=== PATIENT | female | born 1940 | race Caucasian/White ===

== ENCOUNTER 2020-04-03 19:21 | Observation (INO) | payer MEDICARE, SELFPAY ==
--- NOTE | ~2020-04-03 | XR_ITS ---
EXAMINATION: XR chest 2V EXAM DATE: 04/03/2020 20:26 INDICATION: Left-sided chest pain, rib pain. TECHNIQUE: Frontal and lateral projections of the chest obtained and reviewed. Comparison is made to prior examination from 02/07/2011. FINDINGS: The lungs are clear. There are no pleural effusions. The cardiomediastinal silhouette is within normal limits. There is no pneumothorax suspected. The bones and soft tissues are unremarkab le. Mild chronic hyperinflation. Lumbar fusion hardware. IMPRESSION: No acute cardiopulmonary findings. Reviewed, dictated and finalized at location A.
--- NOTE | ~2020-04-03 | CT_ITS ---
EXAMINATION: CTA chest PE protocol DATE: 04/04/2020 00:29 INDICATION: Left chest pain. TECHNIQUE: Computed tomography angiography (CTA) of the chest was performed with 100 mL Omnipaque-350 intravenous contrast timed to evaluate the pulmonary arteries. Coronal maximum intensity projection 3D-reconstructions were created by the technologist. Automated exposure control and iterative reconst ruction technique were employed. The dose-length product was 222.85 mGy-cm. COMPARISON: Chest 2 views 04/03/2020 FINDINGS: The lungs demonstrate mild atelectasis. There is a 4 mm nodule in left lower lobe, likely b enign. There is a 4 mm nodule in right middle lobe, likely benign. No pleural effusion. The heart siz e is normal. No pericardial effusion. There are coronary artery calcifications. There are pulmonary e mboli in laterobasal and posterobasal segments of right lower lobe. Filling defects in right upper lo be pulmonary arteries may be artifact. Calcified right hilar and subcarinal lymph nodes are consisten t with old granulomatous disease. There are gallstones in the gallbladder. There is a small sliding h iatal hernia. There is moderate thoracic spondylosis. IMPRESSION: 1. Pulmonary emboli in right lower lobe. Reviewed, dictated and finalized at location A.
--- NOTE | ~2020-04-03 | US_ITS ---
EXAMINATION: US venous doppler [facility] DATE: 04/04/2020 11:38 INDICATION: Left chest pain, pulmonary embolism TECHNIQUE: Biswas scale images without and with compression and Doppler images of the bilateral lower e xtremity veins were obtained. COMPARISON: None FINDINGS: The right common femoral vein, profunda femoral vein, femoral vein, popliteal vein, peroneal trunk, a nd posterior tibial veins are patent. The left common femoral vein, profunda femoral vein, femoral vein, popliteal vein, peroneal trunk, an d posterior tibial veins are patent. IMPRESSION: 1. Patent bilateral lower extremity veins. No evidence of deep venous thrombosis. Reviewed, dictated and finalized at location A. IMPRESSION: 1. Patent bilateral lower extremity veins. No evidence of deep venous thrombosi s.
--- NOTE | 2020-04-03 19:30 | ECG_ITS ---
Measurements Intervals [place] Rate: 93 P: 10 PA: 128 QRS: -34 QRSD: 85 T: 42 QT: 331 QTc: 414 Interpretive Statements SINUS RHYTHM LEFT AXIS DEVIATION INCOMPLETE RIGHT BUNDLE BRANCH BLOCK DELAYED PRECORDIAL R/S TRANSITION LOW QRS VOLTAGE IN PRECORDIAL LEADS BORDERLINE ECG Electronically Signed On 04-04-2020 7:09:06 CDT by Daniel Davidson D.O.
[2020-04-03 19:31] VITALS: BP 155/77; PULSE 96; RESP 16; TEMP 37.1; O2SAT 99
[2020-04-03 19:49] LABS: Basophils Percent Auto 0.3 % (0.2-1.2); Eosinophils Percent Auto 0.3 % (0-4.4); Hematocrit 43.6 % (37.0-47.0); Hemoglobin 14.2 g/dL (12.0-15.0); Immature Granulocyte Absolute 0.02 K/mm3 (0.00-0.031); Immature Granulocyte Percent A 0.3 % (0-0.5); Lymphocytes Absolute Auto 2.75 K/mm3 (0.9-3.2); Lymphocytes Percent Auto 39.8 % (18.3-44.2); Mean Corpuscular HGB Conc 32.6 g/dl (32-36); Mean Corpuscular Hemoglobin 33.3 pg (26-34); Mean Corpuscular Volume 102.3 fl (80-100); Mean Platelet Volume 9.4 fl (7.4-10.4); Monocytes Absolute Auto 0.6 K/mm3 (0.1-0.6); Monocytes Percent Auto 8.7 % (2.6-8.5); Neutrophils Absolute Auto 3.5 K/mm3 (1.3-6.7); Neutrophils Percent Auto 50.6 % (45.5-73.1); Platelet Count Result 279 k/mm3 (150-375); Red Blood Count 4.26 M/mm3 (4.2-5.4); Red Cell Distribution Width 13.6 % (11.5-14.5); White Blood Count 6.9 K/mm3 (4.5-10.0)
[2020-04-03 20:01] LABS: Blood Urea Nitrogen 11 mg/dL (7-17); Calcium 9.6 mg/dL (8.4-10.2); Carbon Dioxide 27 mmol/L (22-30); Chloride 104 mmol/L (98-107); Estimated Glomerular Filt Rate > 60; Glucose 99 mg/dL (65-105); Potassium 4.2 mmol/L (3.4-5.0); Sodium 138 mmol/L (137-145)
[2020-04-03 20:03] LABS: Prothrombin Time 12.4 Seconds (11.1-14.7)
[2020-04-03 20:04] LABS: Partial Thromboplastin Time 25.6 SECONDS (22.3-36.8)
[2020-04-03 20:13] LABS: Troponin I < 0.012 ng/mL (0.000-0.034)
[2020-04-03 21:38] VITALS: BP 165/82; PULSE 77; RESP 20; O2SAT 99
[2020-04-03] MEDS: ASPIRIN 81 MG CHEWABLE TABLET 324 MG PO (22:27)
[2020-04-03 23:04] LABS: Troponin I < 0.012 ng/mL (0.000-0.034)
[2020-04-03 23:09] VITALS: BP 158/75; PULSE 89; RESP 16; O2SAT 97
--- NOTE | 2020-04-03 23:10 | PC.NURSE ---
assumed care of patient
--- NOTE | 2020-04-03 23:41 | ED.CHESTPAIN ---
HPI - Chest Pain General Chief Complaint: Chest Pain Stated Complaint: rib pain Time Seen by Provider: 04/03/20 22:55 Source: patient Mode of arrival: ambulatory Limitations: no limitations History of Present Illness HPI narrative: THis patient is a 79 yo female who presents with c/o left anterior chest pain. Patient states she has been doing alot of lifting today. She states for 2 hours she was carrying a large amount of cabbage. Once she got home, she developed left anterior chest pressure. She reports her pain waxes and wanes. She is unable to state if pain with worsen with exertion or movement. She denies associated nausea, vomiting, dizziness or shortness of breath. She denies cardiac history, and she had negative stress test years ago. She states she had a doppler of her left leg that showed blood clot last week. She was told to just apply warm compress and she states it has resolved. MD complaint: chest pain Onset (ago): hour(s) Related Data Home Medications Medication Instructions Recorded Confirmed B6 200 mg-levomefolate 8 mg-B12 4 1 tablet PO DAILY 01/25/20 04/04/20 mg-ALA 600 mg-intrinsic fact tablet cranberry dywi-P-ahndqprb coag 450 1 tablet PO DAILY 01/25/20 04/04/20 mg-30 mg-50 million cell tablet cyanocobalamin (B12)-cobamamide 1 bjorn SUBLINGUAL DAILY 01/25/20 04/04/20 5,000 mcg-100 mcg sublingual lozenge estradiol 1 gm VAGINAL 2XW PRN 01/25/20 04/04/20 omega 1-ngw-nvv-fish oil 100 1 cap PO 3XW 01/25/20 04/04/20 mg-160 mg-1,000 mg capsule aspirin [Adult Low Dose Aspirin] 81 mg PO DAILY 04/04/20 04/04/20 vit C-vit P-ocbdmf-tpnv-lutein 1 cap PO DAILY 04/04/20 04/04/20 [PreserVision Lutein] Allergies Allergy/AdvReac Type Severity Reaction Status Date / Time simvastatin Allergy Unknown Muscle pain Verified 01/25/20 09:43 morphine AdvReac Unknown HEADACHE Verified 01/25/20 09:43 Review of Systems Review of Systems: All systems reviewed & are unremarkable except as noted in HPI and below Constitutional: Constitutional: Denies chills, Denies fever(s) and Denies weakness ENT: Denies epistaxis and Denies sore throat Cardiovascular: Cardiovascular: Reports chest pain and Denies radiating jaw, neck or arm pain Respiratory: Respiratory: Denies cough and Denies dyspnea Gastrointestinal: Gastrointestinal: Denies abdominal pain and Denies nausea Genitourinary: Genitourinary: Denies hematuria PMFSH Past Medical History Medical History Chronic low back pain with sciatica Dyslipidemia Environmental allergies Frequent UTI GERD without esophagitis Menopausal vaginal dryness Osteopenia Screening for breast cancer Unspecified osteoarthritis, unspecified site Vitamin B12 deficiency Vitamin D deficiency Surgical History Surgical History History of appendectomy History of hemorrhoidectomy 2011 History of lumbar fusion 2007 History of total abdominal hysterectomy and bilateral salpingo-oophorectomy 1988 Family History Family History Father Cerebrovascular accident Grandparent Carcinoma of colon Social History Social History Smoking status: Never smoker Second hand tobacco smoke exposure: No Alcohol intake: current Drinks per week: 5 Substance use: never Substance use type: does not use Gender identity (if verbalized by the patient): Female Spiritual care concerns: No Exam Narrative: Exam Narrative: GENERAL: Well-appearing, well-nourished, and in no acute distress. HEAD: Normocephalic, atraumatic EYES: PERRLA and EOMI, conjunctiva clear without discharge THROAT:Mucous membranes moist, Oropharynx normal without erythema, exudate, peritonsillar swelling or fluctuance NECK: Supple, without lymphadenopathy or mass RESPIRATORY: No respirat
[2020-04-04] VITALS (11 sets, daily range): BP systolic 118–151; BP diastolic 68–82; PULSE 78–98; RESP 12–20; TEMP 36.4–36.6; O2SAT 95–98; BMI 25.7
--- NOTE | 2020-04-04 | ECHO_ITS ---
Patient Info Name: Berenice Pratt Age: 79 years : 1940 Gender: Female Ht: 67 in Wt: 164 lbs BSA: 1.89 m2 HR: 78 bpm BP: 118 / 70 mmHg Technical Quality: Fair Exam Date: 04/04/2020 2:14 PM Exam Location: [facility] Patient Status: Outpatient Admit Date: 04/04/2020 Staff Ordering Physician: Anitha Montgomery PA-C Windows Technical Specialist: Bette Nicolas RDCS Attending Provider: Anitha Montgomery PA-C Referring Physician: Ulises JACOBSON; Exam Type: CA echo doppler color flow Study Info Indications - PE R07.89 - Other chest pain Complete two-dimensional, color flow and Doppler transthoracic echocardiogram is performed. Summary 1. Left ventricular chamber dimension is normal. 2. Left ventricular systolic function is normal, estimated at 60-65%. 3. The left ventricular diastolic function is grade I diastolic dysfunction. 4. E/e' 9 is minimally elevated. 5. No pulmonary hypertension, estimated pulmonary arterial systolic pressure is 29 mmHg. 6. There is trace pulmonic regurgitation. Left Ventricle E/e' 9 is minimally elevated. Left ventricular chamber dimension is normal. Left ventricular systolic function is normal, estimated at 60-65%. The left ventricular diastolic function is grade I diastolic dysfunction. Right Ventricle Right ventricular chamber dimension is normal. Right ventricular systolic function is normal. Left Atria Left atrial chamber dimension is normal. Right Atria Right atrial chamber dimension is normal. Aortic Valve The aortic valve is trileaflet. There is no aortic valve stenosis. There is no aortic valve regurgitation. Pulmonic Valve There is trace pulmonic regurgitation. Mitral Valve There is no mitral valve stenosis. There is no mitral valve regurgitation. Tricuspid Valve There is no tricuspid valve regurgitation. No pulmonary hypertension, estimated pulmonary arterial systolic pressure is 29 mmHg. Pericardium/Pleural There is no pericardial effusion. Inferior Vena Cava Normal inferior vena cava with >50% collapse upon inspiration consistent with normal right atrial pressure, 5 mmHg. Aorta The aortic root size at the sinus of Valsalva is normal. Left Ventricular Outflow Tract Name Value Normal LVOT 2D LVOT Diameter 2.0 cm LVOT Doppler LVOT Peak Gradient 4 mmHg LVOT Mean Gradient 2 mmHg LVOT VTI 21 cm LVOT VTI/AV VTI Ratio 0.9 LVOT Stroke Volume 66 ml LVOT CO 5.2 l/min LVOT CI 2.8 l/min/m2 Pulmonic Valve Name Value Normal RVOT Doppler RVOT Peak Gradient 1 mmHg PV Doppler
[2020-04-04] MEDS: ENOXAPARIN 80 MG/0.8 ML SYRINGE 70 MG SUB-Q (02:10)
[2020-04-04 02:19] LABS: Troponin I < 0.012 ng/mL (0.000-0.034)
--- NOTE | 2020-04-04 02:53 | ADMGEN ---
This patient, Berenice Pratt, was admitted to 2 Medical Room 257-01. Patient/family oriented to hospital policies and general routines including ID bracelet, bed and alarms, visiting hours, pain management, procedures, bathroom and other care routines, personal items, smoking policy, room service/diet, and visiting hours. Valuables list has been completed. Information on how to activate the Rapid Response Team has been discussed. Patient/Family are encouraged to report perceived risks to care and to ask questions if they do not understand what they are told or what they should do.
--- NOTE | 2020-04-04 04:08 | PM.IMHP ---
H&P: HPI History of Present Illness Chief complaint: left sided chest pain+ Narrative: This is a 79 year old female with known hyperlipidemia who presented to the hospital with a complaint of intermittent left sided chest pain tonight while lifting a large mount of cabbage for two hours. Her chest pain was worse with movement and she denied any associated shortness of breath, nausea, vomiting, diaphoresis or palpitations. The patient reports that last week she had a doppler U/S of her left leg which showed that she had a blood clot . She was told to just apply warm compress and she states it has resolved. The patient was evaluated in the ER tonight and found to have a probable small subsegmental PE in the posterior basal right lower lobe as well as a couple of additional very small filling defects in the left lateral basal right lower lob with additional defects seen in apical and posterior segment. The patient was anticoagulated in the ER with lovenox and we have been asked to admit the patient to the hospital for further care. Review of Systems Review of Systems: All systems reviewed & are unremarkable except as noted in HPI and below PMFSH Past Medical History Medical History Chronic low back pain with sciatica Dyslipidemia Environmental allergies Frequent UTI GERD without esophagitis Menopausal vaginal dryness Osteopenia Screening for breast cancer Unspecified osteoarthritis, unspecified site Vitamin B12 deficiency Vitamin D deficiency Surgical History Surgical History History of appendectomy History of hemorrhoidectomy 2011 History of lumbar fusion 2007 History of total abdominal hysterectomy and bilateral salpingo-oophorectomy 1988 Family History Family History Father Cerebrovascular accident Grandparent Carcinoma of colon Social History Social History Smoking status: Never smoker Second hand tobacco smoke exposure: No Alcohol intake: current Drinks per week: 5 Substance use: never Substance use type: does not use Gender identity (if verbalized by the patient): Female Spiritual care concerns: No Meds Home Medications and Allergies Home Medications Medication Instructions Recorded Confirmed Type evolocumab 140 mg/mL subcutaneous 140 mg SUB-Q .every 2 weeks #6 ml 12/06/19 04/04/20 Rx pen injector B6 200 mg-levomefolate 8 mg-B12 4 1 tablet PO DAILY 01/25/20 04/04/20 History mg-ALA 600 mg-intrinsic fact tablet cranberry mqqt-U-aufigble coag 450 1 tablet PO DAILY 01/25/20 04/04/20 History mg-30 mg-50 million cell tablet cyanocobalamin (B12)-cobamamide 1 bjorn SUBLINGUAL DAILY 01/25/20 04/04/20 History 5,000 mcg-100 mcg sublingual lozenge estradiol 1 gm VAGINAL 2XW PRN 01/25/20 04/04/20 History fluticasone propionate 50 1 spray NASAL DAILY PRN #18.2 ml 01/25/20 04/04/20 Rx mcg/actuation nasal spray,suspension omega 5-kun-ykb-fish oil 100 1 cap PO 3XW 01/25/20 04/04/20 History mg-160 mg-1,000 mg capsule omeprazole 20 mg capsule,delayed 20 mg PO DAILY #90 cap 01/25/20 04/04/20 Rx release aspirin [Adult Low Dose Aspirin] 81 mg PO DAILY 04/04/20 04/04/20 History vit C-vit D-pfpoxr-vobi-lutein 1 cap PO DAILY 04/04/20 04/04/20 History [PreserVision Lutein] Allergies Allergy/AdvReac Type Severity Reaction Status Date / Time caffeine Allergy Unknown Unknown Verified 01/25/20 09:43 simvastatin Allergy Unknown Muscle pain Verified 01/25/20 09:43 morphine AdvReac Unknown HEADACHE Verified 01/25/20 09:43 Vital Signs Vital Signs - 24 hr 04/03/20 19:31 04/03/20 21:38 04/03/20 23:09 Temperature 37.1 C Pulse Rate 96 77 89 Respiratory Rate 16 20 16 Blood Pressure 155/77 H 165/82 H 158/75 H Pulse Oximetry 99 99 97 04/04/20 01:30 0
[2020-04-04 05:05] LABS: Basophils Percent Auto 0.2 % (0.2-1.2); Eosinophils Percent Auto 0.2 % (0-4.4); Hematocrit 36.7 % (37.0-47.0); Hemoglobin 12.1 g/dL (12.0-15.0); Immature Granulocyte Absolute 0.02 K/mm3 (0.00-0.031); Immature Granulocyte Percent A 0.3 % (0-0.5); Lymphocytes Absolute Auto 2.31 K/mm3 (0.9-3.2); Lymphocytes Percent Auto 40.2 % (18.3-44.2); Mean Corpuscular Hemoglobin 32.8 pg (26-34); Mean Corpuscular Volume 99.5 fl (80-100); Mean Platelet Volume 9.1 fl (7.4-10.4); Monocytes Absolute Auto 0.6 K/mm3 (0.1-0.6); Monocytes Percent Auto 10.6 % (2.6-8.5); Neutrophils Absolute Auto 2.8 K/mm3 (1.3-6.7); Neutrophils Percent Auto 48.5 % (45.5-73.1); Platelet Count Result 242 k/mm3 (150-375); Red Blood Count 3.69 M/mm3 (4.2-5.4); Red Cell Distribution Width 13.5 % (11.5-14.5); White Blood Count 5.7 K/mm3 (4.5-10.0)
[2020-04-04 05:22] LABS: Blood Urea Nitrogen 9 mg/dL (7-17); Calcium 8.8 mg/dL (8.4-10.2); Carbon Dioxide 28 mmol/L (22-30); Chloride 106 mmol/L (98-107); Estimated CRCL calculation 56 ml/min; Estimated Glomerular Filt Rate > 60; Glucose 91 mg/dL (65-105); Potassium 3.8 mmol/L (3.4-5.0); Sodium 138 mmol/L (137-145)
[2020-04-04 05:28] LABS: Troponin I < 0.012 ng/mL (0.000-0.034)
[2020-04-04] MEDS: CYANOCOBALAMIN 1,000 MCG TABLET 5000 MCG PO (08:15)
[2020-04-04] MEDS: ASPIRIN 81 MG ENTERIC TABLET PO (08:15)
[2020-04-04] MEDS: PANTOPRAZOLE SOD SESQUIHYDRATE 20 MG TAB PO (08:15)
[2020-04-04] MEDS: OPTI-GEN TAB 1 TABLET PO (08:15)
--- NOTE | 2020-04-04 11:00 | PHAR ---
Home medication seen in pharmacy and returned to nurse at window for 2medical unit. Repatha Sureclick 140mg/ml injection
[2020-04-04] MEDS: PHARMACIST COMMUNICATION ORDER 1 EACH XX (11:21)
[2020-04-04] MEDS: ACETAMINOPHEN 325 MG TABLET 650 MG PO (13:50)
--- NOTE | 2020-04-04 16:38 | PM.IMPN ---
Progress Note: A&P Assessment and Plan (1) Pulmonary emboli: Qualifiers: Acute cor pulmonale presence: without acute cor pulmonale Chronicity: unspecified Pulmonary embolism type: unspecified Qualified Code(s): I26.99 - Other pulmonary embolism without acute cor pulmonale Code(s): I26.99 - Other pulmonary embolism without acute cor pulmonale Status: Acute Assessment and Plan: ------new PE. Patient was given Lovenox this morning and is going to be transition to Eliquis tonight. She is having a new frontal headache but has no neurological deficits and is likely due to lack of sleep. I will put in neuro checks and I have talked to the nurse and want them to call us stat if anything changes. Observe overnight, discharge in the morning. She will be going home on Eliquis. Echo looks okay. (2) Chest pain: Qualifiers: Chest pain type: unspecified Qualified Code(s): R07.9 - Chest pain, unspecified Code(s): R07.9 - Chest pain, unspecified Status: Acute Assessment and Plan: -----resolved, likely due to PE. Echo shows no evidence of right heart strain. Troponins negative x4 (3) Dyslipidemia: Code(s): E78.5 - Hyperlipidemia, unspecified Status: Chronic Assessment and Plan: ------Continue omega 3 fish oil and Repatha (4) GERD without esophagitis: Code(s): K21.9 - Gastro-esophageal reflux disease without esophagitis Status: Chronic Assessment and Plan: ----Continue PPI therapy. Time Spent With Patient Time with patient: 25 - 35 minutes Subjective Date/time seen: 04/04/20 16:38 Interval history: Pt is a 79-year-old female here for PE. Patient seen today and denies chest pain, shortness of breath, fevers, chills, dyspnea on exertion, nausea, vomiting, diarrhea or constipation. We had a long talk about treatment plan. She said she can afford the $25 co-pay for Eliquis. She did not get any sleep overnight and has a headache Review of Systems Review of Systems: All systems reviewed & are unremarkable except as noted in HPI and below Exam Narrative: Exam Narrative: General: Well developed well nourished patient resting in bed in NAD HEENT: normocephalic Neck: supple Neuro: Alert and oriented x4. Cranial nerves 2-12 intact. Equal strength the upper lower extremity 5/5. Able to do alternating movements and [id number]. CV:RRR, no abnormal telemetry reviews Resp:CTA Abd: Soft, non distended. No pain to palpation. Positive bowel sounds Extremities: No swelling, erythema, or pain to palpation. Objective Data Vital Signs Vital Signs: Vital Signs - 24 hr 04/03/20 19:31 04/03/20 21:38 04/03/20 23:09 Temperature 98.7 F Pulse Rate 96 77 89 Respiratory Rate 16 20 16 Blood Pressure 155/77 H 165/82 H 158/75 H Pulse Oximetry 99 99 97 04/04/20 01:30 04/04/20 02:15 04/04/20 02:30 Temperature 97.6 F Pulse Rate 81 87 81 Respiratory Rate 16 12 16 Blood Pressure 151/78 H 144/74 H 150/82 H Pulse Oximetry 98 98 98 04/04/20 04:00 04/04/20 06:00 04/04/20 08:00 Temperature 97.8 F Pulse Rate 83 84 98 Respiratory Rate 12 Blood Pressure 118/70 Pulse Oximetry 98 04/04/20 12:00 04/04/20 14:00 Temperature 97.9 F Pulse Rate 84 88 Respiratory Rate 18 Blood Pressure 132/72 Pulse Oximetry 95 Intake/Output Intake/Output: Intake & Output 04/01/20 04/02/20 04/03/20 04/04/20 23:59 23:59 23:59 23:59 Intake Total 840 Output Total 0 Balance 840 Meds/Results Medications: Active Medications Generic Name Dose Route Start Last Admin Trade Name Freq PRN Reason Stop Dose Admin Acetaminophen 650 mg 04/04/20 04:03 04/04/20 13:50 Tylenol Tablet PO 650 mg Q4H PRN Administration Mild Pain (1-3) or Fever Apixaban 10 mg 04/04/20 21:00 Eliquis PO Q12HR [facility] Aspirin 81 mg 04/04/20 09:00 04/04/20 08:15 Aspirin Ec PO 81 mg DAILY [facility]
[2020-04-04] MEDS: APIXABAN 5 MG TABLET 10 MG PO (20:03)
[2020-04-05] VITALS: PULSE 75
[2020-04-05 04:00] VITALS: PULSE 71
[2020-04-05 05:23] LABS: Hematocrit 36.2 % (37.0-47.0); Hemoglobin 11.9 g/dL (12.0-15.0)
[2020-04-05 06:00] VITALS: BP 116/67; PULSE 92; RESP 20; TEMP 36.1; O2SAT 95
[2020-04-05 08:00] VITALS: PULSE 92
[2020-04-05] MEDS: ASPIRIN 81 MG ENTERIC TABLET PO (09:19)
[2020-04-05] MEDS: APIXABAN 5 MG TABLET 10 MG PO (09:19)
[2020-04-05] MEDS: CYANOCOBALAMIN 1,000 MCG TABLET 5000 MCG PO (09:20)
[2020-04-05] MEDS: OPTI-GEN TAB 1 TABLET PO (09:20)
[2020-04-05] MEDS: OMEGA 3 POLYUNSAT FATTY ACIDS 1 GM CAP PO (09:20)
[2020-04-05] MEDS: PANTOPRAZOLE SOD SESQUIHYDRATE 20 MG TAB PO (09:20)
--- NOTE | 2020-04-05 15:44 | PM.DS ---
DS: Diagnosis Admitting Diagnosis Admitting Diagnosis: Other pulmonary embolism without acute cor pulmonale Discharge Diagnosis (1) Pulmonary emboli: Qualifiers: Acute cor pulmonale presence: without acute cor pulmonale Chronicity: unspecified Pulmonary embolism type: unspecified Qualified Code(s): I26.99 - Other pulmonary embolism without acute cor pulmonale Code(s): I26.99 - Other pulmonary embolism without acute cor pulmonale Status: Acute (2) Chest pain: Qualifiers: Chest pain type: unspecified Qualified Code(s): R07.9 - Chest pain, unspecified Code(s): R07.9 - Chest pain, unspecified Status: Acute (3) Dyslipidemia: Code(s): E78.5 - Hyperlipidemia, unspecified Status: Chronic (4) GERD without esophagitis: Code(s): K21.9 - Gastro-esophageal reflux disease without esophagitis Status: Chronic DS: Summary Hospital Course Reason for hospitalization: Chest pain Hospital Course: Patient is a 79-year-old female who presented emergency room chest pain worse with exertion with some shortness of breath. Vitals in the ER were stable. Sodium 5.7, hemoglobin 12.1, hematocrit 36.7, platelets 242. BMP within normal limits. Chest x-ray was normal. CT showed segmental PE in the posterior basal right lower lobe as well as additional very small defects in the lateral right lower lobe. Patient was admitted to the hospitalist service and started on anticoagulation. She was transition to [facility] during her hospital stay. Echo was performed and did not show Any right-sided heart strain. The patient had no pain the day of discharge and felt back to her base line. She was educated about her new anticoagulation medications and the typical side effects of these medications and what to come back to emergency room for. She was discharged in stable condition. Status at Discharge Functional status at discharge: independent ambulation Overall status at discharge: patient is back to baseline Time Spent with Patient Time attestation: Total time spent providing and/or coordinating discharge services:34 min Time spent: Greater than 30 minutes Exam Narrative: Exam Narrative: General: Well developed well nourished patient resting in bed in NAD HEENT: normocephalic Neck: supple Neuro: Alert and oriented x4. Cranial nerves 2-12 intact. Equal strength the upper lower extremity 5/5. Able to do alternating movements and [id number]. CV:RRR, no abnormal telemetry reviews Resp:CTA Abd: Soft, non distended. No pain to palpation. Positive bowel sounds Extremities: No swelling, erythema, or pain to palpation. DS: Data Data Completed and Pending Labs on day of discharge: Labs from last 24 hours 04/05/20 04:40 Hgb 11.9 L Hct 36.2 L Discharge Plan Discharge Attending physician on discharge: Tim Bautista Discharging Clinician: Anitha Montgomery Patient Disposition: Home, Self-Care Activity: unlimited and as tolerated Diet: regular Discharge Instructions: -please note your medications have changed -You are now on a blood thinner . This will make you bleed easier. If you have a wound or scrape yourself, you will need to hold pressure for a longer period of time. If you fall or hit your head, you will need to seek medical attention right away. Call your doctor if you start having black stool -follow-up with primary care physician in 1-2 weeks about this stay -your 1st qu prescription has been sent to the pharmacy in [facility]. The dosing is different for the 1st 6 days. Take 10 mg twice a day for the 1st 6 days. Thereafter, you will take 5 mg twice a day. Make sure you use the 'free ' card we gave you for this and give it to the pharmacist. Once your first script is done, you can take the paper script to the pharmacy and that should be around $25. -worrisome signs and symptoms to come back to the emergency room for:
--- NOTE | 2020-04-11 18:45 | PC.NURSE ---
Patient called with concerns about increasing shortness of breath. Patient was directed to come back to the ER or call her primary physician, patient then decided to call her physician in the AM. Patient was then instructed to rest for the night and if symptoms continue to worsen or new symptoms appear to call an ambulance and come back to the ER.
== END 2020-04-05 11:39 | disposition home or self-care (01) ==
LOC: ANHED 04-04 02:02 → ANH2MED 04-04 02:24
PROVIDERS: Emergency Medicine; Admitting Provider Family Medicine; Emergency Provider General Practice; PCP Family Medicine; Visit Provider Physician Assistant
DX: I26.99 Other pulmonary embolism without acute cor pulmonale (principal); E78.5 Hyperlipidemia, unspecified; K21.9 Gastro-esophageal reflux disease without esophagitis; Z79.82 Long term (current) use of aspirin; Z79.899 Other long term (current) drug therapy
CPT/HCPCS: 36415; 71046; 71275; 80048; 84484; 85014; 85018; 85025; 85610; 85730; 93005; 93306; 93970; 96372; 99291; A9270; G0378; J1650; Q9967

== ENCOUNTER 2020-04-28 17:25 | Observation (INO) | payer MEDICARE, SELFPAY ==
[2020-04-28] VITALS (9 sets, daily range): BP systolic 113–150; BP diastolic 65–90; PULSE 74–102; RESP 16–23; TEMP 36–36.9; O2SAT 97–100; BMI 20.9
--- NOTE | ~2020-04-28 | XR_ITS ---
UGI-AIR CONTRAST/SMALL BOWEL INDICATION: Epigastric pain and bloating TECHNIQUE: Serial images of the upper GI tract structures and small bowel are performed following ora l administration of barium using double contrast technique. 1.2 minutes of fluoroscopy. 57 fluoroscop ic images. COMPARISON: None FINDINGS: Barium flowed readily through the esophagus. There is a small sliding hiatal hernia with ga stroesophageal reflux. There is a small Zenker's diverticulum. Gastric contour, mucosa and motility a re normal. The duodenal bulb fills and empties regularly and has a normal mucosal pattern. The duod enal sweep is in normal position. The mucosal pattern of the small bowel is unremarkable with normal transit time to the colon. There are surgical changes of the lumbar spine. IMPRESSION: 1: Small sliding hiatal hernia with gastroesophageal reflux. 2: Small Zenker's diverticulum.. Reviewed, dictated and finalized at location A.
--- NOTE | ~2020-04-28 | US_ITS ---
US right upper quadrant DATE: 04/29/2020 08:13 INDICATION: Midsternal, epigastric pain TECHNIQUE: Real-time imaging of liver, pancreas, gallbladder areas COMPARISON: None FINDINGS: No hepatic or pancreatic space-occupying mass lesion is evident. Normal hepatopedal portal venous flow direction. The common bile duct measures 4.1 mm diameter, within normal range. There are one or more filling defects consistent with gallstone(s) at the neck of the gallbladder. No gallbladder wall thickening or pericholecystic fluid collection is detected. IMPRESSION: Cholelithiasis Reviewed, dictated and finalized at Location A. Reviewed, dictated and finalized at location A. IMPRESSION: Cholelithiasis
--- NOTE | ~2020-04-28 | CT_ITS ---
EXAMINATION: CT abdomen pelvis wo con DATE: 04/29/2020 12:30 INDICATION: Left upper quadrant abdominal pain and persistent abdominal bloating TECHNIQUE: Computed tomography (CT) of the abdomen and pelvis was performed without intravenous contr ast. Automated exposure control and iterative reconstruction technique were employed. Exam dose: 472 .89 mGy-cm total exam DLP. COMPARISON: 04/29/2020 right upper quadrant abdominal ultrasound examination FINDINGS: There is mild right greater than left discoid atelectasis or scarring in the lower lobes. N o pulmonary infiltrate or consolidation is evident. Normal heart size. No pericardial or pleural effusion. Small hiatal hernia. There are multiple stones in the dependent aspect of the gallbladder. No gallbladder distention or ab normal pericholecystic fluid or stranding is evident. No bile duct or pancreatic duct dilatation. No hepatic, splenic, pancreatic, and adrenal or renal space-occupying mass lesion is evident. No urin jose d tract calculus or hydroureteronephrosis. There is atherosclerotic calcification of the abdominal aorta and branches. No abdominal aortic aneur ysm. No intraperitoneal or retroperitoneal or pelvic mass lesion or adenopathy or ascites. The urinary bladder is unremarkable. Status post hysterectomy. Minimal diverticulosis of the hepatic flexure. No CT evidence of diverticulitis. No bowel obstruction , bowel wall thickening, pneumatosis or intraperitoneal free air. Small fat-containing umbilical hernia. Status post posterior spinal fusion at L3-S1 by means of pedicle screws and rods. Degenerative changes of the lower thoracic and lumbar spine. Osteopenia. No suspicious osteolytic or osteoblastic lesions are noted. IMPRESSION: Small hiatal hernia Cholelithiasis Minimal diverticulosis of the colon Reviewed, dictated and finalized at Location A. Reviewed, dictated and finalized at location A.
--- NOTE | ~2020-04-28 | XR_ITS ---
EXAMINATION: XR chest 2V DATE: 04/28/2020 18:39 INDICATION: Left-sided chest pain and shortness of breath. TECHNIQUE: frontal and lateral views of the chest were obtained. COMPARISON: Chest radiograph dated 04/03/[address] dated 04/04/2020. FINDINGS: The lungs remain clear with no focal airspace opacities, pulmonary edema, pleural effusion or pneumot horax. The cardiomediastinal silhouette is normal. Partially visualized vertical vega and pedicle scre w fixation for lumbar spinal fusion. IMPRESSION: 1. No acute cardiopulmonary disease. Reviewed, dictated and finalized at location A.
--- NOTE | 2020-04-28 17:36 | ECG_ITS ---
Measurements Intervals [place] Rate: 86 P: 22 TX: 120 QRS: -30 QRSD: 89 T: 45 QT: 350 QTc: 420 Interpretive Statements SINUS RHYTHM NORMAL ECG Electronically Signed On 04-29-2020 7:06:27 CDT by Daniel Davidson D.O.
[2020-04-28 18:02] LABS: Basophils Percent Auto 0.1 % (0.2-1.2); Eosinophils Percent Auto 0.4 % (0-4.4); Hematocrit 38.9 % (37.0-47.0); Hemoglobin 12.9 g/dL (12.0-15.0); Immature Granulocyte Absolute 0.02 K/mm3 (0.00-0.031); Immature Granulocyte Percent A 0.3 % (0-0.5); Lymphocytes Absolute Auto 2.67 K/mm3 (0.9-3.2); Lymphocytes Percent Auto 37.7 % (18.3-44.2); Mean Corpuscular HGB Conc 33.2 g/dl (32-36); Mean Corpuscular Hemoglobin 33.8 pg (26-34); Mean Corpuscular Volume 101.8 fl (80-100); Mean Platelet Volume 10.1 fl (7.4-10.4); Monocytes Absolute Auto 0.7 K/mm3 (0.1-0.6); Monocytes Percent Auto 9.7 % (2.6-8.5); Neutrophils Absolute Auto 3.7 K/mm3 (1.3-6.7); Neutrophils Percent Auto 51.8 % (45.5-73.1); Platelet Count Result 291 k/mm3 (150-375); Red Blood Count 3.82 M/mm3 (4.2-5.4); Red Cell Distribution Width 13.5 % (11.5-14.5); White Blood Count 7.1 K/mm3 (4.5-10.0)
[2020-04-28 18:10] LABS: Prothrombin Time 13.2 Seconds (11.1-14.7)
[2020-04-28 18:11] LABS: Partial Thromboplastin Time 30.3 SECONDS (22.3-36.8)
[2020-04-28 18:56] LABS: Blood Urea Nitrogen 5 mg/dL (7-17); Calcium 9.2 mg/dL (8.4-10.2); Carbon Dioxide 28 mmol/L (22-30); Chloride 105 mmol/L (98-107); Estimated CRCL calculation 50 ml/min; Estimated Glomerular Filt Rate > 60; Glucose 96 mg/dL (65-105); Potassium 4.3 mmol/L (3.4-5.0); Sodium 138 mmol/L (137-145)
[2020-04-28 19:08] LABS: Troponin I < 0.012 ng/mL (0.000-0.034)
--- NOTE | 2020-04-28 19:11 | ED.CHESTPAIN ---
HPI - Chest Pain General Chief Complaint: Chest Pain Stated Complaint: CP Time Seen by Provider: 04/28/20 17:58 Source: patient Mode of arrival: ambulatory Limitations: no limitations History of Present Illness HPI narrative: 79-year-old with a history of PE on Eliquis here with complaints of left-sided chest pain started this afternoon. Patient states that she was pulling weeds this morning. Patient states that every time she take Eliquis she gets headache. Pain is more like pressure on the left side nonradiating. Denies any shortness of breath. No history of nausea vomiting. Patient states that she had a stress test several years ago which was normal. MD complaint: chest pain Onset (ago): hour(s) (4) Timing of current episode: constant Onset: during exertion Pain location: left chest Pain radiation: none Severity: moderate Quality: tightness and aching Relieving factors: rest Exacerbating factors: exertion Treatment prior to arrival: other (Tylenol) Risk Factors Coronary artery disease risk factors: hypertension Thoracic aortic dissection risk factors: none Related Data Home Medications Medication Instructions Recorded Confirmed B6 200 mg-levomefolate 8 mg-B12 4 1 tablet PO DAILY 01/25/20 04/04/20 mg-ALA 600 mg-intrinsic fact tablet cranberry kkfn-Y-sgbfdsun coag 450 1 tablet PO DAILY 01/25/20 04/04/20 mg-30 mg-50 million cell tablet cyanocobalamin (B12)-cobamamide 1 bjorn SUBLINGUAL DAILY 01/25/20 04/04/20 5,000 mcg-100 mcg sublingual lozenge estradiol 1 gm VAGINAL 2XW PRN 01/25/20 04/04/20 omega 2-ztm-fya-fish oil 100 1 cap PO 3XW 01/25/20 04/04/20 mg-160 mg-1,000 mg capsule PreserVision Lutein 1 cap PO DAILY 04/04/20 04/04/20 aspirin [Adult Low Dose Aspirin] 81 mg PO DAILY 04/04/20 04/04/20 Allergies Allergy/AdvReac Type Severity Reaction Status Date / Time simvastatin Allergy Unknown Muscle pain Verified 01/25/20 09:43 morphine AdvReac Unknown HEADACHE Verified 01/25/20 09:43 Review of Systems Review of Systems: All systems reviewed & are unremarkable except as noted in HPI and below Constitutional: Constitutional: Reports no additional constitutional complaints Eyes: Eyes: Reports no additional eye complaints ENT: Reports system reviewed and no additional complaints, except as documented Cardiovascular: Cardiovascular: Reports as per HPI and Reports no additional cardiovascular complaints Respiratory: Respiratory: Reports no additional respiratory complaints Gastrointestinal: Gastrointestinal: Reports no additional gastrointestinal complaints Musculoskeletal: Musculoskeletal: Reports no additional musculoskeletal complaints Neurologic: Reports system reviewed and no additional complaints, except as documented PMFSH Past Medical History Medical History Chronic low back pain with sciatica Dyslipidemia Environmental allergies Frequent UTI GERD without esophagitis Menopausal vaginal dryness Osteopenia Screening for breast cancer Unspecified osteoarthritis, unspecified site Vitamin B12 deficiency Vitamin D deficiency Surgical History Surgical History History of appendectomy History of hemorrhoidectomy 2011 History of lumbar fusion 2008 History of total abdominal hysterectomy and bilateral salpingo-oophorectomy 1988 Family History Family History Father Cerebrovascular accident Grandparent Carcinoma of colon Social History Social History Smoking status: Never smoker Second hand tobacco smoke exposure: No Alcohol intake: current Drinks per week: 5 Substance use: never Substance use type: does not use Gender identity (if verbalized by the patient): Female Spiritual care concerns: No Exam Narrative: Exam Narrative: GENERAL: Well-appearing,
[2020-04-28] MEDS: ASPIRIN 81 MG CHEWABLE TABLET 324 MG PO (19:52)
--- NOTE | 2020-04-28 22:08 | PC.NURSE ---
This patient, Berenice Pratt, was admitted to IMU Room 203-01. Patient/family oriented to hospital policies and general routines including ID bracelet, bed and alarms, visiting hours, pain management, procedures, bathroom and other care routines, personal items, smoking policy, room service/diet, and visiting hours. Valuables list has been completed. Information on how to activate the Rapid Response Team has been discussed. Patient/Family are encouraged to report perceived risks to care and to ask questions if they do not understand what they are told or what they should do.
--- NOTE | 2020-04-28 22:13 | ECG_ITS ---
Measurements Intervals [place] Rate: 72 P: 21 NE: 139 QRS: -29 QRSD: 90 T: 44 QT: 371 QTc: 406 Interpretive Statements SINUS RHYTHM BASELINE ARTIFACT- I, II, III, AVR, AVL, AVF NORMAL ECG Electronically Signed On 04-29-2020 7:10:31 CDT by Daniel Davidson D.O.
[2020-04-28 22:16] LABS: Troponin I < 0.012 ng/mL (0.000-0.034)
--- NOTE | 2020-04-28 22:27 | PM.IMHP ---
H&P: HPI History of Present Illness Chief complaint: chest pain Narrative: Berenice Pratt is a 79 year old female the patient had been admitted here on 04/04/2020 was chest pain. The patient was found have a PE and started on Eliquis. She probable small subsegmental PE in the posterior basal right lower lobe. She was noted to have gallstones in the gallbladder at that time. Also small hiatal hernia. The patient has a history of having GERD but no previous heart history. She does not have high blood pressure. Was negative. Chest x-ray was negative.Is read as sinus rhythm. While I was talking to her she complained of severe chest pain and I received another EKG and it was the same. Patient stated that earlier today she had pain up the left side of her neck and down her arm. The patient stated that she was pulling weeds earlier today. She has no fever no chills no cough. Her pain is reproducible above the left breast. She has pain with palpation. No nausea no vomiting no diarrhea. No diaphoresis. Patient was given aspirin in the emergency room. Review of Systems Review of Systems: All systems reviewed & are unremarkable except as noted in HPI and below Constitutional: Constitutional: Reports as per HPI and Reports no additional constitutional complaints Eyes: Eyes: Reports as per HPI and Reports no additional eye complaints ENT: Reports system reviewed and no additional complaints, except as documented and Reports Normal hearing present Cardiovascular: Cardiovascular: Reports no additional cardiovascular complaints Respiratory: Respiratory: Reports no additional respiratory complaints and Reports no additional respiratory complaints Gastrointestinal: Gastrointestinal: Reports as per HPI and Reports no additional gastrointestinal complaints Musculoskeletal: Musculoskeletal: Reports no additional musculoskeletal complaints Integumentary/Breasts: Skin/Breast: Reports system reviewed and no additional complaints, except as docu and Reports as per HPI Neurologic: Reports system reviewed and no additional complaints, except as documented, Reports as per HPI and Reports Normal hearing present Psychiatric: Psychiatric: Reports no additional psychiatric complaints and Reports as per HPI Endocrine: Endocrine: Reports no additional endocrine complaints Hematologic/Lymphatic: Hematologic/Lymphatic: Reports no additional hematologic/lymphatic complaints Allergic/Immunologic: Allergic/Immunologic: Reports no additional allergic/immunologic complaints [facility] Past Medical History Medical History Chronic low back pain with sciatica Dyslipidemia Environmental allergies Frequent UTI GERD without esophagitis Menopausal vaginal dryness Osteopenia Screening for breast cancer Unspecified osteoarthritis, unspecified site Vitamin B12 deficiency Vitamin D deficiency Surgical History Surgical History History of appendectomy History of hemorrhoidectomy 2011 History of lumbar fusion 2007 History of total abdominal hysterectomy and bilateral salpingo-oophorectomy 1988 Family History Family History Father Cerebrovascular accident Grandparent Carcinoma of colon Social History Social History (Updated 04/28/20 @ 22:35 by Sheila Gan NP) Social History: The patient lives with her who is a durable power mergers and acquisitions attorney for healthcare. She desires to be a full code. She has 2 children. 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 She occasionally drinks alcohol. Never smoked and does not use illicit drugs. Smoking status: Never smoker Second hand tobacco smoke exposure: No Alcohol intake: current Drinks per week: 4 Substance use: never Substance use type: does not use Gender identity (if verbalized by the patient): Female Spiritual care con
[2020-04-28] MEDS: PANTOPRAZOLE SODIUM IV 40 MG VIAL IV PUSH (22:50)
[2020-04-28] MEDS: APIXABAN 5 MG TABLET PO (23:04)
[2020-04-28] MEDS: BELLADONNA ALK/PHENOB ELIX 10 ML, MAG HYDROX/ALUMINUM HYD/SIMETH 30 ML, LIDOCAINE HCL 2... PO (23:05)
[2020-04-29] VITALS (12 sets, daily range): BP systolic 105–130; BP diastolic 48–74; PULSE 71–91; RESP 16–20; TEMP 36.1–36.7; O2SAT 96–99
[2020-04-29] MEDS: ACETAMINOPHEN 325 MG TABLET 650 MG PO ×3 (00:08→20:58)
[2020-04-29 01:27] LABS: Troponin I < 0.012 ng/mL (0.000-0.034)
[2020-04-29 04:50] LABS: Basophils Percent Auto 0.2 % (0.2-1.2); Eosinophils Absolute Auto 0.1 K/mm3 (0-0.3); Eosinophils Percent Auto 0.9 % (0-4.4); Hematocrit 35.7 % (37.0-47.0); Hemoglobin 11.7 g/dL (12.0-15.0); Immature Granulocyte Absolute 0.02 K/mm3 (0.00-0.031); Immature Granulocyte Percent A 0.3 % (0-0.5); Lymphocytes Absolute Auto 2.31 K/mm3 (0.9-3.2); Lymphocytes Percent Auto 39.8 % (18.3-44.2); Mean Corpuscular HGB Conc 32.8 g/dl (32-36); Mean Corpuscular Hemoglobin 33.5 pg (26-34); Mean Corpuscular Volume 102.3 fl (80-100); Mean Platelet Volume 10.1 fl (7.4-10.4); Monocytes Absolute Auto 0.6 K/mm3 (0.1-0.6); Monocytes Percent Auto 10.9 % (2.6-8.5); Neutrophils Absolute Auto 2.8 K/mm3 (1.3-6.7); Neutrophils Percent Auto 47.9 % (45.5-73.1); Platelet Count Result 257 k/mm3 (150-375); Red Blood Count 3.49 M/mm3 (4.2-5.4); Red Cell Distribution Width 13.5 % (11.5-14.5); White Blood Count 5.8 K/mm3 (4.5-10.0)
[2020-04-29 04:51] LABS: Alanine Aminotransferase 13 U/L (4-35); Albumin Level 3.4 g/dL (3.5-5.1); Alkaline Phosphatase 60 U/L (38-126); Aspartate Amino Transferase 25 U/L (14-36); Bilirubin,Total 0.3 mg/dL (0.2-1.3); Blood Urea Nitrogen 7 mg/dL (7-17); CRP < 0.5 mg/dL (<1.0); Calcium 8.6 mg/dL (8.4-10.2); Carbon Dioxide 28 mmol/L (22-30); Chloride 107 mmol/L (98-107); Estimated CRCL calculation 49 ml/min; Estimated Glomerular Filt Rate > 60; Glucose 88 mg/dL (65-105); Lipase 68 U/L (23-300); Sodium 138 mmol/L (137-145)
[2020-04-29 07:30] LABS: Free T4 Free Thyroxine Reflex 1.08 ng/dL (0.78-2.19)
[2020-04-29 08:33] LABS: Total Triiodothyronine (T3) 1.14 NG/ML (0.97-1.69)
[2020-04-29] MEDS: LIDOCAINE 5% PATCH 1 PATCH TRANSDERM (08:59)
[2020-04-29] MEDS: CYANOCOBALAMIN 1,000 MCG TABLET 1000 MCG PO (09:02)
[2020-04-29] MEDS: FLUTICASONE PROPIONATE 0.05% NA SPR 16 GM BTL (*BKC) 1 SPRAY NASAL (09:03)
[2020-04-29] MEDS: APIXABAN 5 MG TABLET PO ×2 (09:03→18:48)
[2020-04-29] MEDS: PANTOPRAZOLE 40 MG TABLET PO ×3 (09:03→20:58)
[2020-04-29] MEDS: OPTI-GEN TAB 1 TABLET PO (09:03)
--- NOTE | 2020-04-29 14:30 | PM.IMPN ---
Progress Note: A&P Assessment and Plan (1) Chest pain: Qualifiers: Chest pain type: unspecified Qualified Code(s): R07.9 - Chest pain, unspecified Code(s): R07.9 - Chest pain, unspecified Status: Acute Assessment and Plan: The patient was complaining of having left chest pain. Troponins are negative x2. EKG was within normal limits. The pain is reproducible over the left breast. Lidoderm patch and Tylenol have been ordered as well as a GI cocktail. She relates a lot of gas and bloating and did get some relief with a GI cocktail. Patient's last CT scan did show gallstones and ultrasound does revealed gallstones without any gallbladder wall thickening are Cholecystic fluid. The patient denies any fever chills or cough. Could possibly just be a muscle strain. CT of the abdomen revealed hiatal hernia otherwise unremarkable Truly believe her pain is GI related possible hiatal hernia or reflux or peptic disease. Explained that we may never be able to totally elucidate problem and since she is anticoagulated GI may not want to proceed with endoscopy. We will treat her empirically with proton pump inhibitor. I truly believe her original pain and the pain she is experiencing now all had nothing to correlate with the findings on CTA of PE.. (2) Pulmonary emboli: Qualifiers: Acute cor pulmonale presence: without acute cor pulmonale Chronicity: unspecified Pulmonary embolism type: unspecified Qualified Code(s): I26.99 - Other pulmonary embolism without acute cor pulmonale Code(s): I26.99 - Other pulmonary embolism without acute cor pulmonale Status: Acute Assessment and Plan: Continue with patient's Eliquis.. (3) Dyslipidemia: Code(s): E78.5 - Hyperlipidemia, unspecified Status: Chronic Assessment and Plan: Continue with evolocumab at home. Continue with [place] 3 (4) GERD without esophagitis: Code(s): K21.9 - Gastro-esophageal reflux disease without esophagitis Status: Chronic Assessment and Plan: Patient was given a GI cocktail. Continue b.i.d. PPI. Hiatal hernia was seen on CT scan but patient denies any significant reflux symptoms (5) Menopausal vaginal dryness: Code(s): N95.1 - Menopausal and female climacteric states Status: Acute Assessment and Plan: Continue with her estrogen. Subjective Date/time seen: 04/29/20 14:30 Interval history: 79-year-old hypertensive white female admitted with left-sided chest pain. Recently hospitalized approximately 1 month ago for chest pain which was very similar coronary inpatient and found to have a right-sided pulmonary emboli treated and released. She has had the pain intermittently and especially prior to admission the night she had eaten cake that she does not usually eat and walk with the left-sided chest discomfort that was relieved somewhat with belching. She came to the emergency room was subsequently admitted for evaluation. No nausea or diaphoresis. No history of significant reflux or dysphagia and no history of peptic disease. With her CT scan for her PE they did notice a few gallstones incidentally. Exam Narrative: Exam Narrative: Regular sat 97% on room air Pupils equal reactive to light sclera anicteric Lungs clear Neck supple no adenopathy thyromegaly carotid bruits CV regular rate rhythm no murmurs or gallops There is pain on palpation of chest wall the left of midline over the breast at about T3-4 Abdomen is soft nontender no masses Extremities without edema good distal pulses Neuro alert pleasant cooperative no focal deficits Objective Data Vital Signs Vital Signs: Vital Signs - 24 hr 04/28/20 17:36 04/28/20 17:54 04/28/20 17:57 Temperature 36.8 C Pulse Rate 88 77 Respiratory Rate 17 Blood Pressure 131/90 Pulse Oximetry 100 100 04/28/20 19:55 04/28/20 21:00 04/28/20 21:14 Temperature 36.9 C 36.6 C Pulse Rate 81 94 102 H Respirato
[2020-04-29] MEDS: BELLADONNA ALK/PHENOB ELIX 10 ML, MAG HYDROX/ALUMINUM HYD/SIMETH 30 ML, LIDOCAINE HCL 2... PO (15:58)
--- NOTE | 2020-04-29 18:45 | PC.NURSE ---
This patient, Berenice Pratt, was received from [IMU] on 04/29/20 at 1845. Personal belongings list checked and signed. Patient/family oriented to unit policies and routines
--- NOTE | 2020-04-29 18:51 | PC.NURSE ---
This patient, Berenice Pratt, was transferred to [facility] on 04/29/20 [place] [id number]. Personal belongings sent with patient. Report given to Jessica WHITFIELD. Appropriate documentation sent with patient.
[2020-04-30 06:00] VITALS: BP 130/66; PULSE 73; RESP 20; TEMP 36.8; O2SAT 96
[2020-04-30 07:22] LABS: Vitamin B12 > 1000.0 pg/mL (239-931)
[2020-04-30] MEDS: ACETAMINOPHEN 325 MG TABLET 650 MG PO ×2 (09:17→14:22)
[2020-04-30] MEDS: OPTI-GEN TAB 1 TABLET PO (09:18)
[2020-04-30] MEDS: FLUTICASONE PROPIONATE 0.05% NA SPR 16 GM BTL (*BKC) 1 SPRAY NASAL (09:18)
[2020-04-30] MEDS: CYANOCOBALAMIN 1,000 MCG TABLET 1000 MCG PO (09:18)
[2020-04-30] MEDS: APIXABAN 5 MG TABLET PO ×2 (09:18→17:39)
[2020-04-30] MEDS: PANTOPRAZOLE 40 MG TABLET PO ×2 (09:19→21:11)
[2020-04-30] MEDS: LIDOCAINE 5% PATCH 1 PATCH TRANSDERM (09:20)
--- NOTE | 2020-04-30 12:28 | WPDGICN ---
Assessment and Plan Assessment and plan (1) Chest pain: Qualifiers: Chest pain type: unspecified Qualified Code(s): R07.9 - Chest pain, unspecified Code(s): R07.9 - Chest pain, unspecified Status: Acute Assessment and Plan: differential include MSK, also could be from recent PE however she is on anticoagulation, GERD, ulcer, etc. Noted cholelithiasis but atypical pain with normal lft's and do not think related. She will high risk to undergo anesthesia for EGD given recent PE, will order UGI series to assess instead No nausea, weight loss, GIB (2) GERD without esophagitis: Code(s): K21.9 - Gastro-esophageal reflux disease without esophagitis Status: Chronic (3) Pulmonary emboli: Qualifiers: Acute cor pulmonale presence: without acute cor pulmonale Chronicity: unspecified Pulmonary embolism type: unspecified Qualified Code(s): I26.99 - Other pulmonary embolism without acute cor pulmonale Code(s): I26.99 - Other pulmonary embolism without acute cor pulmonale Status: Acute Assessment and Plan: on eliquis GI Consult Note Consult date/time: 04/30/20 12:28 Reason for consult: non-cardiac chest pain, bloating HPI: Berenice Pratt is a 79 year old female with bloating and left sided chest pain started about 4-5 months ago but did not seek medical care because COVID-19, finally she came to the hospital and was admitted on 04/04/2020 and was found have a PE in RLL and started on Eliquis, also cholelithiasis without GB inflammation and small hiatal hernia. She has history of GERD for which she has been using omeprazole as needed for 2 years, never had EGD. Last few weeks with more pain, mostly in left chest and under left breast, can last up to 1-3 hours but not every day. Also bloating, burping sometimes makes pain better. Pain is not related to food ingestion, no nausea or vomiting, no weight loss. Sometimes feeling like pain is taking her breath away. She came to ER, EKG x2 and chest x-ray negative. Also pain with palpation. She had a colonoscopy [address] Ortiz. Blood work normal liver enzymes. Review of Systems Constitutional: Constitutional: Denies headache(s) and Denies weakness Eyes: Eyes: Denies blurry vision ENT: Reports Normal hearing present, Denies headache(s) and Denies neck pain Cardiovascular: Cardiovascular: Reports chest pain and Denies dyspnea Respiratory: Respiratory: Denies dyspnea Gastrointestinal: Gastrointestinal: Reports no additional gastrointestinal complaints Genitourinary: Genitourinary: Denies dysuria Musculoskeletal: Musculoskeletal: Denies neck pain Integumentary/Breasts: Skin/Breast: Denies dry skin Neurologic: Reports Normal hearing present, Denies headache(s) and Denies weakness Psychiatric: Psychiatric: Denies anxiety Endocrine: Endocrine: Denies change in body appearance Hematologic/Lymphatic: Hematologic/Lymphatic: Denies easy bleeding Allergic/Immunologic: Allergic/Immunologic: Denies urticaria PMFSH Past Medical History Medical History Chronic low back pain with sciatica Dyslipidemia Environmental allergies Frequent UTI GERD without esophagitis Menopausal vaginal dryness Osteopenia Screening for breast cancer Unspecified osteoarthritis, unspecified site Vitamin B12 deficiency Vitamin D deficiency Surgical History Surgical History History of appendectomy History of hemorrhoidectomy 2012 History of lumbar fusion 2007 History of total abdominal hysterectomy and bilateral salpingo-oophorectomy 1988 Family History Family History Father Cerebrovascular accident Grandparent Carcinoma of colon Social History Social History (Updated 04/28/20 @ 22:35 by Sheila Gan NP) Social History: The patient lives with her who is a d
[2020-04-30 14:00] VITALS: BP 116/64; PULSE 77; RESP 18; TEMP 37.6; O2SAT 98
--- NOTE | 2020-04-30 15:48 | PM.IMPN ---
Progress Note: A&P Assessment and Plan (1) Chest pain: Qualifiers: Chest pain type: unspecified Qualified Code(s): R07.9 - Chest pain, unspecified Code(s): R07.9 - Chest pain, unspecified Status: Acute Assessment and Plan: The patient was complaining of having left chest pain. Troponins were negative x2. EKG was within normal limits. The pain is reproducible over the left breast. Lidoderm patch and Tylenol have been ordered as well as a GI cocktail. She relates a lot of gas and bloating and did get some relief with a GI cocktail. Patient's last CT scan did show gallstones and ultrasound does revealed gallstones without any gallbladder wall thickening or esther Cholecystic fluid. The patient denies any fever chills or cough. Could possibly just be a muscle strain. CT of the abdomen revealed hiatal hernia otherwise unremarkable Truly believe her pain is GI related possible hiatal hernia or reflux or peptic disease. Explained that we may never be able to totally elucidate problem and since she is anticoagulated GI may not want to proceed with endoscopy. We will treat her empirically with proton pump inhibitor. I truly believe her original pain and the pain she is experiencing now had nothing to correlate with the findings on CTA of PE.. (2) Pulmonary emboli: Qualifiers: Acute cor pulmonale presence: without acute cor pulmonale Chronicity: unspecified Pulmonary embolism type: unspecified Qualified Code(s): I26.99 - Other pulmonary embolism without acute cor pulmonale Code(s): I26.99 - Other pulmonary embolism without acute cor pulmonale Status: Acute Assessment and Plan: Continue with patient's Eliquis.. (3) Dyslipidemia: Code(s): E78.5 - Hyperlipidemia, unspecified Status: Chronic Assessment and Plan: Continue with evolocumab at home. Continue with [place] 3 (4) GERD without esophagitis: Code(s): K21.9 - Gastro-esophageal reflux disease without esophagitis Status: Chronic Assessment and Plan: Patient was given a GI cocktail. Continue b.i.d. PPI. Hiatal hernia was seen on CT scan but patient denies any significant reflux symptoms (5) Menopausal vaginal dryness: Code(s): N95.1 - Menopausal and female climacteric states Status: Acute Assessment and Plan: Continue with her estrogen. Subjective Date/time seen: 04/30/20 15:48 Interval history: Date of visit 04/30. 79-year-old hypertensive white female admitted with left-sided chest pain. Recently hospitalized approximately 1 month ago for chest pain which was very similar and found to have a right-sided pulmonary emboli treated and released. She has had the pain intermittently and especially prior to admission the night she had eaten cake that she does not usually eat and awoke with the left-sided chest discomfort that was relieved somewhat with belching. She came to the emergency room was subsequently admitted for evaluation. No nausea or diaphoresis. No history of significant reflux or dysphagia and no history of peptic disease. With her CT scan for her PE they did notice a few gallstones incidentally. Exam Narrative: Exam Narrative: Blood pressure 116/64 pulse 76 temp 37.4? Regular sat 97% on room air Pupils equal reactive to light sclera anicteric Lungs clear Neck supple CV regular rate rhythm no murmurs or gallops There is pain on palpation of chest wall the left of midline over the breast at about T3-4 Abdomen is soft nontender no masses Extremities without edema good distal pulses Neuro alert pleasant cooperative no focal deficits Objective Data Vital Signs Vital Signs: Vital Signs - 24 hr 04/29/20 16:00 04/29/20 22:00 04/30/20 06:00 Temperature 36.2 C L 36.7 C 36.8 C Pulse Rate 79 73 73 Respiratory Rate 20 20 20 Blood Pressure 129/58 L 119/61 130/66 Pulse Oximetry 97 96 96 04/30/20 14:00 Temperature 37.6 C H Pulse Rate 77 Respiratory
[2020-04-30 22:00] VITALS: BP 128/68; PULSE 76; RESP 18; TEMP 36.8; O2SAT 96
[2020-05-01 06:00] VITALS: BP 130/73; PULSE 75; RESP 18; TEMP 36.4; O2SAT 97
[2020-05-01] MEDS: ACETAMINOPHEN 325 MG TABLET 650 MG PO ×2 (09:08→13:39)
[2020-05-01] MEDS: LIDOCAINE 5% PATCH 1 PATCH TRANSDERM (09:10)
[2020-05-01] MEDS: OPTI-GEN TAB 1 TABLET PO (11:49)
[2020-05-01] MEDS: CYANOCOBALAMIN 1,000 MCG TABLET 1000 MCG PO (11:49)
[2020-05-01] MEDS: APIXABAN 5 MG TABLET PO (11:49)
[2020-05-01] MEDS: PANTOPRAZOLE 40 MG TABLET PO (11:50)
[2020-05-01] MEDS: OMEGA 3 POLYUNSAT FATTY ACIDS 1 GM CAP PO (11:50)
--- NOTE | 2020-05-01 13:16 | WPDGIPROGNO ---
Progress Note: A&P Assessment and Plan (1) Non-cardiac chest pain: Code(s): R07.89 - Other chest pain Status: Acute Assessment and Plan: ugi series reviewed, no major findings to explain discomfort (Small sliding hiatal hernia with gastroesophageal reflux, small Zenker's diverticulum). probably msk, recent PE, etc empirically on ppi no objections to discharge home by GI standpoint, I can see her as outpatient and we can always do EGD once she can be off anticoagulant (2) GERD without esophagitis: Code(s): K21.9 - Gastro-esophageal reflux disease without esophagitis Status: Chronic (3) Pulmonary emboli: Qualifiers: Acute cor pulmonale presence: without acute cor pulmonale Chronicity: unspecified Pulmonary embolism type: unspecified Qualified Code(s): I26.99 - Other pulmonary embolism without acute cor pulmonale Code(s): I26.99 - Other pulmonary embolism without acute cor pulmonale Status: Acute Assessment and Plan: on eliquis (4) Hiatal hernia: Code(s): K44.9 - Diaphragmatic hernia without obstruction or gangrene Status: Acute Assessment and Plan: small size Subjective Date/time seen: 05/01/20 13:16 Interval history: today complaining of headache, no much of chest pain. She completed UGI series Review of Systems Review of Systems: All systems reviewed & are unremarkable except as noted in HPI and below Exam Const: General: comfortable and no acute distress HENMT: General nose exam: Normal nares present Eyes: General: appearance normal, both eyes and all related structures Neck: Neck: no JVD Resp: Auscultation: clear to auscultation bilaterally Cardio: Rate: regular rate Rhythm: regular rhythm GI: Inspection: non-distended GI Palp: Yes Soft to palpation Skin: General skin exam: normal color Neuro: General: gait normal Speech: normal speech Extrem: General: normal to inspection Psych: Mental Status: mental status grossly normal Objective Data Vital Signs Vital Signs: Vital Signs - 24 hr 04/30/20 14:00 04/30/20 22:00 05/01/20 06:00 Temperature 99.7 F H 98.3 F 97.6 F Pulse Rate 77 76 75 Respiratory Rate 18 18 18 Blood Pressure 116/64 128/68 130/73 Pulse Oximetry 98 96 97 Intake/Output Intake/Output: Intake & Output 04/28/20 04/29/20 04/30/20 05/01/20 23:59 23:59 23:59 23:59 Intake Total 1888 1770 100 Output Total 1999 Balance -112 1770 100 Meds/Results Medications: Active Medications Generic Name Dose Route Start Last Admin Trade Name Freq PRN Reason Stop Dose Admin Acetaminophen 650 mg 04/28/20 22:23 05/01/20 09:08 Tylenol Tablet PO 650 mg Q4H PRN Administration Headache Acetaminophen 650 mg 04/29/20 15:13 Tylenol Tablet PO Q6H PRN Mild Pain (1-3) or Fever Apixaban 5 mg 04/28/20 22:25 05/01/20 11:49 Eliquis PO 5 mg BID MALORIE Administration Cyanocobalamin 1,000 mcg 04/29/20 09:00 05/01/20 11:49 Vitamin B-12 Tab PO 1,000 mcg DAILY MALORIE Administration Estradiol applic 04/28/20 22:19 Estrace Vaginal Cream VAGINAL 2XW PRN Vaginal Dryness Fish Oil 1 gm 05/01/20 09:00 05/01/20 11:50 Lovaza PO 1 gm MoWeFr MALORIE Administration Fluticasone Propionate 1 spray 04/28/20 22:19 04/30/20 09:18 Flonase 0.05% Nasal [place] NASAL 1 spray DAILY PRN Administration nasal congestion Lidocaine 1 patch 04/29/20 09:00 05/01/20 09:10 Lidoderm TRANSDERM 1 patch DAILY MALORIE Administration Multivitamins/Minerals 1 tablet 04/29/20 09:00 05/01/20 11:49 Ocuvite PO 1 tablet DAILY MALORIE Administration Nitroglycerin 0.4 mg 04/28/20 19:20 Nitrostat Subl 0.4 Mg (1/150) SUBLINGUAL Q5MIN PRN Chest Pain Non-Formulary Medication 140 mg 04/28/20 22:30 Evolocumab [Repatha Sullyick] SUB-Q 05/28/20 22:31 .every 2 weeks [facility] Ondansetron HCl 4 mg 04/28/20 19:20 Zofran In
--- NOTE | 2020-05-01 18:28 | PM.DS ---
DS: Admitting Diagnosis Admitting Diagnosis Admitting Diagnosis: Chest pain, unspecified DS: Discharge Diagnosis Discharge Diagnosis (1) Chest pain: Qualifiers: Chest pain type: unspecified Qualified Code(s): R07.9 - Chest pain, unspecified Code(s): R07.9 - Chest pain, unspecified Status: Acute Assessment and Plan: The patient was complaining of having left chest pain. Troponins were negative x2. EKG was within normal limits. The pain is reproducible over the left breast. . She relates a lot of gas and bloating and did get some relief with a GI cocktail. Patient's last CT scan did show gallstones and ultrasound does revealed gallstones without any gallbladder wall thickening or esther Cholecystic fluid. The patient denies any fever chills or cough. Could possibly just be a muscle strain. CT of the abdomen revealed hiatal hernia otherwise unremarkable Truly believe her pain is GI related possible hiatal hernia or reflux or peptic disease. Explained that we may never be able to totally elucidate problem and since she is anticoagulated GI did not want to proceed with endoscopy. Upper GI with small-bowel follow-through revealed the hiatal hernia. She will continue on Protonix b.i.d. and probable EGD after finishing her Eliquis if symptoms persist. I truly believe her original pain and the pain she is experiencing now had nothing to correlate with the findings on CTA of PE.. (2) Pulmonary emboli: Qualifiers: Acute cor pulmonale presence: without acute cor pulmonale Chronicity: unspecified Pulmonary embolism type: unspecified Qualified Code(s): I26.99 - Other pulmonary embolism without acute cor pulmonale Code(s): I26.99 - Other pulmonary embolism without acute cor pulmonale Status: Acute Assessment and Plan: Continue with patient's Eliquis.. Pain does not correlate with her recent CT a study (3) Dyslipidemia: Code(s): E78.5 - Hyperlipidemia, unspecified Status: Chronic Assessment and Plan: Continue with evolocumab at home. Continue with [place] 3 (4) GERD without esophagitis: Code(s): K21.9 - Gastro-esophageal reflux disease without esophagitis Status: Chronic Assessment and Plan: Patient was given a GI cocktail. Continue b.i.d. PPI. Hiatal hernia was seen on CT scan but patient denies any significant reflux symptoms. Upper GI with small-bowel follow-through revealed hiatal hernia with small amount reflux (5) Menopausal vaginal dryness: Code(s): N95.1 - Menopausal and female climacteric states Status: Acute Assessment and Plan: Continue with her estrogen. DS: Summary Hospital Course Hospital Course: 79-year-old white female admitted with left-sided chest pain relieved with GI cocktail as well as pain on palpation left chest wall.. Recent CTA revealed right lower lobe emboli and has been faithfully taking her Eliquis. Gallstones were seen on CT but no evidence of acute cholecystitis. And pain was left-sided. Hiatal hernia seen on CT and upper GI revealed hiatal hernia with some reflux. GI deferred endoscopy since she is still on your anticoagulation. Empiric Protonix b.i.d. and if symptoms versus may need EGD in the future more even repeating CTA of the chest She will follow-up with her primary within the next 2 weeks Time Spent with Patient Time attestation: Total time spent providing and/or coordinating discharge services: 35 minutes Exam Narrative: Exam Narrative: Condition on discharge Blood pressure 130/72 pulse is 72 Lungs clear CV regular rate rhythm no murmurs gallops Still pain on palpation chest wall the left Abdomen is soft nontender Extremities without edema good distal pulses Neuro alert pleasant cooperative no focal deficits Discharge Plan Discharge Attending physician on discharge: Allen Allen Consulting providers: Kvng Patel Discharging Clinician: Matt Allen
== END 2020-05-01 15:06 | disposition home or self-care (01) ==
LOC: ANHED 19:26 → ANHIMU 19:43 → ANH3MEDSUR 04-29 18:45
PROVIDERS: Nurse Practitioner; Admitting Provider Internal Medicine; Emergency Provider Family Medicine; PCP Family Medicine; Visit Provider Internal Medicine
DX: R07.89 Other chest pain (principal); I26.99 Other pulmonary embolism without acute cor pulmonale; E78.5 Hyperlipidemia, unspecified; K21.9 Gastro-esophageal reflux disease without esophagitis; K22.5 Diverticulum of esophagus, acquired; K44.9 Diaphragmatic hernia without obstruction or gangrene; K80.80 Other cholelithiasis without obstruction; N95.1 Menopausal and female climacteric states; E53.8 Deficiency of other specified B group vitamins; E55.9 Vitamin D deficiency, unspecified; M54.40 Lumbago with sciatica, unspecified side; M19.90 Unspecified osteoarthritis, unspecified site; M85.80 Other specified disorders of bone density and structure, unspecified site; Z98.1 Arthrodesis status; Z79.01 Long term (current) use of anticoagulants; Z79.82 Long term (current) use of aspirin; Z79.890 Hormone replacement therapy; Z79.899 Other long term (current) drug therapy
CPT/HCPCS: 36415; 71046; 74176; 74240; 74248; 76705; 80048; 80053; 82607; 83690; 84439; 84443; 84480; 84484; 85025; 85610; 85730; 86140; 93005; 96374; 99285; A9270; C9113; G0378

== ENCOUNTER 2020-06-06 17:08 | Observation (INO) | payer MEDICARE, SELFPAY ==
--- NOTE | ~2020-06-06 | XR_ITS ---
EXAMINATION: XR chest 1V portable DATE: 06/06/2020 17:49 INDICATION: Left arm weakness. TECHNIQUE: A single frontal view of the chest was obtained. COMPARISON: Chest 2 views 04/28/2020 FINDINGS: The chest demonstrates clear lungs without pneumonia, pleural effusion, or pneumothorax. Th e heart size is normal. There are changes of posterior fusion procedure in lumbar spine. IMPRESSION: 1. No acute cardiopulmonary disease. Reviewed, dictated and finalized at location A.
--- NOTE | ~2020-06-06 | MR_ITS ---
EXAMINATION: MR brain/brain stem wo/w con DATE: 06/07/2020 13:04 INDICATION: Left arm weakness and paresthesia TECHNIQUE: Magnetic resonance imaging (MRI) of the brain and brainstem was performed without and with 15 mL Multihance intravenous contrast. Sequences included sagittal and axial T1-weighted SE, axial d iffusion-weighted FS SE, axial T2*-weighted GRE, axial T2-weighted FLAIR, and axial T2-weighted FSE. Postcontrast axial and coronal T1-weighted SE was obtained. Apparent diffusion coefficient (ADC) maps were created. COMPARISON: Head CT dated 06/06/2020 FINDINGS: There are no areas of restricted diffusion to suggest acute infarction. No intracranial hemorrhage or abnormal intracranial mass lesion. There are scattered areas of nonspecific increased T2-weighted si gnal intensity in the cerebral white matter, predominantly involving the deep and periventricular whi te matter which is within normal limits for age. There are no intraparenchymal signal abnormalities s een on the other pulse sequences. The ventricles are symmetric and normal in size. There are no abnor mal extra-axial fluid collections. Flow voids are seen in the cerebral arteries on the T2-weighted se quences consistent with their expected patency. Tiny right mastoid effusion. Visualized orbits and so ft tissues are unremarkable. There are no areas of abnormal enhancement on the post contrast images. IMPRESSION: 1. No acute intracranial process. 2. Mild scattered nonspecific white matter T2 hyperintensity with periventricular predominance which is within normal limits for age and likely sequela of chronic small vessel ischemic disease. Reviewed, dictated and finalized at location A. IMPRESSION: 1. No acute intracranial process. 2. Mild scattered nonspecific white matter T2 hyperintensity with periventricul ar predominance which is within normal limits for age and likely sequela of chr onic small vessel ischemic disease.
--- NOTE | ~2020-06-06 | US_ITS ---
EXAMINATION: US carotid duplex BI DATE: 06/07/2020 13:22 INDICATION: Left arm weakness TECHNIQUE: Grayscale, color Doppler, and pulsed Doppler images of the cervical carotid arteries were obtained. The degree of vessel stenosis is placed in one of the following categories: normal, <50%, 5 0-69%, >=70% but less than near-occlusion, near-occlusion, or total occlusion. Note that percent sten osis relative to normal distal artery lumen diameter is indirectly measured from velocity measurement s as described by Chriss, et al. Radiology 2003; 229:340-346. Notes: Normal: Peak systolic velocity <125 centimeters/sec and no plaque <50%. Peak systolic velocity <125 ( EDV <40; ICA/CCA PSV ratio <2.0; used these factors only a tandem lesions or low cardiac output or co ntralateral disease) 50-69 %: PSV 125-230 (EDV 40-100; ratio 2-4) >= 70% but less than near occlusion: PSV greater than 230 (EDV > 100; ratio> 4.0) Near Occlusion: PSV that is variable; markedly narrowed lumen Occlusion: Absent flow on color/spectral Doppler and no lumen on shoemaker scale. COMPARISON: None. FINDINGS: RIGHT: The right common carotid artery (CCA) peak systolic velocity (PSV) is 82 cm/s. The right internal car otid artery (ICA) PSV is 95 cm/s. The right ICA end-diastolic velocity (EDV) is 14 cm/s. The right IC A/CCA PSV ratio is 1.2. The external carotid artery (ECA) PSV is 66 cm/s. There is antegrade flow in the right vertebral artery. LEFT: The left CCA PSV is 81 cm/s. The left ICA PSV is 89 cm/s. The left ICA EDV is 33 cm/s. The left ICA/C CA PSV ratio is 1.1. The ECA PSV is 89 cm/s. There is antegrade flow in the left vertebral artery. IMPRESSION: 1. Less than 50% stenosis in the right internal carotid artery by sonographic criteria. 2. Less than 50% stenosis in the left internal carotid artery by sonographic criteria. Reviewed, dictated and finalized at location B. IMPRESSION: 1. Less than 50% stenosis in the right internal carotid artery by sonographic sly bassett. 2. Less than 50% stenosis in the left internal carotid artery by sonographic cali luis.
--- NOTE | ~2020-06-06 | CT_ITS ---
EXAMINATION: CT brain wo con DATE: 06/06/2020 17:45 INDICATION: Left arm weakness and tingling. TECHNIQUE: Computed tomography (CT) of the head was performed without intravenous contrast. The mA wa s adjusted according to patient size. Iterative reconstruction technique was employed. The dose-lengt h product was 605.33 mGy-cm. COMPARISON: None FINDINGS: There are scattered areas of low attenuation in the cerebral white matter. There is no intr acranial hemorrhage, acute infarction, or abnormal intracranial mass lesion. The ventricles are luis l in size. The orbits are normal. The paranasal sinuses are clear. The mastoid air cells are normal. IMPRESSION: 1. Mild nonspecific cerebral white matter disease, which likely represents chronic small vessel ische [place]ina disease. Reviewed, dictated and finalized at location A. IMPRESSION: 1. Mild nonspecific cerebral white matter disease, which likely represents onsite health coach sushant small vessel ischemic disease.
--- NOTE | ~2020-06-06 | MR_ITS ---
EXAMINATION: MR cervical spine wo con DATE: 06/07/2020 18:03 INDICATION: Weakness, numbness, and tingling in the left hand. TECHNIQUE: Magnetic resonance imaging (MRI) of the cervical spine was performed without intravenous c ontrast. Sequences included sagittal T2-weighted FSE, sagittal STIR FSE, sagittal T1-weighted FSE, ax ial MERGE, and axial T2-weighted FSE. COMPARISON: Cervical spine MRI 02/07/2011 FINDINGS: There is dextrocurvature of thoracic spine. Vertebral body heights are normal. There is sev erely decreased disc height at C4-C5, C5-C6, and C6-C7. The spinal cord signal intensity is normal. T he following disc levels are specifically discussed: C2-C3: The disc does not extend beyond the endplate margin. There is no uncovertebral joint osteoarth ritis. There is mild bilateral facet joint osteoarthritis. There is no neural foraminal stenosis. The re is no central canal stenosis. C3-C4: There is a left central extrusion. There is mild left uncovertebral joint osteoarthritis. Ther e is severe right and mild left facet joint osteoarthritis. There is mild right neural foraminal sten osis. There is mild central canal stenosis with ventral indentation of the spinal cord. C4-C5: The disc is bulging. There is severe bilateral uncovertebral joint osteoarthritis. There is mo derate right and mild left facet joint osteoarthritis. There is moderate bilateral neural foraminal s tenosis. There is mild central canal stenosis with ventral indentation of the spinal cord. C5-C6: The disc is bulging. There is severe right and moderate left uncovertebral joint osteoarthriti s. There is mild bilateral facet joint osteoarthritis. There is moderate right and mild left neural f oraminal stenosis. There is mild central canal stenosis. C6-C7: The disc is bulging. There is severe right and moderate left uncovertebral joint osteoarthriti s. There is moderate right and mild left facet joint osteoarthritis. There is moderate right and mild left neural foraminal stenosis. There is mild central canal stenosis. C7-T1: The disc does not extend beyond the endplate margin. There is no uncovertebral joint osteoarth ritis. There is moderate right and mild left facet joint osteoarthritis. There is mild right neural f oraminal stenosis. There is no central canal stenosis. IMPRESSION: 1. Severe cervical spondylosis. Reviewed, dictated and finalized at location A.
[2020-06-06 17:16] VITALS: BP 139/78; PULSE 92; RESP 16; TEMP 37.6; O2SAT 100
--- NOTE | 2020-06-06 17:17 | ECG_ITS ---
Measurements Intervals [place] Rate: 83 P: 59 AK: 151 QRS: -32 QRSD: 82 T: 59 QT: 348 QTc: 409 Interpretive Statements SINUS RHYTHM LEFT AXIS DEVIATION INCOMPLETE RIGHT BUNDLE BRANCH BLOCK LOW QRS VOLTAGE IN PRECORDIAL LEADS BORDERLINE ECG Electronically Signed On 06-06-2020 20:53:10 CDT by Daniel Davidson D.O.
[2020-06-06 17:34] LABS: Glucose Point of Care 96 (65-105)
[2020-06-06 17:34] LABS: Basophils Percent Auto 0.4 % (0.2-1.2); Eosinophils Percent Auto 0.4 % (0-4.4); Hematocrit 39.3 % (37.0-47.0); Immature Granulocyte Absolute 0.01 K/mm3 (0.00-0.031); Immature Granulocyte Percent A 0.2 % (0-0.5); Lymphocytes Absolute Auto 1.71 K/mm3 (0.9-3.2); Lymphocytes Percent Auto 35.4 % (18.3-44.2); Mean Corpuscular HGB Conc 33.1 g/dl (32-36); Mean Corpuscular Hemoglobin 33.7 pg (26-34); Mean Corpuscular Volume 101.8 fl (80-100); Mean Platelet Volume 9.6 fl (7.4-10.4); Monocytes Absolute Auto 0.5 K/mm3 (0.1-0.6); Monocytes Percent Auto 9.3 % (2.6-8.5); Neutrophils Absolute Auto 2.6 K/mm3 (1.3-6.7); Neutrophils Percent Auto 54.3 % (45.5-73.1); Platelet Count Result 296 k/mm3 (150-375); Red Blood Count 3.86 M/mm3 (4.2-5.4); Red Cell Distribution Width 12.3 % (11.5-14.5); White Blood Count 4.8 K/mm3 (4.5-10.0)
[2020-06-06 17:43] LABS: INR 1.2; Prothrombin Time 15.3 Seconds (11.1-14.7)
[2020-06-06 17:44] LABS: Blood Urea Nitrogen 7 mg/dL (7-17); Calcium 9.3 mg/dL (8.4-10.2); Carbon Dioxide 27 mmol/L (22-30); Chloride 103 mmol/L (98-107); Estimated CRCL calculation 54 ml/min; Estimated Glomerular Filt Rate > 60; Glucose 105 mg/dL (65-105); Partial Thromboplastin Time 33.7 SECONDS (22.3-36.8); Sodium 137 mmol/L (137-145)
[2020-06-06 17:56] LABS: Troponin I < 0.012 ng/mL (0.000-0.034)
[2020-06-06 18:06] VITALS: BP 151/77; PULSE 74; RESP 18; O2SAT 100
--- NOTE | 2020-06-06 19:28 | ED.NEUROSD ---
HPI - Neuro Symptoms/Deficit General Chief Complaint: Suspected CVA Stated Complaint: neuro Time Seen by Provider: 06/06/20 18:59 Source: patient Mode of arrival: ambulatory Limitations: no limitations History of Present Illness HPI Narrative: This patient is a 79 year old female on Eliquis for PE and multiple other medical problems who presents for evaluation of left arm weakness and tingling. She states this morning around 930 am she developed nausea and lightheadedness. She felt like she was going to pass out so her helped her sit down. She also reports her left arm started feeling funny . She states it was weak and numbness. She states those symptoms lasted for 1 hour. She states her last 2 fingers on left hand still feel funny . 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 She denies leg weakness, speech issuess or visual changes. She thinks Onset (ago): hour(s) (10) Related Data Home Medications Medication Instructions Recorded Confirmed B6 200 mg-levomefolate 8 mg-B12 4 1 tablet PO DAILY 01/25/20 06/06/20 mg-ALA 600 mg-intrinsic fact tablet cranberry kjsq-S-ayhsyxkc coag 450 1 tablet PO DAILY 01/25/20 06/06/20 mg-30 mg-50 million cell tablet estradiol 1 gm VAGINAL 2XW PRN 01/25/20 06/06/20 omega 0-pdt-yeo-fish oil 100 1 cap PO 3XW 01/25/20 06/06/20 mg-160 mg-1,000 mg capsule PreserVision Lutein 1 cap PO DAILY 04/04/20 06/06/20 cyanocobalamin (vitamin B-12) 1,000 mcg PO DAILY 04/28/20 06/06/20 Allergies Allergy/AdvReac Type Severity Reaction Status Date / Time simvastatin Allergy Unknown Muscle pain Verified 06/06/20 18:04 morphine AdvReac Unknown HEADACHE Verified 06/06/20 18:04 Review of Systems Review of Systems: All systems reviewed & are unremarkable except as noted in HPI and below Constitutional: Constitutional: Denies chills and Denies fever(s) Eyes: Eyes: Reports no additional eye complaints ENT: Reports dizziness Cardiovascular: Cardiovascular: Denies chest pain and Denies radiating jaw, neck or arm pain Respiratory: Respiratory: Denies cough and Denies dyspnea Gastrointestinal: Gastrointestinal: Denies abdominal pain, Reports nausea and Denies vomiting Neurologic: Reports dizziness, Denies headache(s), Reports focal weakness and Reports numbness PMFSH Past Medical History Medical History (Updated 06/07/20 @ 06:31 by Swapna Irby MD) Chronic low back pain with sciatica Dyslipidemia Environmental allergies Frequent UTI GERD without esophagitis Hiatal hernia Menopausal vaginal dryness Non-cardiac chest pain Osteopenia Screening for breast cancer Unspecified osteoarthritis, unspecified site Vitamin B12 deficiency Vitamin D deficiency Surgical History Surgical History History of appendectomy History of hemorrhoidectomy 2011 History of lumbar fusion 2007 History of total abdominal hysterectomy and bilateral salpingo-oophorectomy 1987 Social History Social History (Updated 04/28/20 @ 22:35 by Shelia Gan NP) Social History: The patient lives with her who is a durable power conservation or heritage architect for healthcare. She desires to be a full code. She has 2 children. 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 She occasionally drinks alcohol. Never smoked and does not use illicit drugs. Smoking status: Never smoker Second hand tobacco smoke exposure: No Alcohol intake: never Drinks per week: 4 Substance use: never Substance use type: does not use Gender identity (if verbalized by the patient): Female Spiritual care concerns: No Exam Narrative: Exam Narrative: GENERAL: Well-appearing, well-nourished, and in no acute distress. HEAD: Normocephalic, atraumatic EYES: PERRLA and EOMI, conjunctiva clear without discharge EARS: TM's clear bilaterally without erythema or dullness NOSE: Nares clear, no rhinorrhea or epistaxis THROAT:Mucous membranes moist, [place]
[2020-06-06 20:27] VITALS: BP 138/65; PULSE 72
[2020-06-06 20:28] VITALS: BP 153/85; PULSE 78
[2020-06-06 20:29] VITALS: BP 144/77; PULSE 92
[2020-06-06 21:27] VITALS: BP 151/84; PULSE 70; RESP 16; TEMP 36.7; O2SAT 100
[2020-06-06 21:41] VITALS: BMI 25.7
[2020-06-07] VITALS (10 sets, daily range): BP systolic 118–133; BP diastolic 60–71; PULSE 70–82; RESP 14–20; TEMP 36.4–36.9; O2SAT 96–100
--- NOTE | 2020-06-07 00:20 | ADMGEN ---
This patient, Berenice Pratt, was admitted to 3 Medical Room 340-01. Patient/family oriented to hospital policies and general routines including ID bracelet, bed and alarms, visiting hours, pain management, procedures, bathroom and other care routines, personal items, smoking policy, room service/diet, and visiting hours. Valuables list has been completed. Information on how to activate the Rapid Response Team has been discussed. Patient/Family are encouraged to report perceived risks to care and to ask questions if they do not understand what they are told or what they should do.
[2020-06-07] MEDS: APIXABAN 5 MG TABLET PO ×2 (08:36→16:43)
[2020-06-07] MEDS: PANTOPRAZOLE 40 MG TABLET PO ×2 (08:36→20:08)
[2020-06-07] MEDS: OPTI-GEN TAB 1 TABLET PO (08:36)
[2020-06-07] MEDS: CYANOCOBALAMIN 1,000 MCG TABLET 1000 MCG PO (08:36)
[2020-06-07 09:32] LABS: Cholesterol 183 mg/dL (0-200); HDL Direct 75 mg/dL; Triglycerides 75 mg/dL (<150)
[2020-06-07 09:44] LABS: LDL Cholesterol Direct 78 mg/dL
[2020-06-07 12:10] LABS: Free T4 Free Thyroxine Reflex 1.27 ng/dL (0.78-2.19)
[2020-06-07 14:40] LABS: Total Triiodothyronine (T3) 1.28 NG/ML (0.97-1.69)
--- NOTE | 2020-06-07 14:44 | CONS_ITS ---
DATE OF CONSULTATION: 06/06/2020 HISTORY OF PRESENT ILLNESS: A 79-year-old right-handed female has been admitted to [facility] through the emergency room, where she came in the ambulatory condition, but with the complaint of left upper extremity weakness along with tingling sensation in her left 5th and the 4th finger. Reportedly, she woke up around 09:30 a.m., developed nausea, lightheadedness and thought that she was going to pass out, but her helped her sit down. Her left arm felt funny, weak and became numb. Whole episode lasted for 1 hour. Reportedly, last 2 fingers of the left hand were funny by the time she came to the emergency room also and she was dropping the things out of her hand. MEDICATIONS: She has ongoing history of takin. Vitamin B6. 2. Cranberry. 3. Estradiol. 4. [place]-3. 5. Lutein. 6. Cyanocobalamin. ALLERGIES: SHE IS ALLERGIC TO SIMVASTATIN AND MORPHINE. PAST MEDICAL HISTORY: In the past, she has ongoing history of chronic low back pain with sciatica, dyslipidemia, frequent UTI, GERD without esophagitis, hiatal hernia, noncardiac chest pain, osteopenia, osteoarthritis, B12 deficiency and vitamin D deficiency. PAST SURGICAL HISTORY: She has undergone appendectomy, hemorrhoidectomy, lumbar fusion, and total abdominal hysterectomy with bilateral salpingo-oophorectomy. SOCIAL HISTORY: She lives with her , who has a durable [id number]. She does not smoke, does not drink and drinks about 4 drinks per week casually. PHYSICAL EXAMINATION: GENERAL: Revealed her to be awake, alert, cooperative, in no obvious acute distress. HEENT: Head was normocephalic with no cranial bruit. Ear, nose, and throat examination normal. NECK: Supple with no cervical bruit. No thyromegaly. No lymphadenopathy. HEART: Regular with no murmur. LUNGS: Clear to auscultation. ABDOMEN: Soft with no organomegaly. NEUROLOGICAL: Revealed her to have normal strength and tone in upper and lower extremities. LABORATORY DATA: Evaluation up until now documented CBC with WBC 4.8, hemoglobin 13.0, platelet count 296. INR 1.2 with PT of 15.3, APTT 33.7. CT of the head was with chronic small-vessel ischemic disease. Chest x-ray was negative. EKG was normal, except the right bundle-branch block and left axis. Evaluation up until now included the CT scan as mentioned above. She has had no other studies in the past here. We will obtain the Doppler study of the carotid and also the MRI of the cervical spine. If she has no evidence of cervical radiculopathy and TIA, then she will require the EMG and nerve conduction study. KATE FLORES M.D. HOURLY ASSOCIATE HOURLY ASSOCIATE Taras I MT: Liana
--- NOTE | 2020-06-07 15:39 | PM.IMHP ---
H&P: HPI History of Present Illness Chief complaint: left arm paresthesia Narrative: Berenice Pratt is a 79 year old female with PMH significant for a recently diagnosed pulmonary embolism 03/2020 on eliquis, dyslipidemia on evolocumab due to statin intolerance, and GERD who presented to the emergency department 06/06/20 for the evaluation of left arm weakness and numbness/tingling. She reports that her symptoms developed at approximately 9:00 AM yesterday morning. The weakness resolved after 30 minutes. She reports that the 2nd and 3rd digits felt funny until approximately 11:00 PM last night. She reports a hx of similar episodes since she started taking eliquis and protonix in the past two months and is unsure if those medications are causing her symptoms. She notes that typically, her 4th and 5th digits feel funny during these episodes. Initial workup in the ED included CT which revealed mild nonspecific cerebral white matter disease which likely represents chronic small vessel ischemic disease and without acute hemorrhage or infarction. CXR revealed no acute abnormality. CBC revealed elevated MCV of 101.8 and low RBC of 3.86. CMP was unremarkable. Troponin was <0.012. EKG revealed sinus rhythm with RBBB and left axis deviation. She was admitted to the hospitalist service and neurology was consulted. She has a hx of LUE carpal tunnel s/p carpal tunnel release many years ago. She denies associated vision change including amaurosis fugax, speech change, and lower extremity weakness and paresthesias. She denies headaches and back pain. She denies chest pain and shortness of breath. She denies palpitations. She has no other concerns at this time. Review of Systems Review of Systems: Narrative: Constitutional: Denies fever, chills, and appetite change. Reports mild fatigue since she is not getting out to exercise as often with the viral pandemic. Denies weight change. Eyes: Denies vision change including no amaurosis fugax. No additional eye complaints. ENT: Denies change in hearing, dysphagia, odynophagia, and sore throat. Reports post-nasal drip due to allergies. Cardiovascular: Denies palpitations and chest pain. Denies PND and orthopnea. Denies dyspnea on exertion. Respiratory: Denies cough and shortness of breath. Gastrointestinal: Reports occasional heartburn, improved with protonix. Denies abdominal pain, nausea, and vomiting. Genitourinary: Denies dysuria, frequency, urgency, and hesitancy. Musculoskeletal: Denies joint pain and swelling. Denies muscle cramps. Skin: Reports a bite on her left knee. Neurologic: As above. Psychiatric: Denies mood change. Denies anxiety and depression. Hematologic: Denies easy bruising and bleeding. All systems reviewed & are unremarkable except as noted in HPI and below PMFSH Past Medical History Medical History (Updated 06/07/20 @ 17:58 by Ashley Cisse PA-C) Chronic low back pain with sciatica Dyslipidemia Environmental allergies Frequent UTI GERD without esophagitis Hiatal hernia Menopausal vaginal dryness Non-cardiac chest pain Osteopenia Pulmonary emboli Screening for breast cancer Unspecified osteoarthritis, unspecified site Vitamin B12 deficiency Vitamin D deficiency Surgical History Surgical History (Updated 06/07/20 @ 16:42 by Ashley Cisse PA-C) History of appendectomy History of carpal tunnel release History of hemorrhoidectomy 2011 History of lumbar fusion 2007 History of total abdominal hysterectomy and bilateral salpingo-oophorectomy 1988 Family History Family History (Updated 06/07/20 @ 16:43 by Ashley Cisse PA-C) Father Cerebrovascular accident Grandparent Carcinoma of colon Other Carcinoma of colon Social History Social History Social History: The patient lives with her who is a durable power associate attorney for healthcare. She desires to be a full code. She has 2 children. She is
[2020-06-07] MEDS: ASPIRIN 81 MG ENTERIC TABLET PO (16:43)
[2020-06-08] VITALS (7 sets, daily range): BP systolic 117–120; BP diastolic 59–66; PULSE 58–79; RESP 14–16; TEMP 36.3–36.6; O2SAT 97–98
[2020-06-08] MEDS: ACETAMINOPHEN 325 MG TABLET 650 MG PO (00:42)
[2020-06-08 07:22] LABS: Folic Acid 15.3 ng/mL (2.76->20)
[2020-06-08] MEDS: CYANOCOBALAMIN 1,000 MCG TABLET 1000 MCG PO (08:55)
[2020-06-08] MEDS: APIXABAN 5 MG TABLET PO ×2 (08:55→16:27)
[2020-06-08] MEDS: OPTI-GEN TAB 1 TABLET PO (08:55)
[2020-06-08] MEDS: ASPIRIN 81 MG ENTERIC TABLET PO (08:55)
--- NOTE | 2020-06-08 12:16 | WPDNEUROPN ---
Progress Note: A&P Assessment and Plan (1) Pulmonary emboli: Qualifiers: Acute cor pulmonale presence: without acute cor pulmonale Chronicity: unspecified Pulmonary embolism type: unspecified Qualified Code(s): I26.99 - Other pulmonary embolism without acute cor pulmonale Code(s): I26.99 - Other pulmonary embolism without acute cor pulmonale Status: Chronic (2) DVT prophylaxis: Code(s): Z29.9 - Encounter for prophylactic measures, unspecified Status: Acute (3) Arm paresthesia, left: Code(s): R20.2 - Paresthesia of skin Status: Acute (4) Hiatal hernia: Code(s): K44.9 - Diaphragmatic hernia without obstruction or gangrene Status: Acute (5) Non-cardiac chest pain: Code(s): R07.89 - Other chest pain Status: Acute (6) Chest pain: Qualifiers: Chest pain type: unspecified Qualified Code(s): R07.9 - Chest pain, unspecified Code(s): R07.9 - Chest pain, unspecified Status: Acute (7) Headache: Qualifiers: Headache type: tension-type Headache chronicity pattern: episodic headache Intractability: intractable Qualified Code(s): G44.211 - Episodic tension-type headache, intractable Code(s): R51 - Headache Status: Acute (8) Chronic pain of left ankle: Code(s): M25.572 - Pain in left ankle and joints of left foot; G89.29 - Other chronic pain Status: Acute (9) Menopausal vaginal dryness: Code(s): N95.1 - Menopausal and female climacteric states Status: Acute (10) Frequent UTI: Code(s): N39.0 - Urinary tract infection, site not specified Status: Acute (11) Vitamin B12 deficiency: Code(s): E53.8 - Deficiency of other specified B group vitamins Status: Chronic (12) Vitamin D deficiency: Code(s): E55.9 - Vitamin D deficiency, unspecified Status: Chronic (13) GERD without esophagitis: Code(s): K21.9 - Gastro-esophageal reflux disease without esophagitis Status: Chronic (14) Osteopenia: Qualifiers: Osteopenia location: unspecified Qualified Code(s): M85.80 - Other specified disorders of bone density and structure, unspecified site Code(s): M85.80 - Other specified disorders of bone density and structure, unspecified site Status: Chronic (15) Chronic low back pain with sciatica: Qualifiers: Back pain laterality: unspecified Sciatica laterality: bilateral sciatica Qualified Code(s): M54.41 - Lumbago with sciatica, right side; M54.42 - Lumbago with sciatica, left side; G89.29 - Other chronic pain Code(s): M54.40 - Lumbago with sciatica, unspecified side; G89.29 - Other chronic pain Status: Chronic (16) Unspecified osteoarthritis, unspecified site: Code(s): M19.90 - Unspecified osteoarthritis, unspecified site Status: Chronic (17) Dyslipidemia: Code(s): E78.5 - Hyperlipidemia, unspecified Status: Chronic (18) Environmental allergies: Code(s): Z91.09 - Other allergy status, other than to drugs and biological substances Status: Chronic (19) Cervical spondylitis with radiculitis: Code(s): M46.92 - Unspecified inflammatory spondylopathy, cervical region; M54.12 - Radiculopathy, cervical region Status: Acute Additional Plan stable /home with emg and ncs as outpatient Exam Const: General: cooperative, healthy appearing, comfortable, no acute distress and well developed Nutritional Appearance: average body habitus Orientation/consciousness: patient oriented x3 Limitations: no limitations HENMT: Ears: hearing grossly normal bilaterally General nose exam: Normal external nose present and No nasal discharge present Eyes: General: appearance normal, both eyes and all related structures Visual Frankel: normal visual frankel by confrontation Alignment and Position: alignment normal Eyelids: eyelids normal Conjunctivae: conjunctivae normal
--- NOTE | 2020-06-08 16:35 | PM.DS ---
DS: Admitting Diagnosis Admitting Diagnosis Admitting Diagnosis: Paresthesia of skin DS: Discharge Diagnosis Discharge Diagnosis (1) Arm paresthesia, left: Code(s): R20.2 - Paresthesia of skin Status: Acute (2) GERD without esophagitis: Code(s): K21.9 - Gastro-esophageal reflux disease without esophagitis Status: Chronic Assessment and Plan: Pantoprazole was changed to omeprazole as she reported nausea and lightheadedness with pantoprazole which resolved when she discontinued the medication. (3) Dyslipidemia: Code(s): E78.5 - Hyperlipidemia, unspecified Status: Chronic Assessment and Plan: Chronic. She reports significant intolerance to statin therapy and she is on evolocumab. Statin therapy was recommended but unfortunately she is intolerant. (4) Pulmonary emboli: Qualifiers: Acute cor pulmonale presence: without acute cor pulmonale Chronicity: unspecified Pulmonary embolism type: unspecified Qualified Code(s): I26.99 - Other pulmonary embolism without acute cor pulmonale Code(s): I26.99 - Other pulmonary embolism without acute cor pulmonale Status: Chronic Assessment and Plan: Eliquis was continued. DS: Summary Hospital Course Reason for hospitalization: Left arm paresthesias Hospital Course: Berenice Pratt is a 79 year old female with PMH significant for a recently diagnosed pulmonary embolism 03/2020 on eliquis, dyslipidemia on evolocumab due to statin intolerance, and GERD who presented to the emergency department 06/06/20 for the evaluation of left arm weakness and numbness/tingling. Sx onset was 9:00 AM 06/05/20. The weakness resolved after 30 minutes. She reports that the 2nd and 3rd digits felt funny until approximately 11:00 PM 06/06/20. She reported intermittent occurence for the past several months. Initial workup in the ED included CT which revealed mild nonspecific cerebral white matter disease which likely represents chronic small vessel ischemic disease and without acute hemorrhage or infarction. CXR revealed no acute abnormality. CBC revealed elevated MCV of 101.8 and low RBC of 3.86. CMP was unremarkable. Troponin was <0.012. EKG revealed sinus rhythm with RBBB and left axis deviation. She was admitted to the hospitalist service and neurology was consulted. MRI was performed and demonstrated no evidence of acute intracranial process. The radiology interpretationw as read as mild scattered nonspecific white matter T2 hyperintensity with periventricular predominance which is within normal limits for age and likely sequela of chronic small vessel ischemic disease. Carotid doppler US was performed and revealed <50% stenosis bilaterally. Neurology recommended MRI cervical spine which was performed and revealed severe cervical spondylosis. ASA 81mg was added due to findings of chronic small vessel disease on imaging for risk reduction. LDL was 78 and HDL was 75. She is intolerant to statins. Differential for her LUE paresthesia includes TIA, cervical radiculopathy, and peripheral compressive neuropathy. She was cleared for discharge by neurology who recommended that she have an EMG and nerve conduction. She reported ADRs to pantoprazole so that was held with resolution of her symptoms. She was prescribed omeprazole and advised to follow-up with GI. Bleeding risks were discussed and she was advised to monitor closely for signs of bleeding. She was discharged in stable condition on the afternoon of 06/08/20. Status at Discharge Functional status at discharge: independent ambulation Overall status at discharge: patient is back to baseline Time Spent with Patient Time attestation: Total time spent providing and/or coordinating discharge services: 35 minutes Exam Narrative: Exam Narrative: Vitals at presentation: Temp Pulse Resp BP Pulse Ox 99.6 F 92
== END 2020-06-08 17:40 | disposition home or self-care (01) ==
LOC: ANHED 20:25 → ANH3MED 20:33
PROVIDERS: Emergency Medicine; Physician Assistant; Admitting Provider Internal Medicine; Emergency Provider General Practice; PCP Family Medicine; Visit Provider Internal Medicine
DX: R20.2 Paresthesia of skin (principal); R53.1 Weakness; E78.5 Hyperlipidemia, unspecified; K21.9 Gastro-esophageal reflux disease without esophagitis; I26.99 Other pulmonary embolism without acute cor pulmonale; R07.89 Other chest pain; K44.9 Diaphragmatic hernia without obstruction or gangrene; M46.92 Unspecified inflammatory spondylopathy, cervical region; M85.80 Other specified disorders of bone density and structure, unspecified site; E55.9 Vitamin D deficiency, unspecified; E53.8 Deficiency of other specified B group vitamins; I65.23 Occlusion and stenosis of bilateral carotid arteries; M54.40 Lumbago with sciatica, unspecified side; R51 Headache; N95.1 Menopausal and female climacteric states; N39.0 Urinary tract infection, site not specified; M19.90 Unspecified osteoarthritis, unspecified site; Z98.1 Arthrodesis status; Z79.01 Long term (current) use of anticoagulants
CPT/HCPCS: 36415; 70450; 70553; 71045; 72141; 80048; 80061; 82607; 82746; 82948; 84439; 84443; 84480; 84484; 85025; 85610; 85730; 93005; 93880; 99285; A9270; A9577; G0378

== ENCOUNTER 2020-06-28 10:00 | Outpatient (CLI) | payer MEDICARE, SELFPAY ==
--- NOTE | 2020-06-28 11:30 | NEURO_ITS ---
Patient Number: [id number] Impression: # Complains of numbness of hands and feet. # Neuropathy of mild degree distally and involving upper extremities more than lower extremities. # Normal needle/EMG exam. # Clinical correlation recommended. Nerve Conduction Studies Anti Sensory Summary Table Stim Site NR Peak (ms) P-T Amp (?V) Site1 Site2 Delta-P (ms) Dist (cm) Odilon (m/s) Left Median Anti Sensory (2-3nd Digit) Wrist 3.8 46.5 Wrist 2-3nd Digit 3.8 14.0 37 Wrist 3.7 49.2 Wrist 2-3nd Digit 3.8 14.0 37 Right Median Anti Sensory (2-3nd Digit) Wrist 3.7 30.7 Wrist 2-3nd Digit 3.7 14.0 38 Wrist 3.8 37.5 Wrist 2-3nd Digit 3.7 14.0 38 Left Radial Anti Sensory (Base 1st Digit) Wrist 2.6 39.0 Wrist Base 1st Digit 2.6 0.0 Right Radial Anti Sensory (Base 1st Digit) Wrist 2.8 24.5 Wrist Base 1st Digit 2.8 0.0 Left Sup Fibular Anti Sensory (Ant Lat Mall) 14 cm 3.4 5.3 14 cm Ant Lat Mall 3.4 16.0 47 Right Sup Fibular Anti Sensory (Ant Lat Mall) 14 cm 3.6 1.3 14 cm Ant Lat Mall 3.6 16.0 44 Left Sural Anti Sensory (Lat Mall) Calf 3.8 8.8 Calf Lat Mall 3.8 16.0 42 Right Sural Anti Sensory (Lat Mall) Calf 3.5 5.8 Calf Lat Mall 3.5 16.0 46 Left Ulnar Anti Sensory (5th Digit) Wrist 3.4 51.3 Wrist 5th Digit 3.4 14.0 41 Right Ulnar Anti Sensory (5th Digit) Wrist 3.0 40.2 Wrist 5th Digit 3.0 14.0 47 Motor Summary Table Stim Site NR Onset (ms) O-P Amp (mV) Site1 Site2 Delta-0 (ms) Dist (cm) Odilon (m/s) Left Median Motor (Abd Poll Brev) Wrist 3.4 5.0 Elbow Wrist 5.4 30.0 56 Elbow 8.8 2.8 Right Median Motor (Abd Poll Brev) Wrist 3.9 1.7 Elbow Wrist 4.7 27.0 57 Elbow 8.6 2.7 Left Peroneal Motor (Vastus Med) Ankle 4.8 2.3 Popit Ankle 8.2 39.0 48 Popit 13.0 1.8 Right Peroneal Motor (Vastus Med) Ankle 4.9 0.6 Popit Ankle 8.1 39.0 48 Popit 13.0 0.4 Left Tibial Motor (Abd Renteria Brev) Ankle 5.5 2.4 Knee Ankle 9.6 40.0 42 Knee 15.1 1.1 Right Tibial Motor (Abd Renteria Brev) Ankle 5.7 5.0 Knee Ankle 9.4 41.0 44 Knee 15.1 4.1 Left Ulnar Motor (Abd Dig Minimi) Wrist 2.7 6.5 A Elbow Wrist 5.2 29.0 56 A Elbow 7.9 4.6 Right Ulnar Motor (Abd Dig Minimi) Wrist 2.8 5.5 A Elbow Wrist 4.6 27.0 59 A Elbow 7.4 5.6 F Wave Studies NR F-Lat (ms) L-R F-Lat (ms) Left Median (Mrkrs) (Abd Poll Brev) 26.36 0.21 Right Median (Mrkrs) (Abd Poll Brev) 26.15 0.21 Left Peroneal (Mrkrs) (EDB) 51.69 0.48 Right Peroneal (Mrkrs) (EDB) 52.16 0.48 Left Tibial (Mrkrs) (Abd Hallucis) 52.27 0.00 Right Tibial (Mrkrs) (Abd Hallucis) 52.27 0.00 Left Ulnar (Mrkrs) (Abd Dig Min) 27.25 0.48 Right Ulnar (Mrkrs) (Abd Dig Min) 26.77 0.48 EMG Side Muscle Nerve Root Ins Act Fibs Amp Dur Recrt Comment Right 1stDorInt Ulnar C8-T1 Nml Nml Nml Nml Nml Right Ext Indicis Radial (Post Int) C7-8 Nml Nml Nml Nml Nml Right Ext Digitorum Radial (Post Int) C7-8 Nml Nml Nml Nml Nml Right BrachioRad Radial C5-6 Nml Nml Nml Nml Nml Right PronatorTeres Median C6-7 Nml Nml Nml Nml Nml Right Abd Poll Brev Median C8-T1 Nml Nml Nml Nml Nml Right AntTibialis Dp Br Fibular L4-5 Nml Nml Nml Nm
== END 2020-06-28 10:01 | disposition home or self-care (01) ==
PROVIDERS: PCP Family Medicine; Visit Provider Psychiatry & Neurology Neurology
DX: R20.2 Paresthesia of skin (principal)
CPT/HCPCS: 95886; 95913

== ENCOUNTER 2020-08-02 13:33 | Outpatient (CLI) | payer MEDICARE, SELFPAY ==
--- NOTE | ~2020-08-02 | CT_ITS ---
EXAMINATION: CTA chest PE protocol DATE: 08/02/2020 14:24 INDICATION: Chest pain, discomfort TECHNIQUE: Computed tomography angiography (CTA) of the chest was performed with 100 mL Omnipaque-350 intravenous contrast timed to evaluate the pulmonary arteries. Coronal maximum intensity projection 3D-reconstructions were created by the technologist. Automated exposure control and iterative reconst ruction technique were employed. Exam dose: 196.21 mGy-cm total exam DLP. COMPARISON: 04/04/2020 CT pulmonary scan 06/06/2020 portable PA chest FINDINGS: There is diagnostic contrast enhancement of the pulmonary arteries and no evidence of pulmo nary embolism. No thoracic aortic aneurysm or dissection. No hilar or mediastinal mass lesion or lymphadenopathy. Normal heart size. No pericardial or pleural effusion. Normal adrenal glands. There is mild discoid atelectasis or scarring in the lower lobes. No pulmonary infiltrate or consolid ation or pulmonary mass lesion. IMPRESSION: No evidence of pulmonary embolism in the lower chest and Reviewed, dictated and finalized at [facility]. Reviewed, dictated and finalized at [facility].
[2020-08-02 14:18] LABS: Estimated Glomerular Filt Rate > 60
== END 2020-08-02 13:34 | disposition home or self-care (01) ==
PROVIDERS: PCP Family Medicine; Visit Provider Internal Medicine Hematology & Oncology
DX: R07.9 Chest pain, unspecified (principal)
CPT/HCPCS: 71275; Q9967

== ENCOUNTER 2020-08-14 09:19 | Outpatient (CLI) | payer MEDICARE, SELFPAY ==
[2020-08-16 20:39] LABS: Lupus dRVVT 1:1 Mix Interpreta Not Indicated; Lupus dRVVT Screen 35 sec (<=45); PTT-LA Screen 33 sec (<=40)
[2020-08-17 02:30] LABS: Homocysteine 9.2 umol/L (<10.4)
[2020-08-17 06:00] LABS: Anti Cardio Antibody IgM <12 MPL (<=12); Anti Cardiolipin Antibody IgA <11 APL (<=11); Anti Cardiolipin Antibody IgG <14 GPL (<=14)
[2020-08-18 23:05] LABS: Beta-2-Microglobulin 2.47 mg/L (<=2.51)
== END 2020-08-14 09:20 | disposition home or self-care (01) ==
PROVIDERS: PCP Family Medicine; Visit Provider Internal Medicine Hematology & Oncology
DX: I26.99 Other pulmonary embolism without acute cor pulmonale (principal)
CPT/HCPCS: 36415; 81240; 82232; 83090; 85300; 85613; 85730; 86147

== ENCOUNTER 2020-09-02 02:11 | Outpatient (CLI) | payer MEDICARE, SELFPAY ==
[2020-09-02 18:59] LABS: SARS-CoV-2 RNA PCR Negative
== END 2020-09-02 02:12 | disposition home or self-care (01) ==
LOC: ANHCOVIDDT 02:12
PROVIDERS: PCP Family Medicine; Visit Provider Internal Medicine Gastroenterology
DX: Z01.812 Encounter for preprocedural laboratory examination (principal); Z20.828 Contact with and (suspected) exposure to other viral communicable diseases
CPT/HCPCS: 87635; C9803; U0003

== ENCOUNTER 2020-09-05 01:25 | Day surgery (SDC) | payer MEDICARE, SELFPAY ==
[2020-08-29 13:30] VITALS: BMI 20.7
[2020-09-05 09:03] VITALS: BP 151/69; PULSE 68; RESP 18; TEMP 36.3; O2SAT 99; BMI 24.2
[2020-09-05] MEDS: LACTATED RINGERS 1,000 ML 150 ML IV CONT (09:13)
--- NOTE | 2020-09-05 09:19 | WPDANESEPPF ---
Anes - Initial Pre Proc Eval Procedure: Operation Date: 09/05/20 10:00 Proposed Procedures p Esophagogastroduodenoscopy - Kvng Patel MD Date/Time: 09/05/20 09:19 Surgeon: Kvng Patel MD Pre Op Diagnosis: Gerd/ Chest Pain Patient Data Age: 80 Gender: F Height: 5 ft 7 in Weight: 70.2 kg Last Vital Signs Temp 97.3 F L 09/05/20 09:03 Pulse 68 09/05/20 09:03 Resp 18 09/05/20 09:03 BP 151/69 H 09/05/20 09:03 Pulse Ox 99 09/05/20 09:03 Allergies Allergy/AdvReac Type Severity Reaction Status Date / Time caffeine Allergy Mild Shakiness Verified 09/05/20 08:50 simvastatin Allergy Unknown Muscle pain Verified 09/05/20 08:50 morphine AdvReac Unknown HEADACHE Verified 09/05/20 08:50 Home Medications Medication Instructions Recorded Confirmed Type evolocumab 140 mg/mL subcutaneous 140 mg SUB-Q .every 2 weeks #6 ml 12/06/19 09/05/20 Rx pen injector B6 200 mg-levomefolate 8 mg-B12 4 1 tablet PO DAILY 01/25/20 09/05/20 History mg-ALA 600 mg-intrinsic fact tablet cranberry rmfi-J-sihmhupf coag 450 1 tablet PO DAILY 01/25/20 09/05/20 History mg-30 mg-50 million cell tablet fluticasone propionate 50 1 spray NASAL DAILY PRN #18.2 ml 01/25/20 09/05/20 Rx mcg/actuation nasal spray,suspension omega 5-byv-kou-fish oil 100 1 cap PO 3XW 01/25/20 09/05/20 History mg-160 mg-1,000 mg capsule PreserVision Lutein 1 cap PO DAILY 04/04/20 09/05/20 History cyanocobalamin (vitamin B-12) 1,000 mcg PO DAILY 04/28/20 09/05/20 History aspirin 81 mg PO QAM 30 Days #30 tablet 06/08/20 09/05/20 Rx coenzyme Q10 10 mg capsule 10 mg PO ONCE 08/15/20 09/05/20 History melatonin 5 mg capsule 5 mg PO ONCE cap 08/15/20 09/05/20 History omeprazole 20 mg capsule,delayed 20 mg PO BID #180 cap 08/21/20 09/05/20 Rx release nystatin-triamcinolone 100,000 1 applic TOPICAL BID #30 gm 08/28/20 09/05/20 Rx unit/g-0.1 % topical cream fluconazole 100 mg tablet 100 mg PO DAILY #7 tablet 08/30/20 Rx Patient hx anesthesia problems: none Family hx anesthesia problems: none PMFSH Past Medical History Medical History (Updated 08/28/20 @ 13:07 by Lynda Baker NP) Abnormal TSH (~2018) Chronic low back pain with bilateral sciatica Chronic low back pain with sciatica Dyslipidemia (~2018) Environmental allergies Frequent UTI GERD without esophagitis (~2018) Hiatal hernia (~2018) Increased urinary frequency Menopausal vaginal dryness Non-cardiac chest pain Osteopenia Pulmonary emboli Screening for breast cancer TMJ tenderness Unspecified osteoarthritis, unspecified site Vitamin B12 deficiency (~2018) Vitamin D deficiency (~2018) Surgical History Surgical History (Updated 08/15/20 @ 11:38 by Criselda Lopez) History of appendectomy 4th grade History of carpal tunnel release History of exploratory laparotomy (~1999) History of hemorrhoidectomy (~2011) 2011 History of lumbar fusion (~08/2008) 2007 History of total abdominal hysterectomy and bilateral salpingo-oophorectomy (~1987) 1987 Family History Family History Father Cerebrovascular accident Grandparent Carcinoma of colon Other Carcinoma of colon Social History Social History Social History: The patient lives with her who is a durable power casting tester for healthcare. She desires to be a full code. She has 2 children. 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 She occasionally drinks alcohol. Never smoked and does not use illicit drugs. Smoking status: Never smoker Second hand tobacco smoke exposure: No Alcohol intake: never Drinks per week: 4 Substance use: never Substance use type: does not use Living arrangements: with family Gender identity (if verbalized by the patient): Female Sexual Orientation (if Verbalized by the Patient): Straight or Heterosexual Sp
--- NOTE | 2020-09-05 09:47 | WPDHPUPDATE1 ---
History and Physical Update Update Date/Time: 09/05/20 09:47 History and Physical has been reviewed, including an updated exam of the patient. There are NO changes in the patient's condition. Risks, benefits, and alternatives have been discussed and questions answered. Patient agrees to proceed with procedure.
[2020-09-05 10:08] VITALS: BP 112/67; PULSE 64; RESP 16; O2SAT 98
[2020-09-05 10:18] VITALS: BP 130/73; PULSE 61; RESP 16; O2SAT 100
[2020-09-05 10:28] VITALS: BP 139/75; PULSE 64; RESP 14; O2SAT 100
== END 2020-09-05 10:40 | disposition home or self-care (01) ==
PROVIDERS: PCP Family Medicine; Visit Provider Internal Medicine Gastroenterology
PROC: 0DJ08ZZ Inspection of Upper Intestinal Tract, Via Natural or Artificial Opening Endoscopic (ICD-10-PCS; CPT 43235; principal; 2020-09-05 10:00)
DX: R07.89 Other chest pain (principal); K21.9 Gastro-esophageal reflux disease without esophagitis; K44.9 Diaphragmatic hernia without obstruction or gangrene; K29.50 Unspecified chronic gastritis without bleeding; E78.5 Hyperlipidemia, unspecified; E55.9 Vitamin D deficiency, unspecified; E53.8 Deficiency of other specified B group vitamins; Z79.82 Long term (current) use of aspirin; Z98.1 Arthrodesis status
CPT/HCPCS: 43239; 88305; 88342; J2704; J7120

== ENCOUNTER 2020-10-07 07:33 | Emergency (ER) | payer MEDICARE, SELFPAY ==
--- NOTE | ~2020-10-07 | CT_ITS ---
EXAMINATION: CTA chest PE protocol DATE: 10/07/2020 11:41 INDICATION: Shortness of breath, chest pain,: Positive TECHNIQUE: Computed tomography angiography (CTA) of the chest was performed with 100 mL Omnipaque-350 intravenous contrast timed to evaluate the pulmonary arteries. Coronal maximum intensity projection 3D-reconstructions were created by the technologist. The dose-length product (DLP) was 185.70 mGy-cm. Automated exposure control and iterative reconstruction technique were employed. COMPARISON: 08/02/2020 FINDINGS: The pulmonary arteries are well-opacified. No pulmonary embolism is identified. There are p atchy opacities in the lungs with a mid and lower lung zone predominance. There is no pleural effusio n or pneumothorax. The heart size is normal. There is mild bilateral hilar lymphadenopathy. A [address] eural-based nodule of the right lower lobe on image 75 demonstrates slight increase in size. Stones a re present in the nondistended gallbladder. There is moderate thoracic spondylosis. IMPRESSION: 1. Patchy opacities with a mid and lower lung zone predominance, consistent with pneumonia and/or ate lectasis. 2. Mild bilateral hilar lymphadenopathy, likely reactive. 3. 6 mm nodule of the right lower lobe. Follow-up CT in 6-12 months is recommended. 4. No pulmonary embolism identified. Reviewed, dictated and finalized at location A. F SECURITY OFFICER IMPRESSION: 1. Patchy opacities with a mid and lower lung zone predominance, consistent wit h pneumonia and/or atelectasis. 2. Mild bilateral hilar lymphadenopathy, likely reactive. 3. 6 mm nodule of the right lower lobe. Follow-up CT in 6-12 months is recommen ded. 4. No pulmonary embolism identified.
--- NOTE | ~2020-10-07 | XR_ITS ---
EXAMINATION: XR shoulder LT min 2V INDICATION: Left shoulder pain TECHNIQUE: Four views of the left shoulder are submitted. COMPARISON: 10/04/2011 FINDINGS: Normal alignment. No fracture. There is mild osteoarthritis of the acromioclavicular and gl enohumeral joints. Soft tissues are unremarkable. IMPRESSION: 1. No acute osseous abnormality. Reviewed, dictated and finalized at location A. CARE CONSULTANT
--- NOTE | 2020-10-07 07:50 | ECG_ITS ---
Measurements Intervals [place] Rate: 103 P: 35 TN: 136 QRS: -32 QRSD: 86 T: 57 QT: 309 QTc: 405 Interpretive Statements SINUS TACHYCARDIA LEFT AXIS DEVIATION INCOMPLETE RIGHT BUNDLE BRANCH BLOCK BORDERLINE R WAVE PROGRESSION, ANTERIOR LEADS BASELINE WANDER- V4 BORDERLINE ECG Electronically Signed On 10-07-2020 8:35:16 GIN OPERATOR by Daniel Dvaidson D.O.
[2020-10-07 07:51] VITALS: BP 137/80; PULSE 102; RESP 18; TEMP 36.8; O2SAT 97
--- NOTE | 2020-10-07 09:30 | ED.GENADULT ---
HPI - General Adult General Chief complaint: Extremity Injury, Upper Stated complaint: COVID +, left arm pain Time Seen by Provider: 10/07/20 09:30 Source: patient Mode of arrival: ambulatory Limitations: no limitations History of Present Illness HPI narrative: Patient is a 80-year-old female with a history of PE, not currently on anticoagulation, dyslipidemia, acid reflux who recently was diagnosed with Covid and presents for evaluation of upper back pain and left shoulder pain over the past two days. She states mostly the pain is in her left shoulder right now. Patient reports pain radiates into her left arm. She reports pain is severe. The pain is not necessarily worse with movement, but sometimes is worse with movement. No recent heavy lifting or trauma. No bruising or rash. No central chest pain. No shortness of breath, nausea or vomiting. No jaw pain or ripping/tearing sensation to the flanks. Patient with intermittent fevers and myalgias over the past 5 days. Patient denies diarrhea. Related Data Home Medications Medication Instructions Recorded Confirmed B6 200 mg-levomefolate 8 mg-B12 4 1 tablet PO DAILY 01/25/20 09/05/20 mg-ALA 600 mg-intrinsic fact tablet cranberry jaft-H-fbfufiow coag 450 1 tablet PO DAILY 01/25/20 09/05/20 mg-30 mg-50 million cell tablet omega 6-rvl-fhm-fish oil 100 1 cap PO 3XW 01/25/20 09/05/20 mg-160 mg-1,000 mg capsule PreserVision Lutein 1 cap PO DAILY 04/04/20 09/05/20 cyanocobalamin (vitamin B-12) 1,000 mcg PO DAILY 04/28/20 09/05/20 coenzyme Q10 10 mg capsule 10 mg PO ONCE 08/15/20 09/05/20 melatonin 5 mg capsule 5 mg PO ONCE cap 08/15/20 09/05/20 Allergies Allergy/AdvReac Type Severity Reaction Status Date / Time caffeine Allergy Mild Shakiness Verified 10/07/20 11:31 simvastatin Allergy Unknown Muscle pain Verified 10/07/20 11:31 morphine AdvReac Unknown HEADACHE Verified 10/07/20 11:31 Review of Systems Review of Systems: Narrative: CONSTITUTIONAL: Reporting intermittent fever and chills EYES: Denies visual changes, redness, or discharge. ENT: Reporting mild rhinorrhea and congestion CARDIOVASCULAR: Denies chest pain, palpitations, or edema. RESPIRATORY: Reports dry cough without shortness of breath GASTROINTESTINAL: Denies abdominal pain, nausea, vomiting, or diarrhea. GENITOURINARY: Denies dysuria or hematuria. SKIN: Denies rash or itching. MUSCULOSKELETAL: Reports left-sided back pain, left shoulder pain NEUROLOGIC: Denies headache, numbness, or weakness. [facility] Past Medical History Medical History (Updated 10/07/20 @ 12:12 by Georgina Moralez MD) Abnormal TSH (~2019) Chronic low back pain with bilateral sciatica Chronic low back pain with sciatica Dyslipidemia (~2019) Environmental allergies Frequent UTI GERD without esophagitis (~2019) Hiatal hernia (~2019) Increased urinary frequency Menopausal vaginal dryness Non-cardiac chest pain Osteopenia Pulmonary emboli Screening for breast cancer TMJ tenderness Unspecified osteoarthritis, unspecified site Vitamin B12 deficiency (~2019) Vitamin D deficiency (~2019) Surgical History Surgical History History of appendectomy 4th grade History of carpal tunnel release History of exploratory laparotomy (~1999) History of hemorrhoidectomy (~2011) 2011 History of lumbar fusion (~08/2008) 2007 History of total abdominal hysterectomy and bilateral salpingo-oophorectomy (~1987) 1987 Family History Family History Father Cerebrovascular accident Grandparent Carcinoma of colon Other Carcinoma of colon Social History Social History Social History: The patient lives with her who is a durable power commonwealth attorney for healthcare. She desires to be a full code. She has 2 children. 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 She occasional
--- NOTE | 2020-10-07 09:33 | PC.NURSE ---
came infor concerns of left arm and shoulder pain. Covid positive. No SOB. 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 Cough- dry.
[2020-10-07 09:36] VITALS: BP 127/77; PULSE 84; RESP 19; O2SAT 95
[2020-10-07] MEDS: oxyCODONE/ACETAMINOPHEN (*CRX) 5-325 MG TABLET 1 TABLET PO (10:15)
[2020-10-07 10:17] VITALS: BP 117/70; PULSE 96; RESP 17; O2SAT 96
[2020-10-07 10:38] LABS: INR 0.9
[2020-10-07 10:40] LABS: Anion Gap 10 mmol/L (8-16); Blood Urea Nitrogen 9 mg/dL (7-17); Carbon Dioxide 26 mmol/L (22-30); Chloride 101 mmol/L (98-107); Estimated CRCL calculation 54 ml/min; Estimated Glomerular Filt Rate > 60; Glucose 88 mg/dL (65-105); Sodium 137 mmol/L (137-145)
[2020-10-07 10:43] LABS: Basophils Percent Auto 0.3 % (0.2-1.2); Hemoglobin 14.1 g/dL (12.0-15.0); Immature Granulocyte Absolute 0.01 K/mm3 (0.00-0.031); Immature Granulocyte Percent A 0.3 % (0-0.5); Lymphocytes Absolute Auto 1.18 K/mm3 (0.9-3.2); Lymphocytes Percent Auto 31.3 % (18.3-44.2); Mean Corpuscular HGB Conc 33.6 g/dl (32-36); Mean Corpuscular Hemoglobin 32.8 pg (26-34); Mean Corpuscular Volume 97.7 fl (80-100); Monocytes Absolute Auto 0.2 K/mm3 (0.1-0.6); Monocytes Percent Auto 5.3 % (2.6-8.5); Neutrophils Absolute Auto 2.4 K/mm3 (1.3-6.7); Neutrophils Percent Auto 62.8 % (45.5-73.1); Platelet Count Result 180 k/mm3 (150-375); Red Cell Distribution Width 12.6 % (11.5-14.5); White Blood Count 3.8 K/mm3 (4.5-10.0)
[2020-10-07 10:52] LABS: Troponin I < 0.012 ng/mL (0.000-0.034)
[2020-10-07 11:21] VITALS: PULSE 76; RESP 15; O2SAT 96
--- NOTE | 2020-10-07 11:30 | PC.NURSE ---
Pt to CT
[2020-10-07 12:23] VITALS: PULSE 75; O2SAT 100
[2020-10-07 12:42] VITALS: BP 132/86; PULSE 78; RESP 24; O2SAT 98
== END 2020-10-07 12:47 | disposition home or self-care (01) ==
PROVIDERS: Emergency Provider Emergency Medicine; PCP Family Medicine
DX: M25.512 Pain in left shoulder (principal); U07.1 COVID-19; J12.89 Other viral pneumonia; E78.5 Hyperlipidemia, unspecified; K21.9 Gastro-esophageal reflux disease without esophagitis; Z87.440 Personal history of urinary (tract) infections; M85.80 Other specified disorders of bone density and structure, unspecified site; R91.1 Solitary pulmonary nodule; Z86.711 Personal history of pulmonary embolism; M19.90 Unspecified osteoarthritis, unspecified site; E53.8 Deficiency of other specified B group vitamins; E55.9 Vitamin D deficiency, unspecified; Z98.1 Arthrodesis status; R00.0 Tachycardia, unspecified; I45.10 Unspecified right bundle-branch block; M79.602 Pain in left arm
CPT/HCPCS: 36415; 71275; 73030; 80048; 84484; 85025; 85610; 85730; 93005; 99284; A9270; Q9967

== ENCOUNTER 2020-11-26 10:38 | Emergency (ER) | payer MEDICARE, SELFPAY ==
--- NOTE | ~2020-11-26 | US_ITS ---
EXAMINATION: US venous doppler [facility] DATE: 11/26/2020 11:52 INDICATION: Lower limb pain and swelling TECHNIQUE: Grayscale ultrasound images without and with compression and Doppler ultrasound images of the bilateral lower extremity veins were obtained. COMPARISON: None. FINDINGS: The visualized portions of right common femoral vein, profunda (deep) femoral vein, femoral vein, pop liteal vein, posterior tibial veins, peroneal veins and gastrocnemius vein are patent. The right luz elena rocnemius vein is not visualized but reportedly has been ablated. The visualized portions of left common femoral vein, profunda femoral vein, femoral vein, popliteal v ein, posterior tibial veins, peroneal veins and gastrocnemius vein are patent. The left gastrocnemius vein is not visualized but reportedly has been ablated. IMPRESSION: 1. No deep venous thrombosis in either lower limb. Reviewed, dictated and finalized at location A. ERY FACTORY WORKER
[2020-11-26 10:46] VITALS: BP 142/69; PULSE 83; RESP 18; TEMP 36.4; O2SAT 100
--- NOTE | 2020-11-26 10:46 | ED.EXTPRO ---
HPI - Extremity Problem General Chief complaint: Extremity Problem,Nontraumatic Stated complaint: concern for blood clots in legs Time Seen by Provider: 11/26/20 10:46 History of Present Illness HPI Narrative: 80 yo female w/ h/o DVT, PE presents to the ED for possible DVT. She reports painful bumps in the bilateral lower legs since last night. The pain was severe last night, Now only mild, but she reports that the bumps are still there and tender. She was previously on anticoagulation, but is not anymore. No CP, SOB. Related Data Home Medications Medication Instructions Recorded Confirmed B6 200 mg-levomefolate 8 mg-B12 4 1 tablet PO DAILY 01/25/20 09/05/20 mg-ALA 600 mg-intrinsic fact tablet cranberry vvts-A-ekyfdaiz coag 450 1 tablet PO DAILY 01/25/20 09/05/20 mg-30 mg-50 million cell tablet omega 9-fex-bfe-fish oil 100 1 cap PO 3XW 01/25/20 09/05/20 mg-160 mg-1,000 mg capsule PreserVision Lutein 1 cap PO DAILY 04/04/20 09/05/20 cyanocobalamin (vitamin B-12) 1,000 mcg PO DAILY 04/28/20 09/05/20 coenzyme Q10 10 mg capsule 10 mg PO ONCE 08/15/20 09/05/20 melatonin 5 mg capsule 5 mg PO ONCE cap 08/15/20 09/05/20 Allergies Allergy/AdvReac Type Severity Reaction Status Date / Time caffeine Allergy Mild Shakiness Verified 11/26/20 10:48 simvastatin Allergy Unknown Muscle pain Verified 11/26/20 10:48 morphine AdvReac Unknown HEADACHE Verified 11/26/20 10:48 Review of Systems Review of Systems: All systems reviewed & are unremarkable except as noted in HPI and below Constitutional: Constitutional: Denies fever(s) and Denies weakness ENT: Denies dizziness Cardiovascular: Cardiovascular: Denies chest pain Gastrointestinal: Gastrointestinal: Denies nausea Musculoskeletal: Musculoskeletal: Denies back pain Integumentary/Breasts: Skin/Breast: Denies skin ulcer Neurologic: Denies dizziness, Denies numbness and Denies weakness PMFSH Past Medical History Medical History Abnormal TSH (~2019) Chronic low back pain with bilateral sciatica Chronic low back pain with sciatica Dyslipidemia (~2019) Environmental allergies Frequent UTI GERD without esophagitis (~2019) Hiatal hernia (~2019) Increased urinary frequency Menopausal vaginal dryness Non-cardiac chest pain Osteopenia Pulmonary emboli Screening for breast cancer TMJ tenderness Unspecified osteoarthritis, unspecified site Vitamin B12 deficiency (~2019) Vitamin D deficiency (~2019) Surgical History Surgical History History of appendectomy 4th grade History of carpal tunnel release History of exploratory laparotomy (~1999) History of hemorrhoidectomy (~2011) 2011 History of lumbar fusion (~08/2008) 2007 History of total abdominal hysterectomy and bilateral salpingo-oophorectomy (~1987) 1987 Family History Family History Father Cerebrovascular accident Grandparent Carcinoma of colon Other Carcinoma of colon Social History Social History Social History: The patient lives with her who is a durable power pack master for healthcare. She desires to be a full code. She has 2 children. 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 She occasionally drinks alcohol. Never smoked and does not use illicit drugs. Smoking status: Never smoker Second hand tobacco smoke exposure: No Alcohol intake: never Drinks per week: 4 Substance use: never Substance use type: does not use Gender identity (if verbalized by the patient): Female Spiritual care concerns: No Exam Const: General: healthy appearing, no acute distress and alert Orientation/consciousness: patient oriented x3 HENMT: Head: normal to inspection Neck: Neck: normal visual inspection Resp: Effort & Inspection: normal respiratory
[2020-11-26 12:39] VITALS: BP 136/88; PULSE 84; RESP 16; O2SAT 97
== END 2020-11-26 12:41 | disposition home or self-care (01) ==
PROVIDERS: Emergency Provider Emergency Medicine; PCP Family Medicine
DX: M79.662 Pain in left lower leg (principal); M79.661 Pain in right lower leg; E78.5 Hyperlipidemia, unspecified; Z87.440 Personal history of urinary (tract) infections; K21.9 Gastro-esophageal reflux disease without esophagitis; M85.80 Other specified disorders of bone density and structure, unspecified site; E53.8 Deficiency of other specified B group vitamins; E55.9 Vitamin D deficiency, unspecified; Z98.1 Arthrodesis status; M54.42 Lumbago with sciatica, left side; M54.41 Lumbago with sciatica, right side; Z86.711 Personal history of pulmonary embolism; Z86.718 Personal history of other venous thrombosis and embolism
CPT/HCPCS: 93970; 99284

== ENCOUNTER 2020-11-30 09:52 | Outpatient (CLI) | payer MEDICARE, SELFPAY ==
--- NOTE | ~2020-11-30 | MM_ITS ---
EXAMINATION: MM screening [facility] [place] HISTORY: Screening mammogram TECHNIQUE: Craniocaudal and mediolateral oblique 3-D tomosynthesis images were obtained and synthetic 2-D images were generated. CAD analysis was submitted and interpreted. COMPARISON: 10/05/2019, 09/30/2018, 03/03/2018, 09/29/2017, 09/24/2017 BREAST PARENCHYMAL COMPOSITION: There are scattered areas of fibroglandular density. FINDINGS: There is no evidence of suspicious mass, calcification, or architectural distortion to sugg est malignancy in either breast. There has been no suspicious interval change. IMPRESSION: 1. No mammographic evidence of malignancy. 2. Recommend routine screening mammography in one year. BI-RADS Category 1: Negative Reviewed, dictated and finalized at location A. T PANEL ASSEMBLER
--- NOTE | ~2020-11-30 | DEXA_ITS ---
Bone Density Report Name: Berenice Pratt Age: 80 Sex: Female Ethnicity: White Date of : 1940 Indication: osteopenia; parental hip fracture; height loss; prior fracture; hysterectomy; Referring Provider: Marcella Muñiz Study: Bone densitometry was performed. Exam Date: November 30, 2020 Accession number: [id number] Bone Density: Region BMD T-score Z-score Classification Femoral Neck (Left) 0.666 -1.7 0.6 Osteopenia Total Hip (Left) 0.786 -1.3 0.7 Osteopenia Total Hip Bilateral Avg 0.787 -1.3 0.7 Osteopenia Femoral Neck (Right) 0.674 -1.6 0.6 Osteopenia Total Hip (Right) 0.786 -1.3 0.7 Osteopenia World Health Organization criteria for BMD impression classify patients as: Normal (T-score at or above -1.0), Osteopenia (T-score between -1.0 and -2.5), or Osteoporosis (T-score at or below -2.5). 10-year Fracture Risk: FRAX not reported because: Prior hip or vertebral fracture Previous Exams: Region Exam Age BMD T-score BMD Change BMD Change Date g/cm2 vs Baseline vs Previous Total Hip(Left) 11/30/2020 80 0.786 -1.3 -0.054(-6.4%)# -0.033(-4.0%)* 09/24/2017 77 0.818 -1.0 -0.021(-2.5%)# -0.005(-0.6%) 09/19/2015 75 0.824 -1.0 -0.016(-1.9%)# -0.002(-0.2%)# 08/27/2013 73 0.825 -1.0 -0.014(-1.7%)# 0.014(1.7%)# 08/15/2011 70 0.811 -1.1 -0.028(-3.4%)* -0.028(-3.4%)* 10/24/2008 68 0.839 -0.8 Total Hip(Right) 11/30/2020 80 0.786 -1.3 -0.041(-4.9%)# -0.012(-1.5%) 09/24/2017 77 0.798 -1.2 -0.029(-3.5%)# -0.028(-3.4%)* 09/19/2015 75 0.826 -1.0 0.000(0.0%)# -0.046(-5.3%)# 08/27/2013 73 0.872 -0.6 0.046(5.6%)# 0.052(6.3%)# 08/15/2011 70 0.821 -1.0 -0.006(-0.7%) -0.006(-0.7%) 10/24/2008 68 0.826 -0.9 *Denotes significance at 95% confidence level, LSC for Total Hip = 0.027 g/cm2 Clinical Information Provided by Patient: Have had a previous hip or vertebral fracture Has had a low trauma fracture Parent has had a hip fracture Has used the following medications: Vitamin D, Calcium Has the following medical conditions: Hysterectomy Patient maximum height was 67 Menopause Age: 45 No regular weight bearing exercise Onset of menses at age 15 Number of children 2 Impression: The patient has low bone mass, based on the Left Femoral Neck T-score. The patient has risk factors, including: parental hip fracture, previous fracture. The BMD for the Total Hip(Left) decreased, changing by -4.0% since the last DXA exam. Discussion: INCREASED RISK OF
== END 2020-11-30 09:53 | disposition home or self-care (01) ==
LOC: ANHIMG 10:00
PROVIDERS: PCP Family Medicine; Visit Provider Family Medicine
DX: Z12.31 Encounter for screening mammogram for malignant neoplasm of breast (principal); Z78.0 Asymptomatic menopausal state; M85.89 Other specified disorders of bone density and structure, multiple sites
CPT/HCPCS: 77063; 77067; 77080

== ENCOUNTER → 2021-02-26 09:30 | Outpatient (CLI) | payer MEDICARE, SELFPAY ==
--- NOTE | ~2021-02-26 | MR_ITS ---
EXAMINATION: MR lumbar spine wo con DATE: 02/26/2021 10:14 INDICATION: Right-sided lumbago with sciatica. TECHNIQUE: Magnetic resonance imaging (MRI) of the lumbar spine was performed without intravenous con trast. Sequences included sagittal T2-weighted FSE, sagittal T2-weighted FS FSE, sagittal T1-weighted FSE, and axial T2-weighted FSE. COMPARISON: CT dated 04/29/2020 FINDINGS: L3-L5 laminectomies. Instrumented posterior spinal fusion with bilateral vertical vega and pedicle scr ew fixation extending from L3 through S1. 3 mm retrolisthesis L1 on L2 and L2 on L3, 2-3 mm retrolist hesis T12 on L1 and 1 mm anterolisthesis L3 on L4. Vertebral body heights are normal. Normal marrow signal. Severe disc height loss at L5-S1. Moderate disc height loss at L4-L5 and T12-L1. Mild disc he ight loss at T11-T12, L1 and L2, L2-L3 and L3-L4. The conus medullaris terminates at L1-L2. There is normal signal in the caudal spinal cord. Paravertebral soft tissues are unremarkable. The following d isc levels are specifically discussed: T12-L1: Disc is bulging with annular fissure. There is mild bilateral facet joint osteoarthritis. The re is mild bilateral, right greater than left neural foraminal stenosis. There is mild central canal stenosis. L1-L2: Disc is bulging with annular fissure. There is hypertrophy of the ligamentum flavum. There is mild right and moderate left facet joint osteoarthritis. There is moderate right and mild to moderat e left neural foraminal stenosis. There is mild to moderate central canal stenosis. L2-L3: Disc is bulging with annular fissure. There is hypertrophy of the ligamentum flavum. There is moderate right and severe left facet joint osteoarthritis. There is mild right and mild to moderate l eft neural foraminal stenosis. There is moderate to severe central canal stenosis. L3-L4: Disc is minimally bulging. Posterior spinal fusion procedure at the bilateral facet joints. Th ere is mild right neural foraminal stenosis. There is no central canal stenosis with posterior decomp ression. L4-L5: The disc does not extend beyond the endplate margin. Posterior spinal fusion procedure at the bilateral facet joints. There is mild right neural foraminal stenosis. There is no central canal sten osis with posterior decompression. L5-S1: The disc does not extend beyond the endplate margin. Posterior spinal fusion procedure at the bilateral facet joints. There is no neural foraminal stenosis. There is no central canal stenosis wit h posterior decompression. IMPRESSION: 1. L3-L5 laminectomies and L3-S1 posterior spinal fusion with bilateral vertical vega and pedicle scre w fixation. 2. Moderate lumbar and lower thoracic spondylosis. Reviewed, dictated and finalized at location B. IMPRESSION: 1. L3-L5 laminectomies and L3-S1 posterior spinal fusion with bilateral vertica l vega and pedicle screw fixation. 2. Moderate lumbar and lower thoracic spondylosis.
== END ==
PROVIDERS: PCP Family Medicine; Visit Provider Nurse Practitioner
DX: M54.41 Lumbago with sciatica, right side (principal); M47.817 Spondylosis without myelopathy or radiculopathy, lumbosacral region; M48.07 Spinal stenosis, lumbosacral region
CPT/HCPCS: 72148

== ENCOUNTER 2021-03-26 10:38 | Outpatient (CLI) | payer MEDICARE, SELFPAY ==
--- NOTE | ~2021-03-26 | CT_ITS ---
EXAMINATION: CT lumbar spine wo con DATE: 03/26/2021 11:14 INDICATION: Other spondylosis with radiculopathy. TECHNIQUE: Computed tomography (CT) of the lumbar spine was performed without intravenous contrast. A utomated exposure control and iterative reconstruction technique were employed. The dose-length produ ct was 692.98 mGy-cm. COMPARISON: Lumbar spine MRI 02/26/2021 FINDINGS: There is 9 degrees levocurvature of thoracolumbar spine. There is 4 mm retrolisthesis of T1 2 on L1, L1 on L2, and L2 on L3. Vertebral body heights are normal. There is severely decreased disc height at T11-T12 and T12-L1, moderately decreased disc height at L1-L2 and L2-L3, and mildly decreas ed disc height from L3-L4 through L5-S1. There are changes of posterior fusion procedure from L3 to S 1 with pedicle screws. The following disc levels are specifically discussed: L1-L2: The disc is bulging. There is mild bilateral facet joint osteoarthritis. There is moderate kelsy ateral neural foraminal stenosis. There is mild central canal stenosis. L2-L3: The disc is bulging. There is moderate right and severe left facet joint osteoarthritis. There is mild bilateral neural foraminal stenosis. There is mild central canal stenosis. L3-L4: The disc is bulging. There is mild bilateral facet joint hypertrophy. There is mild bilateral neural foraminal stenosis. There is no central canal stenosis. L4-L5: The disc is mildly bulging. There is mild bilateral facet joint hypertrophy. There is mild kelsy ateral neural foraminal stenosis. There is no central canal stenosis. L5-S1: The disc does not extend beyond the endplate margin. There is mild bilateral facet joint hyper trophy. There is no neural foraminal stenosis. There is no central canal stenosis. IMPRESSION: 1. Severe thoracolumbar spondylosis, stable from 02/26/2021. 2. Posterior fusion procedure from L3 to S1. Reviewed, dictated and finalized at location A.
--- NOTE | ~2021-03-26 | XR_ITS ---
EXAMINATION: XR lumbar spine min 4V DATE: 03/26/2021 11:06 INDICATION: Other spondylosis with radiculopathy. Low back pain. TECHNIQUE: 4 views of lumbar spine including flexion and extension views were obtained. COMPARISON: Lumbar spine CT 03/26/2021 FINDINGS: There is 8 degrees levocurvature of thoracolumbar spine. There is 4 mm retrolisthesis of T1 2 on L1, L1 on L2, and L2 on L3. There are changes of posterior fusion procedure from L3 to S1 with p edicle screws. There is severely decreased disc height at T12-L1, moderately decreased disc height at L1-L2 and L2-L3, and mildly decreased disc height from L3-L4 through L5-S1. There is no abnormal mot ion with flexion or extension. There is multilevel facet joint osteoarthritis, severe on the left at L2-L3. IMPRESSION: 1. Severe thoracolumbar spondylosis. 2. Posterior fusion procedure from L3 to S1. Reviewed, dictated and finalized at location A.
== END 2021-03-26 10:39 | disposition home or self-care (01) ==
PROVIDERS: PCP Family Medicine; Visit Provider Neurological Surgery
DX: M47.26 Other spondylosis with radiculopathy, lumbar region (principal); M96.1 Postlaminectomy syndrome, not elsewhere classified; M47.815 Spondylosis without myelopathy or radiculopathy, thoracolumbar region; Z98.1 Arthrodesis status
CPT/HCPCS: 72110; 72131

== ENCOUNTER 2021-06-14 23:21 | Inpatient (IN) | payer MEDICARE, SELFPAY ==
[2021-06-14] VITALS (8 sets, daily range): BP systolic 124–150; BP diastolic 99–103; PULSE 150–158; RESP 14–21; TEMP 36.7; O2SAT 98–100
--- NOTE | ~2021-06-14 | XR_ITS ---
EXAMINATION: XR chest 1V portable EXAM DATE: 06/14/2021 23:49 INDICATION: Palpitations, arrythmia. TECHNIQUE: Portable AP frontal chest x-ray was obtained. Comparison is made to prior examination from 06/06/2020. FINDINGS: No confluent consolidation, pneumothorax or pleural effusion suspected. Cardiomediastinal s ilhouette is normal. There are bony degenerative changes. IMPRESSION: No acute cardiopulmonary findings. Reviewed, dictated and finalized at location A.
--- NOTE | 2021-06-14 23:27 | ECG_ITS ---
Measurements Intervals [place] Rate: 125 P: 257 UT: 130 QRS: -42 QRSD: 139 T: -21 QT: 245 QTc: 353 Interpretive Statements ATRIAL FLUTTER/TACHYCARDIA WITH RAPID VENTRICULAR RESPONSE INCOMPLETE RIGHT BUNDLE BRANCH BLOCK LOW VOLTAGE- PRECORDIAL LEADS BORDERLINE ST-T WAVE ABNORMALITY- ANTEROLAT/HIGH LAT LEADS BASELINE ARTIFACT- I, II, III, AVR, AVL, AVF, V1-V6 ABNORMAL ECG Electronically Signed On 06-15-2021 6:26:01 CDT by Daniel Davidson D.O.
[2021-06-14 23:40] LABS: Basophils Percent Auto 0.3 % (0.2-1.2); Eosinophils Absolute Auto 0.1 K/mm3 (0-0.3); Eosinophils Percent Auto 1.6 % (0-4.4); Hemoglobin 13.3 g/dL (12.0-15.0); Immature Granulocyte Absolute 0.01 K/mm3 (0.00-0.031); Immature Granulocyte Percent A 0.1 % (0-0.5); Lymphocytes Absolute Auto 3.99 K/mm3 (0.9-3.2); Lymphocytes Percent Auto 54.8 % (18.3-44.2); Mean Corpuscular HGB Conc 33.3 g/dl (32-36); Mean Corpuscular Hemoglobin 32.5 pg (26-34); Mean Corpuscular Volume 97.8 fl (80-100); Mean Platelet Volume 9.6 fl (7.4-10.4); Monocytes Absolute Auto 0.8 K/mm3 (0.1-0.6); Monocytes Percent Auto 10.7 % (2.6-8.5); Neutrophils Absolute Auto 2.4 K/mm3 (1.3-6.7); Neutrophils Percent Auto 32.5 % (45.5-73.1); Platelet Count Result 294 k/mm3 (150-375); Red Blood Count 4.09 M/mm3 (4.2-5.4); Red Cell Distribution Width 12.5 % (11.5-14.5); White Blood Count 7.3 K/mm3 (4.5-10.0)
--- NOTE | 2021-06-14 23:41 | ED.ARRPALP ---
HPI - Arrhythmia/Palpitations General Chief Complaint: Arrhythmia/Palpitations Stated Complaint: heart palpitations Time Seen by Provider: 06/14/21 23:34 Source: RN notes reviewed History of Present Illness HPI narrative: Patient presents to emergency department from home for heart racing. Patient states symptoms get approximately 30 minutes ago. States she felt like her heart was racing states she had a similar episode approximately a week ago that resolved on its own. She denies any fevers or chills, chest pain, shortness of breath abdominal pain or any other symptoms. She denies any history of arrhythmias Related Data Home Medications Medication Instructions Recorded Confirmed B6 200 mg-levomefolate 8 mg-B12 4 1 tablet PO DAILY 01/25/20 06/04/21 mg-ALA 600 mg-intrinsic fact tablet cranberry iwyk-V-nlubionf coag 450 1 tablet PO DAILY 01/25/20 06/04/21 mg-30 mg-50 million cell tablet omega 7-txs-ohh-fish oil 100 1 cap PO 3XW 01/25/20 06/04/21 mg-160 mg-1,000 mg capsule PreserVision Lutein 1 cap PO DAILY 04/04/20 06/04/21 cyanocobalamin (vitamin B-12) 1,000 mcg PO DAILY 04/28/20 06/04/21 coenzyme Q10 10 mg capsule 10 mg PO ONCE 08/15/20 06/04/21 aspirin 81 mg tablet,delayed 81 mg PO DAILY tablet 12/25/20 06/04/21 release melatonin 5 mg capsule 5 mg PO QHS cap 06/04/21 06/04/21 Allergies Allergy/AdvReac Type Severity Reaction Status Date / Time caffeine Allergy Mild Shakiness Verified 06/14/21 23:30 simvastatin Allergy Unknown Muscle pain Verified 06/14/21 23:30 morphine AdvReac Unknown HEADACHE Verified 06/14/21 23:30 Review of Systems Review of Systems: Narrative: Gen.: Denies fevers or chills ENT: Denies congestion Respiratory: Denies shortness of breath or cough CV: See HPI GI: Denies abdominal pain nausea, emesis or diarrhea denies burning, urgency, frequency or hematuria Musculoskeletal: Denies back pain or muscle pain Neuro: Denies numbness, tingling, weakness or focal weakness Skin: Denies rash Except as documented, all other systems reviewed and negative PMFSH Past Medical History Medical History Abnormal TSH (~2019) Chronic low back pain with bilateral sciatica Dyslipidemia (~2019) Environmental allergies Frequent UTI GERD without esophagitis (~2019) Hiatal hernia (~2019) Increased urinary frequency Non-cardiac chest pain Olecranon bursitis Osteopenia Pneumonia due to COVID-19 virus Pulmonary emboli TMJ tenderness Unspecified osteoarthritis, unspecified site Vitamin B12 deficiency (~2019) Vitamin D deficiency (~2019) Surgical History Surgical History History of appendectomy 4th grade History of carpal tunnel release History of exploratory laparotomy (~1999) History of hemorrhoidectomy (~2011) 2011 History of lumbar fusion (~08/2008) 2007 History of total abdominal hysterectomy and bilateral salpingo-oophorectomy (~1987) 1987 Family History Family History Father Cerebrovascular accident Grandparent Carcinoma of colon Other Carcinoma of colon Social History Social History Social History: The patient lives with her who is a durable power supervisor microwave for healthcare. She desires to be a full code. She has 2 children. 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 She occasionally drinks alcohol. Never smoked and does not use illicit drugs. Smoking status: Never smoker Second hand tobacco smoke exposure: No Alcohol intake: never Drinks per week: 4 Alcohol use details: consumes 1 beer daily Substance use: never Substance use type: does not use Gender identity (if verbalized by the patient): Female Spiritual care concerns: No Exam Narrative: Exam Narrative: APPEARANCE: No acute distress, nontoxic, resting in bed EYES
[2021-06-14] MEDS: dilTIAZem HCl INJ 25 MG/5 ML VIAL 5 MG IV PUSH (23:45)
[2021-06-14 23:48] LABS: Anion Gap 12 mmol/L (8-16); Blood Urea Nitrogen 15 mg/dL (7-17); Calcium 10.3 mg/dL (8.4-10.2); Carbon Dioxide 27 mmol/L (22-30); Chloride 99 mmol/L (98-107); Estimated CRCL calculation 48 ml/min; Estimated Glomerular Filt Rate > 60; Glucose 101 mg/dL (65-110); Potassium 3.7 mmol/L (3.4-5.0); Sodium 138 mmol/L (137-145)
[2021-06-14 23:52] LABS: Magnesium 1.9 mg/dL (1.6-2.3)
[2021-06-14 23:59] LABS: Troponin I < 0.012 ng/mL (0.000-0.034)
[2021-06-15] VITALS (22 sets, daily range): BP systolic 92–151; BP diastolic 49–94; PULSE 60–157; RESP 13–24; TEMP 36.1–36.8; O2SAT 95–100; BMI 22.8
[2021-06-15 00:02] LABS: INR 0.9; Prothrombin Time 12.3 Seconds (11.1-14.7)
[2021-06-15 00:03] LABS: Partial Thromboplastin Time 27.4 SECONDS (22.3-36.8)
[2021-06-15] MEDS: SODIUM CHLORIDE 0.9% IV 1,000 ML 999 ML IV CONT (00:39)
[2021-06-15] MEDS: dilTIAZem HCl INJ 25 MG/5 ML VIAL 5 MG IV PUSH (00:39)
--- NOTE | 2021-06-15 01:07 | ECG_ITS ---
Measurements Intervals [place] Rate: 94 P: 48 [place]: 131 QRS: -12 QRSD: 90 T: 54 QT: 340 QTc: 427 Interpretive Statements SINUS RHYTHM POSSIBLE LEFT ATRIAL ENLARGEMENT INCOMPLETE RIGHT BUNDLE BRANCH BLOCK LOW QRS VOLTAGE IN PRECORDIAL LEADS BASELINE ARTIFACT- II, III, AVR, AVF, V1, V3-V5 BORDERLINE ECG Electronically Signed On 06-15-2021 6:26:36 CDT by Daniel Davidson D.O.
[2021-06-15] MEDS: ENOXAPARIN 80 MG/0.8 ML SYRINGE 78 MG SUB-Q (01:29)
--- NOTE | 2021-06-15 02:56 | ADMGEN ---
This patient, Berenice Pratt, was admitted to IMU Room 207-01 at 0257. Patient/family oriented to hospital policies and general routines including ID bracelet, bed and alarms, visiting hours, pain management, procedures, bathroom and other care routines, personal items, smoking policy, room service/diet, and visiting hours. Information on how to activate the Rapid Response Team has been discussed. Patient/Family are encouraged to report perceived risks to care and to ask questions if they do not understand what they are told or what they should do.
[2021-06-15 03:05] LABS: Troponin I < 0.012 ng/mL (0.000-0.034)
--- NOTE | 2021-06-15 06:40 | PM.IMHP ---
H&P: HPI History of Present Illness Date/Time: 06/15/21 06:40 Chief Complaint: my heart is beating something fierce Narrative: 80-year-old female with a past medical history of pulmonary embolism 03/2020 and dyslipidemia who presented to the ER due to her heart pounding. She reports that she had been at her daughter's house all day preparing fruits and vegetables for a wedding shower. She went home and was fixing her hair before going to bed when she started feeling heart pounding really hard and fast. She denies having any chest pain, or shortness of breath. She did have a similar episode of this approximately 3 weeks ago which she thought was due to some antibiotics and steroids she was taking for a left elbow bursitis. That episode lasted about 10 or 15 minutes. However today's episode lasted for about 15-20 minutes before they came to the ER. She has about a [address] to our ER and her symptoms persisted for quite some time after arrival to the ER. She received 2 doses of 5 mg of IV Cardizem and her rhythm converted from atrial flutter to normal sinus rhythm. She has not had a recurrence of her symptoms. She denies any orthopnea, paroxysmal nocturnal dyspnea, lower extremity swelling or other symptoms. She reports that when she followed up with her primary care physician regarding her bursitis her EKG at that time demonstrated some irregular heartbeats. She was referred to a technology internship at [place] but she has not yet followed up. She states that she would prefer to follow-up with a technology internship here at our facility. Review of Systems Review of Systems: Narrative: 12 systems were reviewed with pertinent positives and negatives per HPI. Except as documented in the HPI, all other systems were reviewed and are negative. [facility] Past Medical History Medical History (Updated 06/15/21 @ 07:12 by Teena Estevez DO) Abnormal TSH (~2018) Chronic low back pain with bilateral sciatica COVID-19 vaccine series completed Dyslipidemia (~2018) Environmental allergies Frequent UTI GERD without esophagitis (~2018) Hiatal hernia (~2018) Increased urinary frequency Non-cardiac chest pain Negative stress test and normal echocardiogram 03/2020 Olecranon bursitis (04/2021) Osteopenia Pneumonia due to COVID-19 virus Pulmonary emboli (03/2020) TMJ tenderness Unspecified osteoarthritis, unspecified site Vitamin B12 deficiency (~2018) Vitamin D deficiency (~2018) Surgical History Surgical History (Updated 06/15/21 @ 07:13 by Teena Estevez DO) History of appendectomy 4th grade History of carpal tunnel release History of exploratory laparotomy (~1999) History of hemorrhoidectomy (~2011) History of lumbar fusion (~08/2008) History of total abdominal hysterectomy and bilateral salpingo-oophorectomy (~1987) Family History Family History Father Cerebrovascular accident Grandparent Carcinoma of colon Other Carcinoma of colon Social History Social History (Updated 06/15/21 @ 07:15 by Teena Estevez DO) Social History: The patient lives with her of 60, of years, who is a durable power district attorney for healthcare. She desires to be a full code. She has 2 children. 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 she drinks 1 or 2 alcoholic beverages once every week or so. Never smoked and does not use illicit drugs. Primary care physician: Dr. Nasir Muñiz code status: Full code surrogate decision maker: Smoking status: Never smoker Second hand tobacco smoke exposure: No Alcohol intake: current Drinks per week: 4 Alcohol use details: consumes 1 beer daily Substance use: never Substance use type: does not use Gender identity (if verbalized by the patient): Female Spiritual care concerns: No Meds Home Medications and Allergies Home Medications Medication Instructions Recorded
[2021-06-15 07:12] LABS: Troponin I < 0.012 ng/mL (0.000-0.034)
--- NOTE | 2021-06-15 09:00 | ECHO_ITS ---
Patient Info Name: Berenice Pratt Age: 80 years : 1940 Gender: Female Ht: 66 in Wt: 141 lbs BSA: 1.73 m2 HR: 89 bpm BP: 113 / 64 mmHg Heart Rhythm: Sinus Rhythm Exam Date: 06/15/2021 8:24 AM Exam Location: [facility] Patient Status: Inpatient Admit Date: 06/15/2021 Staff Ordering Physician: Teena Estevez DO Director [employer]: Abdoul Gipson RDCS, RT Attending Provider: Teena Estevez DO Referring Physician: Zenaida JUNG; Exam Type: CA echo doppler color flow Study Info Indications I45.89 - Other specified conduction disorders Complete two-dimensional, color flow and Doppler transthoracic echocardiogram is performed. Strain analysis performed. Summary 1. Complete two-dimensional, color flow and Doppler transthoracic echocardiogram is performed. 2. Left ventricular chamber dimension is normal. 3. Left ventricular systolic function is normal, estimated at 55-60%. 4. 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 5. No atrial dilation. Left Ventricle Left ventricular chamber dimension is normal. Left ventricular systolic function is normal, estimated at 55-60%. The left ventricular diastolic function is normal. Right Ventricle Right ventricular chamber dimension is normal. Left Atria Left atrial chamber dimension is normal. Right Atria Right atrial chamber dimension is normal. Aortic Valve The aortic valve is trileaflet. There is mild aortic valve sclerosis. Pulmonic Valve The pulmonic valve is normal. Mitral Valve The mitral valve has normal leaflets. Tricuspid Valve The tricuspid valve leaflets are normal. There is trace tricuspid valve regurgitation. Pericardium/Pleural The pericardium appears normal. Aorta The aortic root size at the sinus of Valsalva is normal. Left Ventricular Outflow Tract Name Value Normal LVOT 2D LVOT Diameter 1.9 cm LVOT Doppler LVOT Peak Gradient 4 mmHg LVOT Mean Gradient 2 mmHg LVOT VTI 22 cm LVOT VTI/AV VTI Ratio 0.8 LVOT Stroke Volume 65 ml LVOT CO 4.7 l/min LVOT CI 2.7 l/min/m2 Mitral Valve Name Value Normal MV Doppler MV Decel Clarion 276 cm/s2 MV PHT 83 ms MV Area (PHT) 2.6 cm2 4.0-5.0 MV Diastolic Function MV E Peak Velocity 79 cm/s MV A Peak Velocity 89 cm/s MV E/A 0.9 MV Decel Time 287 ms MV Annular TDI
[2021-06-15 09:39] LABS: Alanine Aminotransferase 15 U/L (4-35); Alkaline Phosphatase 87 U/L (38-126); Anion Gap 8 mmol/L (8-16); Aspartate Amino Transferase 27 U/L (14-36); Bilirubin,Total 0.4 mg/dL (0.2-1.3); Blood Urea Nitrogen 11 mg/dL (7-17); Calcium 9.2 mg/dL (8.4-10.2); Carbon Dioxide 24 mmol/L (22-30); Chloride 108 mmol/L (98-107); Estimated CRCL calculation 47 ml/min; Estimated Glomerular Filt Rate > 60; Glucose 91 mg/dL (65-110); Phosphorus 4.1 mg/dL (2.5-4.5); Potassium 3.9 mmol/L (3.4-5.0); Sodium 140 mmol/L (137-145)
[2021-06-15 09:45] LABS: Basophils Percent Auto 0.2 % (0.2-1.2); Eosinophils Absolute Auto 0.1 K/mm3 (0-0.3); Eosinophils Percent Auto 1.2 % (0-4.4); Hematocrit 36.6 % (37.0-47.0); Hemoglobin 11.7 g/dL (12.0-15.0); Lymphocytes Absolute Auto 1.89 K/mm3 (0.9-3.2); Lymphocytes Percent Auto 46.1 % (18.3-44.2); Mean Corpuscular Hemoglobin 32.1 pg (26-34); Mean Corpuscular Volume 100.5 fl (80-100); Mean Platelet Volume 9.6 fl (7.4-10.4); Monocytes Absolute Auto 0.5 K/mm3 (0.1-0.6); Neutrophils Absolute Auto 1.7 K/mm3 (1.3-6.7); Neutrophils Percent Auto 41.5 % (45.5-73.1); Platelet Count Result 271 k/mm3 (150-375); Red Blood Count 3.64 M/mm3 (4.2-5.4); Red Cell Distribution Width 12.5 % (11.5-14.5); White Blood Count 4.1 K/mm3 (4.5-10.0)
[2021-06-15] MEDS: PANTOPRAZOLE 40 MG TABLET PO ×2 (09:46→20:40)
[2021-06-15] MEDS: ASPIRIN 81 MG ENTERIC TABLET PO (09:46)
[2021-06-15] MEDS: OPTI-GEN TAB 1 TABLET PO (09:46)
[2021-06-15] MEDS: CYANOCOBALAMIN 1,000 MCG TABLET 1000 MCG PO (09:46)
[2021-06-15] MEDS: OMEGA 3 POLYUNSAT FATTY ACIDS 1 GM CAP PO (09:46)
[2021-06-15] MEDS: FLUTICASONE PROPIONATE 0.05% NA SPR 16 GM BTL (*BKC) 1 SPRAY NASAL (09:47)
[2021-06-15 09:49] LABS: Parathyroid Intact 21.2 pg/mL (7.5-53.5)
[2021-06-15 11:15] LABS: Free T4 Free Thyroxine 1.07 ng/mL (0.78-2.19)
--- NOTE | 2021-06-15 13:45 | PM.CNCAR ---
Assessment and Plan Additional Plan this is a 80-year-old woman with paroxysmal atrial flutter with rapid ventricular response. She by history she has been having a couple of episodes of this before coming to the hospital she was now hospitalized with an episode that was not self-limited. She has currently been treated with diltiazem and is back in sinus rhythm. She did have a recent echocardiogram with no significant structural abnormalities. I am going to recommend stopping the IV diltiazem and starting antiarrhythmic therapy in the form of sotalol 80 mg q.12 hours. I will also recommend systemic anticoagulation with apixaban. She was taking this agent last year when she was found to have a pulmonary embolism and had no hemorrhagic problems or difficulty with anticoagulation at that time. We will follow the patient in the hospital for at least 48 hours with sotalol being initiated to watch her telemetry for proarrhythmia and monitor QT interval. Thank you for consulting me to see this nice lady Mo Cuba MD [facility] History of Present Illness History of Present Illness Consult date/time: 06/15/21 13:45 Reason For Visit: Atrial flutter with RVR Narrative: This is a pleasant 80-year-old lady am seeing at the request of the hospitalist because of atrial flutter with rapid ventricular response. She has no history of any cardiac problems in the past. She states she has been enjoying good health in general for most of her adult life. She states that couple of times recently she has noticed abruptly the onset of tachycardia and palpitations which were generally self-limited 1 episode lasted as long as about 15 minutes before subsiding. Last night the patient was at her home simply cleaning up and getting ready for bed. She was in the bathroom combing her hair and she suddenly noticed the onset of the same symptoms. She was getting ready to go to bed and woke her up to alert him to the symptoms. The observe this for a period time it did not subside and so she came to the emergency room for evaluation. She was found found to be very tachycardic and 0 electrocardiogram showed evidence of atrial flutter with rapid ventricular response. The ECG suggests atypical atrial flutter. She was evaluated in the emergency room she was given a bolus of diltiazem and placed on a drip a short time later her heart rhythm converted back to sinus and she became asymptomatic. When she was tachycardic she was not experiencing any chest pain pressure or heaviness nor any shortness of breath. She does not have any prior history of lung problems or cigarette smoking. She does have a history of a problematic hiatal hernia in the past. She also states that last year she was hospitalized here at [place] with some chest pain and had a pulmonary embolism. At that time she was treated with systemic anticoagulation with apixaban which she states was stopped it about 3 or 4 months when follow-up CT demonstrated resolution of the clot. She is comfortable now offers no complaints and as being seen in room 207. She denies any other symptoms of exertional nature she has no exertional chest pain pressure heaviness she has never had a syncopal episode she is not experiencing orthopnea PND or accumulating edema. Review of Systems Constitutional: Constitutional: Reports no additional constitutional complaints Eyes: Eyes: Reports no additional eye complaints ENT: Reports system reviewed and no additional complaints, except as documented Cardiovascular: Cardiovascular: Reports as per HPI Respiratory: Respiratory: Reports no additional respiratory complaints Gastrointestinal: Gastrointestinal: Reports no additional gastrointestinal complaints Musculoskeletal: Musculoskeletal: Reports no additional musculoskeletal complaints Integumentary/Breasts: Skin/Breast: Reports system reviewed and no additional complaints, except as docu Neurologic: Reports system reviewed a
--- NOTE | 2021-06-15 14:06 | PM.IMPN ---
Progress Note: A&P Assessment and Plan (1) Atrial flutter with rapid ventricular response: Code(s): I48.92 - Unspecified atrial flutter Status: Acute Assessment and Plan: The patient was admitted for AFib with RVR. She was started on an IV Cardizem drip which converted her back into normal sinus rhythm around 1:00 a.m. this morning. She was seen by the service provider Dr. Cuba, who recommends starting the patient on sotalol 80 mg q.12 hours. She will need to be monitored in the hospital for 48 hours with serial EKGs per cardiology. The patient did have a recent infection and on antibiotics with her left olecranon bursitis. At this time it appears like her infection is completely resolved after 2 weeks of Bactrim antibiotics. Chest x-ray shows no acute cardiopulmonary abnormality or signs of an infection. Will obtain a urinalysis with reflux culture to rule out any type of UTI causing symptoms. Her TSH was high at 0.5, with a normal T4. This is less likely the cause of her atrial fibrillation. Cardiology also place the patient on Eliquis 5 mg q.12 hours. Continue monitoring. Appreciate cardiology's input at this time. (2) Olecranon bursitis: Onset Date: 04/2021 Qualifiers: Laterality: left Qualified Code(s): M70.22 - Olecranon bursitis, left elbow Code(s): M70.20 - Olecranon bursitis, unspecified elbow Status: Acute Assessment and Plan: No acute signs of infection at this time. No leukocytosis. Continue monitoring. (3) Abnormal TSH: Onset Date: ~2018 Code(s): R79.89 - Other specified abnormal findings of blood chemistry Status: Acute Assessment and Plan: Her TSH was high at 0.5, with a normal T4. This is less likely the cause of her atrial fibrillation. But she will need to have this rechecked as an outpatient by her primary care provider in 6 weeks. (4) Macrocytic anemia: Code(s): D53.9 - Nutritional anemia, unspecified Status: Acute Assessment and Plan: patient was found to have some microcytic anemia on labs this morning. Will check repeat H&H this afternoon make sure she had her H&H is not dropping significantly with being started on Lovenox on arrival. She is on a PPI q.12 hours will obtain an iron panel, vitamin B12, folic acid levels as well as stool occult blood testing. Continue monitoring. No signs of acute bleeding at this time. Transfuse as needed to keep hemoglobin greater than 7. Time Spent With Patient Time with patient: 25 - 35 minutes Subjective Date/time seen: 06/15/21 14:06 Interval history: Date of service 06/15/2021: patient reports having intermittent palpitation episodes over the years which would last very long. Last night she was doing her hair before bed when her palpitations began. She tried to lay down but palpitations never went away. The patient recently had left elbow bursitis and was prescribed Keflex 500 mg 3 times a day for 10 days And was given a Medrol Dosepak without any improvement. She was started on Bactrim 05/25/2021 and seen PCP who put her on another 7 days of Bactrim until 06/11/21. She is feeling well with her left elbow. Just tender, no significant redness, warmth, swelling or pain now. Review of Systems Review of Systems: All systems reviewed & are unremarkable except as noted in HPI and below Exam Narrative: Exam Narrative: General: 80-year-old woman sitting up in bed trying to call down for dinner. Appears comfortable with neck pillow behind her head. In no acute distress. Skin: No jaundice or cyanosis. Good skin turgor. Neck: Full range of motion. Supple. Respiratory: Lungs are clear to auscultation bilaterally. No bony chest wall tenderness. Cardiovascular: The heart has a regul
--- NOTE | 2021-06-15 16:50 | PC.NURSE ---
Per Maru Garza stop Diltiazem now 16:50 and give first dose of sotolol at 21:00
[2021-06-15 17:46] LABS: Iron 102 ug/dL (37-170)
[2021-06-15 17:55] LABS: Percent Iron Saturation 36 % (20-50)
[2021-06-15 18:52] LABS: Hematocrit 31.7 % (37.0-47.0); Hemoglobin 10.4 g/dL (12.0-15.0)
[2021-06-15 18:59] LABS: Folic Acid > 20.0 ng/mL (2.76->20); Vitamin B12 > 1000.0 pg/mL (239-931)
[2021-06-15 19:07] LABS: Anion Gap 5 mmol/L (8-16); Blood Urea Nitrogen 13 mg/dL (7-17); Calcium 8.5 mg/dL (8.4-10.2); Carbon Dioxide 27 mmol/L (22-30); Chloride 107 mmol/L (98-107); Estimated CRCL calculation 42 ml/min; Estimated Glomerular Filt Rate > 60; Glucose 98 mg/dL (65-110); Magnesium 1.8 mg/dL (1.6-2.3); Potassium 3.9 mmol/L (3.4-5.0); Sodium 139 mmol/L (137-145)
[2021-06-15] MEDS: MELATONIN 5 MG TABLET PO (20:40)
[2021-06-15] MEDS: SOTALOL HCL 80 MG TABLET PO (20:41)
[2021-06-15] MEDS: APIXABAN 5 MG TABLET PO (20:41)
[2021-06-15 21:41] LABS: Add Urine Microscopic? NO; Appearance Urine Clear (Clear); Bilirubin Urine Negative (Negative); Blood Urine Negative (Negative); Color Urine Yellow (Yellow); Glucose Urine UA Negative (Negative); Ketones Urine Negative (Negative); Leukocyte Esterase Ur Negative LEU/UL (Negative); Nitrate Urine Negative (Negative); Protein Urine Negative (Negative); Specific Grav Ur 1.012 (1.001-1.035); Urobilinogen Urine Negative mg/dL (<2.0)
--- NOTE | 2021-06-15 23:00 | ECG_ITS ---
Measurements Intervals [place] Rate: 58 P: 50 [place]: 168 QRS: -5 QRSD: 94 T: 46 QT: 458 QTc: 450 Interpretive Statements SINUS BRADYCARDIA INCOMPLETE RIGHT BUNDLE BRANCH BLOCK BORDERLINE ECG Electronically Signed On 06-16-2021 7:04:46 CDT by Daniel Davidson D.O.
[2021-06-16] VITALS (18 sets, daily range): BP systolic 93–123; BP diastolic 51–65; PULSE 54–82; RESP 15–18; TEMP 36.1–36.6; O2SAT 95–99
[2021-06-16 05:25] LABS: Basophils Percent Auto 0.4 % (0.2-1.2); Eosinophils Absolute Auto 0.1 K/mm3 (0-0.3); Eosinophils Percent Auto 2.2 % (0-4.4); Hematocrit 33.6 % (37.0-47.0); Hemoglobin 10.8 g/dL (12.0-15.0); Immature Granulocyte Absolute 0.01 K/mm3 (0.00-0.031); Immature Granulocyte Percent A 0.2 % (0-0.5); Lymphocytes Absolute Auto 2.55 K/mm3 (0.9-3.2); Lymphocytes Percent Auto 55.6 % (18.3-44.2); Mean Corpuscular HGB Conc 32.1 g/dl (32-36); Mean Corpuscular Hemoglobin 31.9 pg (26-34); Mean Corpuscular Volume 99.1 fl (80-100); Mean Platelet Volume 10.1 fl (7.4-10.4); Monocytes Absolute Auto 0.5 K/mm3 (0.1-0.6); Monocytes Percent Auto 11.1 % (2.6-8.5); Neutrophils Absolute Auto 1.4 K/mm3 (1.3-6.7); Neutrophils Percent Auto 30.5 % (45.5-73.1); Platelet Count Result 260 k/mm3 (150-375); Red Blood Count 3.39 M/mm3 (4.2-5.4); Red Cell Distribution Width 12.5 % (11.5-14.5); White Blood Count 4.6 K/mm3 (4.5-10.0)
[2021-06-16 06:25] LABS: Alanine Aminotransferase 13 U/L (4-35); Albumin Level 3.5 g/dL (3.5-5.1); Alkaline Phosphatase 67 U/L (38-126); Anion Gap 7 mmol/L (8-16); Aspartate Amino Transferase 28 U/L (14-36); Bilirubin,Total 0.3 mg/dL (0.2-1.3); Blood Urea Nitrogen 14 mg/dL (7-17); Carbon Dioxide 26 mmol/L (22-30); Chloride 104 mmol/L (98-107); Estimated CRCL calculation 47 ml/min; Estimated Glomerular Filt Rate > 60; Glucose 89 mg/dL (65-110); Potassium 3.8 mmol/L (3.4-5.0); Sodium 137 mmol/L (137-145)
[2021-06-16] MEDS: OPTI-GEN TAB 1 TABLET PO (08:54)
[2021-06-16] MEDS: APIXABAN 5 MG TABLET PO ×2 (08:54→21:17)
[2021-06-16] MEDS: CYANOCOBALAMIN 1,000 MCG TABLET 1000 MCG PO (08:54)
[2021-06-16] MEDS: SOTALOL HCL 80 MG TABLET PO ×2 (08:55→21:17)
[2021-06-16] MEDS: PANTOPRAZOLE 40 MG TABLET PO ×2 (08:55→21:17)
[2021-06-16] MEDS: FLUTICASONE PROPIONATE 0.05% NA SPR 16 GM BTL (*BKC) 1 SPRAY NASAL (09:01)
--- NOTE | 2021-06-16 09:39 | PM.IMPN ---
Progress Note: A&P Assessment and Plan (1) Atrial flutter with rapid ventricular response: Code(s): I48.92 - Unspecified atrial flutter Status: Acute Assessment and Plan: June 16. Continues in sinus rhythm. Continue to monitor in IMU while initiating sotalol. For at least 48 hours. Initial does June 15 at 9:00 p.m.. (2) Olecranon bursitis: Onset Date: 04/2021 Qualifiers: Laterality: left Qualified Code(s): M70.22 - Olecranon bursitis, left elbow Code(s): M70.20 - Olecranon bursitis, unspecified elbow Status: Acute Assessment and Plan: Resolved (3) Abnormal TSH: Onset Date: ~2018 Code(s): R79.89 - Other specified abnormal findings of blood chemistry Status: Acute Assessment and Plan: Her TSH was high at 5.94, with a normal T4. continue to monitor as outpatient (4) Macrocytic anemia: Code(s): D53.9 - Nutritional anemia, unspecified Status: Acute Assessment and Plan: B12 folic acid and iron studies are normal. This could be due to early marrow dysfunction, however white blood cells and platelets are normal. Continue to monitor as outpatient Subjective Date/time seen: 06/16/21 09:39 Interval history: admitted 06/14 p.m. with palpitations. Atrial flutter with rapid ventricular rate. Converted sinus rhythm with IV diltiazem. Trend is in to oral Eliquis and sotalol 06/15 p.m.. June 16. Tolerating sotalol. No abnormal bleeding or bruising. Up and about independently. No dizziness palpitations shortness of breath chest pain or swelling. Tolerating diet. Review of Systems Review of Systems: All systems reviewed & are unremarkable except as noted in HPI and below Exam Narrative: Exam Narrative: HEENT: PERRL, sclerae nonicteric, pharyngeal mucosa pink and intact NECK: No JVD, adenopathy, or thyromegaly CHEST: Clear to auscultation. Normal effort. HEART: NL S1/S2, regular, no murmur ABDOMEN: BS+, soft, nontender, no mass, no bruits EXTREMITIES: No cyanosis, edema, or clubbing NEUROLOGIC: CN intact and symmetric to inspection. MUSCULOSKELETAL: Tone and strength symmetric. PSYCH: Alert. Oriented to person, place, and time. Objective Data Vital Signs Vital Signs: Vital Signs - 24 hr 06/15/21 10:00 06/15/21 12:00 06/15/21 14:00 Temperature 98.2 F Pulse Rate 83 80 80 Respiratory Rate 14 Blood Pressure 98/56 L Pulse Oximetry 98 06/15/21 16:00 06/15/21 18:00 06/15/21 20:00 Temperature 98 F 96.9 F L Pulse Rate 74 76 80 Respiratory Rate 16 16 Blood Pressure 113/60 118/62 Pulse Oximetry 98 96 06/15/21 20:41 06/15/21 22:00 06/15/21 23:33 Temperature 97.2 F L Pulse Rate 73 61 60 Respiratory Rate 15 Blood Pressure 105/49 L Pulse Oximetry 95 06/16/21 00:00 06/16/21 02:00 06/16/21 04:00 Temperature 97 F L Pulse Rate 58 L 59 L 57 L Respiratory Rate 15 16 Blood Pressure 100/51 L Pulse Oximetry 95 98 06/16/21 06:00 06/16/21 07:27 06/16/21 08:55 Temperature 97.9 F Pulse Rate 56 L 61 70 Respiratory Rate 16 Blood Pressure 123/65 Pulse Oximetry 97 Intake/Output Intake/Output: Intake & Output 06/13/21 06/14/21 06/15/21 06/16/21 23:59 23:59 23:59 23:59 Intake Total 2970 440 Output Total 1800 700 Balance 1170 -260 Meds/Results Medications: Active Medications Generic Name Dose Route Start Last Admin Trade Name Freq PRN Reason Stop Dose Admin Apixaban 5 mg 06/15/21 21:00 06/16/21 08:54 Apixaban 5 Mg Tablet PO 5 mg Q12HR MALORIE Administration Cyanocobalamin 1,000 mcg 06/15/21 09:00 06/16/21 08:54 Cyanocobalamin 1,000 Mcg Tablet PO 1,000 mcg DAILY MALORIE Administration Fish Oil 1 gm 06/15/21 09:00 06/15/21 09:46 [place] 3 Polyunsat Fatty Acids 1 Gm Cap PO
--- NOTE | 2021-06-16 11:02 | ECG_ITS ---
Measurements Intervals [place] Rate: 55 P: 25 [place]: 160 QRS: -16 QRSD: 89 T: 22 QT: 453 QTc: 434 Interpretive Statements SINUS BRADYCARDIA INCOMPLETE RIGHT BUNDLE BRANCH BLOCK LOW QRS VOLTAGE IN PRECORDIAL LEADS BORDERLINE ECG Electronically Signed On 06-16-2021 17:04:57 CDT by Daniel Davidson D.O.
--- NOTE | 2021-06-16 11:36 | PM.PNCARD ---
Progress Note: A&P Assessment and Plan (1) Atrial flutter with rapid ventricular response: Code(s): I48.92 - Unspecified atrial flutter Status: Acute Assessment and Plan: currently in sinus rhythm. Patient has been on sotalol. EKG which I personally evaluated showed sinus rhythm, QTC 454. Continue sotalol. Monitor electrolytes. Supplement magnesium continue anticoagulation with apixaban monitor on telemetry. Check 12 lead EKG tomorrow morning. If patient clinically stable, then may be discharged home tomorrow. Outpatient follow-up. Subjective Date/time seen: 06/16/21 11:36 Date of service: 06/16/2021: Patient reports resolution of palpitations. Denies chest pain. Exam Narrative: Exam Narrative: PHYSICAL EXAMINATION: GENERAL: Alert, oriented, no acute distress MENTAL STATUS: affect appropriate to mood EYES: Extraocular movements intact, no pallor EARS: External ears appear normal, hearing grossly normal NOSE: Normal and patent, no discharge MOUTH: Mucous membranes moist, tongue normal NECK: Supple, no JVD CHEST: Good respiratory effort, clear to auscultation HEART: Normal rate, regular rhythm, normal S1 and S2, no audible murmurs ABDOMEN: Soft, nontender NEUROLOGICAL: Alert, oriented, normal speech, no gross motor deficits MUSCULOSKELETAL: No major deformity, no amputation EXTREMITIES: No pedal edema, no clubbing, no cyanosis SKIN: no rash on the exposed area, no cyanosis PSYCHIATRIC: Normal mood, appropriate affect Objective Data Vital Signs Vital Signs: Vital Signs - 24 hr 06/15/21 12:00 06/15/21 14:00 06/15/21 16:00 Temperature 36.8 C 36.6 C Pulse Rate 80 80 74 Respiratory Rate 14 16 Blood Pressure 98/56 L 113/60 Pulse Oximetry 98 98 06/15/21 18:00 06/15/21 20:00 06/15/21 20:41 Temperature 36.1 C L Pulse Rate 76 80 73 Respiratory Rate 16 Blood Pressure 118/62 Pulse Oximetry 96 06/15/21 22:00 06/15/21 23:33 06/16/21 00:00 Temperature 36.2 C L Pulse Rate 61 60 58 L Respiratory Rate 15 15 Blood Pressure 105/49 L Pulse Oximetry 95 95 06/16/21 02:00 06/16/21 04:00 06/16/21 06:00 Temperature 36.1 C L Pulse Rate 59 L 57 L 56 L Respiratory Rate 16 Blood Pressure 100/51 L Pulse Oximetry 98 06/16/21 07:27 06/16/21 08:00 06/16/21 08:55 Temperature 36.6 C Pulse Rate 61 66 70 Respiratory Rate 16 Blood Pressure 123/65 Pulse Oximetry 97 06/16/21 10:00 Temperature Pulse Rate 63 Respiratory Rate Blood Pressure Pulse Oximetry Intake/Output Intake/Output: Intake & Output 06/13/21 06/14/21 06/15/21 06/16/21 23:59 23:59 23:59 23:59 Intake Total 2970 440 Output Total 1800 700 Balance 1170 -260 Meds/Results Medications: Active Medications Generic Name Dose Route Start Last Admin Trade Name Freq PRN Reason Stop Dose Admin Apixaban 5 mg 06/15/21 21:00 06/16/21 08:54 Apixaban 5 Mg Tablet PO 5 mg Q12HR MALORIE Administration Cyanocobalamin 1,000 mcg 06/15/21 09:00 06/16/21 08:54 Cyanocobalamin 1,000 Mcg Tablet PO 1,000 mcg DAILY MALORIE Administration Fish Oil 1 gm 06/15/21 09:00 06/15/21 09:46 [place] 3 Polyunsat Fatty Acids 1 Gm Cap PO 1 gm [id number] MALORIE Administration Fluticasone Propionate 1 spray 06/15/21 06:54 06/16/21 09:01 Fluticasone Propionate 0.05% Na Spr 16 Gm Btl (*Bkc) NASAL 1 spray DAILY PRN Administration nasal congestion Melatonin 5 mg 06/15/21 21:00 06/15/21 20:40 Melatonin 5 Mg Tablet PO 5 mg HS MALORIE Administration Multivitamins/Minerals 1 tablet 06/15/21 09:00 06/16/21 08:54 Opti-Gen Tab PO 07/15/21 09:01 1 tablet DAILY MALORIE Administration Non-Formulary Medication 10 mg 06/15/21 07:00 Coenzyme Q10 [Co Q-10] PO 07/15/21 07:01 ONCE MALORIE Pantoprazole Sodium 40 mg 06/15/21 09:00 06/16/21 08:55 Pantoprazole 40 Mg Tablet PO 40 mg Q12HR MALORIE Administration Sotalol HCl 80 mg
[2021-06-16] MEDS: MAGNESIUM SULF 2 GM/WATER 50ML 2 GM/50 ML BAG IVPB (13:29)
[2021-06-16] MEDS: MELATONIN 5 MG TABLET PO (21:17)
[2021-06-17] VITALS (8 sets, daily range): BP systolic 109–115; BP diastolic 58–63; PULSE 53–64; RESP 16–18; TEMP 36.2–36.8; O2SAT 95–97
[2021-06-17 04:57] LABS: Hematocrit 33.3 % (37.0-47.0); Immature Reticulocyte Fraction 6.2 % (3.0-15.9); Mean Corpuscular Hemoglobin 32.4 pg (26-34); Mean Corpuscular Volume 98.2 fl (80-100); Mean Platelet Volume 9.9 fl (7.4-10.4); Platelet Count Result 259 k/mm3 (150-375); Red Blood Count 3.39 M/mm3 (4.2-5.4); Red Cell Distribution Width 12.5 % (11.5-14.5); Reticulocyte Hemoglobin Conten 38.2 pg (28.2-35.7); Reticulocyte Percent 1.19 % (0.7-4.3); Reticulocytes Absolute 0.04 B/L (32.2-175.7); White Blood Count 4.6 K/mm3 (4.5-10.0)
[2021-06-17 05:09] LABS: Anion Gap 4 mmol/L (8-16); Blood Urea Nitrogen 13 mg/dL (7-17); Calcium 8.7 mg/dL (8.4-10.2); Carbon Dioxide 27 mmol/L (22-30); Chloride 106 mmol/L (98-107); Estimated CRCL calculation 47 ml/min; Estimated Glomerular Filt Rate > 60; Glucose 83 mg/dL (65-110); Potassium 4.2 mmol/L (3.4-5.0); Sodium 137 mmol/L (137-145)
--- NOTE | 2021-06-17 07:00 | ECG_ITS ---
Measurements Intervals [place] Rate: 57 P: 26 AL: 154 QRS: -6 QRSD: 87 T: 43 QT: 434 QTc: 425 Interpretive Statements SINUS BRADYCARDIA INCOMPLETE RIGHT BUNDLE BRANCH BLOCK LOW QRS VOLTAGE IN PRECORDIAL LEADS BORDERLINE ECG Electronically Signed On 06-17-2021 16:16:35 CDT by Daniel Davidson D.O.
[2021-06-17] MEDS: OPTI-GEN TAB 1 TABLET PO (08:15)
[2021-06-17] MEDS: PANTOPRAZOLE 40 MG TABLET PO (08:15)
[2021-06-17] MEDS: SOTALOL HCL 80 MG TABLET PO (08:16)
[2021-06-17] MEDS: CYANOCOBALAMIN 1,000 MCG TABLET 1000 MCG PO (08:17)
[2021-06-17] MEDS: APIXABAN 5 MG TABLET PO (08:17)
--- NOTE | 2021-06-17 09:41 | PM.PNCARD ---
Progress Note: A&P Assessment and Plan (1) Atrial flutter with rapid ventricular response: Code(s): I48.92 - Unspecified atrial flutter Status: Acute Assessment and Plan: Patient has remained in sinus rhythm. Patient has been on sotalol. EKG performed today which I personally evaluated showed sinus rhythm, QTC 429. patient was supplemented with magnesium. Continue sotalol. continue anticoagulation with apixaban Okay to discharge home from cardiac standpoint. Follow up with Dr. [place]. Patient already has follow-up Contact information. Subjective Date/time seen: 06/17/21 09:41 Date of Service: 06/17/2021 Interval history: Patient is feeling better, no recurrent palpitations, no chest pain or shortness of breath. Exam Narrative: Exam Narrative: PHYSICAL EXAMINATION: GENERAL: Alert, oriented, no acute distress MENTAL STATUS: affect appropriate to mood EYES: Extraocular movements intact, no pallor EARS: External ears appear normal, hearing grossly normal NOSE: Normal and patent, no discharge MOUTH: Mucous membranes moist, tongue normal NECK: Supple, no JVD CHEST: Good respiratory effort, clear to auscultation HEART: Normal rate, regular rhythm, normal S1 and S2, no audible murmurs ABDOMEN: Soft, nontender NEUROLOGICAL: Alert, oriented, normal speech, no gross motor deficits MUSCULOSKELETAL: No major deformity, no amputation EXTREMITIES: No pedal edema, no clubbing, no cyanosis SKIN: no rash on the exposed area, no cyanosis PSYCHIATRIC: Normal mood, appropriate affect Objective Data Vital Signs Vital Signs: Vital Signs - 24 hr 06/16/21 10:00 06/16/21 12:00 06/16/21 14:00 Temperature 36.4 C Pulse Rate 63 57 L 65 Respiratory Rate 18 Blood Pressure 121/58 L Pulse Oximetry 99 06/16/21 15:08 06/16/21 16:00 06/16/21 18:00 Temperature 36.3 C L Pulse Rate 61 61 71 Respiratory Rate 18 Blood Pressure 93/56 L Pulse Oximetry 97 06/16/21 19:33 06/16/21 20:00 06/16/21 21:17 Temperature 36.4 C L Pulse Rate 67 66 65 Respiratory Rate 16 Blood Pressure 100/53 L Pulse Oximetry 97 97 06/16/21 22:00 06/16/21 23:32 06/17/21 00:00 Temperature 36.2 C L Pulse Rate 57 L 59 L 57 L Respiratory Rate 16 Blood Pressure 105/56 L Pulse Oximetry 97 97 06/17/21 02:00 06/17/21 03:42 06/17/21 04:00 Temperature 36.2 C L Pulse Rate 55 L 56 L 53 L Respiratory Rate 16 Blood Pressure 109/58 L Pulse Oximetry 97 97 06/17/21 06:00 06/17/21 08:00 06/17/21 08:16 Temperature 36.8 C Pulse Rate 55 L 61 64 Respiratory Rate 18 Blood Pressure 115/63 Pulse Oximetry 95 Intake/Output Intake/Output: Intake & Output 06/14/21 06/15/21 06/16/21 06/17/21 23:59 23:59 23:59 23:59 Intake Total 2970 1660 300 Output Total 1800 2850 900 Balance 1170 -1190 -600 Meds/Results Medications: Active Medications Generic Name Dose Route Start Last Admin Trade Name Freq PRN Reason Stop Dose Admin Apixaban 5 mg 06/15/21 21:00 06/17/21 08:17 Apixaban 5 Mg Tablet PO 5 mg Q12HR MALORIE Administration Cyanocobalamin 1,000 mcg 06/15/21 09:00 06/17/21 08:17 Cyanocobalamin 1,000 Mcg Tablet PO 1,000 mcg DAILY MALORIE Administration Fish Oil 1 gm 06/15/21 09:00 06/15/21 09:46 [place] 3 Polyunsat Fatty Acids 1 Gm Cap PO 1 gm [id number] MALORIE Administration Fluticasone Propionate 1 spray 06/15/21 06:54 06/16/21 09:01 Fluticasone Propionate 0.05% Na Spr 16 Gm Btl (*Bkc) NASAL 1 spray DAILY PRN Administration nasal congestion Melatonin 5 mg 06/15/21 21:00 06/16/21 21:17 Melatonin 5 Mg Tablet PO 5 mg HS MALORIE Administration Multivitamins/Minerals 1 tablet 06/15/21 09:00 06/17/21 08:15 Opti-Gen Tab PO 07/15/21 09:01 1 tablet DAILY MALORIE Administration Non-Formulary Medication 10 mg 06/15/21 07:00 Coenzyme Q10 [Co Q-10] PO 07/15/21 07:01 ONCE MALORIE Pantoprazole Sodium 40 mg
--- NOTE | 2021-06-17 12:02 | PM.DS ---
DS: Admitting Diagnosis Admitting Diagnosis Atrial flutter with rapid ventricular rate DS: Discharge Diagnosis Discharge Diagnosis (1) Atrial flutter with rapid ventricular response: Code(s): I48.92 - Unspecified atrial flutter Status: Acute Assessment and Plan: June 17. Continues in sinus rhythm. QTc not prolonged. Discharge to f/u with cardiology. (2) Olecranon bursitis: Onset Date: 04/2021 Qualifiers: Laterality: left Qualified Code(s): M70.22 - Olecranon bursitis, left elbow Code(s): M70.20 - Olecranon bursitis, unspecified elbow Status: Acute Assessment and Plan: Resolved (3) Abnormal TSH: Onset Date: Code(s): R79.89 - Other specified abnormal findings of blood chemistry Status: Acute Assessment and Plan: Her TSH was high at 5.94, with a normal T4. continue to monitor as outpatient (4) Macrocytic anemia: Code(s): D53.9 - Nutritional anemia, unspecified Status: Acute Assessment and Plan: B12 folic acid and iron studies are normal. This could be due to early marrow dysfunction, however white blood cells and platelets are normal. Continue to monitor as outpatient DS: Summary Hospital Course Reason for hospitalization: atrial flutter with rapid ventricular rate Hospital Course: patient was admitted with palpitations dyspnea and fatigue. Found to be in atrial flutter with rapid ventricular rate. Prior history that period was taking aspirin daily. Upon admission she was given IV diltiazem and converted to sinus rhythm. She was seen by Cardiology and sotalol 80 mg every 12 hours was initiated. Eliquis 5 mg twice daily was initiated. She tolerated both of these well. QT interval was not significantly prolonged. She was up and about independently tolerating her diet and experiencing only mild fatigue on the day of discharge. Heart rate was 53 and sinus rhythm on telemetry. Status at Discharge Functional status at discharge: independent ambulation Overall status at discharge: patient is back to baseline Time Spent with Patient Time attestation: Total time spent providing and/or coordinating discharge services: Time spent: Greater than 30 minutes Exam Narrative: Exam Narrative: HEENT: PERRL, sclerae nonicteric, pharyngeal mucosa pink and intact NECK: No JVD, adenopathy, or thyromegaly CHEST: Clear to auscultation. Normal effort. HEART: NL S1/S2, regular, no murmur ABDOMEN: BS+, soft, nontender, no mass, no bruits EXTREMITIES: No cyanosis, edema, or clubbing NEUROLOGIC: CN intact and symmetric to inspection. MUSCULOSKELETAL: Tone and strength symmetric. PSYCH: Alert. Oriented to person, place, and time. DS: Data Data Completed and Pending Labs on day of discharge: Labs from last 24 hours 06/17/21 06/17/21 04:21 04:21 WBC 4.6 RBC 3.39 L Hgb 11.0 L Hct 33.3 L MCV 98.2 MCH 32.4 MCHC 33.0 RDW 12.5 Plt Count 259 MPV 9.9 Absolute Retic 0.04 L Percent Retic 1.19 Immature Retic Fraction 6.2 Retic Hgb Content 38.2 H Sodium 137 Potassium 4.2 Chloride 106 Carbon Dioxide 27 Anion Gap 4 L BUN 13 Creatinine 0.80 Estim Creat Clear Calc 47 Estimated GFR > 60 Glucose 83 Calcium 8.7 Discharge Plan Discharge Consulting providers: Izabel Heck Discharging Clinician: Dmitri Salinas Patient Disposition: Home, Self-Care Activity: no straining Diet: heart healthy Stand Alone Forms: General Discharge Information Follow-up/Referrals: Marcella Muñiz MD [Primary Care Provider] - 1 Week Izabel Heck MD [Physician] - 1 Week Discharge Medications: New Eliquis 5 mg Tablet 5 mg PO Q12HR Qty: 60 RF: 0 sotalol 80 mg Tablet 80 mg PO Q12HR Qty: 60
[2021-06-19 11:10] LABS: Ionized Calcium 4.8 mg/dL (4.8-5.6)
== END 2021-06-17 12:43 | disposition home or self-care (01) | DRG 310 ==
LOC: ANHED 06-15 01:28 → ANHTRC 06-15 02:26 → ANHIMU 06-15 02:27
PROVIDERS: Nurse Practitioner; Physician Assistant; Admitting Provider Internal Medicine; Emergency Provider Emergency Medicine; PCP Family Medicine; Visit Provider Internal Medicine
DX: I48.92 Unspecified atrial flutter (principal); M70.22 Olecranon bursitis, left elbow; R79.89 Other specified abnormal findings of blood chemistry; D53.9 Nutritional anemia, unspecified; E78.5 Hyperlipidemia, unspecified; K21.9 Gastro-esophageal reflux disease without esophagitis; K46.9 Unspecified abdominal hernia without obstruction or gangrene; M85.80 Other specified disorders of bone density and structure, unspecified site; E53.8 Deficiency of other specified B group vitamins; E55.9 Vitamin D deficiency, unspecified; M19.90 Unspecified osteoarthritis, unspecified site; Z98.1 Arthrodesis status; Z90.710 Acquired absence of both cervix and uterus; Z90.722 Acquired absence of ovaries, bilateral; Z90.49 Acquired absence of other specified parts of digestive tract; Z86.711 Personal history of pulmonary embolism; Z86.16 Personal history of COVID-19
CPT/HCPCS: 36415; 71045; 80048; 80053; 81003; 82330; 82607; 82728; 82746; 83519; 83540; 83550; 83735; 83970; 84100; 84439; 84443; 84484; 85014; 85018; 85025; 85027; 85046; 85610; 85730; 93005; 93306; 96365; 96366; 96372; 99285; A9270; G0378; J1650; J3475; J7030

== ENCOUNTER 2021-06-24 17:40 | Emergency (ER) | payer MEDICARE, SELFPAY ==
--- NOTE | ~2021-06-24 | CT_ITS ---
EXAMINATION: CT abdomen pelvis w con DATE: 06/24/2021 23:24 INDICATION: Abdominal pain TECHNIQUE: Computed tomography (CT) of the abdomen and pelvis was performed with 100 cc Omnipaque 350 intravenous contrast. Automated exposure control and iterative reconstruction technique were employe d. Exam dose: 350.49 mGy-cm total exam DLP. COMPARISON: 04/29/2020 CT abdomen pelvis 05/01/2020 upper gastrointestinal series with small bowel follow-through FINDINGS: There is minimal discoid atelectasis or scarring in the right lower lobe. There is no infil trate or consolidation at the lung bases. Normal heart size. No pericardial or pleural effusion. The liver, spleen and pancreas are unremarkable. There are multiple stones in the dependent aspect of the gallbladder but no apparent gallbladder wall thickening or pericholecystic fluid or fat strandin g. No bile duct or pancreatic duct dilatation. Normal morphology of the adrenal glands. No renal mass lesion or urinary tract calculus or hydroureteronephrosis. The urinary bladder is unrem arkable. Status post hysterectomy. No bowel obstruction or bowel wall thickening, pneumatosis or intraperitoneal free air is detected. There is atherosclerotic calcification of the abdominal aorta but no aneurysm. No intraperitoneal or retroperitoneal or pelvic mass lesion or adenopathy or ascites. Surgical clips are noted in both inguinal areas. Diffuse osteopenia. Status post posterior spinal fusion at L3-S1. Severe degenerative disc disease is noted in the thorac olumbar area, with associated mild retrolisthesis at L1-2 and L2-3. IMPRESSION: Cholelithiasis Status post hysterectomy Status post posterior spinal fusion at L3-S1. Severe degenerative disc disease of the thoracolumbar area Reviewed, dictated and finalized at [facility]. Reviewed, dictated and finalized at [facility].
--- NOTE | 2021-06-24 18:03 | ECG_ITS ---
Measurements Intervals [place] Rate: 69 P: 56 [place]: 146 QRS: -22 QRSD: 93 T: 30 QT: 407 QTc: 436 Interpretive Statements SINUS RHYTHM LOW QRS VOLTAGE IN PRECORDIAL LEADS INCOMPLETE RIGHT BUNDLE BRANCH BLOCK BASELINE ARTIFACT- I, II, III, AVR, AVL BORDERLINE ECG Electronically Signed On 06-24-2021 21:22:05 CDT by Daniel Davidson D.O.
[2021-06-24 18:11] VITALS: BP 139/70; PULSE 68; RESP 17; TEMP 36.6; O2SAT 98
[2021-06-24 18:46] LABS: Basophils Percent Auto 0.4 % (0.2-1.2); Eosinophils Absolute Auto 0.1 K/mm3 (0-0.3); Hematocrit 38.5 % (37.0-47.0); Hemoglobin 12.8 g/dL (12.0-15.0); Lymphocytes Absolute Auto 2.32 K/mm3 (0.9-3.2); Lymphocytes Percent Auto 46.3 % (18.3-44.2); Mean Corpuscular HGB Conc 33.2 g/dl (32-36); Mean Corpuscular Hemoglobin 32.5 pg (26-34); Mean Corpuscular Volume 97.7 fl (80-100); Mean Platelet Volume 10.2 fl (7.4-10.4); Monocytes Absolute Auto 0.5 K/mm3 (0.1-0.6); Monocytes Percent Auto 9.6 % (2.6-8.5); Neutrophils Absolute Auto 2.1 K/mm3 (1.3-6.7); Neutrophils Percent Auto 42.7 % (45.5-73.1); Platelet Count Result 300 k/mm3 (150-375); Red Blood Count 3.94 M/mm3 (4.2-5.4); Red Cell Distribution Width 12.3 % (11.5-14.5)
[2021-06-24 18:51] LABS: Alanine Aminotransferase 16 U/L (4-35); Albumin Level 4.4 g/dL (3.5-5.1); Alkaline Phosphatase 97 U/L (38-126); Anion Gap 9 mmol/L (8-16); Aspartate Amino Transferase 29 U/L (14-36); Bilirubin,Total 0.2 mg/dL (0.2-1.3); Blood Urea Nitrogen 10 mg/dL (7-17); Calcium 9.7 mg/dL (8.4-10.2); Carbon Dioxide 23 mmol/L (22-30); Chloride 106 mmol/L (98-107); Estimated CRCL calculation 34 ml/min; Estimated Glomerular Filt Rate > 60; Glucose 109 mg/dL (65-110); Lipase 132 U/L (23-300); Potassium 4.5 mmol/L (3.4-5.0); Sodium 138 mmol/L (137-145)
[2021-06-24 22:46] LABS: Add Urine Microscopic? NO; Appearance Urine Clear (Clear); Bilirubin Urine Negative (Negative); Blood Urine Negative (Negative); Color Urine Straw (Yellow); Glucose Urine UA Negative (Negative); Ketones Urine Negative (Negative); Leukocyte Esterase Ur Negative LEU/UL (Negative); Nitrate Urine Negative (Negative); Protein Urine Negative (Negative); Specific Grav Ur 1.009 (1.001-1.035); Urobilinogen Urine Negative mg/dL (<2.0)
--- NOTE | 2021-06-24 22:48 | ED.GENADULT ---
HPI - General Adult General Chief complaint: Abdominal Pain Stated complaint: Stomach ache and mona Time Seen by Provider: 06/24/21 21:44 History of Present Illness HPI narrative: Patient 80-year-old female presents the emergency department with chief complaint of abdominal pain. Patient reports that she was today she ate a taco salad for patient and then a little while afterwards started having severe abdominal pain. Patient states that by the time she arrived to the emergency department was starting to feel somewhat better but still had discomfort throughout her abdomen. Patient reports she said multiple surgeries in her abdomen past had a bowel obstruction patient denies fever denies chills denies vomiting Related Data Home Medications Medication Instructions Recorded Confirmed B6 200 mg-levomefolate 8 mg-B12 4 1 tablet PO DAILY 01/25/20 06/15/21 mg-ALA 600 mg-intrinsic fact tablet cranberry jazf-J-tijyxjss coag 450 1 tablet PO DAILY 01/25/20 06/15/21 mg-30 mg-50 million cell tablet omega 5-vkj-mqz-fish oil 100 1 cap PO 3XW 01/25/20 06/15/21 mg-160 mg-1,000 mg capsule PreserVision Lutein 1 cap PO DAILY 04/04/20 06/15/21 cyanocobalamin (vitamin B-12) 1,000 mcg PO DAILY 04/28/20 06/15/21 coenzyme Q10 10 mg capsule 10 mg PO ONCE 08/15/20 06/15/21 melatonin 5 mg capsule 5 mg PO QHS cap 06/04/21 06/15/21 Repatha SureClick 140 mg SUBCUT [id number] 06/15/21 06/15/21 Allergies Allergy/AdvReac Type Severity Reaction Status Date / Time simvastatin Allergy Unknown Muscle pain Verified 06/14/21 23:30 morphine AdvReac Unknown HEADACHE Verified 06/14/21 23:30 Review of Systems Review of Systems: A 10 system review of systems was completed on the patient and is negative except for what is stated in the HPI. Nursing and ancillary documentation was reviewed. [facility] Past Medical History Medical History Abnormal TSH (~2018) Chronic low back pain with bilateral sciatica COVID-19 vaccine series completed Dyslipidemia (~2018) Environmental allergies Frequent UTI GERD without esophagitis (~2018) Hiatal hernia (~2019) Increased urinary frequency Non-cardiac chest pain Negative stress test and normal echocardiogram 03/2020 Olecranon bursitis (04/2021) Osteopenia Pneumonia due to COVID-19 virus Presbycusis of both ears Pulmonary emboli (03/2020) TMJ tenderness Unspecified osteoarthritis, unspecified site Vitamin B12 deficiency (~2018) Vitamin D deficiency (~2018) Surgical History Surgical History History of appendectomy 4th grade History of carpal tunnel release History of exploratory laparotomy (~1999) History of hemorrhoidectomy (~2011) History of lumbar fusion (~08/2008) History of total abdominal hysterectomy and bilateral salpingo-oophorectomy (~1987) Family History Family History Father Cerebrovascular accident Grandparent Carcinoma of colon Other Carcinoma of colon Social History Social History Social History: The patient lives with her of 60, of years, who is a durable power attorney law clerk for healthcare. She desires to be a full code. She has 2 children. 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 she drinks 1 or 2 alcoholic beverages once every week or so. Never smoked and does not use illicit drugs. Primary care physician: Dr. Nasir Muñiz code status: Full code surrogate decision maker: Smoking status: Never smoker Second hand tobacco smoke exposure: No Alcohol intake: current Drinks per week: 4 Alcohol use details: consumes 1 beer daily Substance use: never Substance use type: does not use Gender identity (if verbalized by the patient): Female Spiritual care concerns: No Exam Narrati
[2021-06-25 01:06] VITALS: BP 140/67; PULSE 58; RESP 18; O2SAT 99
== END 2021-06-25 01:10 | disposition home or self-care (01) ==
PROVIDERS: Emergency Medicine; Emergency Provider Emergency Medicine; PCP Family Medicine
DX: K80.20 Calculus of gallbladder without cholecystitis without obstruction (principal); E78.5 Hyperlipidemia, unspecified; K21.9 Gastro-esophageal reflux disease without esophagitis; M85.80 Other specified disorders of bone density and structure, unspecified site; Z86.16 Personal history of COVID-19; Z87.01 Personal history of pneumonia (recurrent); M19.90 Unspecified osteoarthritis, unspecified site; Z86.711 Personal history of pulmonary embolism; E53.8 Deficiency of other specified B group vitamins; E55.9 Vitamin D deficiency, unspecified; Z98.1 Arthrodesis status; I45.10 Unspecified right bundle-branch block; M51.35 Other intervertebral disc degeneration, thoracolumbar region
CPT/HCPCS: 36415; 74177; 80053; 81003; 83690; 85025; 93005; 99284; Q9967

== ENCOUNTER 2021-07-25 13:15 | Outpatient (CLI) | payer MEDICARE, SELFPAY ==
[2021-07-25 14:14] LABS: Alanine Aminotransferase 14 U/L (4-35); Albumin Level 4.3 g/dL (3.5-5.1); Alkaline Phosphatase 80 U/L (38-126); Amylase 80 U/L (30-110); Aspartate Amino Transferase 29 U/L (14-36); Bilirubin,Total 0.4 mg/dL (0.2-1.3); Lipase 121 U/L (23-300)
== END 2021-07-25 13:16 | disposition home or self-care (01) ==
PROVIDERS: PCP Family Medicine; Visit Provider Surgery
DX: Z01.812 Encounter for preprocedural laboratory examination (principal); K80.10 Calculus of gallbladder with chronic cholecystitis without obstruction
CPT/HCPCS: 36415; 80076; 82150; 83690; 86850; 86900; 86901

== ENCOUNTER 2021-08-02 01:49 | Day surgery (SDC) | payer MEDICARE, SELFPAY ==
[2021-07-23 15:05] VITALS: BMI 22.6
[2021-08-02] VITALS (8 sets, daily range): BP systolic 133–145; BP diastolic 65–96; PULSE 53–71; RESP 13–20; TEMP 36.3–36.9; O2SAT 96–100
--- NOTE | 2021-08-02 09:45 | WPDANESEPPF ---
Anes - Initial Pre Proc Eval Procedure: Operation Date: 08/02/21 11:00 Proposed Procedures p Laparoscopic Cholecystectomy - Amos Perez MD Date/Time: 08/02/21 09:46 Surgeon: Amos Perez MD Pre Op Diagnosis: chronic cholecystitis with stones Patient Data Age: 80 Gender: F Height: 1.68 m Weight: 63.65 kg Allergies Allergy/AdvReac Type Severity Reaction Status Date / Time simvastatin Allergy Unknown Muscle pain Verified 07/23/21 13:54 morphine AdvReac Unknown HEADACHE Verified 07/23/21 13:54 Home Medications Medication Instructions Recorded Confirmed Type cranberry uidk-Z-zbvuwaxa coag 450 1 tablet PO DAILY 01/25/20 07/23/21 History mg-30 mg-50 million cell tablet omega 3-xkd-lzp-fish oil 100 1 cap PO 3XW 01/25/20 07/23/21 History mg-160 mg-1,000 mg capsule PreserVision Lutein 1 cap PO DAILY 04/04/20 07/23/21 History coenzyme Q10 10 mg capsule 10 mg PO ONCE 08/15/20 07/23/21 History omeprazole 20 mg capsule,delayed 20 mg PO BID #180 cap 02/13/21 07/23/21 Rx release melatonin 5 mg capsule 5 mg PO QHS cap 06/04/21 07/23/21 History Repatha SureClick 140 mg SUBCUT [id number] 06/15/21 07/23/21 History apixaban [Eliquis] 5 mg PO Q12HR #60 tablet 06/17/21 07/23/21 Rx fluticasone propionate [Flonase 1 spray NASAL PRN PRN 07/23/21 07/23/21 History Allergy Relief] sotalol 40 mg PO Q12HR 07/23/21 07/23/21 History Patient hx anesthesia problems: none Family hx anesthesia problems: none PMFSH Past Medical History Medical History Abnormal TSH (~2018) Atrial flutter Chronic low back pain with bilateral sciatica COVID-19 vaccine series completed Dyslipidemia (~2018) Environmental allergies Frequent UTI GERD without esophagitis (~2018) Hiatal hernia (~2018) Increased urinary frequency Non-cardiac chest pain Negative stress test and normal echocardiogram 03/2020 Olecranon bursitis (04/2021) Osteopenia Pneumonia due to COVID-19 virus Presbycusis of both ears Pulmonary emboli (03/2020) TMJ tenderness Unspecified osteoarthritis, unspecified site Vitamin B12 deficiency (~2018) Vitamin D deficiency (~2018) Surgical History Surgical History History of appendectomy 4th grade History of carpal tunnel release History of exploratory laparotomy (~1999) History of hemorrhoidectomy (~2011) History of lumbar fusion (~08/2008) History of total abdominal hysterectomy and bilateral salpingo-oophorectomy (~1987) Family History Family History Father Cerebrovascular accident Grandparent Carcinoma of colon Other Carcinoma of colon Social History Social History Social History: The patient lives with her of 60, of years, who is a durable power audit mgr for healthcare. She desires to be a full code. She has 2 children. 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 she drinks 1 or 2 alcoholic beverages once every week or so. Never smoked and does not use illicit drugs. Primary care physician: Dr. Nasir Muñiz code status: Full code surrogate decision maker: Smoking status: Never smoker Second hand tobacco smoke exposure: No Alcohol intake: current Drinks per week: 1 Alcohol use details: consumes 1 beer daily Substance use: current Substance use type: does not use Other substance usage details: DAILY Living arrangements: with family Gender identity (if verbalized by the patient): Female Sexual Orientation (if Verbalized by the Patient): Straight or Heterosexual Spiritual care concerns: No Anes - Eval Final PreProcedure Day of Procedure 08/02/21 09:46 Patient weight: normal Heart: regular rate and rhythm Lungs: clear to auscultation Airway: Mallampati scale class 1 Neurological: alert and oriented Last or
[2021-08-02] MEDS: ACETAMINOPHEN 500 MG TABLET 1000 MG PO (10:03)
[2021-08-02] MEDS: LACTATED RINGERS 1,000 ML 30 ML IV CONT ×2 (10:12→12:03)
[2021-08-02] MEDS: KETOROLAC 15 MG/ML VIAL (*BKC) IV PUSH (10:14)
--- NOTE | 2021-08-02 10:46 | WPDHPUPDATE1 ---
History and Physical Update Update Date/Time: 08/02/21 10:47 History and Physical has been reviewed, including an updated exam of the patient. There are NO changes in the patient's condition. Risks, benefits, and alternatives have been discussed and questions answered. Patient agrees to proceed with procedure.
[2021-08-02] MEDS: ceFAZolin 2 GM/D5W 50 ML 2 GM/50 ML BAG IVPB (10:58)
--- NOTE | 2021-08-02 12:00 | W.PM.PROC2 ---
Procedure Note - Detailed Date of Procedure 08/02/21 Pre-op Diagnosis chronic cholecystitis with stones Post-op Diagnosis same Procedure Performed Laparoscopic cholecystectomy Surgeon Amos Perez MD Diesel Mechanic Apprentice Alyssa Luo [facility] Anesthesia general and local (0.5% [place]) Indications Patient is a 80-year-old woman who had postprandial right upper quadrant abdominal pain after eating a taco salad. Exam and imaging showed gallstones and evidence of cholecystitis. She is taken to surgery now for laparoscopic cholecystectomy. Findings Mild chronic inflammation was noted. No biliary ductal dilatation. No liver abnormalities. No large stones were noted. Description of Procedure The patient was taken to surgery and induced into general anesthesia. The abdomen is prepped and draped. Trocars were placed in the usual fashion using 0.5% Marcaine with epinephrine an applied Medical optical trocars. A 5 mm camera was used. Some adhesions in the right lower quadrant were taken down sharply. This gave us good access to the right upper quadrant. The gallbladder was retracted anterosuperiorly. Traction was placed on the infundibulum. Dissection was carried out in the cholecystohepatic triangle. The cystic duct and cystic artery were dissected out clearly. The gallbladder was dissected off the liver at its lower 3rd. Critical view was achieved. We securely clipped and divided the cystic duct and cystic artery. The gallbladder was then dissected free of its remaining peritoneal attachments to the liver. It was placed in an Endo-Catch bag retrieved through the 10 11 epigastric trocar site. The epigastric trocar was then replaced. We reviewed the gallbladder fossa and right upper quadrant. Repeated irrigation and suctioning were carried out. All looked good with no evidence of bleeding or bile leakage. We then evacuated CO2 and removed the trocar sleeves. The fascia at the epigastric trocar site was closed with an 0 Vicryl suture. Skin wounds were closed with subcuticular 4-0 Monocryl skin suture. The wounds were dressed with Exofin surgical adhesive. The patient was awakened and taken to recovery in good condition. Estimated blood loss was 5 cc. Sponge and needle counts were correct x2. Estimated Blood Loss 5 Drains No Packing No Pathology yes (Gallbladder) Complications None Condition stable Disposition PACU
[2021-08-02] MEDS: ONDANSETRON INJ 4 MG/2 ML VIAL IV PUSH (12:33)
== END 2021-08-02 13:44 | disposition home or self-care (01) ==
PROVIDERS: PCP Family Medicine; Visit Provider Surgery
PROC: 0FT44ZZ Resection of Gallbladder, Percutaneous Endoscopic Approach (ICD-10-PCS; CPT 47562; principal; 2021-08-02 11:00)
DX: K80.20 Calculus of gallbladder without cholecystitis without obstruction (principal); Z79.01 Long term (current) use of anticoagulants; E78.5 Hyperlipidemia, unspecified; I48.92 Unspecified atrial flutter; K21.9 Gastro-esophageal reflux disease without esophagitis; E55.9 Vitamin D deficiency, unspecified; E53.8 Deficiency of other specified B group vitamins; Z86.16 Personal history of COVID-19; Z86.711 Personal history of pulmonary embolism; Z98.1 Arthrodesis status
CPT/HCPCS: 47562; 36415; 80076; 82150; 83690; 86850; 86900; 86901; 88304; A9270; C1713; J0330; J0690; J1100; J1885; J2405; J3010; J7120

== ENCOUNTER 2021-08-03 14:22 | Emergency (ER) | payer MEDICARE, SELFPAY ==
--- NOTE | ~2021-08-03 | CT_ITS ---
EXAMINATION: CT abdomen pelvis w con DATE: 08/03/2021 18:10 INDICATION: Abdominal distention. Decreased urinary output. Cholecystectomy yesterday. TECHNIQUE: Computed tomography (CT) of the abdomen and pelvis was performed without intravenous contr ast. The dose-length product was 313.88 mGy-cm. Automated exposure control and iterative reconstructi on technique were employed. COMPARISON: CT dated 06/24/2021. FINDINGS: Lung bases are unremarkable. Heart size normal. No significant pleural or pericardial effus ion. There is atherosclerosis of the aorta without aneurysm. There are postsurgical changes in the ri ght anterior abdominal and pelvic wall, consistent with recent cholecystectomy. There are cholecystec arthur clips. Nonobstructive bowel gas pattern. The liver, spleen, pancreas, adrenal glands and kidneys are unremarkable. Bladder is distended. No fo kedar bladder wall abnormality is seen. Moderate colonic fecal loading. Punctate amount of free air in the abdomen, consistent with recent surgery. Uterus is not identified, likely surgically absent. Ther e are surgical spinal fusion changes at L3-S1. There is severe thoracolumbar spondylosis. IMPRESSION: 1. Postsurgical changes consistent with recent cholecystectomy. Reviewed, dictated and finalized at location A.
[2021-08-03 14:29] VITALS: BP 114/88; PULSE 63; RESP 16; TEMP 36.4; O2SAT 99
[2021-08-03 14:43] LABS: Basophils Percent Auto 0.3 % (0.2-1.2); Eosinophils Absolute Auto 0.1 K/mm3 (0-0.3); Eosinophils Percent Auto 0.6 % (0-4.4); Hematocrit 35.1 % (37.0-47.0); Hemoglobin 11.2 g/dL (12.0-15.0); Immature Granulocyte Absolute 0.01 K/mm3 (0.00-0.031); Immature Granulocyte Percent A 0.1 % (0-0.5); Lymphocytes Absolute Auto 3.47 K/mm3 (0.9-3.2); Lymphocytes Percent Auto 44.2 % (18.3-44.2); Mean Corpuscular HGB Conc 31.9 g/dl (32-36); Mean Corpuscular Hemoglobin 31.8 pg (26-34); Mean Corpuscular Volume 99.7 fl (80-100); Mean Platelet Volume 9.9 fl (7.4-10.4); Monocytes Absolute Auto 0.6 K/mm3 (0.1-0.6); Neutrophils Absolute Auto 3.7 K/mm3 (1.3-6.7); Neutrophils Percent Auto 46.8 % (45.5-73.1); Platelet Count Result 244 k/mm3 (150-375); Red Blood Count 3.52 M/mm3 (4.2-5.4); Red Cell Distribution Width 12.7 % (11.5-14.5); White Blood Count 7.9 K/mm3 (4.5-10.0)
[2021-08-03 14:58] LABS: Alanine Aminotransferase 19 U/L (4-35); Albumin Level 3.9 g/dL (3.5-5.1); Alkaline Phosphatase 64 U/L (38-126); Anion Gap 4 mmol/L (8-16); Aspartate Amino Transferase 37 U/L (14-36); Bilirubin,Total 0.4 mg/dL (0.2-1.3); Blood Urea Nitrogen 12 mg/dL (7-17); Calcium 8.7 mg/dL (8.4-10.2); Carbon Dioxide 28 mmol/L (22-30); Chloride 101 mmol/L (98-107); Estimated CRCL calculation 49 ml/min; Estimated Glomerular Filt Rate > 60; Glucose 105 mg/dL (65-110); Lipase 307 U/L (23-300); Potassium 4.5 mmol/L (3.4-5.0); Sodium 133 mmol/L (137-145)
[2021-08-03 16:42] VITALS: BP 141/69; PULSE 59; RESP 14; O2SAT 99
[2021-08-03 16:58] LABS: Add Urine Microscopic? NO; Appearance Urine Clear (Clear); Bilirubin Urine Negative (Negative); Blood Urine Negative (Negative); Color Urine Straw (Yellow); Glucose Urine UA Negative (Negative); Ketones Urine Negative (Negative); Leukocyte Esterase Ur Negative LEU/UL (Negative); Nitrate Urine Negative (Negative); Protein Urine Negative (Negative); Specific Grav Ur 1.006 (1.001-1.035); Urobilinogen Urine Negative mg/dL (<2.0)
--- NOTE | 2021-08-03 17:09 | ED.GENADULT ---
HPI - General Adult General Chief complaint: Unspecified Stated complaint: urinary retention Time Seen by Provider: 08/03/21 16:42 Source: patient Mode of arrival: ambulatory Limitations: no limitations History of Present Illness HPI narrative: This is a 80 year old female that presents to the ER for abdominal distention. Reports she had a cholecystectomy yesterday. Reports diffuse abdominal bloating and discomfort. Reports she has only been able to urinate small amounts at a time. She has not had a bowel movement yet, but is passing gas. Denies fever, vomiting, or dysuria. Related Data Home Medications Medication Instructions Recorded Confirmed cranberry diak-R-ewevfrsb coag 450 1 tablet PO DAILY 01/25/20 08/02/21 mg-30 mg-50 million cell tablet omega 1-xni-esu-fish oil 100 1 cap PO 3XW 01/25/20 08/02/21 mg-160 mg-1,000 mg capsule PreserVision Lutein 1 cap PO DAILY 04/04/20 08/02/21 coenzyme Q10 10 mg capsule 10 mg PO ONCE 08/15/20 08/02/21 melatonin 5 mg capsule 5 mg PO QHS cap 06/04/21 08/02/21 Repatha SureClick 140 mg SUBCUT [id number] 06/15/21 08/02/21 fluticasone propionate [Flonase 1 spray NASAL PRN PRN 07/23/21 08/02/21 Allergy Relief] sotalol 40 mg PO Q12HR 07/23/21 08/02/21 Allergies Allergy/AdvReac Type Severity Reaction Status Date / Time simvastatin Allergy Unknown Muscle pain Verified 08/03/21 20:36 morphine AdvReac Unknown HEADACHE Verified 08/03/21 20:36 Review of Systems Review of Systems: CONSTITUTIONAL: Denies fever GASTROINTESTINAL: Reports abdominal pain. Denies nausea, vomiting GENITOURINARY: Denies dysuria All systems reviewed & are unremarkable except as noted in HPI and below PMFSH Past Medical History Medical History Abnormal TSH (~2018) Atrial flutter Chronic low back pain with bilateral sciatica COVID-19 vaccine series completed Dyslipidemia (~2018) Environmental allergies Frequent UTI GERD without esophagitis (~2018) Hiatal hernia (~2018) Increased urinary frequency Non-cardiac chest pain Negative stress test and normal echocardiogram 03/2020 Olecranon bursitis (04/2021) Osteopenia Pneumonia due to COVID-19 virus Presbycusis of both ears Pulmonary emboli (03/2020) TMJ tenderness Unspecified osteoarthritis, unspecified site Vitamin B12 deficiency (~2018) Vitamin D deficiency (~2018) Surgical History Surgical History History of appendectomy 4th grade History of carpal tunnel release History of exploratory laparotomy (~1999) History of hemorrhoidectomy (~2011) History of lumbar fusion (~08/2008) History of total abdominal hysterectomy and bilateral salpingo-oophorectomy (~1987) Family History Family History Father Cerebrovascular accident Grandparent Carcinoma of colon Other Carcinoma of colon Social History Social History Social History: The patient lives with her of 60, of years, who is a durable power deputy attorney general for healthcare. She desires to be a full code. She has 2 children. 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 she drinks 1 or 2 alcoholic beverages once every week or so. Never smoked and does not use illicit drugs. Primary care physician: Dr. Nasir Muñiz code status: Full code surrogate decision maker: Smoking status: Never smoker Second hand tobacco smoke exposure: No Alcohol intake: current Drinks per week: 1 Alcohol use details: consumes 1 beer daily Substance use: current Substance use type: does not use Other substance usage details: DAILY Gender identity (if verbalized by the patient): Female Sexual Orientation (if Verbalized by the Patient): Straight or Heterosexual Spiritual care concerns: No Exam Narrative: GENERAL: Well-appearing, well-nouris
[2021-08-03 17:45] VITALS: BP 136/83; PULSE 58; RESP 12; O2SAT 98
[2021-08-03 20:17] VITALS: BP 143/62; PULSE 65; RESP 14; O2SAT 100
== END 2021-08-03 21:43 | disposition home or self-care (01) ==
PROVIDERS: Emergency Provider Emergency Medicine; PCP Family Medicine
DX: R33.9 Retention of urine, unspecified (principal); Z98.890 Other specified postprocedural states; I48.92 Unspecified atrial flutter; E78.5 Hyperlipidemia, unspecified; K21.9 Gastro-esophageal reflux disease without esophagitis; M85.80 Other specified disorders of bone density and structure, unspecified site; E53.8 Deficiency of other specified B group vitamins; E55.9 Vitamin D deficiency, unspecified; Z86.16 Personal history of COVID-19; Z86.711 Personal history of pulmonary embolism; Z87.440 Personal history of urinary (tract) infections; Z98.1 Arthrodesis status
CPT/HCPCS: 36415; 51702; 74177; 80053; 81003; 83690; 85025; 99284; Q9967

== ENCOUNTER 2021-12-20 09:27 | Outpatient (CLI) | payer MEDICARE, SELFPAY ==
--- NOTE | ~2021-12-20 | MM_ITS ---
EXAMINATION: MM screening [facility] BI [facility] [place] HISTORY: Screening mammogram TECHNIQUE: Craniocaudal and mediolateral oblique 3-D tomosynthesis images were obtained and synthetic 2-D images were generated. CAD analysis was submitted and interpreted. COMPARISON: 11/30/2020, 10/05/2019, 09/30/2018 BREAST PARENCHYMAL COMPOSITION: There are scattered areas of fibroglandular density. FINDINGS: There is no evidence of suspicious mass, calcification, or architectural distortion to sugg est malignancy in either breast. There has been no suspicious interval change. IMPRESSION: 1. No mammographic evidence of malignancy. 2. Recommend routine screening mammography in one year. BI-RADS Category 1: Negative Reviewed, dictated and finalized at location A. 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
== END 2021-12-20 09:28 | disposition home or self-care (01) ==
PROVIDERS: PCP Family Medicine; Visit Provider Nurse Practitioner
DX: Z12.31 Encounter for screening mammogram for malignant neoplasm of breast (principal)
CPT/HCPCS: 77063; 77067

== ENCOUNTER 2022-02-02 21:15 | Emergency (ER) | payer MEDICARE, SELFPAY ==
--- NOTE | ~2022-02-02 | XR_ITS ---
EXAMINATION: XR foot RT min 3V DATE: 02/02/2022 22:30 INDICATION: Right foot injury and pain. TECHNIQUE: 4 views of right foot were obtained. COMPARISON: None. FINDINGS: There is a transverse intra-articular fracture of base of fifth metatarsal. The distal frac ture fragment demonstrates 2 mm distraction and mild rotation. There is mild osteoarthritis of first metatarsophalangeal joint. There is an enthesophyte at plantar aspect of calcaneal tuberosity. IMPRESSION: 1. Transverse intra-articular fracture of base of fifth metatarsal. Reviewed, dictated and finalized at location A.
--- NOTE | ~2022-02-02 | XR_ITS ---
EXAMINATION: XR knee LT 3V DATE: 02/02/2022 22:29 INDICATION: Right knee pain. Fall. TECHNIQUE: 3 views of right knee were obtained. COMPARISON: None. FINDINGS: Bone alignment is normal. No fracture. There is mild tricompartmental osteoarthritis charac terized by tiny osteophytes. No joint space narrowing. No knee joint effusion. IMPRESSION: 1. Mild left knee osteoarthritis. Reviewed, dictated and finalized at location A.
[2022-02-02 21:16] VITALS: BP 145/68; PULSE 69; RESP 17; TEMP 36.3; O2SAT 99
--- NOTE | 2022-02-02 21:39 | ED.FALL ---
HPI - Fall General Chief Complaint: Fall Stated Complaint: fall Time Seen by Provider: 02/02/22 21:32 Source: patient and family Mode of arrival: ambulatory Limitations: no limitations History of Present Illness HPI Narrative: Patient 81 years old white female came with her to the emergency room because of a fall, complaining of right foot, left knee and left arm pain. Patient denies other injuries. Patient on Eliquis. Patient was sitting, crossed leg for at least half an hour under the hairpiece stylist. After finishing tried to stand up, right foot was asleep, patient started stumbling and eventually twisted her right foot and went down slowly on her left knee. Patient denies other injuries. Related Data Home Medications Medication Instructions Recorded Confirmed cranberry cdvu-Q-fudzitmk coag 450 1 tablet PO DAILY 01/25/20 08/21/21 mg-30 mg-50 million cell tablet omega 4-nkc-wli-fish oil 100 1 cap PO 3XW 01/25/20 08/21/21 mg-160 mg-1,000 mg capsule PreserVision Lutein 1 cap PO DAILY 04/04/20 08/21/21 coenzyme Q10 10 mg capsule 10 mg PO ONCE 08/15/20 08/21/21 melatonin 5 mg capsule 5 mg PO QHS cap 06/04/21 08/21/21 fluticasone propionate [Flonase 1 spray NASAL PRN PRN 07/23/21 08/21/21 Allergy Relief] sotalol 40 mg PO Q12HR 07/23/21 08/21/21 Allergies Allergy/AdvReac Type Severity Reaction Status Date / Time simvastatin Allergy Unknown Muscle pain Verified 02/02/22 21:27 morphine AdvReac Unknown HEADACHE Verified 02/02/22 21:27 Review of Systems Review of Systems: CONSTITUTIONAL: Denies fever, chills, or sweats. EYES: Denies visual changes, redness, or discharge. ENT: Denies rhinorrhea, congestion, sore throat, or otalgia. CARDIOVASCULAR: Denies chest pain, palpitations, or edema. RESPIRATORY: Denies cough or dyspnea. GASTROINTESTINAL: Denies abdominal pain, nausea, vomiting, or diarrhea. GENITOURINARY: Denies dysuria or hematuria. SKIN: Denies rash or itching. MUSCULOSKELETAL: Denies back pain, joint pain, or myalgia. NEUROLOGIC: Denies headache, numbness, or weakness. PSYCHIATRIC: Denies anxiety or depression. [facility] Past Medical History Medical History Abnormal TSH (~2018) Atrial flutter Chronic cholecystitis with calculus Chronic low back pain with bilateral sciatica COVID-19 vaccine series completed Dyslipidemia (~2018) Environmental allergies Frequent UTI GERD without esophagitis (~2018) Hiatal hernia (~2018) Increased urinary frequency Non-cardiac chest pain Negative stress test and normal echocardiogram 03/2020 Olecranon bursitis (04/2021) Osteopenia Pneumonia due to COVID-19 virus Presbycusis of both ears TMJ tenderness Unspecified osteoarthritis, unspecified site Vitamin B12 deficiency (~2018) Vitamin D deficiency (~2018) Surgical History Surgical History History of appendectomy 4th grade History of carpal tunnel release History of exploratory laparotomy (~1999) History of hemorrhoidectomy (~2011) History of lumbar fusion (~08/2008) History of total abdominal hysterectomy and bilateral salpingo-oophorectomy (~1987) Hx laparoscopic cholecystectomy 08/02/21 Family History Family History Father Cerebrovascular accident Grandparent Carcinoma of colon Other Carcinoma of colon Social History Social History Social History: The patient lives with her of 60, of years, who is a durable power polls or surveys interviewer for healthcare. She desires to be a full code. She has 2 children. 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 she drinks 1 or 2 alcoholic beverages once every week or so. Never smoked and does not use illicit drugs. Primary care physician: Dr. Nasir Muñiz code status: Full code surrogate decision maker: Smoking status: Never smoke
--- NOTE | 2022-02-02 22:16 | PC.NURSE ---
XY at bedside
[2022-02-02] MEDS: HYDROcodone/acetaminophen (*CRX) 5-325 MG TABLET 1 TAB PO (22:28)
[2022-02-02 22:29] VITALS: BP 135/69; PULSE 69; RESP 16; O2SAT 100
[2022-02-02 23:06] VITALS: BP 142/71; PULSE 68; RESP 16; O2SAT 100
== END 2022-02-02 23:09 | disposition home or self-care (01) ==
PROVIDERS: Emergency Provider Emergency Medicine; PCP Family Medicine
DX: S80.02XA Contusion of left knee, initial encounter (principal); S92.351A Displaced fracture of fifth metatarsal bone, right foot, initial encounter for closed fracture; I48.92 Unspecified atrial flutter; E78.5 Hyperlipidemia, unspecified; K21.9 Gastro-esophageal reflux disease without esophagitis; K44.9 Diaphragmatic hernia without obstruction or gangrene; M85.80 Other specified disorders of bone density and structure, unspecified site; Z87.01 Personal history of pneumonia (recurrent); Z86.16 Personal history of COVID-19; E53.8 Deficiency of other specified B group vitamins; E55.9 Vitamin D deficiency, unspecified; Z98.1 Arthrodesis status; Z79.01 Long term (current) use of anticoagulants; X50.9XXA Other and unspecified overexertion or strenuous movements or postures, initial encounter; W18.39XA Other fall on same level, initial encounter
CPT/HCPCS: 29515; 73562; 73630; 99284; A9270

== ENCOUNTER 2022-05-16 10:23 | Outpatient (CLI) | payer MEDICARE, SELFPAY ==
[2022-05-16 10:53] LABS: Basophils Percent Auto 0.4 % (0.2-1.2); Eosinophils Absolute Auto 0.1 K/mm3 (0-0.3); Hematocrit 36.7 % (37.0-47.0); Lymphocytes Absolute Auto 2.14 K/mm3 (0.9-3.2); Lymphocytes Percent Auto 44.5 % (18.3-44.2); Mean Corpuscular HGB Conc 32.7 g/dl (32-36); Mean Corpuscular Hemoglobin 33.3 pg (26-34); Mean Corpuscular Volume 101.9 fl (80-100); Mean Platelet Volume 9.8 fl (7.4-10.4); Monocytes Absolute Auto 0.5 K/mm3 (0.1-0.6); Monocytes Percent Auto 10.8 % (2.6-8.5); Neutrophils Absolute Auto 2.1 K/mm3 (1.3-6.7); Neutrophils Percent Auto 43.3 % (45.5-73.1); Platelet Count Result 283 k/mm3 (150-375); Red Cell Distribution Width 12.8 % (11.5-14.5); White Blood Count 4.8 K/mm3 (4.5-10.0)
[2022-05-16 11:04] LABS: Alanine Aminotransferase 12 U/L (6-35); Albumin Level 4.1 g/dL (3.5-5.1); Alkaline Phosphatase 83 U/L (38-126); Anion Gap 3 mmol/L (8-16); Aspartate Amino Transferase 25 U/L (14-36); Bilirubin,Total 0.4 mg/dL (0.2-1.3); Blood Urea Nitrogen 11 mg/dL (7-17); Calcium 8.8 mg/dL (8.4-10.2); Carbon Dioxide 29 mmol/L (22-30); Chloride 105 mmol/L (98-107); Estimated Glomerular Filt Rate > 60; Glucose 88 mg/dL (65-110); Potassium 4.3 mmol/L (3.4-5.0); Sodium 137 mmol/L (137-145)
== END 2022-05-16 10:24 | disposition home or self-care (01) ==
PROVIDERS: PCP Family Medicine; Visit Provider Surgery
DX: K64.4 Residual hemorrhoidal skin tags (principal); K64.8 Other hemorrhoids
CPT/HCPCS: 36415; 80053; 85025

== ENCOUNTER 2022-05-20 00:47 | Day surgery (SDC) | payer MEDICARE, SELFPAY ==
[2022-05-14 09:53] VITALS: BMI 23.8
--- NOTE | 2022-05-14 10:00 | PC.NURSE ---
Report to the Outpatient Waiting Room, entrance under the green pavilion located off [facility], at time _1000_ on date _05/20/22_. OR Time: _1200_. - You and your visitor will be asked a series of questions to screen for COVID 19 for your protection. - Only one visitor is allowed at this time. - The patient visitor is requested to leave or wait in car when not with patient. - A mask is required within the hospital. Patients may have clear liquids (water, carbonated beverages, clear teas, apple juice) until 3 hours prior to surgery (0900 AM) with a maximum of 20 ounces. - No food from midnight until time of surgery Take the following medications with a SIP of water the morning of surgery: __SOTALOL__ Medications to discontinue _PT STATES TO STOP ELIQUIS AND FISH OIL 05/14/[address] SHIELDS'S INSTRUCTIONS_ Medications to discontinue per ANESTHESIA - PRESERVISION (EYE VITAMINS) 3 DAYS PRIOR TO SURGERY, Date to take last dose 05/16/22_ Please no make-up, nail amharic, hairspray, perfume, deodorant, or body powder the day of surgery. No jewelry (including any body piercings) or valuables the day of surgery, leave them at home. Please take a shower or bath the night before, or the morning of, surgery with an antibacterial soap. Wear comfortable, loose fitting clothing. - Jewelry must be removed prior to entering the operating room. Rings and piercings that are not removed may be cut off. - The hospital will not accept responsibility for valuables. - Please leave all valuables, including medications, at home the day of surgery. If you are going home after surgery, a licensed recycling collections driver must drive you home. - NO public transportation without another adult. - We recommend that an adult stay with you for 24 hours following discharge. - We also recommend that you do not drive, make important decision, drink alcoholic beverages, or take any drugs that were not prescribed by your health care provider for at least 24 hours after your discharge time. Follow any additional instructions given to you from DR. SHIELDS. FLEET ENEMA NIGHT BEFORE AND MORNING OF SURGERY, UNLESS IT IS TOO PAINFUL If you or anyone in your household have experienced Covid symptoms in the past week, please notify your surgeon or the nurse liaison at the phone number below for possible testing. Telephone instructions given to ___PT and asked if any additional questions and then verbalized understanding. Patient advised to call surgeon office or pre surgery nurse liaison [phone] if any additional questions.
[2022-05-20] VITALS (10 sets, daily range): BP systolic 116–151; BP diastolic 59–77; PULSE 51–73; RESP 12–18; TEMP 36.1–36.9; O2SAT 97–100
[2022-05-20] MEDS: ACETAMINOPHEN 500 MG TABLET 1000 MG PO (10:35)
--- NOTE | 2022-05-20 10:47 | WPDANESEPPF ---
Anes - Initial Pre Proc Eval Procedure: Operation Date: 05/20/22 12:00 Proposed Procedures p Rectal Examination Under Anesthesia, Hemorrhoidectomy - Sina Mcelroy MD Date/Time: 05/20/22 10:47 Surgeon: Sina Mcelroy MD Pre Op Diagnosis: bleeding internal and external hemorrhoids Patient Data Age: 81 Gender: F Height: 1.69 m Weight: 68.18 kg Allergies Allergy/AdvReac Type Severity Reaction Status Date / Time simvastatin Allergy Unknown Muscle pain Verified 05/14/22 09:49 morphine AdvReac Unknown HEADACHE Verified 05/14/22 09:49 Home Medications Medication Instructions Recorded Confirmed Type cranberry vxkc-M-ditduxcc coag 450 1 tablet PO DAILY 01/25/20 05/14/22 History mg-30 mg-50 million cell tablet omega 5-pkh-adq-fish oil 100 1 cap PO 3XW 01/25/20 05/14/22 History mg-160 mg-1,000 mg capsule (Fish Oil) vit C-vit B-spdtcd-gkym ox-lutein 1 cap PO DAILY 04/04/20 05/14/22 History 226 mg-200 unit-0.8 mg-5 mg capsule (PreserVision Lutein) melatonin 5 mg capsule 5 mg PO QHS PRN Sleep 06/04/21 05/14/22 History fluticasone propionate 50 1 spray intranasal PRN PRN nasal 07/23/21 05/14/22 History mcg/actuation nasal congestion spray,suspension (Flonase Allergy Relief) sotalol 80 mg tablet 40 mg PO Q12HR 07/23/21 05/14/22 History apixaban 5 mg tablet (Eliquis) 5 mg PO Q12HR #60 tabs 03/19/22 05/14/22 Rx evolocumab 140 mg/mL subcutaneous 140 mg subcut [id number] #6 mL 03/19/22 05/14/22 Rx pen injector (Repatha SureClick) omeprazole 20 mg capsule,delayed 20 mg PO BID #180 caps 03/28/22 05/14/22 Rx release Patient hx anesthesia problems: none Family hx anesthesia problems: none Results Review: All pre-operative results and documents have been reviewed as part of the pre-operative evaluation. [facility] Past Medical History Medical History Atrial flutter Chronic cholecystitis with calculus Chronic low back pain with bilateral sciatica COVID-19 vaccine series completed Dyslipidemia (~2018) Environmental allergies Frequent UTI GERD without esophagitis (~2018) Hiatal hernia (~2018) History of pulmonary embolus (PE) Non-cardiac chest pain Negative stress test and normal echocardiogram 03/2020 Osteopenia Pneumonia due to COVID-19 virus Presbycusis of both ears TMJ tenderness Unspecified osteoarthritis, unspecified site Vitamin B12 deficiency (~2018) Vitamin D deficiency (~2018) Surgical History Surgical History History of appendectomy 4th grade History of carpal tunnel release History of cataract extraction History of exploratory laparotomy (~1999) History of hemorrhoidectomy (~2011) History of lumbar fusion (~08/2008) History of total abdominal hysterectomy and bilateral salpingo-oophorectomy (~1987) Hx laparoscopic cholecystectomy 08/02/21 Family History Family History Father Cerebrovascular accident Grandparent Carcinoma of colon Other Carcinoma of colon Social History Social History Social History: The patient lives with her of 60, of years, who is a durable power videographer for healthcare. She desires to be a full code. She has 2 children. 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 she drinks 1 or 2 alcoholic beverages once every week or so. Never smoked and does not use illicit drugs. Primary care physician: Dr. Nasir Muñiz code status: Full code surrogate decision maker: Smoking status: Never smoker Second hand tobacco smoke exposure: No Alcohol intake: current Drinks per week: 2 Alcohol use details: consumes 1 beer daily Substance use: never Substance use type: does not use Other substance usage details: DAILY Living arrangements: with family Gender identity (if verba
[2022-05-20] MEDS: LACTATED RINGERS 1,000 ML 30 ML IV CONT ×2 (10:53→13:55)
[2022-05-20] MEDS: KETOROLAC 15 MG/ML VIAL (*BKC) IV PUSH (11:03)
--- NOTE | 2022-05-20 12:01 | WPDHPUPDATE1 ---
History and Physical Update Update Date/Time: 05/20/22 12:01 History and Physical has been reviewed, including an updated exam of the patient. There are NO changes in the patient's condition. Risks, benefits, and alternatives have been discussed and questions answered. Patient agrees to proceed with procedure.
[2022-05-20] MEDS: ceFAZolin 2 GM/D5W 50 ML 2 GM/50 ML BAG IVPB (12:08)
--- NOTE | 2022-05-20 13:49 | W.PM.PROC2 ---
Procedure Note - Detailed Date of Procedure 05/20/22 Pre-op Diagnosis bleeding internal and external hemorrhoids Post-op Diagnosis Same Procedure Performed 1. 2 quadrant surgical hemorrhoidectomy with anoplasty 2. ano-rectal exam under anesthesia Surgeon Sina Mcelroy MD Printer Operator ROSEANN Suarez, OR 1st assist Indications Patient has had frequent intermittent bleeding from her hemorrhoids. Also the right anterior hemorrhoidal area appears to have a variegated appearance and we should want to be sure there was not abnormal mucosa present. Findings Fairly normal appearing, but enlarged, variegated internal in transitional hemorrhoids in the right anterior position and in the left posterior lateral position. Description of Procedure Patient was brought to the operating room and placed supine on the operating table. After induction of general anesthesia with LMA by Debord anesthesia the patient was placed into the lithotomy position. Legs were placed in the Yellofin stirrups. If anal rectal area was appropriately exposed and prepped with Betadine. Time-out was then performed after draping. Following this careful examination under anesthesia was 1st performed using a small then the medium-size anal retractors. This revealed both external & internal hemorrhoids of concern in the right anterior position and a smaller area in the left posterolateral position. Careful examination up to 5 cm into the rectum revealed no areas of abnormal mucosa or mass. once this was completed I decided that I would do formal hemorrhoidectomies in these 2 positions. To do this local anesthetic using 1 she may 2% xylocaine with epinephrine was injected in the subcutaneous space superficial to the sphincter muscle underneath and alongside both these areas of hemorrhoids. This was allowed to take affect. Then starting on the right anterior position, an incision was made from within the anal canal coming outward on either side of the distended internal hemorrhoidal tissue extending out through the transition zone of the anus onto the external anal skin in an ellipse. I then elevated this ellipse from external toward the internal leaving the base of the internal hemorrhoids to be clamped up inside the rectum. A Hemorrhoid clamp was placed on the tissue and then a 10 blade knife used to remove anything external to the clamp and passed off the field as the right anterior hemorrhoidal complex. 3-0 Vicryl was used then used to suture ligate the stump of the hemorrhoid veins under this clamp & I tied under the clamp and it was removed. I then passed the needle again through the base of the hemorrhoidal vessels and tied again and then ran this suture it in an anoplasty fashion from the site of the base of the hemorrhoidal vessels on externally taking had a thin bite of mucosa followed by the opposite side and the next bite by taking a bite of mucosa, taking some bite of some of the underlying sphincter muscle, and then a bite of mucosa and alternating all the way out until we just ran the skin closed externally. Once the incision was completely closed I tied the suture and left the knot externally. Following this I well inspected the suture line as I placed a dry 4 x 4 over it & held pressure for 1 minute. We then inspected the area again and it appeared to be hemostatic. Following this the same procedure was performed on the left lateral hemorrhoidal complex and done in the same manner as described above. Again I applied pressure to the area with a 4 x 4 for 1 minute and then inspected for bleeding. At this site there was some bleeding just distal to the high ligated hemorrhoidal vessels so another suture ligature of 3-0 Vicryl was placed in [id number] fashion and tied. This seemed to stop the bleeding in the area. Following this closure in anoplasty fashion, I then used pure 0.5 % Marcaine to instill underneath and alongside each of the suture lines in both those 2 positions
== END 2022-05-20 15:30 | disposition home or self-care (01) ==
PROVIDERS: PCP Family Medicine; Visit Provider Surgery
PROC: (CPT 46260; principal; 2022-05-20 12:00)
DX: K64.8 Other hemorrhoids (principal); K64.4 Residual hemorrhoidal skin tags; Z79.01 Long term (current) use of anticoagulants; E78.5 Hyperlipidemia, unspecified; K21.9 Gastro-esophageal reflux disease without esophagitis; Z86.711 Personal history of pulmonary embolism; M19.90 Unspecified osteoarthritis, unspecified site; E55.9 Vitamin D deficiency, unspecified; I48.92 Unspecified atrial flutter; E53.8 Deficiency of other specified B group vitamins; Z98.1 Arthrodesis status; I25.10 Atherosclerotic heart disease of native coronary artery without angina pectoris
CPT/HCPCS: 46260; 88304; A9270; J0690; J1100; J1885; J2405; J2704; J3010; J7120

== ENCOUNTER 2022-09-17 14:24 | Outpatient (CLI) | payer MEDICARE, SELFPAY | END 2022-09-17 14:25 | disposition home or self-care (01) | LOC: ANHGOSHLAB 14:25 | PROVIDERS: PCP Family Medicine; Visit Provider Nurse Practitioner | DX: R53.83 Other fatigue (principal) | CPT/HCPCS: 36415; 84443 ==

== ENCOUNTER 2022-10-20 13:26 | Outpatient (CLI) | payer MEDICARE, SELFPAY ==
--- NOTE | ~2022-10-20 | MR_ITS ---
EXAMINATION: MR lumbar spine wo con DATE: 10/20/2022 14:04 INDICATION: Chronic low back pain. TECHNIQUE: Magnetic resonance imaging (MRI) of the lumbar spine was performed without intravenous con trast. Sequences included sagittal T2-weighted FSE, sagittal T2-weighted FS FSE, sagittal T1-weighted FSE, and axial T2-weighted FSE. COMPARISON: Lumbar spine MRI 02/26/2021 FINDINGS: There is 4 mm retrolisthesis of T12 on L1, L1 on L2, and L2 on L3. Vertebral body heights a re normal. There is moderately decreased disc height at T11-T12, severely decreased disc height at T1 2-L1, moderately decreased disc height at L1-L2 and L2-L3, and mildly decreased disc height at L3-L4, L4-L5, and L5-S1. There are disc calcifications at L4-L5 and L5-S1. There are changes of posterior f usion procedure from L3 to S1 with pedicle screws. The distal spinal cord signal intensity is normal. The conus medullaris is at L1-L2. The following disc levels are specifically discussed: T12-L1: The disc is bulging. There is moderate right and mild left facet joint osteoarthritis. There is mild bilateral neural foraminal stenosis. There is mild central canal stenosis. L1-L2: The disc is bulging and has an annular fissure. There is moderate bilateral facet joint osteoa rthritis. There is moderate bilateral neural foraminal stenosis. There is mild central canal stenosis . L2-L3: The disc is bulging and has an annular fissure. There is severe bilateral facet joint osteoart hritis. There is hypertrophy of the ligamentum flavum. There is moderate bilateral neural foraminal s tenosis. There is mild central canal stenosis. L3-L4: There is a right foraminal protrusion. There is mild right facet joint hypertrophy. There is m ild right neural foraminal stenosis. There is no central canal stenosis. There is posterior decompres richelle. L4-L5: The disc does not extend beyond the endplate margin. There is no facet joint hypertrophy. Ther e is no neural foraminal stenosis. There is no central canal stenosis. There is posterior decompressi on. L5-S1: The disc does not extend beyond the endplate margin. There is no facet joint hypertrophy. Ther e is no neural foraminal stenosis. There is no central canal stenosis. There is posterior decompressi on. IMPRESSION: 1. Severe thoracolumbar spondylosis, stable from 02/26/2021. 2. Posterior fusion procedure from L3 to S1. Reviewed, dictated and finalized at location A. R
== END 2022-10-20 13:27 | disposition home or self-care (01) ==
PROVIDERS: PCP Family Medicine; Visit Provider Nurse Practitioner
DX: M54.42 Lumbago with sciatica, left side (principal); M54.41 Lumbago with sciatica, right side; G89.29 Other chronic pain; M47.894 Other spondylosis, thoracic region; Z98.1 Arthrodesis status
CPT/HCPCS: 72148

== ENCOUNTER 2022-12-31 15:23 | Outpatient (CLI) | payer MEDICARE, SELFPAY ==
--- NOTE | ~2022-12-31 | MM_ITS ---
EXAMINATION: MM screening [facility] HISTORY: Screening mammogram TECHNIQUE: Craniocaudal and mediolateral oblique 3-D tomosynthesis images were obtained and synthetic 2-D images were generated. CAD analysis was submitted and interpreted. COMPARISON: 12/20/2021, 11/30/2020, 10/05/2019 bilateral screening mammogram examinations BREAST PARENCHYMAL COMPOSITION: There are scattered areas of fibroglandular density. FINDINGS: There is no evidence of suspicious mass, calcification, or architectural distortion to sugg est malignancy in either breast. There has been no suspicious interval change. IMPRESSION: 1. No mammographic evidence of malignancy. 2. Recommend routine screening mammography in one year. BI-RADS Category 1: Negative Reviewed, dictated and finalized at location A. [employer]
--- NOTE | ~2022-12-31 | DEXA_ITS ---
Bone Density Report Name: ROSEANN DUNHAM Age: 82 Sex: Female Ethnicity: White Date of : 1940 Indication: postmenopausal; screening for osteoporosis; parental hip fracture; height loss; prior fracture; hysterectomy; Referring Provider: SHIRA CROSS Study: Bone densitometry was performed. Exam Date: December 31, 2022 Accession number: [id number] Bone Density: Region BMD T-score Z-score Classification Femoral Neck (Left) 0.715 -1.2 1.1 Osteopenia Total Hip (Left) 0.777 -1.4 0.7 Osteopenia Femoral Neck (Right) 0.710 -1.3 1.1 Osteopenia Total Hip (Right) 0.821 -1.0 1.1 Normal Total Hip Mean 0.799 -1.2 0.9 Osteopenia World Health Organization criteria for BMD impression classify patients as: Normal (T-score at or above -1.0), Osteopenia (T-score between -1.0 and -2.5), or Osteoporosis (T-score at or below -2.5). 10-year Fracture Risk(1): Major Osteoporotic Fracture 29% Hip Fracture 14% Reported Risk Factors: [place] (), Neck BMD=0.715, BMI=25.8, previous fracture, parental fracture (1) FRAX(R) Version 3.08. Fracture probability calculated for an untreated patient. Fracture probability may be lower if the patient has received treatment. Clinical Information Provided by Patient: Has had a low trauma fracture Parent has had a hip fracture Has the following medical conditions: Hysterectomy Patient maximum height was 68 Menopause Age: 62 Does not regularly consume dairy products Onset of menses at age 14 Number of children 2 Impression: The patient has low bone mass, based on the Left Total Hip T-score. The patient has an estimated ten-year risk of hip fracture of 14% and an estimated ten-year risk of major fracture of 29%, based on the WHO FRAX algorithm. The patient has risk factors, including: parental hip fracture, previous fracture. Discussion: BONE DENSITY IS LOW AT ONE OR MORE SKELETAL SITES. THE PATIENT'S BMD AND CLINICAL RISK FACTORS CONTRIBUTE TO THIS PATIENT'S HIGH RISK OF FRACTURE. This patient's lowest T-score is low at one or more skeletal sites. It meets the World Health Organization's (WHO) criteria for ?low bone mass? (T-score between -1.0 and -2.5). The patient's 10-year risk of hip fracture and 10 year risk of a major osteoporotic fracture as calculated by FRAX exceeds the threshold where pharmacological therapy is recommended by the National Osteoporosis Foundation (NOF). However, all treatment decisions require clinical judgment and consideration of individual patient factors, including patient preferences, comorbidities, previous drug use, risk factors not captured in the FRAX model (e.g., frailty, falls, vitamin D deficiency, increased bone turnover, interval significant decline in bone density) and possible under or overestimation of fracture risk by FRAX. The p
== END 2022-12-31 15:24 | disposition home or self-care (01) ==
PROVIDERS: PCP Family Medicine; Visit Provider Nurse Practitioner
DX: Z12.31 Encounter for screening mammogram for malignant neoplasm of breast (principal); Z78.0 Asymptomatic menopausal state; M85.89 Other specified disorders of bone density and structure, multiple sites
CPT/HCPCS: 77063; 77067; 77080

== ENCOUNTER 2023-01-13 15:50 | Outpatient (CLI) | payer MEDICARE, SELFPAY ==
--- NOTE | ~2023-01-13 | XR_ITS ---
EXAMINATION: XR lumbar spine 2-3V DATE: 01/13/2023 16:15 INDICATION: Low back pain. TECHNIQUE: 3 views of lumbar spine were obtained. COMPARISON: Lumbar spine radiographs 03/26/2021 FINDINGS: There is 10 degrees levoscoliosis of thoracolumbar spine. There is 4 mm retrolisthesis of T 12 on L1 and 6 mm retrolisthesis of L1 on L2 and L2 on L3. There are changes of posterior fusion proc edure from L3 to S1 with pedicle screws. There is severely decreased disc height at T12-L1 and modera tely decreased disc height at L1-L2 and L2-L3. There are disc calcifications from L3-L4 through L5-S1 . Surgical clips in the right upper quadrant are likely from cholecystectomy. IMPRESSION: 1. 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 2. Posterior fusion procedure from L3 to S1. 3. Thoracolumbar levoscoliosis. Reviewed, dictated and finalized at location A. [employer]
== END 2023-01-13 15:51 | disposition home or self-care (01) ==
LOC: ANHIMG 15:56
PROVIDERS: PCP Family Medicine; Visit Provider Neurological Surgery
DX: M54.50 Low back pain, unspecified (principal); M43.05 Spondylolysis, thoracolumbar region; Z98.1 Arthrodesis status; M41.85 Other forms of scoliosis, thoracolumbar region
CPT/HCPCS: 72100

== ENCOUNTER 2023-03-04 13:16 | Outpatient (CLI) | payer MEDICARE, SELFPAY ==
--- NOTE | 2023-03-04 13:30 | ECG_ITS ---
Measurements Intervals [place] Rate: 62 P: 6 NC: 154 QRS: -30 QRSD: 98 T: 20 QT: 405 QTc: 413 Interpretive Statements SINUS RHYTHM BORDERLINE LEFT AXIS DEVIATION [QRS AXIS < -20] LOW QRS VOLTAGE IN PRECORDIAL LEADS [QRS DEFLECTION < 1.0 mV IN CHEST LEADS] INCOMPLETE RIGHT BUNDLE BRANCH BLOCK [90+ ms QRS DURATION, TERMINAL R IN V1/V2, 40+ ms S IN I/aVL/V4/V5/V6] COMPARED TO ECG 06/24/2021 18:08:48 NO SIGNIFICANT CHANGES Electronically Signed On 03-04-2023 16:28:45 CDT by Cahng Lee M.D.
[2023-03-04 14:07] LABS: Basophils Percent Auto 0.3 % (0.2-1.2); Eosinophils Absolute Auto 0.1 K/mm3 (0-0.3); Eosinophils Percent Auto 1.1 % (0-4.4); Hematocrit 35.6 % (37.0-47.0); Hemoglobin 11.7 g/dL (12.0-15.0); Immature Granulocyte Absolute 0.03 K/mm3 (0.00-0.031); Immature Granulocyte Percent A 0.4 % (0-0.5); Lymphocytes Absolute Auto 2.07 K/mm3 (0.9-3.2); Lymphocytes Percent Auto 29.2 % (18.3-44.2); Mean Corpuscular HGB Conc 32.9 g/dl (32-36); Mean Corpuscular Hemoglobin 33.6 pg (26-34); Mean Corpuscular Volume 102.3 fl (80-100); Mean Platelet Volume 9.9 fl (7.4-10.4); Monocytes Absolute Auto 0.5 K/mm3 (0.1-0.6); Monocytes Percent Auto 7.5 % (2.6-8.5); Neutrophils Absolute Auto 4.4 K/mm3 (1.3-6.7); Neutrophils Percent Auto 61.5 % (45.5-73.1); Platelet Count Result 259 k/mm3 (150-375); Red Blood Count 3.48 M/mm3 (4.2-5.4); Red Cell Distribution Width 12.8 % (11.5-14.5); White Blood Count 7.1 K/mm3 (4.5-10.0)
[2023-03-04 14:11] LABS: Appearance Urine Clear (Clear); Bilirubin Urine Negative (Negative); Blood Urine Negative (Negative); Color Urine Yellow (Yellow); Glucose Urine UA Negative (Negative); Ketones Urine Negative (Negative); Leukocyte Esterase Ur Negative LEU/UL (Negative); Nitrate Urine Negative (Negative); Protein Urine Negative (Negative); Specific Grav Ur 1.014 (1.001-1.035); Urobilinogen Urine 0.2 mg/dL (<2.0); pH Urine 5.5 (5.0-9.0)
[2023-03-04 14:15] LABS: Anion Gap 7 mmol/L (8-16); Blood Urea Nitrogen 10 mg/dL (7-17); Calcium 8.4 mg/dL (8.4-10.2); Carbon Dioxide 25 mmol/L (22-30); Chloride 104 mmol/L (98-107); Estimated Glomerular Filt Rate > 60; Glucose 99 mg/dL (65-110); Sodium 136 mmol/L (137-145)
[2023-03-04 14:18] LABS: Partial Thromboplastin Time 31.5 SECONDS (22.3-36.8)
[2023-03-04 14:27] LABS: Add Urine Microscopic? NO
[2023-03-04 14:50] LABS: INR 1.3; Prothrombin Time 15.7 Seconds (11.1-14.7)
== END 2023-03-04 13:17 | disposition home or self-care (01) ==
LOC: ANHSURGERY 13:20
PROVIDERS: PCP Family Medicine; Visit Provider Neurological Surgery
DX: M48.062 Spinal stenosis, lumbar region with neurogenic claudication (principal); Z98.1 Arthrodesis status; M48.061 Spinal stenosis, lumbar region without neurogenic claudication; Z01.818 Encounter for other preprocedural examination; I45.10 Unspecified right bundle-branch block
CPT/HCPCS: 36415; 80048; 81003; 85025; 85610; 85730; 86850; 86900; 86901; 93005

== ENCOUNTER 2023-03-11 13:53 | Inpatient (IN) | payer MEDICARE, SELFPAY ==
[2023-03-03 11:16] VITALS: BMI 25.4
--- NOTE | 2023-03-03 11:29 | PC.NURSE ---
PRE-OP INSTRUCTIONS, PLEASE READ CAREFULLY Report to the Outpatient Waiting Room, entrance under the green pavilion located off [facility], at time _0730_ on date _03/11/23_. Planned Procedure Time: _0930_. PACK A SMALL OVERNIGHT BAG AND LEAVE IN THE CAR Time changes happen often and if your time is changed the preop area will call you the afternoon before. - You and your visitor will be asked to self-screen and do not enter if you have any COVID symptoms. - A mask is optional within the hospital at this time. -VISITING HOURS 8AM-8PM Patients may have clear liquids (water, carbonated beverages, clear teas, apple juice) until 3 hours prior to surgery (0630 AM) with a maximum of 20 ounces. - No food from midnight until time of surgery Take the following medications with a SIP of water the morning of surgery: _SOTALOL, EYE DROPS & NASAL SPRAY_ DO NOT STOP ANY OF YOUR OTHER PRESCRIPTION MEDICATIONS PRIOR TO SURGERY ?EXCEPT THE FOLLOWING Medications to discontinue - _ELIQUIS, FISH OIL PER DR. DE'S INSTRUCTIONS_ Medications to discontinue per ANESTHESIA - _CRANBERRY, PRESERVISION, 3 DAYS PRIOR TO SURGERY, Date to take last dose 03/07/23_ Please no make-up, nail khmer, hairspray, perfume, deodorant, or body powder the day of surgery. No jewelry (including any body piercings) or valuables the day of surgery, leave them at home. Please take a shower or bath the night before, or the morning of, surgery with an antibacterial soap. Wear comfortable, loose fitting clothing. - Jewelry must be removed prior to entering the operating room. Rings and piercings that are not removed may be cut off. - The hospital will not accept responsibility for valuables. - Please leave all valuables, including medications, at home the day of surgery. If you are going home after surgery, a licensed taxi truck driver must drive you home. - NO public transportation without another adult if you receive anesthesia. - We recommend that an adult stay with you for 24 hours following discharge. - We also recommend that you do not drive, make important decision, drink alcoholic beverages, or take any drugs that were not prescribed by your health care provider for at least 24 hours after your discharge time. Follow any additional instructions given to you from your surgeon. If you or anyone in your household have experienced Covid symptoms in the past week, please notify your surgeon or the nurse liaison at the phone number below for possible testing. Telephone instructions given to _PATIENT_and asked if any additional questions and then verbalized understanding. Patient advised to call surgeon office or pre surgery nurse liaison [phone] if any additional questions.
[2023-03-11] VITALS (13 sets, daily range): BP systolic 110–135; BP diastolic 53–88; PULSE 53–75; RESP 10–20; TEMP 35.9–37.6; O2SAT 93–100
--- NOTE | ~2023-03-11 | XR_ITS ---
XR fluoroscopy no charge Clinical indication: L1-2 posterior lumbar interbody fusion TECHNIQUE: Fluoroscopy used during L1-2 posterior lumbar interbody fusion performed by [Derek Kenny MD] on 03/11/2023. 5 seconds with 2 images captured. FINDINGS: Correlate with procedure no te. IMPRESSION: Fluoroscopy used during L1-2 posterior lumbar interbody fusion. Reviewed, dictated and finalized at location A.
[2023-03-11] MEDS: LACTATED RINGERS 1,000 ML 30 ML IV CONT ×2 (07:55→14:39)
[2023-03-11 08:04] LABS: Glucose Point of Care 81 mg/dl (65-105)
[2023-03-11 08:19] LABS: INR 1.1; Prothrombin Time 13.6 Seconds (11.1-14.7)
--- NOTE | 2023-03-11 09:36 | WPDANESEPPF ---
Anes - Initial Pre Proc Eval Procedure: Operation Date: 03/11/23 09:30 Proposed Procedures p L1-2 Posterior Lumbar Interbody Fusion - Derek Kenny MD Date/Time: 03/11/23 09:36 Surgeon: Derek Kenny MD Pre Op Diagnosis: L1-2 stenosis Patient Data Age: 82 Gender: F Height: 1.68 m Weight: 71.2 kg Last Vital Signs Temp 36.6 C 03/11/23 08:05 Pulse 61 03/11/23 08:05 Resp 16 03/11/23 08:05 BP 135/60 03/11/23 08:05 Pulse Ox 99 03/11/23 08:05 O2 Del Method Room Air 03/11/23 08:05 Allergies Allergy/AdvReac Type Severity Reaction Status Date / Time simvastatin Allergy Unknown Muscle pain Verified 03/11/23 07:31 morphine AdvReac Unknown HEADACHE Verified 03/11/23 07:31 Home Medications Medication Instructions Recorded Confirmed Type cranberry csht-C-bsticduv coag 450 1 tablet PO DAILY 01/25/20 03/11/23 History mg-30 mg-50 million cell tablet omega 1-scj-bju-fish oil 100 1 cap PO DAILY 01/25/20 03/11/23 History mg-160 mg-1,000 mg capsule (Fish Oil) vit C 226 mg-vit E 90 mg-copper 1 cap PO DAILY 04/04/20 03/11/23 History 0.8 mg-zinc oxide-lutein 5 mg capsule (PreserVision Lutein) melatonin 5 mg capsule 5 mg PO QHS PRN Sleep 06/04/21 03/11/23 History fluticasone propionate 50 1 spray intranasal PRN PRN nasal 07/23/21 03/11/23 History mcg/actuation nasal congestion spray,suspension (Flonase Allergy Relief) sotalol 80 mg tablet 40 mg PO Q12HR 07/23/21 03/11/23 History apixaban 5 mg tablet (Eliquis) 5 mg PO Q12HR #60 tabs 03/19/22 03/11/23 Rx omeprazole 20 mg capsule,delayed 20 mg PO BID #180 caps 10/09/22 03/11/23 Rx release evolocumab 140 mg/mL subcutaneous 140 mg subcut W1VMSLY #6 mL 10/16/22 03/11/23 Rx pen injector (Repatha SureClick) bimatoprost 0.01 % eye drops 1 drp HS 03/03/23 03/11/23 History (Lumigan) carboxymethylcellulose sodium 1 % 1 drp EACH EYE QID 03/03/23 03/11/23 History eye liquid gel drops Laboratory Tests 03/11/23 03/11/23 07:59 08:02 PT 13.6 Seconds Seconds (11.1-14.7) INR 1.1 POC Capillary Glucose 81 mg/dl mg/dl (65-105) Patient hx anesthesia problems: none Family hx anesthesia problems: none Results Review: All pre-operative results and documents have been reviewed as part of the pre-operative evaluation. [facility] Past Medical History Medical History Atrial flutter Chronic cholecystitis with calculus Chronic low back pain with bilateral sciatica COVID-19 vaccine series completed Dyslipidemia (~2018) Environmental allergies Frequent UTI GERD without esophagitis (~2018) Hiatal hernia (~2018) History of pulmonary embolus (PE) Metatarsal bone fracture Non-cardiac chest pain Negative stress test and normal echocardiogram 03/2020 Osteopenia Pneumonia due to COVID-19 virus Presbycusis of both ears TMJ tenderness Unspecified osteoarthritis, unspecified site Vitamin B12 deficiency (~2018) Vitamin D deficiency (~2018) Surgical History Surgical History H/O hemorrhoidectomy 05/20/22 History of appendectomy 4th grade History of carpal tunnel release History of cataract extraction History of exploratory laparotomy (~1999) History of hemorrhoidectomy (~2011) History of lumbar fusion (~08/2008) History of total abdominal hysterectomy and bilateral salpingo-oophorectomy (~1987) Hx laparoscopic cholecystectomy 08/02/21 Family History Family History Father Cerebrovascular accident Grandparent Carcinoma of colon Other Carcinoma of colon Social History Social History Social History: The patient lives with her of 60, of years, who is a durable power associate attorney for healthcare. She desires to be a full code. She has 2 children. She is retired as a be
--- NOTE | 2023-03-11 10:26 | PM.IMHP ---
H&P: HPI History of Present Illness Date/Time: 03/11/23 10:26 Chief Complaint: Back and leg pain Narrative: Berenice is a an 82-year-old female with back and leg pain related to junctional problems at L1-2 the presents for extension of her fusion L1 by way of L1-2 posterior lumbar interbody fusion. She has not changed appreciably since we last saw her. She does not have specific muscle group weakness or dermatomal numbness. She is not having any bowel or bladder difficulty. Review of Systems Review of Systems: Patient denies shortness of breath, cough, fever, chills, nausea, vomiting, weight loss, weight gain, chest pain, dysuria. She has back and leg pain as above. Review of systems otherwise negative on 12 systems except as noted elsewhere. [facility] Past Medical History Medical History Atrial flutter Chronic cholecystitis with calculus Chronic low back pain with bilateral sciatica COVID-19 vaccine series completed Dyslipidemia (~2018) Environmental allergies Frequent UTI GERD without esophagitis (~2018) Hiatal hernia (~2018) History of pulmonary embolus (PE) Metatarsal bone fracture Non-cardiac chest pain Negative stress test and normal echocardiogram 03/2020 Osteopenia Pneumonia due to COVID-19 virus Presbycusis of both ears TMJ tenderness Unspecified osteoarthritis, unspecified site Vitamin B12 deficiency (~2018) Vitamin D deficiency (~2018) Surgical History Surgical History H/O hemorrhoidectomy 05/20/22 History of appendectomy 4th grade History of carpal tunnel release History of cataract extraction History of exploratory laparotomy (~1999) History of hemorrhoidectomy (~2011) History of lumbar fusion (~08/2008) History of total abdominal hysterectomy and bilateral salpingo-oophorectomy (~1987) Hx laparoscopic cholecystectomy 08/02/21 Family History Family History Father Cerebrovascular accident Grandparent Carcinoma of colon Other Carcinoma of colon Social History Social History Social History: The patient lives with her of 60, of years, who is a durable power trade mark attorney for healthcare. She desires to be a full code. She has 2 children. 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 she drinks 1 or 2 alcoholic beverages once every week or so. Never smoked and does not use illicit drugs. Primary care physician: Dr. Nasir Muiñz code status: Full code surrogate decision maker: Smoking status: Never smoker Second hand tobacco smoke exposure: No Alcohol intake: current Drinks per week: 7 Alcohol use details: 1 BEER DAILY Substance use: current Substance use type: marijuana Other substance usage details: CBC 2 SQUIRTS SUBLINGUAL, CBC OINTMENT TO BACK NIGHTLY Lack of Transportation: No Lack of Food: Never True Current Housing: I Have Housing Concerned About Future Housing: No Difficulty Paying Gas/Electric Bills: No Difficulty Paying for Meds: No Currently Unemployed: No Education: Master's Degree or Higher Difficulty w/ Childcare or Family Care: No Living arrangements: with family Occupation/Education: retired Gender identity (if verbalized by the patient): Female Sexual Orientation (if Verbalized by the Patient): Straight or Heterosexual Spiritual care concerns: No Meds Home Medications and Allergies Home Medications Medication Instructions Recorded Confirmed Type cranberry lfzp-T-ipokfxzi coag 450 1 tablet PO DAILY 01/25/20 03/11/23 History mg-30 mg-50 million cell tablet omega 7-nuk-qzy-fish oil 100 1 cap PO DAILY 01/25/20 03/11/23 History mg-160 mg-1,000 mg capsule (Fish Oil) vit C 226 mg-vit E 90 mg-copper 1 cap PO DAILY 04/04/20 03/11/23 History 0.8 mg-zinc oxide-lutein 5 mg
--- NOTE | 2023-03-11 10:30 | WPDHPUPDATE1 ---
History and Physical Update Update Date/Time: 03/11/23 10:30 History and Physical has been reviewed, including an updated exam of the patient. There are NO changes in the patient's condition. Risks, benefits, and alternatives have been discussed and questions answered. Patient agrees to proceed with procedure.
[2023-03-11] MEDS: ceFAZolin 2 GM/D5W 50 ML 2 GM/50 ML BAG IVPB (10:43)
--- NOTE | 2023-03-11 11:40 | SUR.OPER ---
1100: Patient asleep in operating room. After reviewing imaging, operating surgeon determined a need for a change in the level of the procedure. Consent updated and signed by operating surgeon. Family member called via phone prior to case start and verbal consent obtained.
[2023-03-11] MEDS: LIDO 1%/EPINEPHRINE 1:100,000 50 ML VIAL 10 ML INFILTRATE (11:50)
[2023-03-11 14:17] LABS: Glucose Point of Care 115 mg/dl (65-105)
[2023-03-11] MEDS: ONDANSETRON INJ 4 MG/2 ML VIAL IV PUSH (15:57)
--- NOTE | 2023-03-11 16:17 | ADMGEN ---
This patient, Berenice Pratt, was admitted to [facility] Surg Room 311-01 at 1540. Patient/family oriented to hospital policies and general routines including ID bracelet, bed and alarms, visiting hours, pain management, procedures, bathroom and other care routines, personal items, smoking policy, room service/diet, and visiting hours. Information on how to activate the Rapid Response Team has been discussed. Patient/Family are encouraged to report perceived risks to care and to ask questions if they do not understand what they are told or what they should do.
[2023-03-11] MEDS: ceFAZolin 1 GM/NS 50 ML 1 GM/50 ML BAG IVPB (17:22)
[2023-03-11] MEDS: KCL 20 MEQ/D5/0.45% SOD CHL 1,000 ML 100 ML IV CONT (17:56)
[2023-03-11] MEDS: HYDROcodone/acetaminophen (*CRX) 5-325 MG TABLET 1 TAB PO (18:43)
[2023-03-11] MEDS: SOTALOL HCL 40 MG TABLET PO (21:23)
[2023-03-11] MEDS: DOCUSATE SODIUM 100 MG CAPSULE PO (21:24)
[2023-03-11] MEDS: LATANOPROST 0.005% OP SOLN 2.5 ML BTL 1 DROP EACH EYE (21:24)
[2023-03-11] MEDS: MELATONIN 5 MG TABLET PO (21:30)
[2023-03-12] MEDS: HYDROcodone/acetaminophen (*CRX) 5-325 MG TABLET 1 TAB PO ×2 (00:34→06:19)
[2023-03-12] MEDS: ceFAZolin 1 GM/NS 50 ML 1 GM/50 ML BAG IVPB ×3 (00:43→18:00)
[2023-03-12 00:52] VITALS: BP 101/52; PULSE 63; RESP 16; TEMP 37.4; O2SAT 93
[2023-03-12 04:21] VITALS: BP 102/53; PULSE 79; RESP 16; TEMP 37.2; O2SAT 93
[2023-03-12] MEDS: OPTI-GEN TAB 1 TABLET PO (09:41)
[2023-03-12] MEDS: DOCUSATE SODIUM 100 MG CAPSULE PO ×2 (09:41→20:13)
[2023-03-12] MEDS: SOTALOL HCL 40 MG TABLET PO ×2 (09:41→20:13)
[2023-03-12] MEDS: PANTOPRAZOLE SOD SESQUIHYDRATE 20 MG TAB PO ×2 (09:42→20:13)
[2023-03-12] MEDS: ARTIFICIAL TEARS OPHTH SOLN 15 ML BOTTLE 1 DROP EACH EYE (09:42)
--- NOTE | 2023-03-12 09:55 | WPDANESPN ---
Anes - Prog Note Post-Op Date/Time: 03/12/23 09:55 Cardiovascular status: normal Respiratory status: normal Airway patency: baseline Mental status: baseline Post-Op hydration status: normal Vital Signs: Last Vital Signs Temp 37.2 C 03/12/23 04:21 Pulse 79 03/12/23 04:21 Resp 16 03/12/23 04:21 BP 102/53 L 03/12/23 04:21 Pulse Ox 93 03/12/23 04:21 O2 Del Method Room Air 03/11/23 16:00 O2 Flow Rate 10 03/11/23 14:20 Pain Score (VAS): 3 I/O: Intake & Output 03/11/23 03/12/23 03/12/23 23:59 07:59 15:59 Intake Total 150 880 118 Output Total 95 590 1300 Balance 55 290 -1182 03/11/23 14:14 POC Capillary Glucose 115 H Post-procedural complaints: none Patient Feedback: Patient satisfied with anesthetic care.
[2023-03-12] MEDS: HYDROcodone/acetaminophen (*CRX) 10-325 MG TABLET 1 TAB PO ×2 (12:03→17:17)
[2023-03-12 12:53] VITALS: BP 102/56; PULSE 65; RESP 16; TEMP 36.3; O2SAT 100
--- NOTE | 2023-03-12 13:52 | WPDNEUROSGPN ---
Progress Note: A&P Assessment and Plan (1) Status post lumbar spinal fusion: Code(s): Z98.1 - Arthrodesis status Status: Acute (2) Lumbar stenosis with neurogenic claudication: Code(s): M48.062 - Spinal stenosis, lumbar region with neurogenic claudication Status: Acute Plan -Remove albarado catheter today -Continue PT/OT, OOB to chair -Anticipate discharge home tomorrow Subjective Date/time seen: 03/12/23 13:52 Interval history: Currently resting comfortably in bed. Noting a lot of back pain when up and walking; controlled with medication. Denies any radicular pain or paresthesias into legs. Walked with therapy. No other concerns today Review of Systems Review of Systems: All systems reviewed & are unremarkable except as noted in HPI and below Exam Narrative: AOx4 Full strength in lower extremities Sensation intact Dressing dry, hemovac in place Objective Data Vital Signs Vital Signs: Vital Signs - 24 hr 03/11/23 14:05 03/11/23 14:20 03/11/23 14:35 Temperature 98.6 F Pulse Rate 75 65 59 L Respiratory Rate 10 L 18 14 Blood Pressure 125/63 118/58 L 115/64 Pulse Oximetry 99 100 95 Oxygen Delivery Simple Face Mask Simple Face Mask Room Air Oxygen Flow Rate 10 10 03/11/23 14:50 03/11/23 15:11 03/11/23 15:20 Temperature Pulse Rate 54 L 55 L 53 L Respiratory Rate 14 14 14 Blood Pressure 120/61 110/88 121/53 L Pulse Oximetry 97 100 98 Oxygen Delivery Room Air Room Air Room Air Oxygen Flow Rate 03/11/23 16:00 03/11/23 13:53 03/11/23 16:53 Temperature 96.7 F L 96.8 F L Pulse Rate 60 55 L Respiratory Rate 19 19 Blood Pressure 124/61 131/59 L Pulse Oximetry 93 96 Oxygen Delivery Room Air Oxygen Flow Rate 03/11/23 15:53 03/11/23 15:23 03/11/23 20:12 Temperature 96.7 F L 96.9 F L 99.6 F Pulse Rate 60 59 L 65 Respiratory Rate 19 20 16 Blood Pressure 124/62 129/63 118/62 Pulse Oximetry 93 93 96 Oxygen Delivery Oxygen Flow Rate 03/11/23 21:23 03/12/23 00:52 03/12/23 04:21 Temperature 99.3 F 98.9 F Pulse Rate 65 63 79 Respiratory Rate 16 16 Blood Pressure 101/52 L 102/53 L Pulse Oximetry 93 93 Oxygen Delivery Oxygen Flow Rate 03/12/23 08:00 Temperature Pulse Rate Respiratory Rate Blood Pressure Pulse Oximetry Oxygen Delivery Room Air Oxygen Flow Rate Intake/Output Intake/Output: Intake & Output 03/09/23 03/10/23 03/11/23 03/12/23 23:59 23:59 23:59 23:59 Intake Total 1400 1168 Output Total 225 1890 Balance 1175 -722 Meds/Results Medications: Active Medications Generic Name Dose Route Start Last Admin Trade Name Freq PRN Reason Stop Dose Admin Hydrocodone Bitart/Acetaminophen 1 tab 03/11/23 13:53 03/12/23 06:19 Hydrocodone/Acetaminophen (*Crx) 5-325 Mg Tablet PO 1 tab Q4H PRN Administration Mild Pain (1-3) Hydrocodone Bitart/Acetaminophen 1 tab 03/11/23 13:53 03/12/23 12:03 Hydrocodone/Acetaminophen (*Crx) 10-325 Mg Tablet PO 1 tab Q4H PRN Administration Moderate Pain (4-6) Al Hydrox/Mg Hydrox/Simethicone 20 ml 03/11/23 13:53 Mag Hydrox/Al Hydrox/Simeth 30 Ml Udc PO Q4H PRN Indigestion/Heartburn Artificial Tears 1 drop 03/11/23 20:56 03/12/23 09:42 Artificial Tears Ophth Soln 15 Ml Bottle EACH EYE 1 drop QID PRN Administration Dry Eye(s) Bisacodyl 10 mg 03/11/23 13:53 Bisacodyl 10 Mg Suppository RECTAL DAILY PRN Constipation Cyclobenzaprine HCl 10 mg 03/11/23 13:53 Cyclobenzaprine Hcl 10 Mg Tablet PO TID PRN Muscle Spasms Docusate Sodium 100 mg 03/11/23 21:00 03/12/23 09:41 Docusate Sodium 100 Mg Capsule PO 100 mg Q12HR MALORIE Administration Fluticasone Propionate 1 spray 03/11/23 21:00 Fluticasone Propionate 0.05% Na Spr 16 Gm Btl (*Bkc) NASAL PRN PRN Nasal Congestion Hydromorphone HCl 0.5 mg 03/11/23 13:53 Hydromorphone Hcl Inj (*Crx) 1 Mg/Ml Syr IV PUSH
[2023-03-12 19:32] VITALS: O2SAT 100
[2023-03-12 20:13] VITALS: PULSE 79
[2023-03-12] MEDS: LATANOPROST 0.005% OP SOLN 2.5 ML BTL 1 DROP EACH EYE (20:15)
[2023-03-12] MEDS: KCL 20 MEQ/D5/0.45% SOD CHL 1,000 ML 100 ML IV CONT (20:34)
[2023-03-12] MEDS: SODIUM CHLORIDE 0.9% IV 500 ML IV CONT (20:35)
[2023-03-12 21:46] VITALS: BP 120/58; PULSE 71; RESP 16; TEMP 36.4; O2SAT 98
[2023-03-12] MEDS: MELATONIN 5 MG TABLET PO (22:37)
[2023-03-13] MEDS: HYDROcodone/acetaminophen (*CRX) 10-325 MG TABLET 1 TAB PO ×3 (00:02→20:14)
[2023-03-13] MEDS: ceFAZolin 1 GM/NS 50 ML 1 GM/50 ML BAG IVPB ×3 (01:08→17:37)
[2023-03-13] MEDS: CYCLOBENZAPRINE HCL 10 MG TABLET PO (01:08)
[2023-03-13] MEDS: KCL 20 MEQ/D5/0.45% SOD CHL 1,000 ML 100 ML IV CONT (05:14)
[2023-03-13 05:39] VITALS: BP 121/53; PULSE 78; RESP 16; TEMP 37.2; O2SAT 96
--- NOTE | 2023-03-13 06:19 | PC.NURSE ---
50ml out hemovac this shift
[2023-03-13] MEDS: OPTI-GEN TAB 1 TABLET PO (09:16)
[2023-03-13] MEDS: SOTALOL HCL 40 MG TABLET PO ×2 (09:16→20:15)
[2023-03-13] MEDS: PANTOPRAZOLE SOD SESQUIHYDRATE 20 MG TAB PO ×2 (09:16→20:15)
[2023-03-13] MEDS: DOCUSATE SODIUM 100 MG CAPSULE PO ×2 (09:18→20:14)
[2023-03-13] MEDS: HYDROcodone/acetaminophen (*CRX) 5-325 MG TABLET 1 TAB PO (13:55)
[2023-03-13 14:00] VITALS: BP 114/46; PULSE 81; RESP 20; TEMP 36.6; O2SAT 99
[2023-03-13] MEDS: MELATONIN 5 MG TABLET PO (20:14)
[2023-03-13 20:15] VITALS: PULSE 72
[2023-03-13] MEDS: LATANOPROST 0.005% OP SOLN 2.5 ML BTL 1 DROP EACH EYE (20:15)
[2023-03-13 20:47] VITALS: BP 116/55; PULSE 87; RESP 13; TEMP 37.4; O2SAT 97
[2023-03-14] MEDS: ceFAZolin 1 GM/NS 50 ML 1 GM/50 ML BAG IVPB ×2 (02:43→08:20)
[2023-03-14] MEDS: HYDROcodone/acetaminophen (*CRX) 10-325 MG TABLET 1 TAB PO ×2 (02:56→16:29)
[2023-03-14] MEDS: CYCLOBENZAPRINE HCL 10 MG TABLET PO (08:20)
[2023-03-14] MEDS: DOCUSATE SODIUM 100 MG CAPSULE PO (08:21)
[2023-03-14] MEDS: PANTOPRAZOLE SOD SESQUIHYDRATE 20 MG TAB PO (08:21)
[2023-03-14] MEDS: OPTI-GEN TAB 1 TABLET PO (08:21)
[2023-03-14] MEDS: SOTALOL HCL 40 MG TABLET PO (08:21)
[2023-03-14] MEDS: BISACODYL 10 MG SUPPOSITORY RECTAL (08:24)
[2023-03-14 14:31] VITALS: BP 125/53; PULSE 82; RESP 16; TEMP 37.1; O2SAT 98
--- NOTE | 2023-03-24 09:15 | PM.DS ---
DS: Admitting Diagnosis Discharge Date 03/14/23 Admitting Diagnosis junctional stenosis and spondylosis DS: Discharge Diagnosis Discharge Diagnosis Plan same DS: Summary Hospital Course Hospital Course: the patient was taken the operating room on 03/11/2023 with the aforementioned L2-3 posterior lumbar interbody fusion was performed without complication. Of note, on the consented said L1-2 but they radiology and notes confirmed L2-3 was the operative level. The patient went to the floor postoperatively. On postoperative day 1 her Mcnamara catheter was removed. Her drain was removed by postoperative day 2. By postoperative day 3 she was eating, ambulating and her pain was under control with by mouth pain medicine. Her wounds remained clean dry and intact. She was afebrile with stable vital signs. She was therefore locked to be discharged home. Status at Discharge Functional status at discharge: independent ambulation Time Spent with Patient Time attestation: Total time spent providing and/or coordinating discharge services: Exam Narrative: Neurologically intact Discharge Plan Discharge Attending physician on discharge: Derek Kenny Consulting providers: Ashley Borjas; Larry Pearson Discharging Clinician: Derek Kenny Anticipated Discharge Date/Time: 03/14/23 15:50 Patient Disposition: Home, Self-Care Activity: may shower Diet: as tolerated Wound Care Instructions: follow printed instructions Discharge Instructions: INSTRUCTIONS AFTER YOUR LUMBAR LAMINECTOMY/DECOMPRESSION/FORAMINOTOMY/DISCECTOMY Incisions may be closed with either: Steri-strips (let them wear off on their own). Surgical glue (let it peel off on its own). Sutures or gerri (call the office for an appointment to have these removed). Keep the incision dry for the first three days after surgery. Never apply ointments or lotions to the incision. The incision should be checked daily. Notify the office if there is drainage, redness, or if you have fever with a temperature of over 100 degrees. After the third postop day, it is okay to shower. Let soap and water run over your incision. No soaking in a tub, hot tub, or pool for at least one month. You are encouraged to walk as much as comfortable, with assistance as needed. For example, it may be beneficial to walk short distances hourly during the waking hours and gradually increase walking during your recovery period. Fatigue can be common. Avoid any bending, heavy lifting, twisting movements. You have an vdwvo-dd-[id number]-pound lift restriction until further advised by your physician (A gallon of milk weighs eight pounds). Make frequent position changes, avoiding long periods of sitting. Try not to sit more than 30 minutes at a time. You may engage in sexual activity in two weeks as tolerated. No housework, especially vacuuming, making beds, or doing laundry until seen in the office. You may walk stairs carefully. Minimize car rides for two weeks. Driving can usually be resumed within two weeks; however, you may not drive at that time if still taking pain medications. Once you are discharged from the hospital, please call the office to set up your postop appointment. The physician may order pain medication and/or muscle relaxers. As time goes by, you should require less of these. Always take your medication as ordered, and only if needed. If you take more than prescribed, it will not be refilled early. If you feel you require narcotic medication refill, kindly give the office a 72-hour notice. No refills are given over the weekend. Anti-inflammatory meds (like Ibuprofen, Aleve, Advil, Motrin) may be used if approved by your surgeon. Over the counter Tylenol products may be used but use caution mixing Tylenol with your pain medication. The common pain pills include Acetaminophen as an ingredient, you could cause liver damage if taking too much. Tylenol and Acetaminoph
--- NOTE | 2023-03-27 11:19 | W.PM.PROC2 ---
Procedure Note - Detailed Date of Procedure 03/27/23 Pre-op Diagnosis L 2-3 stenosis Post-op Diagnosis Same Procedure Performed L2-3 complete laminectomy and bilateral facetectomy, L2-3 complete diskectomy and interbody arthrodesis utilizing titanium interbody device, L2-3 pedicle screw instrumentation with connection to prior instrumentation below Surgeon Derek Kenny MD Anesthesia General Description of Procedure Berenice was brought to the operating room in the supine position, was sedated, intubated and placed under general anesthesia in routine fashion. She was then turned into the prone position on a Sarthak frame. The of operation her back was examined, marked for incision, prepped and draped in routine sterile fashion. Incision was marked over the L2 through 5 spinous processes in the midline. This area was injected with 0.5% lidocaine with [id number] epinephrine. Intravenous antibiotics given prior to incision. Incision was made with a 10 blade scalpel down to the lumbodorsal fascia. A subperiosteal dissection of the muscle soft tissue away from spinous process lamina at L2-3 was performed with a subperiosteal elevator and Bovie cautery. A verifying x-rays obtained to verify the level of operation. The instrumentation was uncovered at L3-4 using Bovie cautery. The spinous process at L2 was removed with a Chente rongeur. Kerrison punches, curved curette and a Leksell rongeur were used to remove the lamina in the midline to the soft contents of the canal were encountered. Midas-Thor drill was then used to resect the pars bilaterally at L2. The inferior articular process and facet of L2 could then be removed bilaterally. These post spinous process were stripped free of soft tissue and morselized for later use as interbody autograft. Kerrison punches and curved curettes were used to define plane with the dura and removed bone and ligament flush with the pedicle and widely decompressing the exiting nerve roots in the foramina. With the thecal sac retracted and protected the disc spaces entered using an 11 blade scalpel. Scrapers a very sizes, curettes of various configurations, pituitary rongeur and a rasp were used to remove as much cartilaginous endplate and disc material as possible down to bleeding cortical flat surfaces on the opposing bones. The disc space was incised appropriately sized titanium interbody devices were chosen and filled with local autograft bone. The disc space was likewise filled with local autograft bone. The interbody device was then placed 2-3 mm countersink within the disc space. Pedicle screw instrumentation was performed by observing a palpating the pedicle a hole was made and superior to the process above the pedicle using Midas Thor drill with an a.m. 8 bit at L2. The pedicle was then cannulated with a pedicle probe, checked for continuity with the ball probe, tapped with a 5.5 mm tap and a 6.5 x 50 mm screw was placed into each pedicle. Lateral connectors were placed between L3 and L4 bilaterally and secured in position using the appropriate caps. Rongeur then fit between the lateral connectors and the screw heads at L2 and skin secured in position using the appropriate caps. These were all definitively tightened with a torque and anti torque device. A verifying x-rays obtained to verify good position of the instrumentation which was confirmed. The wound was then copiously irrigated with bacitracin irrigation all bleeding stopped with bipolar Bovie cautery and Gelfoam thrombin powder. A medium Hemovac drain was left in the subfascial position. After inferior right of the incision. The wound was then closed in layered fashion with 2-0 Vicryl interrupted sutures in the lumbodorsal fascia and Ole's layer. 3-0 Vicryl buried interrupted sutures were placed in the dermis and skin was closed with running 4-0 Monocryl subcuticular stitch and dressed with Dermabond and a Telfa and Tegaderm dressing.
== END 2023-03-14 16:38 | disposition home or self-care (01) | DRG 460 ==
LOC: ANH3MEDSUR 03-13 12:34 → ANHSURGERY 03-17 11:51 → ANH3MEDSUR 03-17 11:51
PROVIDERS: Anesthesiology; Admitting Provider Neurological Surgery; PCP Family Medicine; Visit Provider Neurological Surgery
PROC: (CPT 22612; principal; 2023-03-11 09:30)
DX: M48.062 Spinal stenosis, lumbar region with neurogenic claudication (principal); M47.816 Spondylosis without myelopathy or radiculopathy, lumbar region; E78.5 Hyperlipidemia, unspecified; K21.9 Gastro-esophageal reflux disease without esophagitis; K44.9 Diaphragmatic hernia without obstruction or gangrene; M85.80 Other specified disorders of bone density and structure, unspecified site; E53.8 Deficiency of other specified B group vitamins; E55.9 Vitamin D deficiency, unspecified; Z86.711 Personal history of pulmonary embolism; Z86.16 Personal history of COVID-19; Z90.49 Acquired absence of other specified parts of digestive tract; Z98.1 Arthrodesis status; Z90.710 Acquired absence of both cervix and uterus; Z90.722 Acquired absence of ovaries, bilateral
CPT/HCPCS: 36415; 82948; 85610; 97116; 97161; 97165; 97530; 97535; 99199; A9270; C1713; J0690; J1100; J1170; J2405; J2704; J2710; J3010; J3480; J7040; J7120

== ENCOUNTER 2023-04-24 15:01 | Outpatient (CLI) | payer MEDICARE, SELFPAY ==
--- NOTE | ~2023-04-24 | XR_ITS ---
EXAMINATION: XR lumbar spine 2-3V DATE: 04/24/2023 15:22 INDICATION: Patient status post spinal fusion. TECHNIQUE: Anteroposterior and lateral views of the lumbar spine, and cone-down lateral view of the l umbosacral junction were obtained. COMPARISON: 01/13/2023 FINDINGS: There is been interval cranial extension of the previously described L3-S1 fusion and pj ectomy to involve L2. There are 6 mm of stable retrolisthesis of L1 on L2 and L2 on L3. The vertebral body heights are normal. There is moderate loss of intervertebral disc space height at L1-2 and ky re loss of disc space height at T12-L1. Disc calcifications are noted from L3-4 through L5-S1. There is no fracture. Surgical clips in the right upper quadrant are likely from prior cholecystectomy. Phl eboliths are noted in the pelvis. There is a calcification in the soft tissues of the right buttock. IMPRESSION: 1. Interval revision of posterior fusion and laminectomy now extending from L2 through S1. 2. Moderate to severe lumbar spondylosis. Reviewed, dictated and finalized at location L.
== END 2023-04-24 15:02 | disposition home or self-care (01) ==
PROVIDERS: PCP Family Medicine; Visit Provider Neurological Surgery
DX: Z98.1 Arthrodesis status (principal); M47.896 Other spondylosis, lumbar region
CPT/HCPCS: 72100

== ENCOUNTER 2023-05-09 10:11 | Outpatient (CLI) | payer MEDICARE, SELFPAY ==
[2023-05-09 16:40] LABS: Alanine Aminotransferase 20 U/L (6-35); Albumin Level 4.1 g/dL (3.5-5.1); Alkaline Phosphatase 98 U/L (38-126); Anion Gap 2 mmol/L (8-16); Aspartate Amino Transferase 40 U/L (14-36); Bilirubin,Total 0.5 mg/dL (0.2-1.3); Blood Urea Nitrogen 10 mg/dL (7-17); Calcium 8.8 mg/dL (8.4-10.2); Carbon Dioxide 32 mmol/L (22-30); Chloride 102 mmol/L (98-107); Cholesterol 185 mg/dL (0-200); Estimated Glomerular Filt Rate > 60; Glucose 91 mg/dL (65-110); HDL Direct 78 mg/dL; Potassium 4.4 mmol/L (3.4-5.0); Sodium 136 mmol/L (137-145); Triglycerides 116 mg/dL (<150)
[2023-05-09 16:41] LABS: Basophils Percent Auto 0.5 % (0.2-1.2); Eosinophils Absolute Auto 0.1 K/mm3 (0-0.3); Eosinophils Percent Auto 1.9 % (0-4.4); Hematocrit 35.9 % (37.0-47.0); Hemoglobin 11.6 g/dL (12.0-15.0); Immature Granulocyte Absolute 0.01 K/mm3 (0.00-0.031); Immature Granulocyte Percent A 0.2 % (0-0.5); Lymphocytes Absolute Auto 1.85 K/mm3 (0.9-3.2); Lymphocytes Percent Auto 44.9 % (18.3-44.2); Mean Corpuscular HGB Conc 32.3 g/dl (32-36); Mean Corpuscular Hemoglobin 33.6 pg (26-34); Mean Corpuscular Volume 104.1 fl (80-100); Mean Platelet Volume 10.6 fl (7.4-10.4); Monocytes Absolute Auto 0.5 K/mm3 (0.1-0.6); Monocytes Percent Auto 12.1 % (2.6-8.5); Neutrophils Absolute Auto 1.7 K/mm3 (1.3-6.7); Neutrophils Percent Auto 40.4 % (45.5-73.1); Platelet Count Result 266 k/mm3 (150-375); Red Blood Count 3.45 M/mm3 (4.2-5.4); White Blood Count 4.1 K/mm3 (4.5-10.0)
[2023-05-09 16:53] LABS: LDL Cholesterol Direct 76 mg/dL
[2023-05-09 16:57] LABS: Vitamin D 25 Hydroxy 65.9 ng/mL
== END 2023-05-09 10:12 | disposition home or self-care (01) ==
LOC: ANHGOSHLAB 10:13
PROVIDERS: PCP Family Medicine; Visit Provider Family Medicine
DX: E78.5 Hyperlipidemia, unspecified (principal); E55.9 Vitamin D deficiency, unspecified; I10 Essential (primary) hypertension; E53.8 Deficiency of other specified B group vitamins; Z13.29 Encounter for screening for other suspected endocrine disorder; Z79.899 Other long term (current) drug therapy
CPT/HCPCS: 36415; 80053; 80061; 82306; 82607; 84443; 85025

== ENCOUNTER 2023-06-06 09:55 | Outpatient (CLI) | payer MEDICARE, SELFPAY ==
[2023-06-06 19:35] LABS: Basophils Percent Auto 0.4 % (0.2-1.2); Eosinophils Absolute Auto 0.1 K/mm3 (0-0.3); Eosinophils Percent Auto 1.8 % (0-4.4); Hematocrit 37.5 % (37.0-47.0); Hemoglobin 11.8 g/dL (12.0-15.0); Immature Granulocyte Absolute 0.01 K/mm3 (0.00-0.031); Immature Granulocyte Percent A 0.2 % (0-0.5); Lymphocytes Absolute Auto 2.09 K/mm3 (0.9-3.2); Lymphocytes Percent Auto 46.9 % (18.3-44.2); Mean Corpuscular HGB Conc 31.5 g/dl (32-36); Mean Corpuscular Hemoglobin 32.2 pg (26-34); Mean Corpuscular Volume 102.2 fl (80-100); Mean Platelet Volume 10.7 fl (7.4-10.4); Monocytes Absolute Auto 0.5 K/mm3 (0.1-0.6); Monocytes Percent Auto 10.1 % (2.6-8.5); Neutrophils Absolute Auto 1.8 K/mm3 (1.3-6.7); Neutrophils Percent Auto 40.6 % (45.5-73.1); Platelet Count Result 262 k/mm3 (150-375); Red Blood Count 3.67 M/mm3 (4.2-5.4); Red Cell Distribution Width 12.9 % (11.5-14.5); White Blood Count 4.5 K/mm3 (4.5-10.0)
== END 2023-06-06 09:56 | disposition home or self-care (01) ==
LOC: ANHGOSHLAB 09:57
PROVIDERS: PCP Family Medicine; Visit Provider Family Medicine
DX: D72.819 Decreased white blood cell count, unspecified (principal)
CPT/HCPCS: 36415; 85025

== ENCOUNTER 2023-08-11 11:15 | Outpatient (RCR) | payer MEDICARE, SELFPAY ==
--- NOTE | 2023-06-25 15:34 | PTOPEVAL1 ---
Assessment and note entered by Jordyn Black, PT Evaluation Information Assessment Status Evaluation Diagnosis Lumbar fusion Therapy condition weakness, gait abnormality, low back pain Onset 03/11/23 Subjective Information Pt reports bottom four vertebra fusion 15 years ago, had additional section added on top. Had a pinched nerve. Nerve pain does hurt as much. Sitting feels ok, walking a distance causes pain. States with walker can walk more upright but without walker laura over Also is getting shooting pain in buttocks at times . Tries to maintain good posture, walks up and down her driveway multiple times a day 8-[address] (135 x about 19 times) Prescription states no restrictions Reported Pain Level Pain Score 2: Self Report Assessment PT Clinical Summary Pt presents s/p lumbar fusion 02/2023. Largest complaint is continued pain with walking without assistive device. Reports also gets shooting pain in buttocks at times. Evaluation shows pelvic upslip and torsion today that corrects with muscle energy techniques. Pt also reports resolution of pain with sacroilliac joint approximation during walking. Evaluation also shows decreased core and gluteal strength. Pt will thus benefit from physical therapy to address deficits and improve function with less pain. Plan of Care Interventions Hot Pack/Cold Pack,Manual Therapy,Neuro Re- education,Therapeutic Activities,Therapeutic Exercise PT Services Indicated Yes Treatment Frequency and 2x weekly x 8 weeks Duration These treatments will address the objective and functional deficits as defined above. The patient will be advanced safely and appropriately in order for the patient to progress towards his/her prior level of function. Additional exercises will be introduced and as well as a comprehensive home exercise program upon discharge, if needed, ?to ensure carryover of functional gains achieved in the clinic. This treatment plan has been reviewed and agreement upon by the patient.
--- NOTE | 2023-06-25 15:36 | OPREHPOC ---
Outpatient Therapy Plan of Care This is a Multidisciplinary Plan of Care that may contain components documented by all disciplines (PT, OT, and ST.) PT Problem 1 PT Problem #1 Knowledge Deficit PT Goal 1 Goal Pt will be independent in HEP Target Visit 8 PT Goal 2 Goal Pt will verbalize understanding of diagnosis and prognosis Target Visit 16 PT Problem 2 PT Problem #2 Pain PT Goal 1 Goal Pt will report greatest pain level at 5/10 or less Target Visit 8 PT Goal 2 Goal Pt will report resolution of pain Target Visit 16 PT Problem 3 PT Problem #3 Impaired Gait PT Goal 1 Goal Pt will demo ability to ambulate without AD for 500 ft Target Visit 8 PT Problem 4 PT Problem #4 Impaired Strength PT Goal 1 Goal Pt will demo strength of 4/5 in all tested planes
--- NOTE | 2023-07-23 15:21 | PTOPPROG ---
Assessment and note entered by Jordyn Black, PT Assessment Status Progress Diagnosis Lumbar fusion Therapy conditions weakness, gait abnormality, low back pain Onset 03/11/23 Subjective Information Pt states I can't see a lot of difference . Antelmo still has sharp pains and after has a gone a while without her walker is still bent over. is exercising more but doesn't seem to be getting much better. Hasn't been able to walk any of her laps with a cane stating it throws me off . Pt reports she has not increased her laps in the driveway, but does walk everyday. has been trying to use walker in house less . Pt keeps going sometimes when I shouldn't in home. is cooking more and doing more in her house even though it hurts. Reports when doesn't get in a hurry does well with log rolling into and out of bed. Sometimes has pain with rolling over in bed and sometimes doesn 't Returns to surgeon August 11. Assessment PT Clinical Summary Pt cont to demo significant weakness in the gluteal muscles and core. Does reprts slightly improved pain and demo's increased 2 min walking distance without AD. Pt does however appear to focus on continued deficits and belittles her progress she has made. Does report e-stim modality as very helpful and would like a walker wiht a seat in order to be able ot go out in the public more for longer periods. Pt will benefit from conitnued therapy in order to continue strengthening and allow most functional independence with least amount of pain. Plan of Care Interventions Hot Pack/Cold Pack,Manual Therapy,Neuro Re- education,Therapeutic Activities,Therapeutic Exercise PT Services Indicated Yes Treatment Frequency and 1-2 x weekly x 4 weeks Duration These treatments will address the objective and functional deficits as defined above. The patient will be advanced safely and appropriately in order for the patient to progress towards his/her prior level of function. Addition
--- NOTE | 2023-08-15 15:34 | PTOPDC ---
Assessment and note entered by Jordyn Black, PT Evaluation Information Assessment Status Discharge - Pt Not Presen Diagnosis Lumbar fusion Onset 03/11/23 Assessment PT Clinical Summary Pt reports had a follow up with her surgeon who stated to cease therapy. Thus pt is being discharged from plan of care per patient request.
== END 2023-08-18 11:07 | disposition home or self-care (01) ==
LOC: ANHHIPT 11:15
PROVIDERS: PCP Family Medicine; Visit Provider Neurological Surgery
DX: M54.50 Low back pain, unspecified (principal); Z98.1 Arthrodesis status
CPT/HCPCS: 97014; 97110; 97116; 97140; 97162; 97530; 97750; G0283

== ENCOUNTER 2023-10-28 12:46 | Outpatient (CLI) | payer MEDICARE, SELFPAY ==
--- NOTE | ~2023-10-28 | XR_ITS ---
Lumbosacral Spine: AP and lateral views Clinical History: Arthrodesis COMPARISON: 04/24/2023 Findings: The normal lordotic curve is maintained posterior fusion extending from L2 through S1 is st able in appearance from prior exam. Stable grade 1 retrolisthesis of T12 over L1, of L1 over L2, and L2 over L3. Moderate degenerative disc changes throughout the lumbar spine are similar to prior exam. No acute fracture evident. The sacroiliac joints are normally outlined. Impression: No change from prior exam. Stable posterior fusion changes from L2 through S1. Stable grade 1 retrolisthesis of T12 over L1, L1 over L2, and L2 over L3. Stable degenerative disc changes. Reviewed, dictated and finalized at location . TION PROFESSIONAL Impression: No change from prior exam. Stable posterior fusion changes from L2 through S1. Stable grade 1 retrolisthesis of T12 over L1, L1 over L2, and L2 over L3. Stable degenerative disc changes.
== END 2023-10-28 12:47 | disposition home or self-care (01) ==
PROVIDERS: PCP Family Medicine; Visit Provider Neurological Surgery
DX: M51.36 Other intervertebral disc degeneration, lumbar region (principal); M43.15 Spondylolisthesis, thoracolumbar region; Z98.1 Arthrodesis status
CPT/HCPCS: 72100

== ENCOUNTER 2023-11-11 11:31 | Outpatient (CLI) | payer MEDICARE, SELFPAY ==
[2023-11-11 19:53] LABS: Basophils Percent Auto 0.5 % (0.2-1.2); Eosinophils Absolute Auto 0.1 K/mm3 (0-0.3); Eosinophils Percent Auto 1.2 % (0-4.4); Hematocrit 38.2 % (37.0-47.0); Hemoglobin 12.2 g/dL (12.0-15.0); Immature Granulocyte Absolute 0.01 K/mm3 (0.00-0.031); Immature Granulocyte Percent A 0.2 % (0-0.5); Lymphocytes Absolute Auto 2.72 K/mm3 (0.9-3.2); Lymphocytes Percent Auto 48.4 % (18.3-44.2); Mean Corpuscular HGB Conc 31.9 g/dl (32-36); Mean Corpuscular Volume 106.4 fl (80-100); Mean Platelet Volume 10.4 fl (7.4-10.4); Monocytes Absolute Auto 0.7 K/mm3 (0.1-0.6); Monocytes Percent Auto 11.9 % (2.6-8.5); Neutrophils Absolute Auto 2.1 K/mm3 (1.3-6.7); Neutrophils Percent Auto 37.8 % (45.5-73.1); Platelet Count Result 279 k/mm3 (150-375); Red Blood Count 3.59 M/mm3 (4.2-5.4); White Blood Count 5.6 K/mm3 (4.5-10.0)
[2023-11-11 20:19] LABS: Potassium 4.5 mmol/L (3.4-5.0)
[2023-11-11 20:23] LABS: Alanine Aminotransferase 20 U/L (6-35); Albumin Level 4.2 g/dL (3.5-5.1); Alkaline Phosphatase 89 U/L (38-126); Anion Gap 8 mmol/L (8-16); Aspartate Amino Transferase 49 U/L (14-36); Bilirubin,Total 0.4 mg/dL (0.2-1.3); Blood Urea Nitrogen 10 mg/dL (7-17); Calcium 9.5 mg/dL (8.4-10.2); Carbon Dioxide 28 mmol/L (22-30); Chloride 101 mmol/L (98-107); Estimated Glomerular Filt Rate > 60; Glucose 85 mg/dL (65-110); Iron 165 ug/dL (37-170); Sodium 137 mmol/L (137-145)
[2023-11-11 20:32] LABS: Percent Iron Saturation 54 % (20-50)
== END 2023-11-11 11:32 | disposition home or self-care (01) ==
PROVIDERS: PCP Family Medicine; Visit Provider Family Medicine
DX: E78.5 Hyperlipidemia, unspecified (principal); D64.9 Anemia, unspecified; Z79.899 Other long term (current) drug therapy
CPT/HCPCS: 36415; 80053; 82728; 83540; 83550; 85025

== ENCOUNTER 2023-11-20 08:58 | Outpatient (CLI) | payer MEDICARE, SELFPAY ==
--- NOTE | ~2023-11-20 | MR_ITS ---
EXAMINATION: MR thoracic spine wo con DATE: 11/20/2023 11:29 INDICATION: Back pain post laminectomy. TECHNIQUE: Magnetic resonance imaging (MRI) of the thoracic spine was performed without intravenous c ontrast. COMPARISON: None FINDINGS: There is 14 degrees dextroscoliosis of thoracic spine. There is kyphosis of thoracic spine. There is 3 mm retrolisthesis of T12 on L1. There is mild chronic height loss of T4 vertebral body. T here is mildly decreased disc height at T8-T9 and T10-T11, moderately decreased disc height at T11-T1 2, and severely decreased disc height at T12-L1. At T10-T11, there is a central protrusion with mild central canal stenosis. At T12-L1, the disc is bulging with mild central canal stenosis. 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 There is multilevel mild neural foraminal stenosis bilaterally. On the right, there is moderate neural foraminal stenosis at T9-T10 and T10-T11 . The spinal cord signal intensity is normal. The conus medullaris is at L1-L2. IMPRESSION: 1. Severe lower thoracic spondylosis. 2. Thoracic dextroscoliosis and kyphosis. Reviewed, dictated and finalized at location A. EF WORKER
--- NOTE | ~2023-11-20 | MR_ITS ---
EXAMINATION: MR lumbar spine wo/w con DATE: 11/20/2023 11:29 INDICATION: Postlaminectomy syndrome. TECHNIQUE: Magnetic resonance imaging (MRI) of the lumbar spine was performed without and with 13 mL MultiHance intravenous contrast. COMPARISON: Lumbar spine MRI 10/20/2022 FINDINGS: There is 10 degrees levoscoliosis of thoracolumbar spine. There is 3 mm retrolisthesis of T 12 on L1 and 4 mm retrolisthesis of L1 on L2 and L2 on L3. There are changes of posterior fusion proc edure from L2 to S1 with pedicle screws. Vertebral body heights are normal. There is moderately decre ased disc height at T11-T12, severely decreased disc height at T12-L1 and L1-L2, moderately decreased disc height at L2-L3, mildly decreased disc height at L3-L4 and L4-L5, and moderately decreased disc height at L5-S1. The distal spinal cord signal intensity is normal. The conus medullaris is at L1-L2 . The following disc levels are specifically discussed: T12-L1: The disc does not extend beyond the endplate margin. There is mild bilateral facet joint oste oarthritis. There is mild right neural foraminal stenosis. There is no central canal stenosis. L1-L2: The disc is bulging and has an annular fissure. There is mild bilateral facet joint hypertroph y. There is moderate bilateral neural foraminal stenosis. There is mild central canal stenosis. L2-L3: The disc is bulging. There is moderate facet joint hypertrophy. There is mild right and modera te left neural foraminal stenosis. There is mild central canal stenosis with posterior decompression. L3-L4: There is a left central and right foraminal protrusion. There is mild right facet joint hypert rophy. There is mild right neural foraminal stenosis. There is mild central canal stenosis with poste rior decompression. L4-L5: The disc is mildly bulging. There is mild bilateral facet joint hypertrophy. There is mild kelsy ateral neural foraminal stenosis. There is no central canal stenosis. There is posterior decompressio n. L5-S1: The disc does not extend beyond the endplate margin. There is no facet joint hypertrophy. Ther e is no neural foraminal stenosis. There is no central canal stenosis. There is posterior decompressi on. IMPRESSION: 1. Posterior fusion procedure from L2 to S1. 2. Severe thoracolumbar spondylosis, stable from 10/20/2022. Reviewed, dictated and finalized at location A. ITURE ASSEMBLY SUPERVISOR
== END 2023-11-20 08:59 | disposition home or self-care (01) ==
PROVIDERS: PCP Family Medicine; Visit Provider Pain Medicine Pain Medicine
DX: M96.1 Postlaminectomy syndrome, not elsewhere classified (principal); M47.894 Other spondylosis, thoracic region
CPT/HCPCS: 72146; 72158; A9577

== ENCOUNTER 2024-04-01 08:52 | Outpatient (CLI) | payer MEDICARE, SELFPAY ==
--- NOTE | ~2024-04-01 | MM_ITS ---
EXAMINATION: MM screening [facility] HISTORY: Screening mammogram TECHNIQUE: Craniocaudal and mediolateral oblique 3-D tomosynthesis images were obtained and synthetic 2-D images were generated. CAD analysis was submitted and interpreted. COMPARISON: December 31, 2022, December 20, 2021 and lateral screening mammogram examination BREAST PARENCHYMAL COMPOSITION: There are scattered areas of fibroglandular density. FINDINGS: There is no evidence of suspicious mass, calcification, or architectural distortion to sugg est malignancy in either breast. There has been no suspicious interval change. IMPRESSION: 1. No mammographic evidence of malignancy. 2. Recommend routine screening mammography in one year. BI-RADS Category 1: Negative Reviewed, dictated and finalized at location B.
== END 2024-04-01 08:53 | disposition home or self-care (01) ==
PROVIDERS: PCP Family Medicine; Visit Provider Family Medicine
DX: Z12.31 Encounter for screening mammogram for malignant neoplasm of breast (principal)
CPT/HCPCS: 77063; 77067

== ENCOUNTER 2024-05-31 14:22 | Outpatient (CLI) | payer MEDICARE, SELFPAY ==
--- NOTE | 2024-05-31 14:39 | ECG_ITS ---
Test Date: 2024-05-31 15:02:56 Measurements Intervals [place] Rate: 61 P: 16 MO: 156 QRS: -17 QRSD: 91 T: 41 QT: 409 QTc: 413 Interpretive Statements SINUS RHYTHM LOW QRS VOLTAGE IN PRECORDIAL LEADS INCOMPLETE RIGHT BUNDLE BRANCH BLOCK DELAYED PRECORDIAL R/S TRANSITION MINIMAL Q WAVES- HIGH LATERAL LEADS BASELINE ARTIFACT- I, II, III, AVR, AVL, AVF, V4 BORDERLINE ECG No previous ECG available for comparison Electronically Signed On 05-31-2024 15:08:09 CDT by Daniel Davidson D.O.
[2024-05-31 15:22] LABS: Hematocrit 37.2 % (37.0-47.0); Hemoglobin 11.8 g/dL (12.0-15.0); Mean Corpuscular HGB Conc 31.7 g/dl (32-36); Mean Corpuscular Hemoglobin 33.5 pg (26-34); Mean Corpuscular Volume 105.7 fl (80-100); Platelet Count Result 272 k/mm3 (150-375); Red Blood Count 3.52 M/mm3 (4.2-5.4); Red Cell Distribution Width 12.6 % (11.5-14.5)
[2024-05-31 15:26] LABS: Appearance Urine Clear (Clear); Bilirubin Urine Negative (Negative); Blood Urine Negative (Negative); Color Urine Yellow (Yellow); Glucose Urine UA Negative (Negative); Ketones Urine Negative (Negative); Leukocyte Esterase Ur Negative LEU/UL (Negative); Nitrate Urine Negative (Negative); Protein Urine Negative (Negative); Specific Grav Ur 1.008 (1.001-1.035); Urobilinogen Urine 0.2 mg/dL (<2.0)
[2024-05-31 15:27] LABS: Prothrombin Time 13.5 Seconds (11.1-14.7)
[2024-05-31 15:28] LABS: Partial Thromboplastin Time 27.4 Seconds (22.3-36.8)
[2024-05-31 15:34] LABS: Anion Gap 8 mmol/L (4-12); Blood Urea Nitrogen 9 mg/dL (7-17); Calcium 9.2 mg/dL (8.4-10.2); Carbon Dioxide 28 mmol/L (22-30); Chloride 102 mmol/L (98-107); Estimated Glomerular Filt Rate > 60; Glucose 94 mg/dL (65-110); Potassium 4.4 mmol/L (3.4-5.0); Sodium 138 mmol/L (137-145)
[2024-05-31 16:04] LABS: Add Urine Microscopic? NO
== END 2024-05-31 14:23 | disposition home or self-care (01) ==
PROVIDERS: PCP Family Medicine; Visit Provider Neurological Surgery
DX: Z01.818 Encounter for other preprocedural examination (principal); M48.062 Spinal stenosis, lumbar region with neurogenic claudication; I48.91 Unspecified atrial fibrillation; I45.10 Unspecified right bundle-branch block
CPT/HCPCS: 36415; 80048; 81003; 85027; 85610; 85730; 93005

== ENCOUNTER 2024-06-01 01:30 | Day surgery (SDC) | payer MEDICARE, SELFPAY ==
[2024-05-31 09:18] VITALS: BMI 24.7
--- NOTE | 2024-05-31 09:20 | PC.NURSE ---
Report to the Outpatient Waiting Room, entrance under the green pavilion located off [facility], at time _0630_ on date _[id number]_. Planned Procedure Time: _0830_. Time changes happen often and if your time is changed the preop area will call you the afternoon before. - You and your visitor will be asked to self-screen and do not enter if you have any COVID symptoms. - A mask is optional within the hospital at this time. Patients may have clear liquids (water, carbonated beverages, clear teas, apple juice) until 3 hours prior to surgery with a maximum of 20 ounces. - No food from midnight until time of surgery Take the following medications with a SIP of water the morning of surgery: __Sotolol, nose spray and eye drops. DO NOT STOP ANY OF YOUR OTHER PRESCRIPTION MEDICATIONS PRIOR TO SURGERY ?EXCEPT THE FOLLOWING Medications to discontinue per physician Has already stopped Elequis, Fish oil, and cranberry. Date to take last dose Please no make-up, nail angolan, hairspray, perfume, deodorant, or body powder the day of surgery. No jewelry (including any body piercings) or valuables the day of surgery, leave them at home. Please take a shower or bath the night before, or the morning of, surgery with an antibacterial soap. Wear comfortable, loose fitting clothing. - Jewelry must be removed prior to entering the operating room. Rings and piercings that are not removed may be cut off. - The hospital will not accept responsibility for valuables. - Please leave all valuables, including medications, at home the day of surgery. If you are going home after surgery, a licensed pile driver operator must drive you home. - NO public transportation without another adult if you receive anesthesia. - We recommend that an adult stay with you for 24 hours following discharge. - We also recommend that you do not drive, make important decision, drink alcoholic beverages, or take any drugs that were not prescribed by your health care provider for at least 24 hours after your discharge time. Follow any additional instructions given to you from your surgeon. If you or anyone in your household have experienced Covid symptoms in the past week, please notify your surgeon or the nurse liaison at the phone number below for possible testing. Telephone instructions given to __Wanda___and asked if any additional questions and then verbalized understanding. Patient advised to call surgeon office or pre surgery nurse liaison [phone] if any additional questions.
--- NOTE | 2024-05-31 13:17 | WPDANESEPPF ---
Anes - Initial Pre Proc Eval Procedure: Operation Date: 06/01/24 08:30 Proposed Procedures p Placement of Dorsal Column Stimulator Lead and Generator - Derek Kenny MD Date/Time: 05/31/24 13:17 Surgeon: Derek Kenny MD Pre Op Diagnosis: Chronic back and leg pain Patient Data Age: 83 Gender: F Height: 1.68 m Weight: 69.5 kg Allergies Allergy/AdvReac Type Severity Reaction Status Date / Time simvastatin Allergy Unknown Muscle pain Verified 05/31/24 09:13 morphine AdvReac Unknown HEADACHE Verified 05/31/24 09:13 Home Medications Medication Instructions Recorded Confirmed Type cranberry lewl-L-mwuofhws coag 450 1 tablet PO DAILY 01/25/20 05/31/24 History mg-30 mg-50 million cell tablet omega 8-mha-pim-fish oil 100 1 cap PO DAILY 01/25/20 05/31/24 History mg-160 mg-1,000 mg capsule (Fish Oil) vit C 226 mg-vit E 90 mg-copper 1 cap PO DAILY 04/04/20 05/31/24 History 0.8 mg-zinc oxide-lutein 5 mg capsule (PreserVision Lutein) melatonin 5 mg capsule 5 mg PO QHS PRN Sleep 06/04/21 05/31/24 History sotalol 80 mg tablet 40 mg PO Q12HR 07/23/21 05/31/24 History carboxymethylcellulose sodium 1 % 1 drp EACH EYE QID 03/03/23 05/31/24 History eye liquid gel drops ipratropium bromide 42 mcg (0.06 2 spray intranasal TID #15 mL 11/11/23 05/31/24 Rx %) nasal spray omeprazole 20 mg capsule,delayed 20 mg PO BID #180 caps 02/23/24 05/31/24 Rx release evolocumab 140 mg/mL subcutaneous 140 mg subcut [id number] #6 mL 03/30/24 05/31/24 Rx pen injector (Repatha SureClick) apixaban 5 mg tablet (Eliquis) 5 mg PO Q12HR #180 tabs 04/01/24 05/31/24 Rx acetaminophen 500 mg tablet 500 mg PO Q6H PRN Pain 05/13/24 05/31/24 History Patient hx anesthesia problems: none Family hx anesthesia problems: none Results Review: All pre-operative results and documents have been reviewed as part of the pre-operative evaluation. [facility] Past Medical History Medical History Atrial flutter Chronic cholecystitis with calculus Chronic low back pain with bilateral sciatica Dyslipidemia (~2018) Environmental allergies Frequent UTI GERD without esophagitis (~2018) Hiatal hernia (~2018) History of deep venous thrombosis (DVT) of distal vein of left lower extremity (~2002) History of pulmonary embolus (PE) (~03/2020) Hot flashes due to menopause Metatarsal bone fracture Non-cardiac chest pain Negative stress test and normal echocardiogram 03/2020 Osteopenia Pneumonia due to COVID-19 virus Presbycusis of both ears TMJ tenderness Unspecified osteoarthritis, unspecified site Vitamin B12 deficiency (~2018) Vitamin D deficiency (~2018) Surgical History Surgical History H/O hemorrhoidectomy 05/20/22 History of appendectomy 4th grade History of carpal tunnel release History of cataract extraction History of exploratory laparotomy (~1999) History of hemorrhoidectomy (~2011) History of lumbar fusion (~08/2008) History of lumbosacral spine surgery (~03/2023) L2-3 complete laminectomy and bilateral facetectomy, L2-3 complete diskectomy and interbody arthrodesis History of total abdominal hysterectomy and bilateral salpingo-oophorectomy (~1987) Hx laparoscopic cholecystectomy 08/02/21 Family History Family History Father Cerebrovascular accident Grandparent Carcinoma of colon Other Carcinoma of colon Social History Social History Social History: The patient lives with her of 60, of years, who is a durable power district attorney for healthcare. She desires to be a full code. She has 2 children. 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 she drinks 1 or 2 alcoholic beverages once every week or so. Never smoked and does not use illicit drugs. Primary care physician: Dr. Dorantes
[2024-06-01] VITALS (9 sets, daily range): BP systolic 120–136; BP diastolic 57–82; PULSE 59–66; RESP 9–18; TEMP 36.1–36.6; O2SAT 97–100
--- NOTE | ~2024-06-01 | XR_ITS ---
XR fluoroscopy no charge Indication: Placement of dorsal column stimulator TECHNIQUE: Fluoroscopy used during Placement of dorsal column stimulator performed by [Derek Kenny MD] on 06/01/2024. 10 seconds of fluoroscopy with 2 fluoroscopic images captured. FINDINGS: Correlate with procedure note. IMPRESSION: Fluoroscopy used during Placement of dorsal column stimulator. Reviewed, dictated and finalized at location B.
[2024-06-01] MEDS: LACTATED RINGERS 1,000 ML 30 ML IV CONT ×2 (06:55→10:50)
--- NOTE | 2024-06-01 08:47 | PM.IMHP ---
H&P: HPI History of Present Illness Date/Time: 06/01/24 08:47 Chief Complaint: Back and leg pain Narrative: Berenice has undergone a dorsal column stimulator trial. She did very well this. She gained substantial relief and certainly much more than 50% relief from the trial. She continues to have pain back and lower extremities as described previously. She has no specific muscle group weakness or dermatomal numbness. She is not having bowel or bladder difficulty that is new. She is here to discuss permanent implantation of the device.She is about 5 months post op and states that she continues to have a sharp pain in her low back over her SI joints every once in a while that just kills me. However, the main problem that continues to bother her is discomfort and fatigue diffusely throughout her lumbar spine. Physical therapy does not seem to be helping her too much. She states that she was doing an exercise at physical therapy last week when she had a severe sharp pain in her low back over her left SI joint that she states caused her to not be able to move because of how severe the pain was. She states that she walks wonderful with the walker but without the walker, she can't walk very far because of pain in her back. She can get around the house without her walker just fine but she has trouble with her mobility outside of the house without her walker and can only stand/walk for about 20 minutes before the pain becomes too severe and she has to sit down and rest. She wears a back brace that she states seems to help.? Review of Systems Review of Systems: Const Details: Const Details: Const All systems reviewed & are unremarkable except as noted in HPI and below Denies chills, Denies fever(s), Denies weakness, Denies weight gain and Denies weight loss Eyes Denies change in vision and Denies diplopia ENT Denies disequilibrium Card Denies chest pain and Denies dyspnea Resp Denies cough and Denies dyspnea GI Denies abdominal pain, Denies change in bowel habits, Denies fecal incontinence and Denies vomiting Denies hematuria, Denies urinary frequency, Denies difficulty voiding, Denies dysuria, Denies urinary incontinence, Denies urinary hesitancy and Denies urinary urgency Musc Reports as per HPI, Reports abnormal gait, Reports back pain, Denies muscle weakness, Denies numbness, Denies radiating pain into limb and Denies tingling Skin/ Breast Reports system reviewed and no additional complaints, except as documented Neuro Reports as per HPI, Reports abnormal gait, Denies burning sensations, Denies focal weakness, Denies numbness, Denies radicular pain, Denies tingling, Denies disequilibrium and Denies weakness Psych Reports no additional complaints, Denies depression and Denies hopelessness Endo Reports no additional complaints and Denies polyuria Clive/ Lymph Reports no additional complaints Aller/ Immun Reports no additional complaints PMFSH Past Medical History Medical History (Updated 06/01/24 @ 07:35 by Tim Ojeda, DO) Atrial fibrillation Chronic cholecystitis with calculus Chronic low back pain with bilateral sciatica Dyslipidemia (~2018) Environmental allergies Frequent UTI GERD without esophagitis (~2018) Hiatal hernia (~2018) History of deep venous thrombosis (DVT) of distal vein of left lower extremity (~2002) History of pulmonary embolus (PE) (~03/2020) Hot flashes due to menopause Metatarsal bone fracture Non-cardiac chest pain Negative stress test and normal echocardiogram 03/2020 Osteopenia Pneumonia due to COVID-19 virus Presbycusis of both ears TMJ tenderness Unspecified osteoarthritis, unspecified site Vitamin B12 deficiency (~2018) Vitamin D deficiency (~2018) Surgical History Surgical History H/O hemorrhoidectomy 05/20/22 History of appendectomy 4th grade History of carpal tunnel release History of cataract extraction History of
--- NOTE | 2024-06-01 08:50 | WPDHPUPDATE1 ---
History and Physical Update Update Date/Time: 06/01/24 08:50 History and Physical has been reviewed, including an updated exam of the patient. There are NO changes in the patient's condition. Risks, benefits, and alternatives have been discussed and questions answered. Patient agrees to proceed with procedure.
[2024-06-01] MEDS: ceFAZolin 2 GM/D5W 50 ML 2 GM/50 ML BAG IVPB (09:09)
[2024-06-01] MEDS: VANCOMYCIN HCL 1,000 MG VIAL 500 MG TOPICAL (09:40)
[2024-06-01] MEDS: LIDO 1%/EPINEPHRINE 1:100,000 50 ML VIAL 20 ML INFILTRATE (09:40)
[2024-06-01] MEDS: fentaNYL CITRATE INJ (*CRX) 100 MCG/2 ML VIAL 25 MCG IV PUSH ×2 (11:24→11:27)
[2024-06-01] MEDS: oxyCODONE HCL (*CRX) 5 MG TAB IR PO (12:09)
--- NOTE | 2024-06-07 08:23 | W.PM.PROC2 ---
Procedure Note - Detailed Date of Procedure 06/07/24 Pre-op Diagnosis Chronic back and leg pain Post-op Diagnosis Same Procedure Performed Placement of dorsal column stimulator lead and generator Surgeon Derek Kenny MD Anesthesia General Description of Procedure the patient was brought to the operating room in the supine position, was sedated, intubated and placed under general anesthesia in routine fashion. She was then turned into the prone position on a Sarthak frame. The operation on her back was examined, marked for incision, prepped and draped in routine sterile fashion. Incision was marked over the spinous processes in the midline in the thoracic spine based on fluoroscopy and transversely in the left flank. These areas were injected with 0.5% lidocaine with [id number] epinephrine. Intravenous antibiotics given prior to incision. Incision was made with a 10 blade scalpel both locations. A subperiosteal dissection of the muscle and soft tissue away from the spinous process and lamina was performed with a subperiosteal elevator and Bovie cautery. Verifying x-rays obtained to verify level of operation. A pocket was created 1 cm deep in the tissue at the flank incision using ccccurved Ortiz scissors and toothed forceps. A laminectomy was performed using a Leksell rongeur, Kerrison punches and curved curettes until a short wide area the dura was uncovered. This was done at the level above as well. The dorsal epidural space was cannulated with the lead trial and a curved malleable retractor. The lead was then placed into the dorsal epidural space until it was confirmed to be behind the correct vertebral bodies in the midline. An anchor was attached to 1 of the wires which was attached to the superior spinous process using a 3-0 Prolene suture. Tension relief loops were placed in each of the wires which were then buried the flank incision. Here they were inserted into the generator slots and secured there using the small screwdriver for that purpose. Impedance testing was carried out to confirm good connectivity which was confirmed. The wounds were then copiously irrigated with bacitracin irrigation all bleeding stopped with bipolar and Bovie cautery and Gelfoam thrombin powder. The generator was then placed in the pocket with excess wire coiled up underneath it and with vancomycin impregnated pellets around the device. The rest of the pellets were placed above and below the fascia at the thoracic incision. Thoracic fascia was closed with 2-0 Vicryl interrupted sutures. Both incisions were closed with 3-0 Vicryl buried interrupted sutures in the dermis and a running 4-0 Monocryl subcuticular stitch in the skin and were dressed with Dermabond. Patient was then allowed to wake up in the operating room and was taken to the recovery room in stable condition. There were no immediate complications of this operation. All counts were reported correct in the case. Blood loss was 25 cc. The patient was neurologically at her baseline postoperatively. Estimated Blood Loss 25 IV Fluids 1,000 Complications None Condition Stable Disposition PACU [facility] Billing Surgery - Charge Forward: Surgery Billing
== END 2024-06-01 13:20 | disposition home or self-care (01) ==
PROVIDERS: PCP Family Medicine; Visit Provider Neurological Surgery
PROC: (CPT 63685; principal; 2024-06-01 08:30)
DX: M54.42 Lumbago with sciatica, left side (principal); M54.41 Lumbago with sciatica, right side; G89.29 Other chronic pain; I48.91 Unspecified atrial fibrillation; E78.5 Hyperlipidemia, unspecified; K21.9 Gastro-esophageal reflux disease without esophagitis; E55.9 Vitamin D deficiency, unspecified; E53.8 Deficiency of other specified B group vitamins; Z86.718 Personal history of other venous thrombosis and embolism; Z86.711 Personal history of pulmonary embolism; Z98.1 Arthrodesis status; F12.90 Cannabis use, unspecified, uncomplicated; Z79.01 Long term (current) use of anticoagulants
CPT/HCPCS: 63685; 63655; 36415; 80048; 81003; 85027; 85610; 85730; 93005; 99199; A9270; C1713; C1778; C1820; J0690; J1100; J2405; J2704; J3010; J3370; J7120

== ENCOUNTER 2024-07-06 09:15 | Outpatient (CLI) | payer MEDICARE, SELFPAY ==
[2024-07-06 19:18] LABS: Hematocrit 37.3 % (37.0-47.0); Hemoglobin 12.1 g/dL (12.0-15.0); Mean Corpuscular HGB Conc 32.4 g/dl (32-36); Mean Corpuscular Hemoglobin 34.5 pg (26-34); Mean Corpuscular Volume 106.3 fl (80-100); Mean Platelet Volume 10.6 fl (7.4-10.4); Platelet Count Result 263 k/mm3 (150-375); Red Blood Count 3.51 M/mm3 (4.2-5.4); Red Cell Distribution Width 12.2 % (11.5-14.5); White Blood Count 5.4 K/mm3 (4.5-10.0)
[2024-07-06 19:34] LABS: Vitamin D 25 Hydroxy 66.5 ng/mL
[2024-07-06 19:50] LABS: LDL Cholesterol Direct 53 mg/dL
[2024-07-06 19:51] LABS: Alanine Aminotransferase 15 U/L (6-35); Albumin Level 4.1 g/dL (3.5-5.1); Alkaline Phosphatase 86 U/L (38-126); Anion Gap 8 mmol/L (4-12); Aspartate Amino Transferase 41 U/L (14-36); Bilirubin,Total 0.4 mg/dL (0.2-1.3); Blood Urea Nitrogen 8 mg/dL (7-17); Calcium 9.2 mg/dL (8.4-10.2); Carbon Dioxide 29 mmol/L (22-30); Chloride 103 mmol/L (98-107); Cholesterol 156 mg/dL (0-200); Estimated Glomerular Filt Rate > 60; Glucose 85 mg/dL (65-110); HDL Direct 58 mg/dL; Potassium 3.7 mmol/L (3.4-5.0); Sodium 140 mmol/L (137-145); Triglycerides 191 mg/dL (<150)
== END 2024-07-06 09:16 | disposition home or self-care (01) ==
LOC: ANHGOSHLAB 09:17
PROVIDERS: PCP Family Medicine; Visit Provider Nurse Practitioner
DX: E78.5 Hyperlipidemia, unspecified (principal); E55.9 Vitamin D deficiency, unspecified; Z91.09 Other allergy status, other than to drugs and biological substances
CPT/HCPCS: 36415; 80053; 80061; 82306; 84443; 85027

== ENCOUNTER 2024-10-25 14:37 | Outpatient (CLI) | payer MEDICARE, SELFPAY ==
[2024-10-25 19:59] LABS: Basophils Percent Auto 0.5 % (0.2-1.2); Eosinophils Absolute Auto 0.2 K/mm3 (0-0.3); Eosinophils Percent Auto 2.4 % (0-4.4); Hematocrit 38.7 % (37.0-47.0); Hemoglobin 12.3 g/dL (12.0-15.0); Immature Granulocyte Absolute 0.01 K/mm3 (0.00-0.031); Immature Granulocyte Percent A 0.2 % (0-0.5); Lymphocytes Absolute Auto 2.51 K/mm3 (0.9-3.2); Lymphocytes Percent Auto 39.6 % (18.3-44.2); Mean Corpuscular HGB Conc 31.8 g/dl (32-36); Mean Corpuscular Hemoglobin 34.4 pg (26-34); Mean Corpuscular Volume 108.1 fl (80-100); Mean Platelet Volume 10.4 fl (7.4-10.4); Monocytes Absolute Auto 0.7 K/mm3 (0.1-0.6); Monocytes Percent Auto 10.4 % (2.6-8.5); Neutrophils Percent Auto 46.9 % (45.5-73.1); Platelet Count Result 333 k/mm3 (150-375); Red Blood Count 3.58 M/mm3 (4.2-5.4); Red Cell Distribution Width 12.4 % (11.5-14.5); White Blood Count 6.3 K/mm3 (4.5-10.0)
[2024-10-25 20:11] LABS: Alanine Aminotransferase 17 U/L (6-35); Albumin Level 4.3 g/dL (3.5-5.1); Alkaline Phosphatase 98 U/L (38-126); Anion Gap 2 mmol/L (4-12); Aspartate Amino Transferase 69 U/L (14-36); Bilirubin,Total 0.4 mg/dL (0.2-1.3); Blood Urea Nitrogen 14 mg/dL (7-17); Calcium 9.1 mg/dL (8.4-10.2); Carbon Dioxide 31 mmol/L (22-30); Chloride 103 mmol/L (98-107); Estimated Glomerular Filt Rate > 60; Glucose 105 mg/dL (65-110); Potassium 4.3 mmol/L (3.4-5.0); Sodium 136 mmol/L (137-145)
[2024-10-25 20:23] LABS: Macrocytosis 1+ (NORMAL); Platelet Estimate Adequate (Adequate); Schistocytes None Seen
== END 2024-10-25 14:38 | disposition home or self-care (01) ==
LOC: ANHGOSHLAB 14:38
PROVIDERS: PCP Family Medicine; Visit Provider Family Medicine
DX: E78.5 Hyperlipidemia, unspecified (principal); I10 Essential (primary) hypertension; Z79.899 Other long term (current) drug therapy
CPT/HCPCS: 36415; 80053; 84443; 85025

== ENCOUNTER 2024-10-30 09:19 | Emergency (ER) | payer MEDICARE, SELFPAY ==
--- NOTE | ~2024-10-30 | XR_ITS ---
EXAMINATION: XR knee LT 3V DATE: 10/30/2024 09:32 INDICATION: Left knee pain. TECHNIQUE: 3 views of left knee were obtained. COMPARISON: Left knee radiographs 02/02/2022 FINDINGS: Alignment is normal. No fracture. There is mild osteoarthritis of medial and lateral compar tments characterized by tiny osteophytes. No knee joint effusion. IMPRESSION: 1. Mild left knee osteoarthritis. Reviewed, dictated and finalized at location A. ILLER
--- NOTE | 2024-10-30 11:13 | ED.LOWEXIN ---
HPI - Extremity Injury (Lower) General Chief Complaint: Extremity Injury, Lower Stated Complaint: fall, left knee pain Time Seen by Provider: 10/30/24 10:32 History of Present Illness HPI Narrative: 84-year-old female presenting after a fall. Patient tripped on a box and fell onto her left knee. She immediately applied ice and took some Tylenol that she had shooting pain so they became concerned for a broken bone. Did not strike her head or lose consciousness. No other injuries or complaints. Related Data Home Medications Medication Instructions Recorded Confirmed cranberry cvko-Q-yqiyezty coag 450 1 tablet PO DAILY 01/25/20 10/25/24 mg-30 mg-50 million cell tablet omega 1-nvl-bey-fish oil 100 1 cap PO DAILY 01/25/20 10/25/24 mg-160 mg-1,000 mg capsule (Fish Oil) vit C 226 mg-vit E 90 mg-copper 1 cap PO DAILY 04/04/20 10/25/24 0.8 mg-zinc oxide-lutein 5 mg capsule (PreserVision Lutein) melatonin 5 mg capsule 5 mg PO QHS PRN Sleep 06/04/21 10/25/24 sotalol 80 mg tablet 40 mg PO Q12HR 07/23/21 10/25/24 carboxymethylcellulose sodium 1 % 1 drp EACH EYE QID 03/03/23 10/25/24 eye liquid gel drops acetaminophen 500 mg tablet 500 mg PO Q6H PRN Pain 05/13/24 10/25/24 dorzolamide-timolol (PF) 2 %-0.5 % 1 drp EACH EYE BID 10/25/24 10/25/24 eye drops in a dropperette Allergies Allergy/AdvReac Type Severity Reaction Status Date / Time simvastatin Allergy Unknown Muscle pain Verified 10/30/24 09:36 morphine AdvReac Unknown HEADACHE Verified 10/30/24 09:36 Review of Systems Review of Systems: All systems reviewed & are unremarkable except as noted in HPI and below PMFSH Past Medical History Medical History Atrial fibrillation Chronic cholecystitis with calculus Chronic low back pain with bilateral sciatica Dyslipidemia (~2018) Environmental allergies Frequent UTI GERD without esophagitis (~2018) Hiatal hernia (~2018) History of deep venous thrombosis (DVT) of distal vein of left lower extremity (~2002) History of pulmonary embolus (PE) (~03/2020) Hot flashes due to menopause Metatarsal bone fracture Non-cardiac chest pain Negative stress test and normal echocardiogram 03/2020 Osteopenia Pneumonia due to COVID-19 virus Presbycusis of both ears TMJ tenderness Unspecified osteoarthritis, unspecified site Vitamin B12 deficiency (~2018) Vitamin D deficiency (~2018) Surgical History Surgical History H/O hemorrhoidectomy 05/20/22 History of appendectomy 4th grade History of carpal tunnel release History of cataract extraction History of exploratory laparotomy (~1999) History of hemorrhoidectomy (~2011) History of lumbar fusion (~08/2008) History of lumbosacral spine surgery (~03/2023) L2-3 complete laminectomy and bilateral facetectomy, L2-3 complete diskectomy and interbody arthrodesis History of total abdominal hysterectomy and bilateral salpingo-oophorectomy (~1987) Hx laparoscopic cholecystectomy 08/02/21 Family History Family History Father Cerebrovascular accident Grandparent Carcinoma of colon Other Carcinoma of colon Social History Social History Social History: The patient lives with her of 60, of years, who is a durable power commercial litigation attorney for healthcare. She desires to be a full code. She has 2 children. 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 she drinks 1 or 2 alcoholic beverages once every week or so. Never smoked and does not use illicit drugs. Primary care physician: Dr. Nasir Muñiz code status: Full code surrogate decision maker: Smoking status: Never smoker Second hand tobacco smoke exposure: No Alcohol intake: current Drinks per week: 4 Alcohol use details: 1 BEER DAILY Substance use: current Substance use type: marijuana Other substance usage details: CBD oil for back. Do You Feel Safe in your Home?: Yes Lack of Transportation: No Lack of Food: Never True Current Housing: I Have Housing Concerned About Future Housing: No Difficulty Paying Gas/Electric Bills: No Difficulty Paying for Meds: No Currently Unemployed: No Education: Master's Degree or Higher Difficulty w/ Childcare or Family Care: No Living arrangements: with family Occupation/Education: retired Gender identity (if verbalized by the patient): Female Sexual Orientation (if Verbalized by the Patient): Straight or Heterosexual Spiritual care concerns: No Exam Narrative: GENERAL: Well-appearing and in no acute distress. HEAD: Normocephalic, atraumatic. EYES: PERRLA and EOMI. ENT: Mucous membranes moist. NECK: Supple. CHEST: No respiratory distress. HEART: Regular rate and rhythm EXTREMITIES: left knee is swollen and bruised, tender especially anteriorly SKIN: Warm, dry, no rash. NEURO: Alert and oriented x3. PSYCH: Normal mood and affect. MDM - Extremity Injury (Lower) MDM Narrative Medical decision making narrative: 84-year-old female presenting after a fall. X-ray without acute abnormalities. Discussed appropriate supportive care and follow-up. Appropriate return precautions given. Patient agreeable this plan. Discharged in stable condition. Imaging Data Radiologist's impression: ITS Impressions Knee X-Ray 10/30/24 09:38 IMPRESSION: 1. Mild left knee osteoarthritis. Critical Care Time Critical Care Time Critical Care Time: No Discharge Plan Discharge Clinical Impression: Acute internal derangement of knee, Fall Patient Disposition: Home, Self-Care Instructions: Antibiotic Form, Knee Pain (ED) Additional Instructions: the x-ray today shows no broken bones. Please use Tylenol for pain control. Please rest and elevate the extremity as much as possible. Follow-up closely with your PCP. If your symptoms worsen or other concerning symptoms arise, please return to the ER. Prescriptions: No Action melatonin 5 mg capsule 5 mg PO QHS PRN (Reason: Sleep) dorzolamide-timolol (PF) 2-0.5 % dropperette 1 drp EACH EYE BID amoxicillin-pot clavulanate 875-125 mg tablet 1 tablet PO BID Qty: 20 0RF Repatha SureClick 140 mg/mL pen injector 140 mg subcut [id number] Qty: 6 1RF ipratropium bromide 42 mcg (0.06 %) spray,non-aerosol 2 spray intranasal TID Qty: 15 5RF Rx Instructions: administer into each nostril omeprazole 20 mg capsule,delayed release(DR/EC) 20 mg PO BID Qty: 180 1RF cranberry pydo-Z-onhegihf coag 450-30-50 jv-eg-mrspyvd tablet 1 tablet PO DAILY Hold Instructions: Resume on 05/25/22. May resume 5-7 days if no significant continuing bleeding. Fish Oil 100-160-1,000 mg capsule 1 cap PO DAILY Hold Instructions: Resume on 03/21/23. acetaminophen 500 mg tablet 500 mg PO Q6H PRN (Reason: Pain) PreserVision Lutein 226 mg-200 unit -5 mg-0.8 mg Capsule 1 cap PO DAILY sotalol 80 mg tablet 40 mg PO Q12HR hydrocodone-acetaminophen 5-325 mg tablet 1 - 2 tablet PO Q4H PRN (Reason: pain) Qty: 30 0RF carboxymethylcellulose sodium 1 % Drops, Liquid Gel 1 drp EACH EYE QID Patient Comments: EACH EYE Eliquis 5 mg tablet 5 mg PO Q12HR Qty: 180 1RF Hold Instructions: Resume on 03/28/23. Follow-up/Referrals: Marcella Muñiz MD [Primary Care Provider] -
[2024-10-30 11:30] VITALS: BP 134/70; PULSE 62; RESP 16; TEMP 36.4; O2SAT 100
== END 2024-10-30 13:05 | disposition home or self-care (01) ==
PROVIDERS: Emergency Provider Emergency Medicine; PCP Family Medicine
DX: M23.92 Unspecified internal derangement of left knee (principal); S89.92XA Unspecified injury of left lower leg, initial encounter; I48.91 Unspecified atrial fibrillation; E78.5 Hyperlipidemia, unspecified; E53.8 Deficiency of other specified B group vitamins; E55.9 Vitamin D deficiency, unspecified; K21.9 Gastro-esophageal reflux disease without esophagitis; K44.9 Diaphragmatic hernia without obstruction or gangrene; M85.80 Other specified disorders of bone density and structure, unspecified site; M17.12 Unilateral primary osteoarthritis, left knee; Z86.16 Personal history of COVID-19; Z87.01 Personal history of pneumonia (recurrent); Z86.718 Personal history of other venous thrombosis and embolism; Z86.711 Personal history of pulmonary embolism; Z98.49 Cataract extraction status, unspecified eye; Z98.1 Arthrodesis status; Z90.49 Acquired absence of other specified parts of digestive tract; Z90.710 Acquired absence of both cervix and uterus; Z90.79 Acquired absence of other genital organ(s); Z90.722 Acquired absence of ovaries, bilateral; Z79.01 Long term (current) use of anticoagulants; Z79.899 Other long term (current) drug therapy; W18.09XA Striking against other object with subsequent fall, initial encounter
CPT/HCPCS: 73562; 99283

== ENCOUNTER 2025-03-24 14:38 | Outpatient (CLI) | payer MEDICARE, SELFPAY ==
--- OUTSIDE RECORDS SUMMARY | 2025-03-24 15:21 | XMS_ITS | Encounter Summary ---
Author Organization [facility] Healthcare Address [address] [place] [address] Care Team Providers Care Dock Operator Name Role Phone Nasir Muñiz MD Primary Care Provider Encounter Details Date Type Department Care Team (Late st Contact Info) Description 06/11/2019 Telephone [facility] [address] [place] [address] Jonathan Joaquin MD [address] [facility] [address] [place], [place] [id number] Social History Tobacco Use Types Packs/Day Years Used Date Smoking Tobacco: Never Smokeless Tobacco: Never Alcohol Use Standard Drinks/Week Comments Yes 0 (1 standard drink = 0.6 oz pur e alcohol) Comments Unknown Sex and Gender Information Value Date Recorded Sex Assigned at Not on file Legal Sex Female 3:29 PM CHURN TENDER Gender Identity Not on file Sexual Orientation Not on file Occupation Industry Job Start Date Job End Date retired Not on file Not on file Not on file documented as of this encounter Plan of Treatment Not on file documented as of this encounter Goals Goal Patient Goal Type Associated Problems Recent Progress Patient-Stated? Author CCM Chronic Pain Care Plan Chronic Care Management No change(06/14 1:52 PM CDT) No Sheila Hummel, RN Note: Problem: Chronic Pain Goals: 1. Minimize further functional decline 2. Maximize quality of life 3. Control pain Strategies: - Activity/exercise program recommendation - Conservative stepwise pain medicine strategy with multi-disciplinary approach - Recommend healthy lifestyle strategies and compensatory methods as needed Reduce the likelihood of falling Lifestyle Sheila Desai, RN Note: Below are four things you can do to prevent falls: 1. Begin an exercise program to improve your leg strength & balance 2. Ask your doctor or pharmacist to review your medicines 3. Get annual eye check-ups & update your eyeglasses 4. Make your home safer by: Removing clutter & tripping hazards Putting railings on all stairs & adding grab bars in the bathroom Having good lighting, especially on stairs Contact your local community or [facility] for information on exercise, fall prevention programs, or options for improving home safety. documented as of this encounter Visit Diagnoses Not on filedocumented in this encounter Care Teams Dock Operator Relationship Specialty Start Date End Date Nasir Muñiz MD PCP - General Family Practice 12/16/18 documented as of this encounter
--- OUTSIDE RECORDS SUMMARY | 2025-03-24 15:21 | XMS_ITS | Clinical Summary ---
Author Organization [facility] Address [address] [place] [id number] Care Team Providers Care Wiper Blender Name Role Phone Nasir Muñiz MD Primary Care Provider Allergies No known active allergies Social History Tobacco Use Types Packs/Day Years Used Date Smoking Tobacco: Never Assessed Comments No Sex and Gender Information Value Date Recorded Sex Assigned at Not on file Legal Sex Female 5:32 PM CDT Gender Identity Not on file Sexual Orientation Not on file Last Filed Vital Signs Vital Sign Reading Time Taken Comments Blood Pressure 155/79 03/22/2020 2:15 PM CDT Pulse 88 03/22/2020 1:07 PM CDT Temperature 37.6 C (99.7 F) 03/22/2020 1:07 PM CDT Respiratory Rate 18 03/22/2020 1:07 PM CDT Oxygen Saturation 98% 03/22/2020 2:15 PM CDT Inhaled Oxygen Concentration - - Weight 68.9 kg (152 lb) 03/22/2020 1:07 PM CDT Height 170.2 cm (5' 7 ) 03/22/2020 1:07 PM CDT Body Mass Index 23.81 03/22/2020 1:07 PM CDT Plan of Treatment Health Maintenance Due Date Last Done Comments DTaP, Tdap and Td Vaccines ( 1 - Tdap) 1961 Zoster Vaccines (1 of 2) 1992 Annual Medicare Wellness Visit 2007 Dexa Scan (General) 2007 RSV Immunization or 60+ Years (1 - 1-dose 75+ series) 2017 Pneumococcal Vaccine: 50+ Ye ars (2 of 2 - PPSV23) 01/24/2021 01/25/2020 COVID-19 Vaccine ( - 2023-2 5 season) 2024 Meningococcal B Vaccine Aged Out No l onger eligible based on patient's age to complete this topic Meningococcal Vaccine Aged Out No constantine denisse eligible based on patient's age to complete this topic RSV Immunizations Under 20 Months Aged Out No longer eligible based on patient's age to complete this topic Insurance MED [facility] MEDICARE Care Teams Wiper Blender Relationship Specialty Start Date End Date Nasir Muñiz MD PCP - General FAMILY PRACTICE 03/22/20
--- OUTSIDE RECORDS SUMMARY | 2025-03-24 15:21 | XMS_ITS | Clinical Summary ---
Author Organization [employer] [id number] [facility] Address [address] [place] [address] Care Team Providers Care Escort Service Attendant Name Role Phone Baker Lynda FROST Primary Care Provider [phone] Allergies Active Allergy Reactions Criticality Noted Date Comments Caffeine Anxiety Low 04/25/2020 Gabapentin Muscle Pain Low 04/25/2020 Pregabalin Hallucination Low 04/25/2020 Rosuvastatin Muscle Pain Low 06/14/2019 Soreness in legs Medications Eliquis 2.5 mg tablet 04/18/2020 Active fluticasone-emo llient no.65 0.05 % Kit, Top Susp & Compl. Cream 01/25/2020 Active omeprazole-amox icill-rifabutin 10-250-12.5 mg capsule,IR & delay rel,biphase 01/25/2020 Active pneumoc 13-denise conj-Dip crm/PF (PREVNAR 13, PF, IM) 01/25/2020 Active Repatha Pushtronex 420 mg/3.5 mL wearable injector 02/28/2020 Active mwb-S4-cii57-zi qn-haq-gnit-bor 600 mg calcium- 800 unit-50 mg Tablet Take by mouth. Active Cranberry Extract 200 mg Capsule Take 4,200 mg by mouth. Active cyanocobalamin, vitamin B-12, 5,000 mcg Capsule Take 5,000 mcg by mouth. Active Ibgwg2-HpfT8-E1 2-E-FA-Fish Oil [phone] yp-ls-edy-mcg Capsule Take 600 mcg by mouth. Active Magnesium 200 mg Tablet 200 mg. Active Pyridoxine-Susan tonin 5-1 mg Tablet Active multivit,Ca,Iro v-XN-Wncs-Lut (COMPLETE) [phone] yp-osv-szo-mcg Tablet Active omeprazole (PriLOSEC) 40 mg Capsule, Delayed Release(E.C.) Take 40 mg by mouth. Active pyridoxine (VITAMIN B6) 100 mg Tablet Take 100 mg by mouth. Active aspirin (JAIMIE CHEWABLE) 81 mg Tablet, Chewable Take 81 mg by mouth daily. Active calcium-vitamin D3 (CALTRATE 600+D) 600 mg(1,500mg) -200 unit Tablet Take by mouth. Active magnesium oxide (MAG-OX) 400 mg (241.3 mg magnesium) tablet Take 400 mg by mouth daily. Active melatonin 5 mg Tablet Take by mouth nightly as needed. Active coenzyme Q10 200 mg Capsule Take 200 mg by mouth daily. Active naproxen sodium (ALEVE) 220 mg Tablet Take 220 mg by mouth every 4 hours as needed for Pain, Moderate. Active Active Problems Problem Noted Date Diagnosed Date Other spondylosis with radiculopathy, lumbar reg ion 03/20/2021 Postlaminectomy syndrome, lumbar region 03/20/20 21 S/P lumbar fusion 03/20/2021 Acute pulmonary embolism without acute cor pulmo nale 04/25/2020 Family History Medical History Relation Name Comments Heart Disease Father Relation Name Status Comments Daughter 1 Alive Daughter 2 Alive Father Mother Social History Tobacco Use Types Packs/Day Years Used Date Smoking Tobacco: Never Smokeless Tobacco: Never Alcohol Use Standard Drinks/Week Comments Yes 0 (1 standard drink = 0.6 oz pur e alcohol) occasionlly Comments No Sex and Gender Information Value Date Recorded Sex Assigned at Not on file Legal Sex Female 10:27 AM CDT Gender Identity Not on file Sexual Orientation Not on file Last Filed Vital Signs Vital Sign Reading Time Taken Comments Blood Pressure 108/79 12/27/2020 3:07 PM SURFACING MACHINE OPERATOR Pulse 88 12/27/2020 3:07 PM SURFACING MACHINE OPERATOR Temperature 36.7 C (98 F) 12/27/2020 3:07 PM SURFACING MACHINE OPERATOR Respiratory Rate - - Oxygen Saturation 97% 12/27/2020 3:07 PM SURFACING MACHINE OPERATOR Inhaled Oxygen Concentration - - Weight 66.2 kg (146 lb) 03/20/2021 1:24 PM CDT Height 167.6 cm (5' 6 ) 03/20/2021 1:24 PM CDT Body Mass Index 23.57 03/20/2021 1:24 PM CDT Plan of Treatment Health Maintenance Due Date Last Done Comments DTAP/TDAP/TD VACCINES (1 - Tdap) 1961 PNEUMOCOCCAL VACCINE 50+ YEARS (1 of 1 - PCV) 08/19/19 92 ZOSTER VACCINE (1 of 2) 1992 OSTEOPOROSIS SCREENING 2007 RSV VACCINE (60+ or ) (1 - 1-dose 75+ series) 2017 INFLUENZA VACCINE (#1) 2024 Care Teams Escort Service Attendant Relationship Specialty Start Date End Date Lynda Baker NP [address] [place] [address] PCP - General NURSE PRACTITIONER 02/22/21
--- OUTSIDE RECORDS SUMMARY | 2025-03-24 15:21 | XMS_ITS | Clinical Summary ---
Author Organization [facility] Address [address] [place] [address] Care Team Providers Care Asset Protection Specialist Name Role Phone Nasir Muñiz MD Primary Care Provider Allergies Active Allergy Reactions Criticality Noted Date Comments Caffeine Agitation,Anxiety Low 04/25/2020 Gabapentin Muscle pain Medium 04/25/2020 Pregabalin Hallucinations Medium 04/25/2020 Rosuvastatin Other (See comments) ,Muscle pain Medium 06/14/2019 Soreness in legs Soreness in legs Medications cranberry extract 200 mg capsule Take 4,200 mg by mouth once. Active sizid0-uoaW0-M 99-N-UY-fish oil [phone] rh-ev-vmm-mcg capsule Take 600 mcg by mouth 3 (three) times a week. Active omeprazole (PriLOSEC) 40 mg capsule Take 1 capsule (40 mg total) by mouth daily as needed Active REPATHA SURECLICK 140 mg/mL pen injector INJECT 1 ML(CC) SUB Q EVERY 2 WEEKS IN THE ABDOMEN THIGH OR OURTER AREA OF UPPER ARM (ROTATE SITES) 0 06/11/20 19 Active Eliquis 5 mg tablet Take 1 tablet (5 mg total) by mouth every 12 (twelve) hours 180 tablet 3 07/19/20 21 Active traMADoL (ULTRAM) 50 mg tablet Take 1 tablet (50 mg total) by mouth every 8 (eight) hours as needed for pain 30 tablet 01/10/20 22 Active Additional Information Patient not taking.Reported on 11/02/2024 HYDROcodone-ac etaminophen (NORCO) 5-325 mg per tabletIndicati ons:Pain Take 1 tablet by mouth every 8 (eight) hours as needed for pain 90 tablet 08/01/20 22 Active Additional Information Patient not taking.Reported on 11/02/2024 ipratropium (ATROVENT) 42 mcg (0.06 %) nasal spray Administer 2 sprays into each nostril daily 01/05/20 24 Active amoxicillin-cl avulanate (AUGMENTIN) 875-125 mg per tablet Take 1 tablet by mouth 2 (two) times a day 10/25/20 24 Active sotaloL (BETAPACE) 80 mg tablet TAKE 1/2 (ONE-HALF) TABLET BY MOUTH EVERY 12 HOURS 90 tablet 03/18/20 25 Active sotaloL (BETAPACE) 80 mg tablet TAKE 1/2 (ONE-HALF) TABLET BY MOUTH EVERY 12 HOURS 90 tablet 3 04/06/20 24 025 Discontinued Active Problems Problem Noted Date Diagnosed Date Sacroiliitis 10/22/2022 DDD (degenerative disc disease), lumbar 10/22/20 Chronic pain syndrome 10/22/2022 Atrial flutter, paroxysmal 07/19/2021 Lumbar radiculopathy 11/01/2016 Lumbago 12/19/2014 Surgical History Surgery Date Site/Laterality Comments BACK SURGERY HYSTERECTOMY APPENDECTOMY CHOLECYSTECTOMY Medical History Medical History Date Comments Gastric reflux Rheumatoid arthritis (HCC) Appendicitis Pulmonary embolism (HCC) Low back pain Family History Medical History Relation Name Comments Hypertension Father Family history of hypertension - (Added by TW Conv) Stroke Father Family history of cerebrovascular accident - (Added by TW Conv) Arthritis Mother Family history of arthritis - (Added by TW Conv) Hypertension Mother Relation Name Status Comments Father Mother Social History Tobacco Use Types Packs/Day Years Used Date Smoking Tobacco: Never Smokeless Tobacco: Never Tobacco Cessation:Counseling Given: Not Answered Alcohol Use Standard Drinks/Week Comments Yes 0 (1 standard drink = 0.6 oz pur e alcohol) AUDIT-C Answer Date Recorded Q1: How often do you have a drink containing alc ohol? Monthly or less 10/22/2022 Average Number of Drinks Not on file 022 Frequency of Binge Drinking Not on file 09/25 Comments No Sex and Gender Information Value Date Recorded Sex Assigned at Not on file Legal Sex Female 3:[address] PROJECT MANAGER Gender Identity Not on file Sexual Orientation Not on file Occupation Industry Job Start Date Job End Date retired Not on file Not on file Not on file Obstetrics History Last Filed Vital Signs Vital Sign Reading Time Taken Comments Blood Pressure 118/80 11/02/2024 10:[address] PROJECT MANAGER Pulse 70 11/02/2024 10:[address] PROJECT MANAGER Temperature 36.7 C (98 F) 10/22/2022 1:[address] PROJECT MANAGER Respiratory Rate 15 10/22/2022 3:[address] PROJECT MANAGER Oxygen Saturation 95% 11/02/2024 10:[address] PROJECT MANAGER Inhaled Oxygen Concentration - - Weight 71.2 kg (157 lb) 11/02/2024 10:[address] PROJECT MANAGER Height 167.6 cm (5' 6 ) 11/02/2024 10:[address] PROJECT MANAGER Body Mass Index 25.34 11/02/2024 10:[address] PROJECT MANAGER Plan of Treatment Health Maintenance Due Date Last Done Comments Depression Screening 1942 Osteoporosis Screening-Bone Density Scan 1942 Hepatitis B Screening 1960 Zoster Vaccine (1 of 2) 1992 Pneumococcal vaccine 65+ (2 of 2 - PCV) 09/19/2004 09/19/2003 Well Visit 65+ 2007 DTaP/Tdap/Td Vaccine (2 - Td or Tdap) 07/14/2022 07/14/2012 Fall Risk Assessment 10/22/2023 10/22/2022, 12/03/2021, 08/18/2020, Additional history exists Influenza Vaccine (Season Ended) 2025 08/26/2019, 08/24/2018, 08/29/2017, Additional history exists Goals Goal Patient Goal Type Associated Problems [...] needed Reduce the likelihood of falling Lifestyle No Sheila Hummel, RN Note: Below are four things you [...] on stairs Contact your local community or [facility] for information on exercise, fall prevention programs, or options for improving home safety. Insurance [facility] MEDICARE ADVANTAGE [facility] MEDICARE AETNA MEDICARE Care Teams Asset Protection Specialist Relationship Specialty Start Date End Date Nasir Muñiz MD PCP - General Family Practice 12/16/18
--- OUTSIDE RECORDS SUMMARY | 2025-03-24 15:21 | XMS_ITS | Referral Summary ---
Author Organization [facility] Address [address] [place] [address] Care Team Providers Care Core Machine Tender Name Role Phone Nasir Muñiz MD Primary Care Provider Allergies Active Allergy Reactions Criticality Noted Date Comments Caffeine Agitation,Anxiety Low 04/25/2020 Gabapentin Muscle pain Medium 04/25/2020 Pregabalin Hallucinations Medium 04/25/2020 Rosuvastatin Other (See comments) ,Muscle pain Medium 06/14/2019 Soreness in legs Soreness in legs Medications cranberry extract 200 mg capsule Take 4,200 mg by mouth once. Active jtytq7-bjhB4-S 52-K-CP-fish oil [phone] np-ml-ttw-mcg capsule Take 600 mcg by mouth 3 [...] paroxysmal 07/19/2021 Lumbar radiculopathy 11/01/2016 Lumbago 12/19/2014 Social History Tobacco Use Types Packs/Day Years [...] on file Legal Sex Female 3:29 PM BRAND PLANNER Gender Identity Not on file Sexual Orientation Not on file Occupation Industry Job Start Date Job End Date retired Not on file Not on file Not on file Last Filed Vital Signs Vital Sign Reading Time Taken Comments Blood Pressure 118/80 11/02/2024 10:43 AM BRAND PLANNER Pulse 70 11/02/2024 10:43 AM BRAND PLANNER Temperature 36.7 C (98 F) 10/22/2022 1:20 PM BRAND PLANNER Respiratory Rate 15 10/22/2022 3:09 PM BRAND PLANNER Oxygen Saturation 95% 11/02/2024 10:43 AM BRAND PLANNER Inhaled Oxygen Concentration - - Weight 71.2 kg (157 lb) 11/02/2024 10:43 AM BRAND PLANNER Height 167.6 cm (5' 6 ) 11/02/2024 10:43 AM BRAND PLANNER Body Mass Index 25.34 11/02/2024 10:43 AM BRAND PLANNER Plan of Treatment Not on file Goals Goal Patient Goal Type Associated Problems [...] on stairs Contact your local community or [facility] for information on exercise, fall prevention programs, or options for improving home safety. Insurance [facility] MEDICARE ADVANTAGE T MEDICARE T MEDICARE Care Teams Core Machine Tender Relationship Specialty Start Date End Date Nasir Muñiz MD PCP - General Family Practice 12/16/18
--- OUTSIDE RECORDS SUMMARY | 2025-03-24 15:21 | XMS_ITS | CONTINUITY OF CARE DOCUMENT ---
Author Name marlee whalen Address Unknown Organization [facility] Address [address] [place] [address] Phone [phone] Care Team Providers Care Unemployment Specialist Name Role Phone Leighann NIETO, Ramiro Unavailable [phone] Antonino NIETO, Nasir Unavailable INSURANCE PROVIDERS Payer name Policy type / Coverage type [place] red libertarian ID [facility] MEDICARE ADVANTAGE (PPO) Other [id number]
[2025-03-24 15:33] LABS: Hematocrit 36.9 % (37.0-47.0); Hemoglobin 11.7 g/dL (12.0-15.0); Mean Corpuscular HGB Conc 31.7 g/dl (32-36); Mean Corpuscular Hemoglobin 34.3 pg (26-34); Mean Corpuscular Volume 108.2 fl (80-100); Platelet Count Result 299 k/mm3 (150-375); Red Blood Count 3.41 M/mm3 (4.2-5.4); Red Cell Distribution Width 13.2 % (11.5-14.5)
[2025-03-24 16:11] LABS: Erythrocyte Sedimentation Rate 28 mm/hr (0-20)
[2025-03-24 17:30] LABS: Iron 98 ug/dL (37-170)
[2025-03-24 17:40] LABS: Percent Iron Saturation 34 % (20-50)
[2025-03-24 18:12] LABS: Alanine Aminotransferase 16 U/L (6-35); Albumin Level 4.1 g/dL (3.5-5.1); Alkaline Phosphatase 81 U/L (38-126); Anion Gap 7 mmol/L (4-12); Aspartate Amino Transferase 32 U/L (14-36); Bilirubin,Total 0.3 mg/dL (0.2-1.3); Blood Urea Nitrogen 11 mg/dL (7-17); CRP < 0.5 mg/dL (<1.0); Carbon Dioxide 26 mmol/L (22-30); Chloride 103 mmol/L (98-107); Estimated Glomerular Filt Rate > 60; Glucose 86 mg/dL (65-110); Potassium 3.8 mmol/L (3.4-5.0); Sodium 136 mmol/L (137-145)
[2025-03-24 19:23] LABS: Folic Acid > 20.0 ng/mL (2.76->20); Vitamin B12 > 1000.0 pg/mL (239-931)
[2025-03-30 03:04] LABS: Immunoglobulin A 201 mg/dL (70-320); TTG IGA AB <1.0 U/mL
== END 2025-03-24 14:39 | disposition home or self-care (01) ==
LOC: ANHLAB 14:40
PROVIDERS: PCP Family Medicine; Visit Provider Nurse Practitioner
DX: D64.9 Anemia, unspecified (principal); K52.9 Noninfective gastroenteritis and colitis, unspecified; R19.4 Change in bowel habit; R10.12 Left upper quadrant pain
CPT/HCPCS: 36415; 80053; 82607; 82728; 82746; 82784; 83516; 83540; 83550; 84443; 85027; 85652; 86140

== ENCOUNTER 2025-03-28 08:51 | Outpatient (NON) | payer MEDICARE, SELFPAY ==
--- OUTSIDE RECORDS SUMMARY | 2025-03-28 09:17 | XMS_ITS | Referral Summary ---
Author Organization [facility] Address [address] [place] [address] Care Team Providers Care Cms Expert Name Role Phone Nasir Muñiz MD Primary Care Provider Allergies Active Allergy Reactions Criticality Noted Date Comments Caffeine Agitation,Anxiety Low 04/25/2020 Gabapentin Muscle pain Medium 04/25/2020 Pregabalin Hallucinations Medium 04/25/2020 Rosuvastatin Other (See comments) ,Muscle pain Medium 06/14/2019 Soreness in legs Soreness in legs Medications cranberry extract 200 mg capsule Take 4,200 mg by mouth once. Active jgevh3-oieD0-K 76-R-UM-fish oil [id number] xy-xq-gpr-mcg capsule Take 600 mcg by mouth 3 [...] on file Legal Sex Female 3:29 PM ROPE RIDER Gender Identity Not on file Sexual Orientation Not on file Occupation Industry Job Start Date Job End Date retired Not on file Not on file Not on file Last Filed Vital Signs Vital Sign Reading Time Taken Comments Blood Pressure 118/80 11/02/2024 10:43 AM ROPE RIDER Pulse 70 11/02/2024 10:43 AM ROPE RIDER Temperature 36.7 C (98 F) 10/22/2022 1:20 PM ROPE RIDER Respiratory Rate 15 10/22/2022 3:09 PM ROPE RIDER Oxygen Saturation 95% 11/02/2024 10:43 AM ROPE RIDER Inhaled Oxygen Concentration - - Weight 71.2 kg (157 lb) 11/02/2024 10:43 AM ROPE RIDER Height 167.6 cm (5' 6 ) 11/02/2024 10:43 AM ROPE RIDER Body Mass Index 25.34 11/02/2024 10:43 AM ROPE RIDER Plan of Treatment Not on file Goals [...] stairs Contact your local community or [facility] [place] for information on exercise, fall prevention programs, or options for improving home safety. Insurance [facility] MEDICARE ADVANTAGE [facility] MEDICARE Address: [address] [address] [place] [address] T MEDICARE T MEDICARE Care Teams Cms Expert Relationship Specialty Start Date End Date Nasir Muñiz MD PCP - General Family Practice 12/16/18
--- OUTSIDE RECORDS SUMMARY | 2025-03-28 09:17 | XMS_ITS | Clinical Summary ---
Author Organization [facility] Address [address] [place] [address] Care Team Providers Care Cage Maker Machine Name Role Phone Nasir Muñiz MD Primary [...] age to complete this topic Insurance MED [facility] MEDICARE Care Teams Cage Maker Machine Relationship Specialty Start Date End Date Nasir Muñiz MD PCP - General FAMILY PRACTICE 03/22/20
--- OUTSIDE RECORDS SUMMARY | 2025-03-28 09:17 | XMS_ITS | Encounter Summary ---
Author Organization [facility] Address [address] [place] [address] Care Team Providers Care Rail Car Maintenance Mechanic Name Role Phone Nasir Muñiz MD Primary Care Provider Encounter Details Date Type Department Care Team (Late st Contact Info) Description 06/11/2019 Telephone [facility] [address] [place] [address] Jonathan Joaquin MD [address] [address] [place], [place] [id number] Social History Tobacco Use Types Packs/Day Years Used Date Smoking Tobacco: Never Smokeless Tobacco: Never Alcohol Use Standard Drinks/Week Comments Yes 0 (1 standard drink = 0.6 oz pur e alcohol) Comments Unknown Sex and Gender Information Value Date Recorded Sex Assigned at Not on file Legal Sex Female 3:29 PM NETWORK DEVELOPER Gender Identity Not on file Sexual Orientation [...] on stairs Contact your local community or [facility] for information on exercise, fall prevention programs, or options for improving home safety. documented as of this encounter Visit Diagnoses Not on filedocumented in this encounter Care Teams Rail Car Maintenance Mechanic Relationship Specialty Start Date End Date Nasir Muñiz MD PCP - General Family Practice 12/16/18 documented as of this encounter
--- OUTSIDE RECORDS SUMMARY | 2025-03-28 09:17 | XMS_ITS | CONTINUITY OF CARE DOCUMENT ---
Author Name marlee whalen Address Unknown Organization [facility] Address [address] [place] [address] Phone [phone] Care Team Providers Care Package Checker Name Role Phone Leighann NIETO, Ramiro Unavailable [phone] Antonino NIETO, Nasir Unavailable [phone] INSURANCE PROVIDERS Payer name Policy type / Coverage type [place] red republican ID [facility] MEDICARE ADVANTAGE (PPO) Other [id number]
--- OUTSIDE RECORDS SUMMARY | 2025-03-28 09:17 | XMS_ITS | Clinical Summary ---
Author Organization [employer] [address] [facility] Address [address] [place] [address] Care Team Providers Care Analyst Food And Beverage Name Role Phone Baker Lynda FROST Primary Care Provider [phone] Allergies Active Allergy Reactions Criticality Noted Date [...] 420 mg/3.5 mL wearable injector 02/28/2020 Active xbm-E0-tks23-zi bk-byw-hyrn-bor 600 mg calcium- 800 unit-50 mg Tablet Take by mouth. Active Cranberry Extract 200 mg Capsule Take 4,200 mg by mouth. Active cyanocobalamin, vitamin B-12, 5,000 mcg Capsule Take 5,000 mcg by mouth. Active Asxwq3-QcdQ8-V3 2-E-FA-Fish Oil [id number] ek-sl-kdd-mcg Capsule Take 600 mcg by mouth. Active Magnesium 200 mg Tablet 200 mg. Active Pyridoxine-Susan tonin 5-1 mg Tablet Active multivit,Ca,Iro e-NZ-Kugg-Lut (COMPLETE) 80-113-402-250 qq-rzw-bjv-mcg Tablet Active omeprazole (PriLOSEC) 40 mg Capsule, [...] Comments Blood Pressure 108/79 12/27/2020 3:07 PM A P MECHANIC Pulse 88 12/27/2020 3:07 PM A P MECHANIC Temperature 36.7 C (98 F) 12/27/2020 3:07 PM A P MECHANIC Respiratory Rate - - Oxygen Saturation 97% 12/27/2020 3:07 PM A P MECHANIC Inhaled Oxygen Concentration - - Weight 66.2 [...] 2017 INFLUENZA VACCINE (#1) 2024 Care Teams Analyst Food And Beverage Relationship Specialty Start Date End Date Lynda Baker NP [address] [place] [address] PCP - General NURSE PRACTITIONER 02/22/21
--- OUTSIDE RECORDS SUMMARY | 2025-03-28 09:17 | XMS_ITS | Clinical Summary ---
Author Organization [facility] Address [address] [place] [address] Care Team Providers Care Licensed Nuclear Control Room Operator Name Role Phone Nasir Muñiz MD Primary Care Provider Allergies Active Allergy Reactions Criticality Noted Date Comments Caffeine Agitation,Anxiety Low 04/25/2020 Gabapentin Muscle pain Medium 04/25/2020 Pregabalin Hallucinations Medium 04/25/2020 Rosuvastatin Other (See comments) ,Muscle pain Medium 06/14/2019 Soreness in legs Soreness in legs Medications cranberry extract 200 mg capsule Take 4,200 mg by mouth once. Active -jskA3-O 54-Z-IV-fish oil [id number] kp-gf-nod-mcg capsule Take 600 mcg by mouth 3 [...] on file Legal Sex Female 3:29 PM SALES ORDER PROCESSOR Gender Identity Not on file Sexual Orientation Not on file Occupation Industry Job Start Date Job End Date retired Not on file Not on file Not on file Obstetrics History Last Filed Vital Signs Vital Sign Reading Time Taken Comments Blood Pressure 118/80 11/02/2024 10:43 AM SALES ORDER PROCESSOR Pulse 70 11/02/2024 10:43 AM SALES ORDER PROCESSOR Temperature 36.7 C (98 F) 10/22/2022 1:20 PM SALES ORDER PROCESSOR Respiratory Rate 15 10/22/2022 3:09 PM SALES ORDER PROCESSOR Oxygen Saturation 95% 11/02/2024 10:43 AM SALES ORDER PROCESSOR Inhaled Oxygen Concentration - - Weight 71.2 kg (157 lb) 11/02/2024 10:43 AM SALES ORDER PROCESSOR Height 167.6 cm (5' 6 ) 11/02/2024 10:43 AM SALES ORDER PROCESSOR Body Mass Index 25.34 11/02/2024 10:43 AM SALES ORDER PROCESSOR Plan of Treatment Health Maintenance Due Date [...] on stairs Contact your local community or [facility] for information on exercise, fall prevention programs, or options for improving home safety. Insurance [facility] MEDICARE ADVANTAGE [facility] MEDICARE Address: [address] [address] [place] [address] [facility] MEDICARE AETNA MEDICARE Care Teams Licensed Nuclear Control Room Operator Relationship Specialty Start Date End Date Nasir Muñiz MD PCP - General Family Practice 12/16/18
[2025-03-28 10:06] LABS: Toxigenic C. Diff NEGATIVE (NEGATIVE)
== END 2025-03-28 08:52 | disposition home or self-care (01) ==
LOC: ANHLAB 08:52
PROVIDERS: PCP Family Medicine; Visit Provider Nurse Practitioner
DX: K52.9 Noninfective gastroenteritis and colitis, unspecified (principal); R19.4 Change in bowel habit; R10.12 Left upper quadrant pain
CPT/HCPCS: 82653; 83993; 87045; 87269; 87427; 87449; 87493

== ENCOUNTER 2025-04-04 10:04 | Outpatient (CLI) | payer MEDICARE, SELFPAY ==
--- NOTE | ~2025-04-04 | MM_ITS ---
EXAMINATION: MM screening [facility] HISTORY: Screening mammogram, family history of breast cancer in her daughter. TECHNIQUE: Craniocaudal and mediolateral oblique 3-D tomosynthesis images were obtained and synthetic 2-D images were generated. CAD analysis was submitted and interpreted. COMPARISON: 04/01/2024, 12/31/2022, 12/20/2021 BREAST PARENCHYMAL COMPOSITION:Not Dense. There are scattered areas of fibroglandular density. FINDINGS: No suspicious mass, calcification, or architectural distortion are identified in either yara ast to suggest malignancy. There has been no suspicious interval change. IMPRESSION: No mammographic evidence of malignancy. Recommend routine screening mammography in one year. BI-RADS Category 1: Negative Reviewed, dictated and finalized at location .
--- OUTSIDE RECORDS SUMMARY | 2025-04-04 10:08 | XMS_ITS | Clinical Summary ---
Author Organization [facility] Address [address] [place] [address] Care Team Providers Care Liberal Arts And Humanities Chair Name Role Phone Nasir Muñiz MD Primary [...] age to complete this topic Insurance MED [facility] [place] [address] Care Teams Liberal Arts And Humanities Chair Relationship Specialty Start Date End Date Nasir Muñiz MD PCP - General FAMILY PRACTICE 03/22/20
--- OUTSIDE RECORDS SUMMARY | 2025-04-04 10:08 | XMS_ITS | Clinical Summary ---
Author Organization [employer] [address] [facility] Address [address] [place] [address] Care Team Providers Care Bull Float Finisher Name Role Phone Baker Lynda FROST Primary Care Provider [phone] Allergies Active Allergy Reactions Criticality Noted Date [...] 420 mg/3.5 mL wearable injector 02/28/2020 Active gun-P8-ltw89-zi pj-ecd-esce-bor 600 mg calcium- 800 unit-50 mg Tablet Take by mouth. Active Cranberry Extract 200 mg Capsule Take 4,200 mg by mouth. Active cyanocobalamin, vitamin B-12, 5,000 mcg Capsule Take 5,000 mcg by mouth. Active Rqobm6-PrhZ5-Z1 2-E-FA-Fish Oil [id number] ft-rg-qhb-mcg Capsule Take 600 mcg by mouth. Active Magnesium 200 mg Tablet 200 mg. Active Pyridoxine-Susan tonin 5-1 mg Tablet Active multivit,Ca,Iro y-QR-Ooyi-Lut (COMPLETE) [phone] og-rdu-qlr-mcg Tablet Active omeprazole (PriLOSEC) 40 mg Capsule, [...] Comments Blood Pressure 108/79 12/27/2020 3:07 PM PATTERN WHEEL MAKER Pulse 88 12/27/2020 3:07 PM PATTERN WHEEL MAKER Temperature 36.7 C (98 F) 12/27/2020 3:07 PM PATTERN WHEEL MAKER Respiratory Rate - - Oxygen Saturation 97% 12/27/2020 3:07 PM PATTERN WHEEL MAKER Inhaled Oxygen Concentration - - Weight 66.2 [...] 2017 INFLUENZA VACCINE (#1) 2024 Care Teams Bull Float Finisher Relationship Specialty Start Date End Date Lynda Baker NP [address] [place] [address] PCP - General NURSE PRACTITIONER 02/22/21
--- OUTSIDE RECORDS SUMMARY | 2025-04-04 10:08 | XMS_ITS | Referral Summary ---
Author Organization [facility] Address [address] [place] [address] Care Team Providers Care Crew Boss Name Role Phone Nasir Muñiz MD Primary Care Provider Allergies Active Allergy Reactions Criticality Noted Date Comments Caffeine Agitation,Anxiety Low 04/25/2020 Gabapentin Muscle pain Medium 04/25/2020 Pregabalin Hallucinations Medium 04/25/2020 Rosuvastatin Other (See comments) ,Muscle pain Medium 06/14/2019 Soreness in legs Soreness in legs Medications cranberry extract 200 mg capsule Take 4,200 mg by mouth once. Active fjepq4-mdnX8-P 21-S-PQ-fish oil [id number] vi-zz-vlk-mcg capsule Take 600 mcg by mouth 3 [...] on file Legal Sex Female 3:29 PM HARP REPAIRER Gender Identity Not on file Sexual Orientation Not on file Occupation Industry Job Start Date Job End Date retired Not on file Not on file Not on file Last Filed Vital Signs Vital Sign Reading Time Taken Comments Blood Pressure 118/80 11/02/2024 10:43 AM HARP REPAIRER Pulse 70 11/02/2024 10:43 AM HARP REPAIRER Temperature 36.7 C (98 F) 10/22/2022 1:20 PM HARP REPAIRER Respiratory Rate 15 10/22/2022 3:09 PM HARP REPAIRER Oxygen Saturation 95% 11/02/2024 10:43 AM HARP REPAIRER Inhaled Oxygen Concentration - - Weight 71.2 kg (157 lb) 11/02/2024 10:43 AM HARP REPAIRER Height 167.6 cm (5' 6 ) 11/02/2024 10:43 AM HARP REPAIRER Body Mass Index 25.34 11/02/2024 10:43 AM HARP REPAIRER Plan of Treatment Not on file Goals [...] stairs Contact your local community or [facility] [place] for information on exercise, fall prevention programs, or options for improving home safety. Insurance [facility] MEDICARE ADVANTAGE [facility] MEDICARE Address: [address] [address] [place] [address] T MEDICARE T MEDICARE Care Teams Crew Boss Relationship Specialty Start Date End Date Nasir Muñiz MD PCP - General Family Practice 12/16/18
--- OUTSIDE RECORDS SUMMARY | 2025-04-04 10:08 | XMS_ITS | Clinical Summary ---
Author Organization [facility] Address [address] [place] [address] Care Team Providers Care Chrome Worker Name Role Phone Nasir Muñiz MD Primary Care Provider Allergies Active Allergy Reactions Criticality Noted Date Comments Caffeine Agitation,Anxiety Low 04/25/2020 Gabapentin Muscle pain Medium 04/25/2020 Pregabalin Hallucinations Medium 04/25/2020 Rosuvastatin Other (See comments) ,Muscle pain Medium 06/14/2019 Soreness in legs Soreness in legs Medications cranberry extract 200 mg capsule Take 4,200 mg by mouth once. 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 Gender Identity Not on file Sexual Orientation Not on file Occupation Industry Job Start Date Job End Date retired Not on file Not on file Not on file Obstetrics History Last Filed Vital Signs Vital Sign Reading Time Taken Comments Blood Pressure 118/80 11/02/2024 10:43 AM MITERING MACHINE OPERATOR Pulse 70 11/02/2024 10:43 AM MITERING MACHINE OPERATOR Temperature 36.7 C (98 F) 10/22/2022 1:20 PM MITERING MACHINE OPERATOR Respiratory Rate 15 10/22/2022 3:09 PM MITERING MACHINE OPERATOR Oxygen Saturation 95% 11/02/2024 10:43 AM MITERING MACHINE OPERATOR Inhaled Oxygen Concentration - - Weight 71.2 kg (157 lb) 11/02/2024 10:43 AM MITERING MACHINE OPERATOR Height 167.6 cm (5' 6 ) 11/02/2024 10:43 AM MITERING MACHINE OPERATOR Body Mass Index 25.34 11/02/2024 10:43 AM MITERING MACHINE OPERATOR Plan of Treatment Health Maintenance Due Date [...] on stairs Contact your local community or [facility] for information on exercise, fall prevention programs, or options for improving home safety. Insurance [facility] MEDICARE ADVANTAGE [facility] [place] [place] Address: [address] [address] [place] [address] [facility] MEDICARE [facility] MEDICARE Address: [address] [place] [address] [employer] MEDICARE Care Teams Chrome Worker Relationship Specialty Start Date End Date Nasir Muñiz MD PCP - General Family Practice 12/16/18
--- OUTSIDE RECORDS SUMMARY | 2025-04-04 10:08 | XMS_ITS | CONTINUITY OF CARE DOCUMENT ---
Author Name marlee whalen Address Unknown Organization [facility] Address [address] [place] [address] Phone [phone] Care Team Providers Care Manager Utilization Management Name Role Phone Leighann NIETO, Ramiro Unavailable [phone] Antonino NIETO, Nasir Unavailable [phone] INSURANCE PROVIDERS Payer name Policy type / Coverage type [place]key[place] red republican ID [facility] MEDICARE ADVANTAGE (PPO) Other [id number]
--- OUTSIDE RECORDS SUMMARY | 2025-04-04 10:08 | XMS_ITS | Encounter Summary ---
Author Organization [facility] Healthcare Address [address] [place] [address] Care Team Providers Care Cfo Name Role Phone Nasir Muñiz MD Primary Care Provider Encounter Details Date Type Department Care Team (Late st Contact Info) Description 06/11/2019 Telephone [facility] at [facility] [address] [place] [address] Jonathan Joaquin MD [address] [facility] [address] [place], [place] [id number] Social History Tobacco Use Types Packs/Day Years Used Date Smoking Tobacco: Never Smokeless Tobacco: Never Alcohol Use Standard Drinks/Week Comments Yes 0 (1 standard drink = 0.6 oz pur e alcohol) Comments Unknown Sex and Gender Information Value Date Recorded Sex Assigned at Not on file Legal Sex Female 3:29 PM FIELD MARKETING TEAM LEADER Gender Identity Not on file Sexual Orientation [...] on stairs Contact your local community or [facility] for information on exercise, fall prevention programs, or options for improving home safety. documented as of this encounter Visit Diagnoses Not on filedocumented in this encounter Care Teams Cfo Relationship Specialty Start Date End Date Nasir Muñiz MD PCP - General Family Practice 12/16/18 documented as of this encounter
== END 2025-04-04 10:05 | disposition home or self-care (01) ==
LOC: ANHIMG 10:06
PROVIDERS: PCP Family Medicine; Visit Provider Family Medicine
DX: Z12.31 Encounter for screening mammogram for malignant neoplasm of breast (principal)
CPT/HCPCS: 77063; 77067

== ENCOUNTER 2025-04-06 06:34 | Outpatient (CLI) | payer MEDICARE, SELFPAY ==
--- NOTE | ~2025-04-06 | CT_ITS ---
CT of the Abdomen and Pelvis: Indication: Abdominal pain Technique: 2.5 mm axial scans were obtained through the abdomen and pelvis following intravenous adm inistration of 100 cc of Omnipaque 350. Dose reduction technique was used on this scan by utilizing a utomated exposure control and iterative reconstruction technique. The dose-length product (DLP) was 5 18.32 mGy-cm. COMPARISON: 08/03/2021 Findings: Scans through the lung bases are unremarkable. The liver, spleen, pancreas, adrenals and kidneys are within normal limits. Cholecystectomy clips are present. No evidence of aortic aneurysm. No lymphadenopathy. No bowel obstruction or bowel wall thickening. There is no evidence to suggest acute appendicitis. Images through the pelvis were performed. Possible mild diffuse urinary bladder wall thickening versu s underdistention. No adnexal mass evident. There is grade 1 retrolisthesis of L1 over L2. There is posterior fusion from L2 through S1. Impression: Possible cystitis. Correlate with urinalysis. No other significant findings. Reviewed, dictated and finalized at location . Impression: Possible cystitis. Correlate with urinalysis. No other significant findings.
--- OUTSIDE RECORDS SUMMARY | 2025-04-06 06:38 | XMS_ITS | Clinical Summary ---
Author Organization [employer] [id number] [facility] Address [address] [place] [address] Care Team Providers Care Refractory Manager Name Role Phone Baker Lynda FROST Primary Care Provider [phone] Allergies Active Allergy Reactions Criticality Noted Date [...] 420 mg/3.5 mL wearable injector 02/28/2020 Active avt-K7-afc92-zi qh-agr-txer-bor 600 mg calcium- 800 unit-50 mg Tablet Take by mouth. Active Cranberry Extract 200 mg Capsule Take 4,200 mg by mouth. Active cyanocobalamin, vitamin B-12, 5,000 mcg Capsule Take 5,000 mcg by mouth. Active Fdjay2-YlpG2-W7 2-E-FA-Fish Oil [phone] ip-vo-dlj-mcg Capsule Take 600 mcg by mouth. Active Magnesium 200 mg Tablet 200 mg. Active Pyridoxine-Susan tonin 5-1 mg Tablet Active multivit,Ca,Iro m-EB-Kwbt-Lut (COMPLETE) [phone] oo-fby-ulk-mcg Tablet Active omeprazole (PriLOSEC) 40 mg Capsule, [...] Comments Blood Pressure 108/79 12/27/2020 3:07 PM FRONT OFFICE JAVA DEVELOPER Pulse 88 12/27/2020 3:07 PM FRONT OFFICE JAVA DEVELOPER Temperature 36.7 C (98 F) 12/27/2020 3:07 PM FRONT OFFICE JAVA DEVELOPER Respiratory Rate - - Oxygen Saturation 97% 12/27/2020 3:07 PM FRONT OFFICE JAVA DEVELOPER Inhaled Oxygen Concentration - - Weight 66.2 [...] 2017 INFLUENZA VACCINE (#1) 2024 Care Teams Refractory Manager Relationship Specialty Start Date End Date Lynda Baker NP [address] [place] [address] PCP - General NURSE PRACTITIONER 02/22/21
--- OUTSIDE RECORDS SUMMARY | 2025-04-06 06:38 | XMS_ITS | Encounter Summary ---
Author Organization [facility] Healthcare Address [address] [place] [address] Care Team Providers Care Psychiatric Lpn Name Role Phone Nasir Muñiz MD Primary Care Provider Encounter Details Date Type Department Care Team (Late st Contact Info) Description 06/11/2019 Telephone [facility] Pain Center at [facility] [address] [place] [address] Jonathan Joaquin MD [address] [facility] [address] [place], [place] [address] Social History Tobacco Use Types Packs/Day Years Used Date Smoking Tobacco: Never Smokeless Tobacco: Never Alcohol Use Standard Drinks/Week Comments Yes 0 (1 standard drink = 0.6 oz pur e alcohol) Comments Unknown Sex and Gender Information Value Date Recorded Sex Assigned at Not on file Legal Sex Female 3:29 PM PHOTO CARTOGRAPHER Gender Identity Not on file Sexual Orientation [...] on stairs Contact your local community or [facility] for information on exercise, fall prevention programs, or options for improving home safety. documented as of this encounter Visit Diagnoses Not on filedocumented in this encounter Care Teams Psychiatric Lpn Relationship Specialty Start Date End Date Nasir Muñiz MD PCP - General Family Practice 12/16/18 documented as of this encounter
--- OUTSIDE RECORDS SUMMARY | 2025-04-06 06:38 | XMS_ITS | Referral Summary ---
Author Organization [facility] Address [address] [place] [address] Care Team Providers Care Proposition Player Name Role Phone Nasir Muñiz MD Primary Care Provider Allergies Active Allergy Reactions Criticality Noted Date Comments Caffeine Agitation,Anxiety Low 04/25/2020 Gabapentin Muscle pain Medium 04/25/2020 Pregabalin Hallucinations Medium 04/25/2020 Rosuvastatin Other (See comments) ,Muscle pain Medium 06/14/2019 Soreness in legs Soreness in legs Medications cranberry extract 200 mg capsule Take 4,200 mg by mouth once. Active umadu5-jbjT8-J 48-J-GX-fish oil [phone] jg-hp-blv-mcg capsule Take 600 mcg by mouth 3 [...] on file Legal Sex Female 3:29 PM TURKEY PINNER Gender Identity Not on file Sexual Orientation Not on file Occupation Industry Job Start Date Job End Date retired Not on file Not on file Not on file Last Filed Vital Signs Vital Sign Reading Time Taken Comments Blood Pressure 118/80 11/02/2024 10:43 AM TURKEY PINNER Pulse 70 11/02/2024 10:43 AM TURKEY PINNER Temperature 36.7 C (98 F) 10/22/2022 1:20 PM TURKEY PINNER Respiratory Rate 15 10/22/2022 3:09 PM TURKEY PINNER Oxygen Saturation 95% 11/02/2024 10:43 AM TURKEY PINNER Inhaled Oxygen Concentration - - Weight 71.2 kg (157 lb) 11/02/2024 10:43 AM TURKEY PINNER Height 167.6 cm (5' 6 ) 11/02/2024 10:43 AM TURKEY PINNER Body Mass Index 25.34 11/02/2024 10:43 AM TURKEY PINNER Plan of Treatment Not on file Goals [...] stairs Contact your local community or [facility] for information on exercise, fall prevention programs, or options for improving home safety. Insurance [facility] MEDICARE ADVANTAGE [facility] MEDIC[facility] Address: [address] [address] [place] [address] T MEDICARE T MEDICARE Care Teams Proposition Player Relationship Specialty Start Date End Date Nasir Muñiz MD PCP - General Family Practice 12/16/18
--- OUTSIDE RECORDS SUMMARY | 2025-04-06 06:38 | XMS_ITS | CONTINUITY OF CARE DOCUMENT ---
Author Name marlee whalen Address Unknown Organization [facility] Address [address] [place] [address] Phone [phone] Care Team Providers Care Founder & Ceo Name Role Phone Leighann NIETO, Ramiro Unavailable [phone] Antonino NIETO, Nasir Unavailable [phone] INSURANCE PROVIDERS Payer name Policy type / Coverage type [place] red democrat ID [facility] MEDICARE ADVANTAGE (PPO) Other [id number]
--- OUTSIDE RECORDS SUMMARY | 2025-04-06 06:38 | XMS_ITS | Clinical Summary ---
Author Organization [facility] Address [address] [place] [address] Care Team Providers Care Dental Chair Assembler Name Role Phone Nasir Muñiz MD Primary Care Provider Allergies Active Allergy Reactions Criticality Noted Date Comments Caffeine Agitation,Anxiety Low 04/25/2020 Gabapentin Muscle pain Medium 04/25/2020 Pregabalin Hallucinations Medium 04/25/2020 Rosuvastatin Other (See comments) ,Muscle pain Medium 06/14/2019 Soreness in legs Soreness in legs Medications cranberry extract 200 mg capsule Take 4,200 mg by mouth once. Active -oenG1-O 14-K-LZ-fish oil [id number] ff-lt-cug-mcg capsule Take 600 mcg by mouth 3 [...] on file Legal Sex Female 3:29 PM CLINICAL PHARMACY MANAGER Gender Identity Not on file Sexual Orientation Not on file Occupation Industry Job Start Date Job End Date retired Not on file Not on file Not on file Obstetrics History Last Filed Vital Signs Vital Sign Reading Time Taken Comments Blood Pressure 118/80 11/02/2024 10:43 AM CLINICAL PHARMACY MANAGER Pulse 70 11/02/2024 10:43 AM CLINICAL PHARMACY MANAGER Temperature 36.7 C (98 F) 10/22/2022 1:20 PM CLINICAL PHARMACY MANAGER Respiratory Rate 15 10/22/2022 3:09 PM CLINICAL PHARMACY MANAGER Oxygen Saturation 95% 11/02/2024 10:43 AM CLINICAL PHARMACY MANAGER Inhaled Oxygen Concentration - - Weight 71.2 kg (157 lb) 11/02/2024 10:43 AM CLINICAL PHARMACY MANAGER Height 167.6 cm (5' 6 ) 11/02/2024 10:43 AM CLINICAL PHARMACY MANAGER Body Mass Index 25.34 11/02/2024 10:43 AM CLINICAL PHARMACY MANAGER Plan of Treatment Health Maintenance Due [...] on stairs Contact your local community or [facility] for information on exercise, fall prevention programs, or options for improving home safety. Insurance [facility] MEDICARE ADVANTAGE [facility] MEDICARE Address: [address] [address] [place] [address] [facility] Address: [address] [place] [address] [employer] MEDICARE Care Teams Dental Chair Assembler Relationship Specialty Start Date End Date Nasir Muñiz MD PCP - General Family Practice 12/16/18
--- OUTSIDE RECORDS SUMMARY | 2025-04-06 06:38 | XMS_ITS | Clinical Summary ---
Author Organization [facility] Address [address] [place] [address] Care Team Providers Care District Sales Manager Name Role Phone Nasir Muñiz MD Primary [...] age to complete this topic Insurance MED [facility] MEDICARE Care Teams District Sales Manager Relationship Specialty Start Date End Date Nasir Muñiz MD PCP - General FAMILY PRACTICE 03/22/20
== END 2025-04-06 06:35 | disposition home or self-care (01) ==
PROVIDERS: PCP Family Medicine; Visit Provider Nurse Practitioner
DX: K52.9 Noninfective gastroenteritis and colitis, unspecified (principal); R19.4 Change in bowel habit
CPT/HCPCS: 74177; Q9967

== ENCOUNTER 2025-04-07 12:52 | Outpatient (CLI) | payer MEDICARE, SELFPAY ==
--- OUTSIDE RECORDS SUMMARY | 2025-04-07 12:54 | XMS_ITS | Clinical Summary ---
Author Organization [employer] [address] [facility] Address [address] [place] [address] Care Team Providers Care Composer Teaching Artist Name Role Phone Baker Lynda FROST Primary Care Provider [phone] Allergies Active Allergy Reactions Criticality Noted Date [...] 420 mg/3.5 mL wearable injector 02/28/2020 Active gam-B1-mzt98-zi um-xpp-lqpt-bor 600 mg calcium- 800 unit-50 mg Tablet Take by mouth. Active Cranberry Extract 200 mg Capsule Take 4,200 mg by mouth. Active cyanocobalamin, vitamin B-12, 5,000 mcg Capsule Take 5,000 mcg by mouth. Active Ssacx0-TocG2-C3 2-E-FA-Fish Oil [id number] md-uw-ceg-mcg Capsule Take 600 mcg by mouth. Active Magnesium 200 mg Tablet 200 mg. Active Pyridoxine-Susan tonin 5-1 mg Tablet Active multivit,Ca,Iro h-NT-Gicf-Lut (COMPLETE) 71-581-750-250 xg-wpf-yza-mcg Tablet Active omeprazole (PriLOSEC) 40 mg Capsule, [...] Comments Blood Pressure 108/79 12/27/2020 3:07 PM MEMBER OF THE LEGISLATIVE ASSEMBLY Pulse 88 12/27/2020 3:07 PM MEMBER OF THE LEGISLATIVE ASSEMBLY Temperature 36.7 C (98 F) 12/27/2020 3:07 PM MEMBER OF THE LEGISLATIVE ASSEMBLY Respiratory Rate - - Oxygen Saturation 97% 12/27/2020 3:07 PM MEMBER OF THE LEGISLATIVE ASSEMBLY Inhaled Oxygen Concentration - - Weight 66.2 [...] 2017 INFLUENZA VACCINE (#1) 2024 Care Teams Composer Teaching Artist Relationship Specialty Start Date End Date Lynda Baker NP [address] [place] [address] PCP - General NURSE PRACTITIONER 02/22/21
--- OUTSIDE RECORDS SUMMARY | 2025-04-07 12:54 | XMS_ITS | Referral Summary ---
Author Organization [facility] Address [address] [place] [address] Care Team Providers Care Golf Ball Winder Name Role Phone Nasir Muñiz MD Primary Care Provider Allergies Active Allergy Reactions Criticality Noted Date Comments Caffeine Agitation,Anxiety Low 04/25/2020 Gabapentin Muscle pain Medium 04/25/2020 Pregabalin Hallucinations Medium 04/25/2020 Rosuvastatin Other (See comments) ,Muscle pain Medium 06/14/2019 Soreness in legs Soreness in legs Medications cranberry extract 200 mg capsule Take 4,200 mg by mouth once. Active keriw8-asuJ8-B 91-E-PQ-fish oil [id number] tr-iy-wel-mcg capsule Take 600 mcg by mouth 3 [...] on file Legal Sex Female 3:29 PM BUFFER NICKEL Gender Identity Not on file Sexual Orientation Not on file Occupation Industry Job Start Date Job End Date retired Not on file Not on file Not on file Last Filed Vital Signs Vital Sign Reading Time Taken Comments Blood Pressure 118/80 11/02/2024 10:43 AM BUFFER NICKEL Pulse 70 11/02/2024 10:43 AM BUFFER NICKEL Temperature 36.7 C (98 F) 10/22/2022 1:20 PM BUFFER NICKEL Respiratory Rate 15 10/22/2022 3:09 PM BUFFER NICKEL Oxygen Saturation 95% 11/02/2024 10:43 AM BUFFER NICKEL Inhaled Oxygen Concentration - - Weight 71.2 kg (157 lb) 11/02/2024 10:43 AM BUFFER NICKEL Height 167.6 cm (5' 6 ) 11/02/2024 10:43 AM BUFFER NICKEL Body Mass Index 25.34 11/02/2024 10:43 AM BUFFER NICKEL Plan of Treatment Not on file Goals [...] stairs Contact your local community or [facility] for information on exercise, fall prevention programs, or options for improving home safety. Insurance [facility] MEDICARE ADVANTAGE T MEDICARE T MEDICARE Care Teams Golf Ball Winder Relationship Specialty Start Date End Date Nasir Muñiz MD PCP - General Family Practice 12/16/18
--- OUTSIDE RECORDS SUMMARY | 2025-04-07 12:54 | XMS_ITS | Clinical Summary ---
Author Organization [facility] Address [address] [place] [address] Care Team Providers Care Sail Finisher Machine Name Role Phone Nasir Muñiz MD [...] age to complete this topic Insurance MED [facility] MEDICARE Care Teams Sail Finisher Machine Relationship Specialty Start Date End Date Nasir Muñiz MD PCP - General FAMILY PRACTICE 03/22/20
--- OUTSIDE RECORDS SUMMARY | 2025-04-07 12:54 | XMS_ITS | Encounter Summary ---
Author Organization [facility] Healthcare Address [address] [place] [address] Care Team Providers Care Registrar Museum Name Role Phone Nasir Muñiz MD Primary Care Provider Encounter Details Date Type Department Care Team (Late st Contact Info) Description 06/11/2019 Telephone [facility] Pain Center at [facility] [address] [place] [address] Jonathan Joaquin MD [address] [facility] [address] [place], [place] [id number] Social History Tobacco Use Types Packs/Day Years Used Date Smoking Tobacco: Never Smokeless Tobacco: Never Alcohol Use Standard Drinks/Week Comments Yes 0 (1 standard drink = 0.6 oz pur e alcohol) Comments Unknown Sex and Gender Information Value Date Recorded Sex Assigned at Not on file Legal Sex Female 3:29 PM CONVERTING OPERATOR Gender Identity Not on file Sexual [...] on stairs Contact your local community or [facility] for information on exercise, fall prevention programs, or options for improving home safety. documented as of this encounter Visit Diagnoses Not on filedocumented in this encounter Care Teams Registrar Museum Relationship Specialty Start Date End Date Nasir Muñiz MD PCP - General Family Practice 12/16/18 documented as of this encounter
[2025-04-07 13:41] LABS: Add Urine Microscopic? NO; Appearance Urine Clear (Clear); Bilirubin Urine Negative (Negative); Blood Urine Negative (Negative); Color Urine Yellow (Yellow); Glucose Urine UA Negative (Negative); Ketones Urine Negative (Negative); Leukocyte Esterase Ur Negative LEU/UL (Negative); Nitrate Urine Negative (Negative); Protein Urine Negative (Negative); Specific Grav Ur 1.006 (1.001-1.035); Urobilinogen Urine 0.2 mg/dL (<2.0); pH Urine 6.5 (5.0-9.0)
== END 2025-04-07 12:53 | disposition home or self-care (01) ==
LOC: ANHLAB 12:53
PROVIDERS: PCP Family Medicine; Visit Provider Family Medicine
DX: N30.90 Cystitis, unspecified without hematuria (principal)
CPT/HCPCS: 81003

== ENCOUNTER 2025-04-25 14:49 | Outpatient (CLI) | payer MEDICARE, SELFPAY ==
--- OUTSIDE RECORDS SUMMARY | 2025-04-25 15:04 | XMS_ITS | Clinical Summary ---
Author Organization [facility] Address [address] [place] [address] Care Team Providers Care Vp Care Management Name Role Phone Nasir Muñiz MD Primary Care Provider Allergies Active Allergy Reactions Criticality Noted Date Comments Caffeine Agitation,Anxiety Low 04/25/2020 Gabapentin Muscle pain Medium 04/25/2020 Pregabalin Hallucinations Medium 04/25/2020 Rosuvastatin Other (See comments) ,Muscle pain Medium 06/14/2019 Soreness in legs Soreness in legs Medications cranberry extract 200 mg capsule Take 4,200 mg by mouth once. Active brdpo2-oeiI8-M2 2-E-FA-fish oil [id number] oj-zy-owq-mcg capsule Take 600 mcg by mouth 3 (three) times a week. Active omeprazole (PriLOSEC) 40 mg capsule Take 1 capsule (40 mg total) by mouth daily as needed Active REPATHA SURECLICK 140 mg/mL pen injector INJECT 1 ML(CC) SUB Q EVERY 2 WEEKS IN THE ABDOMEN THIGH OR OURTER AREA OF UPPER ARM (ROTATE SITES) 0 9 Active Eliquis 5 mg tablet Take 1 tablet (5 mg total) by mouth every 12 (twelve) hours 180 tablet 3 1 Active traMADoL (ULTRAM) 50 mg tablet Take 1 tablet (50 mg total) by mouth every 8 (eight) hours as needed for pain 30 tablet 2 Active Additional Information Patient not taking.Reported on 11/02/2024 HYDROcodone-jef taminophen (NORCO) 5-325 mg per tabletIndicatio ns:Pain Take 1 tablet by mouth every 8 (eight) hours as needed for pain 90 tablet 2 Active Additional Information Patient not taking.Reported on 11/02/2024 ipratropium (ATROVENT) 42 mcg (0.06 %) nasal spray Administer 2 sprays into each nostril daily 4 Active amoxicillin-cla vulanate (AUGMENTIN) 875-125 mg per tablet Take 1 tablet by mouth 2 (two) times a day 4 Active sotaloL (BETAPACE) 80 mg tablet TAKE 1/2 (ONE-HALF) TABLET BY MOUTH EVERY 12 HOURS 90 tablet 5 Active Active Problems Problem Noted Date Diagnosed [...] on file Legal Sex Female 3:29 PM BRASS BURNISHER Gender Identity Not on file Sexual Orientation Not on file Occupation Industry Job Start Date Job End Date retired Not on file Not on file Not on file Obstetrics History Last Filed Vital Signs Vital Sign Reading Time Taken Comments Blood Pressure 118/80 11/02/2024 10:43 AM BRASS BURNISHER Pulse 70 11/02/2024 10:43 AM BRASS BURNISHER Temperature 36.7 C (98 F) 10/22/2022 1:20 PM BRASS BURNISHER Respiratory Rate 15 10/22/2022 3:09 PM BRASS BURNISHER Oxygen Saturation 95% 11/02/2024 10:43 AM BRASS BURNISHER Inhaled Oxygen Concentration - - Weight 71.2 kg (157 lb) 11/02/2024 10:43 AM BRASS BURNISHER Height 167.6 cm (5' 6) 11/02/2024 10:43 AM BRASS BURNISHER Body Mass Index 25.34 11/02/2024 10:43 AM BRASS BURNISHER Plan of Treatment Health Maintenance Due Date [...] on stairs Contact your local community or [facility] for information on exercise, fall prevention programs, or options for improving home safety. Insurance [facility] MEDICARE ADVANTAGE [facility] MEDICARE [facility] MEDICARE Address: [address] [place] [address] [facility] MEDICARE Care Teams Vp Care Management Relationship Specialty Start Date End Date Nasir Muñiz MD PCP - General Family Practice 12/16/18
--- OUTSIDE RECORDS SUMMARY | 2025-04-25 15:04 | XMS_ITS | CONTINUITY OF CARE DOCUMENT ---
Author Name marlee whalen Address Unknown Organization [facility] Address [address] [place] [address] Phone [phone] Care Team Providers Care Malthouse Laborer Name Role Phone Leighann NIETO, Ramiro Unavailable [phone] Antonino NIETO, Nasir Unavailable [phone] INSURANCE PROVIDERS Payer name Policy type / Coverage type [place] red libertarian ID [facility] MEDICARE ADVANTAGE (PPO) Other [id number]
--- OUTSIDE RECORDS SUMMARY | 2025-04-25 15:04 | XMS_ITS | Encounter Summary ---
Author Organization [facility] Healthcare Address [address] [place] [address] Care Team Providers Care Tilesetter Name Role Phone Nasir Muñiz MD Primary Care Provider Encounter Details Date Type Department Care Team (Late st Contact Info) Description 06/11/2019 Telephone [facility] at [facility] [address] [place] [address] Jonathan Joaquin MD [address] [facility] [address] [place], [place] [id number] Social History Tobacco Use Types Packs/Day Years Used Date Smoking Tobacco: Never Smokeless Tobacco: Never Alcohol Use Standard Drinks/Week Comments Yes 0 (1 standard drink = 0.6 oz pur e alcohol) Comments Unknown Sex and Gender Information Value Date Recorded Sex Assigned at Not on file Legal Sex Female 3:29 PM SHEETMETAL TRADES WORKER Gender Identity Not on file Sexual Orientation [...] on stairs Contact your local community or [facility] for information on exercise, fall prevention programs, or options for improving home safety. documented as of this encounter Visit Diagnoses Not on filedocumented in this encounter Care Teams Tilesetter Relationship Specialty Start Date End Date Nasir Muñiz MD PCP - General Family Practice 12/16/18 documented as of this encounter
--- OUTSIDE RECORDS SUMMARY | 2025-04-25 15:04 | XMS_ITS | Referral Summary ---
Author Organization [facility] Address [address] [place] [address] Care Team Providers Care Human Projectile Name Role Phone Nasir Muñiz MD Primary Care Provider Allergies Active Allergy Reactions Criticality Noted Date Comments Caffeine Agitation,Anxiety Low 04/25/2020 Gabapentin Muscle pain Medium 04/25/2020 Pregabalin Hallucinations Medium 04/25/2020 Rosuvastatin Other (See comments) ,Muscle pain Medium 06/14/2019 Soreness in legs Soreness in legs Medications cranberry extract 200 mg capsule Take 4,200 mg by mouth once. Active oyxzb9-jqmN3-F8 2-E-FA-fish oil [id number] ml-ms-mii-mcg capsule Take 600 mcg by mouth 3 [...] on file Legal Sex Female 3:29 PM WHARF OPERATOR Gender Identity Not on file Sexual Orientation Not on file Occupation Industry Job Start Date Job End Date retired Not on file Not on file Not on file Last Filed Vital Signs Vital Sign Reading Time Taken Comments Blood Pressure 118/80 11/02/2024 10:43 AM WHARF OPERATOR Pulse 70 11/02/2024 10:43 AM WHARF OPERATOR Temperature 36.7 C (98 F) 10/22/2022 1:20 PM WHARF OPERATOR Respiratory Rate 15 10/22/2022 3:09 PM WHARF OPERATOR Oxygen Saturation 95% 11/02/2024 10:43 AM WHARF OPERATOR Inhaled Oxygen Concentration - - Weight 71.2 kg (157 lb) 11/02/2024 10:43 AM WHARF OPERATOR Height 167.6 cm (5' 6) 11/02/2024 10:43 AM WHARF OPERATOR Body Mass Index 25.34 11/02/2024 10:43 AM WHARF OPERATOR Plan of Treatment Not on file Goals [...] on stairs Contact your local community or [facility] center for information on exercise, fall prevention programs, or options for improving home safety. Insurance [facility] MEDICARE [facility] Address: [facility] [address] [place] [address] AET MEDICARE T MEDICARE Care Teams Human Projectile Relationship Specialty Start Date End Date Nasir Muñiz MD PCP - General Family Practice 12/16/18
--- OUTSIDE RECORDS SUMMARY | 2025-04-25 15:04 | XMS_ITS | Clinical Summary ---
Author Organization [facility] [address] [facility] Address [address] [place] [address] Care Team Providers Care Event Sales Manager Name Role Phone Baker Lynda FROST Primary Care Provider Allergies Active Allergy Reactions [...] 420 mg/3.5 mL wearable injector 02/28/2020 Active jye-Y2-rpj01-zi rv-oia-unfm-bor 600 mg calcium- 800 unit-50 mg Tablet Take by mouth. Active Cranberry Extract 200 mg Capsule Take 4,200 mg by mouth. Active cyanocobalamin, vitamin B-12, 5,000 mcg Capsule Take 5,000 mcg by mouth. Active Nunuj5-DbcV5-C8 2-E-FA-Fish Oil 301-37-381-800 up-vs-vxd-mcg Capsule Take 600 mcg by mouth. Active Magnesium 200 mg Tablet 200 mg. Active Pyridoxine-Susan tonin 5-1 mg Tablet Active multivit,Ca,Iro o-ZE-Uznz-Lut (COMPLETE) [phone] ud-jmm-ant-mcg Tablet Active omeprazole (PriLOSEC) 40 mg Capsule, [...] Comments Blood Pressure 108/79 12/27/2020 3:07 PM ROUTE RIDER SUPERVISOR Pulse 88 12/27/2020 3:07 PM ROUTE RIDER SUPERVISOR Temperature 36.7 C (98 F) 12/27/2020 3:07 PM ROUTE RIDER SUPERVISOR Respiratory Rate - - Oxygen Saturation 97% 12/27/2020 3:07 PM ROUTE RIDER SUPERVISOR Inhaled Oxygen Concentration - - Weight 66.2 kg (146 lb) 03/20/2021 1:24 PM CDT Height 167.6 cm (5' 6) 03/20/2021 1:24 PM CDT Body Mass Index [...] 2017 INFLUENZA VACCINE (#1) 2024 Care Teams Event Sales Manager Relationship Specialty Start Date End Date Lynda Baker NP [address] [place] [address] PCP - General NURSE PRACTITIONER 02/22/21
== END 2025-04-25 14:50 | disposition home or self-care (01) ==
LOC: ANHLAB 14:50
PROVIDERS: PCP Family Medicine; Visit Provider Family Medicine
DX: N39.0 Urinary tract infection, site not specified (principal)
CPT/HCPCS: 87077; 87086; 87186

== ENCOUNTER 2025-05-10 02:17 | Day surgery (SDC) | payer MEDICARE, SELFPAY ==
[2025-05-05 11:57] VITALS: BMI 24.3
--- NOTE | 2025-05-05 12:23 | PC.NURSE ---
Spoke with _patient_ regarding medication Eliquis. _Patient_verbalizes understanding that the last dose is to be taken on _05/07/25_ and the Endoscopist will instruct them when to restart after the procedure.
--- OUTSIDE RECORDS SUMMARY | 2025-05-10 02:20 | XMS_ITS | Encounter Summary ---
Author Organization [facility] Healthcare Address [address] [place] [address] Care Team Providers Care Strategic Partnership Specialist Name Role Phone Nasir Muñiz MD Primary Care Provider Reason for Visit * Reason Comments Follow-up 6 mo follow up on a- flutter Encounter Details Date Type Department Care Team (Late st Contact Info) Description 05/09/2025 11:15 AM CDT Office Visit [facility] Cardiology at [address] [place] [address] Mo Cuba MD [address] [facility] [address] [place] [address] Atrial flutter, paroxysmal (HCC) (Primary Dx) Social History Tobacco Use Types Packs/Day Years [...] on file Legal Sex Female 3:29 PM TRADING 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 Gender Identity Not on file Sexual Orientation Not on file Occupation Industry Job Start Date Job End Date retired Not on file Not on file Not on file documented as of this encounter Last Filed Vital Signs Vital Sign Reading Time Taken Comments Blood Pressure 118/86 05/09/2025 11:38 AM CDT Pulse 63 05/09/2025 11:38 AM CDT Temperature - - Respiratory Rate - - Oxygen Saturation 96% 05/09/2025 11:38 AM CDT Inhaled Oxygen Concentration - - Weight 70.3 kg (155 lb) 05/09/2025 11:38 AM CDT Height 167.6 cm (5' 6) 05/09/2025 11:38 AM CDT Body Mass Index 25.02 05/09/2025 11:38 AM CDT documented in this encounter Progress Notes * Mo Cuba MD - 05/09/2025 11:15 AM CDT [facility] FOLLOW UP 05/09/2025 Berenice Pratt is a 84 y.o. female who presents for follow up of atrial flutter. This is a patient with a history of paroxysmal atrial flutter which has in the past but self-limited. She presented to the hospital in May of 2021 with an episode that was not self-limited and required medical treatmentto restore sinus rhythm. She was placed on diltiazem intravenously in the emergency room. Followingadmission an echocardiogram demonstrated no structural cardiac abnormalities and so she was transitioned to sotalol and anticoagulated with apixaban. She was observed in the hospital for a couple of days and had no difficulty tolerating sotalol him and was discharged. Her sotalol dosage is very lowat 40 mg q.12h She presents today for scheduled six-month appointment. She feels fine and has no new complaints. She has state continues to state that she has episodes of occasional atrial flutter where she will notice palpitations that resolve after about 20-30 minutes. When this happens she has no other symptoms such as chest pain or dyspnea. She has never had a syncopal event. She had to stop taking her anticoagulation because of an upcoming colonoscopy tomorrow. She is having the colonoscopy because she has been experiencing diarrhea for about 6 months REVIEW OF SYSTEMS General ROS: negative for - chills, fatigue, fever, malaise, night sweats, weight gain or weight loss Psychological ROS: negative for - anxiety, depression, memory difficulties or sleep disturbances Ophthalmic ROS: negative for - blurry vision, decreased vision, loss of vision or scotomata ENT ROS: negative for - epistaxis, headaches, hearing change, nasal congestion, nasal discharge, sore throat, vertigo or visual changes Hematological and Lymphatic ROS: negative for - bleeding problems, blood clots, bruising, fatigue or weight loss Endocrine ROS: negative for - hot flashes, palpitations, polydipsia/polyuria or unexpected weight changes Respiratory ROS: negative for - cough, hemoptysis, orthopnea, shortness of breath, tachypnea or wheezing Cardiovascular ROS: negative for - chest pain, dyspnea on exertion, edema, irregular heartbeat, loss of consciousness, murmur, orthopnea, palpitations, paroxysmal nocturnal dyspnea, rapid heart rate or shortness of breath Gastrointestinal ROS: negative for - abdominal pain, appetite loss, blood in stools, constipation, diarrhea, gas/bloating, heartburn, hematemesis, melena or nausea/vomiting Genito-Urinary ROS: negative for - dysuria, erectile dysfunction or hematuria Musculoskeletal ROS: negative for - joint pain, muscle pain or muscular weakness Dermatological ROS: negative for dry skin, eczema, pruritus and rash HOME MEDICATIONS Current Outpatient Medications: cranberry extract 200 mg capsule, Take 4,200 mg by mouth once. , Disp: , Rfl: Eliquis 5 mg tablet, Take 1 tablet (5 mg total) by mouth every 12 (twelve) hours, Disp: 180 tablet,Rfl: 3 ipratropium (ATROVENT) 42 mcg (0.06 %) nasal spray, Administer 2 sprays into each nostril daily, Disp: , Rfl: cztqa3-vjmE2-N37-E-FA-fish oil 890-13-625-800 xx-tl-jnu-mcg capsule, Take 600 mcg by mouth 3 (three) times a week., Disp: , Rfl: omeprazole (PriLOSEC) 40 mg capsule, Take 1 capsule (40 mg total) by mouth daily as needed, Disp: ,Rfl: REPATHA SURECLICK 140 mg/mL pen injector, INJECT 1 ML(CC) SUB Q EVERY 2 WEEKS IN THE ABDOMEN THIGH OR OURTER AREA OF UPPER ARM (ROTATE SITES), Disp: , Rfl: 0 sotaloL (BETAPACE) 80 mg tablet, TAKE 1/2 (ONE-HALF) TABLET BY MOUTH EVERY 12 HOURS, Disp: 90 tablet, Rfl: 0 amoxicillin-clavulanate (AUGMENTIN) 875-125 mg per tablet, Take 1 tablet by mouth 2 (two) times a day, Disp: , Rfl: HYDROcodone-acetaminophen (NORCO) 5-325 mg per tablet, Take 1 tablet by mouth every 8 (eight) hoursas needed for pain (Patient not taking: Reported on 11/02/2024), Disp: 90 tablet, Rfl: 0 traMADoL (ULTRAM) 50 mg tablet, Take 1 tablet (50 mg total) by mouth every 8 (eight) hours as needed for pain (Patient not taking: Reported on 11/02/2024), Disp: 30 tablet, Rfl: 0 LABS AND OTHER DIAGNOSTIC TESTS No results found for: CHOL No results found for: HDL No results found for: LDLCALC No results found for: TRIG No results found for: CHOLHDL No results found for: WBC, HGB, HCT, MCV, PLT No lab exists for component: LABALBU PHYSICAL EXAM Vitals BP 118/86 (BP Location: Right arm, Patient Position: Sitting) Pulse 63 Ht 167.6 cm (5' 6) Wt 70.3 kg (155 lb) SpO2 96% BMI 25.02 kg/m?? Physical Examination: General appearance - alert, well appearing, and in no distress, oriented to person, place, and time and acyanotic, in no respiratory distress Mental status - affect appropriate to mood Eyes - extraocular eye movements intact, sclera anicteric, no pallor Ears - external earsappear normal, hearing grossly normal bilaterally Nose - normal and patent, no erythema or discharge Mouth - mucous membranes moist, pharynx appears normal, dental hygiene good and tongue normal Neck - supple, no significant neck masses, carotids upstroke normal bilaterally, no bruits, no JVD Chest - clear to auscultation, no wheezes, rales or rhonchi, symmetric air entry, no tachypnea, retractions or cyanosis Heart - normal rate, regular rhythm, normal S1, S2, no murmurs, rubs, clicks or gallops, no JVD Abdomen - soft, nontender, nondistended, no masses or organomegaly bowel sounds normal Neurological - alert, oriented, normal speech, no focal findings or movement disorder noted Musculoskeletal - no joint tenderness, deformity or swelling, no muscular tenderness noted Extremities - peripheral pulses normal, no pedal edema, no clubbing or cyanosis Skin - normal coloration and turgor, no rashes, no suspicious skin lesions noted ASSESSMENT Berenice was seen today for follow-up. Diagnoses and all orders for this visit: Atrial flutter, paroxysmal (HCC) PLAN/RECOMMENDATIONS No change in current medical regimen. Follow-up 6 months or p.r.n. Mo Cuba MD documented in this encounter Plan of Treatment Not on [...] stairs Contact your local community or [facility] for information on exercise, fall prevention programs, or options for improving home safety. documented as of this encounter Visit Diagnoses Diagnosis Atrial flutter, paroxysmal (HCC)- Primary documented in this encounter Care Teams Strategic Partnership Specialist Relationship Specialty Start Date End Date Nasir Muñiz MD PCP - General Family Practice 12/16/18 documented as of this encounter
--- OUTSIDE RECORDS SUMMARY | 2025-05-10 02:20 | XMS_ITS | CONTINUITY OF CARE DOCUMENT ---
Author Name marlee whalen Address Unknown Organization [facility] Address [address] [place] [address] Phone [phone] Care Team Providers Care Research Spec Name Role Phone Leighann NIETO, Ramiro Unavailable [phone] Antonino NIETO, Nasir Unavailable [phone] INSURANCE PROVIDERS Payer name Policy type / Coverage type [place] red republic[place] ID [facility] MEDICARE ADVANTAGE (PPO) Other [id number]
--- OUTSIDE RECORDS SUMMARY | 2025-05-10 02:20 | XMS_ITS | Referral Summary ---
Author Organization [facility] Address [address] [place] [address] Care Team Providers Care Marketing Secretary Name Role Phone Nasir Muñiz MD Primary Care Provider Encounters Date Type Department Care Team Description 05/09/2025 11:15 AM CDT Office Visit [facility] Cardiology at [address] [place] [address] Mo Cuba MD Atrial flutter, paroxysmal (HCC) (Primary Dx) from Last 3 Months Allergies Active Allergy Reactions Criticality Noted Date Comments Caffeine Agitation,Anxiety Low 04/25/2020 Gabapentin Muscle pain Medium 04/25/2020 Pregabalin Hallucinations Medium 04/25/2020 Rosuvastatin Other (See comments) ,Muscle pain Medium 06/14/2019 Soreness in legs Soreness in legs Medications cranberry extract 200 mg capsule Take 4,200 mg by mouth once. Active mxubm1-nbxD4-S7 2-E-FA-fish oil [id number] ze-fk-gek-mcg capsule Take 600 mcg by mouth 3 [...] on file Legal Sex Female 3:29 PM EDUCATIONAL AIDE Gender Identity Not on file Sexual Orientation Not on file Occupation Industry Job Start Date Job End Date retired Not on file Not on file Not on file Last Filed Vital Signs Vital Sign Reading Time Taken Comments Blood Pressure 118/86 05/09/2025 11:38 AM CDT Pulse 63 05/09/2025 11:38 AM CDT Temperature 36.7 C (98 F) 10/22/2022 1:20 PM EDUCATIONAL AIDE Respiratory Rate 15 10/22/2022 3:09 PM EDUCATIONAL AIDE Oxygen Saturation 96% 05/09/2025 11:38 AM CDT Inhaled Oxygen Concentration - - Weight 70.3 kg (155 lb) 05/09/2025 11:38 AM CDT Height 167.6 cm (5' 6) 05/09/2025 11:38 AM CDT Body Mass Index 25.02 05/09/2025 11:38 AM CDT Plan of Treatment Not on file Goals [...] stairs Contact your local community or senior center for information on exercise, fall prevention programs, or options for improving home safety. Insurance [facility] MEDICARE ADVANTAGE [facility] MEDICARE [facility] MEDICARE Care Teams Marketing Secretary Relationship Specialty Start Date End Date Nasir Muñiz MD PCP - General Family Practice 12/16/18
--- OUTSIDE RECORDS SUMMARY | 2025-05-10 02:20 | XMS_ITS | Clinical Summary ---
Author Organization [employer] [address] [facility] Address [address] [place] [address] Care Team Providers Care Locomotive Crane Operator Helper Name Role Phone Baker Lynda FROST Primary Care Provider [phone] Allergies Active Allergy Reactions Criticality Noted Date [...] 420 mg/3.5 mL wearable injector 02/28/2020 Active npu-Q3-wog07-zi lw-ytm-voyp-bor 600 mg calcium- 800 unit-50 mg Tablet Take by mouth. Active Cranberry Extract 200 mg Capsule Take 4,200 mg by mouth. Active cyanocobalamin, vitamin B-12, 5,000 mcg Capsule Take 5,000 mcg by mouth. Active Tcjpb6-RifQ1-I3 2-E-FA-Fish Oil [id number] dm-me-mfp-mcg Capsule Take 600 mcg by mouth. Active Magnesium 200 mg Tablet 200 mg. Active Pyridoxine-Susan tonin 5-1 mg Tablet Active multivit,Ca,Iro z-UN-Yrug-Lut (COMPLETE) 90-408-094-250 zq-nfx-uwg-mcg Tablet Active omeprazole (PriLOSEC) 40 mg Capsule, [...] Comments Blood Pressure 108/79 12/27/2020 3:07 PM LDR RN Pulse 88 12/27/2020 3:07 PM LDR RN Temperature 36.7 C (98 F) 12/27/2020 3:07 PM LDR RN Respiratory Rate - - Oxygen Saturation 97% 12/27/2020 3:07 PM LDR RN Inhaled Oxygen Concentration - - Weight 66.2 [...] 2017 INFLUENZA VACCINE (#1) 2024 Care Teams Locomotive Crane Operator Helper Relationship Specialty Start Date End Date Lynda Baker NP [address] [place] [address] PCP - General NURSE PRACTITIONER 02/22/21
--- OUTSIDE RECORDS SUMMARY | 2025-05-10 02:20 | XMS_ITS | Clinical Summary ---
Author Organization [facility] Address [address] [place] [address] Care Team Providers Care Commissions Specialist Name Role Phone Nasir Muñiz MD Primary Care Provider Allergies Active Allergy Reactions Criticality Noted Date Comments Caffeine Agitation,Anxiety Low 04/25/2020 Gabapentin Muscle pain Medium 04/25/2020 Pregabalin Hallucinations Medium 04/25/2020 Rosuvastatin Other (See comments) ,Muscle pain Medium 06/14/2019 Soreness in legs Soreness in legs Medications cranberry extract 200 mg capsule Take 4,200 mg by mouth once. Active -bueJ7-Y2 2-E-FA-fish oil [id number] yp-on-tyf-mcg capsule Take 600 mcg by mouth 3 [...] paroxysmal 07/19/2021 Lumbar radiculopathy 11/01/2016 Lumbago 12/19/2014 Encounters Date Type Department Care Team Description 05/09/2025 11:15 AM CDT Office Visit [facility] Medical Group Cardiology at [address] [place] [address] Mo Cuba MD Atrial flutter, paroxysmal (HCC) (Primary Dx) from Last 3 Months Surgical History Surgery Date Site/Laterality Comments BACK [...] on file Legal Sex Female 3:29 PM SCHOOL EXAMINER Gender Identity Not on file Sexual Orientation Not on file Occupation Industry Job Start Date Job End Date retired Not on file Not on file Not on file Obstetrics History Last Filed Vital Signs Vital Sign Reading Time Taken Comments Blood Pressure 118/86 05/09/2025 11:38 AM CDT Pulse 63 05/09/2025 11:38 AM CDT Temperature 36.7 C (98 F) 10/22/2022 1:20 PM SCHOOL EXAMINER Respiratory Rate 15 10/22/2022 3:09 PM SCHOOL EXAMINER Oxygen Saturation 96% 05/09/2025 11:38 AM CDT Inhaled Oxygen Concentration - - Weight 70.3 kg (155 lb) 05/09/2025 11:38 AM CDT Height 167.6 cm (5' 6) 05/09/2025 11:38 AM CDT Body Mass Index 25.02 05/09/2025 11:38 AM CDT Plan of Treatment Health Maintenance Due [...] as needed Reduce the likelihood of falling Sheila Yousif RN Note: Below are four things you [...] on stairs Contact your local community or [facility] for information on exercise, fall prevention programs, or options for improving home safety. Insurance [employer] MEDICARE ADVANTAGE [facility] MEDICARE [employer] MEDICARE Care Teams Commissions Specialist Relationship Specialty Start Date End Date Nasir Muñiz MD PCP - General Family Practice 12/16/18
--- OUTSIDE RECORDS SUMMARY | 2025-05-10 02:20 | XMS_ITS | Encounter Summary ---
Author Organization [facility] Healthcare Address [address] [place] [address] Care Team Providers Care Plow Mechanic Name Role Phone Nasir Muñiz MD Primary Care Provider Encounter Details Date Type Department Care Team (Late st Contact Info) Description 06/11/2019 Telephone [facility] at [facility] [address] [place] [address] Jonathan Joaquin MD [address] [place] [address] Social History Tobacco Use Types Packs/Day Years Used Date Smoking Tobacco: Never Smokeless Tobacco: Never Alcohol Use Standard Drinks/Week Comments Yes 0 (1 standard drink = 0.6 oz pur e alcohol) Comments Unknown Sex and Gender Information Value Date Recorded Sex Assigned at Not on file Legal Sex Female 3:29 PM SENIOR ADULTS DIRECTOR Gender Identity Not on file Sexual Orientation [...] No change(06/14 1:52 PM CDT) No Sheila Hummel RN Note: Problem: Chronic Pain Goals: 1. Minimize further functional decline 2. Maximize quality of life 3. Control pain Strategies: - Activity/exercise program recommendation - Conservative stepwise pain medicine strategy with multi-disciplinary approach - Recommend healthy lifestyle strategies and compensatory methods as needed Reduce the likelihood of falling Lifestyle Sheila Desai, ROSEANN Note: Below are four things you can [...] on filedocumented in this encounter Care Teams Plow Mechanic Relationship Specialty Start Date End Date Nasir Muñiz MD PCP - General Family Practice 12/16/18 documented as of this encounter
--- OUTSIDE RECORDS SUMMARY | 2025-05-10 02:20 | XMS_ITS | Clinical Summary ---
Author Organization [facility] Address [address] [place] [address] Care Team Providers Care Tissue Specialist Name Role Phone Nasir Muñiz MD [...] 1:07 PM CDT Height 170.2 cm (5' 7) 03/22/2020 1:07 PM CDT Body Mass Index [...] age to complete this topic Insurance MED [facility] MEDICARE Care Teams Tissue Specialist Relationship Specialty Start Date End Date Nasir Muñiz MD PCP - General FAMILY PRACTICE 03/22/20
[2025-05-10 08:51] VITALS: BP 136/72; PULSE 59; RESP 16; TEMP 36.4; O2SAT 100
[2025-05-10] MEDS: LACTATED RINGERS 1,000 ML 150 ML IV CONT (08:58)
--- NOTE | 2025-05-10 09:15 | P.PNAN_ITS ---
Anes - Initial Pre Proc Eval Procedure: Operation Date: 05/10/25 10:00 Proposed Procedures p Colonoscopy - Kvng Patel MD Date/Time: 05/10/25 09:15 Surgeon: Kvng Patel MD Pre Op Diagnosis: Change in bowel habit Patient Data Age: 84 Gender: F Height: 1.68 m Weight: 68.2 kg Last Vital Signs Temp 36.4 C L 05/10/25 08:51 Pulse 59 L 05/10/25 08:51 Resp 16 05/10/25 08:51 BP 136/72 05/10/25 08:51 Pulse Ox 100 05/10/25 08:51 O2 Del Method Room Air 05/10/25 08:51 Allergies Allergy/AdvReac Type Severity Reaction Status Date / Time simvastatin Allergy Unknown Muscle pain Verified 05/10/25 08:48 morphine AdvReac Unknown HEADACHE Verified 05/10/25 08:48 Home Medications ?Medication ?Instructions ?Recorded ?Confirmed ?Type cranberry metv-Z-nbsajlrk coag 450 1 tablet PO DAILY 01/25/20 05/10/25 History mg-30 mg-50 million cell tablet omega 1-yjc-okk-fish oil 100 1 cap PO DAILY 01/25/20 05/10/25 History mg-160 mg-1,000 mg capsule (Fish Oil) vit C 226 mg-vit E 90 mg-copper 1 cap PO DAILY 04/04/20 05/10/25 History 0.8 mg-zinc oxide-lutein 5 mg capsule (PreserVision Lutein) melatonin 5 mg capsule 5 mg PO QHS PRN Sleep 06/04/21 05/10/25 History sotalol 80 mg tablet 40 mg PO Q12HR 07/23/21 05/10/25 History carboxymethylcellulose sodium 1 % 1 drp EACH EYE QID 03/03/23 05/10/25 History eye liquid gel drops acetaminophen 500 mg tablet 500 mg PO Q6H PRN Pain 05/13/24 05/05/25 History dorzolamide-timolol (PF) 2 %-0.5 % 1 drp EACH EYE BID 10/25/24 05/10/25 History eye drops in a dropperette evolocumab 140 mg/mL subcutaneous 140 mg subcut O6PDUOL #6 mL 10/25/24 05/10/25 Rx pen injector (Repatha SureClick) ipratropium bromide 42 mcg (0.06 2 spray intranasal TID #15 mL 10/25/24 05/10/25 Rx %) nasal spray omeprazole 20 mg capsule,delayed 20 mg PO BID #180 caps 10/25/24 05/10/25 Rx release calcium polycarbophil 625 mg 1,250 mg (2 x 625 mg) PO DAILY #60 01/28/25 05/05/25 Rx tablet (FiberCon) tabs colestipol 1 gram tablet 1 g PO .hs #30 tabs 03/24/25 05/05/25 Rx apixaban 5 mg tablet (Eliquis) 5 mg PO Q12HR #180 tabs 04/19/25 05/10/25 Rx paroxetine HCl 10 mg tablet 10 mg PO DAILY #90 tabs 04/25/25 05/10/25 Rx calcium carbonate 600 mg PO DAILY 05/05/25 05/10/25 History cholecalciferol (vitamin D3) 25 1,000 unit PO BID 05/05/25 05/10/25 History mcg (1,000 unit) tablet (Vitamin D3) fcfvtwsvrnle-jaupjkhf-egxg 1 tablet PO DAILY 05/05/25 05/10/25 History fumarate 18 mg-folic acid 400 mcg tablet (One Daily Women's) Patient hx anesthesia problems: none Family hx anesthesia problems: none Results Review: All pre-operative results and documents have been reviewed as part of the pre- operative evaluation. [facility] Past Medical History Medical History Atrial fibrillation Hot flashes due to menopause History of deep venous thrombosis (DVT) of distal vein of left lower extremity (~2002) Metatarsal bone fracture Chronic cholecystitis with calculus History of pulmonary embolus (PE) (~03/2020) Presbycusis of both ears Pneumonia due to COVID-19 virus TMJ tenderness Chronic low back pain with bilateral sciatica Hiatal hernia (~2018) Non-cardiac chest pain Negative stress test and normal echocardiogram 03/2020 Frequent UTI Vitamin B12 deficiency (~2018) Vitamin D deficiency (~2018) GERD without esophagitis (~2018) Osteopenia Unspecified osteoarthritis, unspecified site Dyslipidemia (~2018) Environmental allergies Surgical History Surgical History History of lumbosacral spine surgery (~03/2023) L2-3 complete laminectomy and bilateral facetectomy, L2-3 complete diskectomy and interbody arthrodesis H/O hemorrhoidectomy 05/20/22 History of cataract extraction Hx laparoscopic cholecystectomy 08/02/21 History of exploratory laparotomy (~1999) History of carpal tunnel release History of appendectomy 4th grade History of total abdominal hysterectomy and bilateral salpingo-oophorectomy (~1987) History of lumbar fusion (~08/2008) History of hemorrhoidectomy (~2011) Family History Family History Father Cerebrovascular accident Grandparent Carcinoma of colon Other Carcinoma of colon Social History Social History Social History: The patient lives with her of 60, of years, who is a durable power defense attorney for healthcare. She desires to be a full code. She has 2 children. 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 she drinks 1 or 2 alcoholic beverages once every week or so. Never smoked and does not use illicit drugs. Primary care physician: Dr. Nasir Muñiz code status: Full code surrogate decision maker: Smoking status: Never smoker Second hand tobacco smoke exposure: No Alcohol intake: current Drinks per week: 4 Alcohol use details: DRINKS Substance use: never Substance use type: does not use Other substance usage details: CBD oil for back. Do You Feel Safe in your Home?: Yes Lack of Transportation: No Lack of Food: Never True Current Housing: I Have Housing Concerned About Future Housing: No Difficulty Paying Gas/Electric Bills: No Difficulty Paying for Meds: No Currently Unemployed: No Education: Master's Degree or Higher Difficulty w/ Childcare or Family Care: No Living arrangements: with family Occupation/Education: retired Gender identity (if verbalized by the patient): Female Sexual Orientation (if Verbalized by the Patient): Straight or Heterosexual Spiritual care concerns: No Anes - Eval Final PreProcedure Day of Procedure 05/10/25 09:15 Patient weight: normal Heart: regular rate and rhythm Lungs: decreased breath sounds Airway: Mallampati scale class II Neurological: alert and oriented Last oral intake: >/= 8 hours ASA classification: III Emergent: no Anesthetic plan: proceed Anesthesia type and monitoring: general GIVS and standard monitoring Results Review: All pre-operative results and documents have been reviewed as part of the pre- operative evaluation. Informed Consent: The patient's anesthetic plan and its attendant risks and benefits were discussed with the patient/family/POA. Questions were solicited and answers provided to the satisfaction of the patient/family/POA.
--- NOTE | 2025-05-10 09:35 | WPDHPUPDATE1 ---
History and Physical Update Update Date/Time: 05/10/25 09:35 History and Physical has been reviewed, including an updated exam of the patient. There are NO changes in the patient's condition. Risks, benefits, and alternatives have been discussed and questions answered. Patient agrees to proceed with procedure.
--- NOTE | 2025-05-10 09:50 | S_PTH ---
PATIENT: Berenice Pratt LOC: [facility]#:[id number] AGE/SX: 84/F ROOM: RE05/10/[address]: Kvng Patel MD : 1940 BED: DIS: 05/10/2025 SPEC #: [id number] RECD: 05/10/25 11:30 STATUS: REEMA REBest #: [id number] JONATHAN: 05/10/25 09:[address]: Kvng Patel DEPT: [facility] Surgical RECD BY: Grabiel Zamorano ENTERED: 05/10/25 11:30 SP TYPE: Surgical OTHR DR: Nasir Muñiz MD Tissues: A - Colon Polypectomy Procedures: Hematoxylin and Eosin Stain Gross and Microscopic Level 4
[2025-05-10 09:53] VITALS: BP 114/58; PULSE 59; RESP 25; O2SAT 98
[2025-05-10 10:03] VITALS: BP 109/61; PULSE 62; RESP 17; O2SAT 99
[2025-05-10 10:13] VITALS: BP 136/76; PULSE 60; RESP 21; O2SAT 99
== END 2025-05-10 10:46 | disposition home or self-care (01) ==
PROVIDERS: PCP Family Medicine; Referring Provider Nurse Practitioner; Visit Provider Internal Medicine Gastroenterology
PROC: 0DJD8ZZ Inspection of Lower Intestinal Tract, Via Natural or Artificial Opening Endoscopic (ICD-10-PCS; CPT 45378; principal; 2025-05-10 10:00)
DX: K52.832 Lymphocytic colitis (principal); K64.8 Other hemorrhoids
CPT/HCPCS: 45380; 88305; J2003; J2704; J7120

== ENCOUNTER 2025-05-16 14:16 | Outpatient (CLI) | payer MEDICARE, SELFPAY ==
--- NOTE | ~2025-05-16 | XR_ITS ---
HISTORY: M25.511 - Pain in right shoulder COMPARISON: None TECHNIQUE: 3 views of the right shoulder were performed FINDINGS: No acute fracture. The glenohumeral and acromioclavicular joint space is maintained The visualized portion of the adjacent right lung is clear. The humeral head is well seated within the glenoid fossa. Dorsal column stimulator device is noted. IMPRESSION: No acute fracture or anterior dislocation. Reviewed, dictated and finalized at location A.
== END 2025-05-16 14:17 | disposition home or self-care (01) ==
LOC: GOSHIMG 14:17
PROVIDERS: PCP Family Medicine; Visit Provider Family Medicine
DX: M25.511 Pain in right shoulder (principal); G89.29 Other chronic pain; M25.512 Pain in left shoulder
CPT/HCPCS: 73030

== ENCOUNTER 2025-05-17 10:52 | Outpatient (CLI) | payer MEDICARE, SELFPAY ==
[2025-05-17 13:08] LABS: Basophils Percent Auto 0.3 % (0.2-1.2); Eosinophils Percent Auto 0.5 % (0-4.4); Hematocrit 35.6 % (37.0-47.0); Hemoglobin 11.3 g/dL (12.0-15.0); Immature Granulocyte Absolute 0.01 K/mm3 (0.00-0.031); Immature Granulocyte Percent A 0.2 % (0-0.5); Lymphocytes Absolute Auto 1.97 K/mm3 (0.9-3.2); Lymphocytes Percent Auto 32.7 % (18.3-44.2); Mean Corpuscular HGB Conc 31.7 g/dl (32-36); Mean Corpuscular Hemoglobin 34.5 pg (26-34); Mean Corpuscular Volume 108.5 fl (80-100); Mean Platelet Volume 10.3 fl (7.4-10.4); Monocytes Absolute Auto 0.7 K/mm3 (0.1-0.6); Monocytes Percent Auto 11.1 % (2.6-8.5); Neutrophils Absolute Auto 3.3 K/mm3 (1.3-6.7); Neutrophils Percent Auto 55.2 % (45.5-73.1); Platelet Count Result 306 k/mm3 (150-375); Red Blood Count 3.28 M/mm3 (4.2-5.4); Red Cell Distribution Width 12.1 % (11.5-14.5)
[2025-05-17 13:17] LABS: Hemoglobin A1C 5.2 % (<5.7)
[2025-05-17 13:36] LABS: Alanine Aminotransferase 15 U/L (6-35); Albumin Level 3.9 g/dL (3.5-5.1); Alkaline Phosphatase 68 U/L (38-126); Anion Gap 6 mmol/L (4-12); Aspartate Amino Transferase 58 U/L (14-36); Bilirubin,Total 0.4 mg/dL (0.2-1.3); Blood Urea Nitrogen 7 mg/dL (7-17); Calcium 9.4 mg/dL (8.4-10.2); Carbon Dioxide 26 mmol/L (22-30); Chloride 107 mmol/L (98-107); Cholesterol 153 mg/dL (0-200); Estimated Glomerular Filt Rate > 60; Glucose 103 mg/dL (65-110); HDL Direct 61 mg/dL; Potassium 3.5 mmol/L (3.4-5.0); Sodium 139 mmol/L (137-145); Total Protein 6.9 g/dL (6.3-8.2); Triglycerides 146 mg/dL (<150)
[2025-05-17 13:47] LABS: LDL Cholesterol Direct 46 mg/dL
[2025-05-17 13:52] LABS: Vitamin D 25 Hydroxy 84.9 ng/mL
[2025-05-17 13:59] LABS: Platelet Estimate Adequate (Adequate)
[2025-05-17 14:00] LABS: Hypochromasia 1+; Schistocytes None Seen
[2025-05-17 14:33] LABS: Vitamin B12 > 1000.0 pg/mL (239-931)
== END 2025-05-17 10:53 | disposition home or self-care (01) ==
PROVIDERS: PCP Family Medicine; Visit Provider Family Medicine
DX: R73.9 Hyperglycemia, unspecified (principal); E55.9 Vitamin D deficiency, unspecified; E78.5 Hyperlipidemia, unspecified; Z00.00 Encounter for general adult medical examination without abnormal findings; I10 Essential (primary) hypertension; E53.8 Deficiency of other specified B group vitamins
CPT/HCPCS: 36415; 80053; 80061; 82306; 82607; 83036; 84443; 85025

== ENCOUNTER 2025-05-30 11:00 | Emergency (ER) | payer MEDICARE, SELFPAY ==
--- NOTE | ~2025-05-30 | XR_ITS ---
EXAM/PROCEDURE: XR chest 1V portable - 05/30/2025 13:30 CDT HISTORY: 84 years old Female with ANTERIOR CP, ACUTE ONSET, HBP TECHNIQUE: Two view(s) of the chest. COMPARISON: None available. FINDINGS: LUNGS/ PLEURA: No focal consolidation. No appreciable pneumothorax or large pleural effusion. HEART/ MEDIASTINUM: Heart appears normal in size. BONES: Degenerative changes. Partially visualized posterior spinal fusion hardware. OTHER: Visualized upper abdomen is unremarkable. Partially visualized bilaterally and intact wires. IMPRESSION: No acute process. Reviewed, dictated and finalized at location A. IMPRESSION: No acute process.
[2025-05-30 11:06] VITALS: BP 152/66; PULSE 69; RESP 18; TEMP 36.6; O2SAT 99
--- OUTSIDE RECORDS SUMMARY | 2025-05-30 11:11 | XMS_ITS | Clinical Summary ---
Author Organization [facility] Address [address] [place] [address] Care Team Providers Care Billposter Name Role Phone Nasir Muñiz MD Primary Care Provider Allergies Active Allergy Reactions Criticality Noted Date Comments Caffeine Agitation,Anxiety Low 04/25/2020 Gabapentin Muscle pain Medium 04/25/2020 Pregabalin Hallucinations Medium 04/25/2020 Rosuvastatin Other (See comments) ,Muscle pain Medium 06/14/2019 Soreness in legs Soreness in legs Medications cranberry extract 200 mg capsule Take 4,200 mg by mouth once. Active gidpi9-mrdT2-J3 2-E-FA-fish oil 111-70-133-800 dr-wq-euf-mcg capsule Take 600 mcg by mouth 3 [...] Description 05/09/2025 11:15 AM CDT Office Visit [facility] Medical [facility] Cardiology at [address] [place] [address] Mo Cuba MD Atrial flutter, [...] on file Legal Sex Female 3:29 PM OPTICAL LABORATORY MECHANIC Gender Identity Not on file Sexual Orientation Not on file Occupation Industry Job Start Date Job End Date retired Not on file Not on file Not on file Obstetrics History Last Filed Vital Signs Vital Sign Reading Time Taken Comments Blood Pressure 118/86 05/09/2025 11:38 AM CDT Pulse 63 05/09/2025 11:38 AM CDT Temperature 36.7 C (98 F) 10/22/2022 1:20 PM OPTICAL LABORATORY MECHANIC Respiratory Rate 15 10/22/2022 3:09 PM OPTICAL LABORATORY MECHANIC Oxygen Saturation 96% 05/09/2025 11:38 AM CDT [...] on stairs Contact your local community or [facility] for information on exercise, fall prevention programs, or options for improving home safety. Insurance UHC MEDICARE ADVANTAGE [facility] Address: [address] [address] [place] [address] [facility] MEDICARE AET[employer] MEDICARE Care Teams Billposter Relationship Specialty Start Date End Date Nasir Muñiz MD PCP - General Family Practice 12/16/18
--- OUTSIDE RECORDS SUMMARY | 2025-05-30 11:11 | XMS_ITS | Encounter Summary ---
Author Organization [facility] Healthcare Address [address] [place] [address] Care Team Providers Care Kennel Technician Name Role Phone Nasir Muñiz MD Primary Care Provider Encounter Details Date Type Department Care Team (Late st Contact Info) Description 06/11/2019 Telephone [facility] Pain Center at [facility] [address] [place] [address] Jonathan Joaquin MD [address] [facility] [address] [place] [address] Social History Tobacco Use Types Packs/Day Years Used Date Smoking Tobacco: Never Smokeless Tobacco: Never Alcohol Use Standard Drinks/Week Comments Yes 0 (1 standard drink = 0.6 oz pur e alcohol) Comments Unknown Sex and Gender Information Value Date Recorded Sex Assigned at Not on file Legal Sex Female 3:29 PM 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
--- OUTSIDE RECORDS SUMMARY | 2025-05-30 11:11 | XMS_ITS | Referral Summary ---
Author Organization [facility] Address [address] [place] [address] Care Team Providers Care Front Office Secretary Name Role Phone Nasir Muñiz MD Primary Care Provider Encounters Date Type Department Care Team Description 05/09/2025 11:15 AM CDT Office Visit [facility] Medical Group Cardiology at [address] [place] [address] Mo Cuba MD Atrial flutter, paroxysmal (HCC) (Primary Dx) from Last 3 Months Allergies Active Allergy Reactions Criticality Noted Date Comments Caffeine Agitation,Anxiety Low 04/25/2020 Gabapentin Muscle pain Medium 04/25/2020 Pregabalin Hallucinations Medium 04/25/2020 Rosuvastatin Other (See comments) ,Muscle pain Medium 06/14/2019 Soreness in legs Soreness in legs Medications cranberry extract 200 mg capsule Take 4,200 mg by mouth once. Active ifkrw0-xymX4-Z1 2-E-FA-fish oil 274-65-238-800 rt-oi-xbu-mcg capsule Take 600 mcg by mouth 3 [...] on file Legal Sex Female 3:29 PM PICKLING SOLUTION MAKER Gender Identity Not on file Sexual Orientation Not on file Occupation Industry Job Start Date Job End Date retired Not on file Not on file Not on file Last Filed Vital Signs Vital Sign Reading Time Taken Comments Blood Pressure 118/86 05/09/2025 11:38 AM CDT Pulse 63 05/09/2025 11:38 AM CDT Temperature 36.7 C (98 F) 10/22/2022 1:20 PM PICKLING SOLUTION MAKER Respiratory Rate 15 10/22/2022 3:09 PM PICKLING SOLUTION MAKER Oxygen Saturation 96% 05/09/2025 11:38 AM CDT [...] or options for improving home safety. Insurance [facility] MEDICARE ADVANTAGE [facility] MEDICARE Address: [address] [address] [place] [address] [facility] MEDICARE [facility] MEDICARE Care Teams Front Office Secretary Relationship Specialty Start Date End Date Nasir Muñiz MD PCP - General Family Practice 12/16/18
--- OUTSIDE RECORDS SUMMARY | 2025-05-30 11:12 | XMS_ITS | Patient Health Record ---
Author Organization [facility] Address [address] [place], [place] [id number] Care Team Providers Care Chlorination Operator Name Role Phone JEFERSON WOODALL Unavailable [phone] Nasir Muñiz Unavailable Unavaila ble Reason For Referral No Information Plan Of Treatment No Information Insurance Providers Payer Name Payer Address Payer Phone Subscriber Number Group Number Insured Name Patient Relationship to Insured Coverage Start Date Coverage End Date [facility] [address] [address] [place] [address] [id number] ROSEANN DUNHAM Self - patient is the insured
--- OUTSIDE RECORDS SUMMARY | 2025-05-30 11:12 | XMS_ITS | Clinical Summary ---
Author Organization [facility] [id number] [facility] Address [address] [place] [address] Care Team Providers Care Cartographic Aide Name Role Phone Baker Lynda FROST Primary Care Provider [phone] Allergies Active Allergy Reactions Criticality Noted Date [...] 420 mg/3.5 mL wearable injector 02/28/2020 Active yoc-B5-zwp84-zi ax-vqq-irma-bor 600 mg calcium- 800 unit-50 mg Tablet Take by mouth. Active Cranberry Extract 200 mg Capsule Take 4,200 mg by mouth. Active cyanocobalamin, vitamin B-12, 5,000 mcg Capsule Take 5,000 mcg by mouth. Active Mlbfa7-ZjaX3-L2 2-E-FA-Fish Oil 690-77-827-800 ps-hs-eip-mcg Capsule Take 600 mcg by mouth. Active Magnesium 200 mg Tablet 200 mg. Active Pyridoxine-Susan tonin 5-1 mg Tablet Active multivit,Ca,Iro n-SD-Sgha-Lut (COMPLETE) [phone] ca-dcj-nyk-mcg Tablet Active omeprazole (PriLOSEC) 40 mg Capsule, [...] Comments Blood Pressure 108/79 12/27/2020 3:07 PM DIESEL PILE HAMMER OPERATOR Pulse 88 12/27/2020 3:07 PM DIESEL PILE HAMMER OPERATOR Temperature 36.7 C (98 F) 12/27/2020 3:07 PM DIESEL PILE HAMMER OPERATOR Respiratory Rate - - Oxygen Saturation 97% 12/27/2020 3:07 PM DIESEL PILE HAMMER OPERATOR Inhaled Oxygen Concentration - - Weight [...] 1-dose 75+ series) 2017 INFLUENZA VACCINE (#1) 2025 Care Teams Cartographic Aide Relationship Specialty Start Date End Date Lynda Baker NP [address] [place] [address] PCP - General NURSE PRACTITIONER 02/22/21
--- OUTSIDE RECORDS SUMMARY | 2025-05-30 11:12 | XMS_ITS | Clinical Summary ---
Author Organization [facility] Address [address] [place] [address] Care Team Providers Care Customer Service Professional Name Role Phone Nasir Muñiz MD Primary [...] age to complete this topic Insurance [facility] MEDICARE Care Teams Customer Service Professional Relationship Specialty Start Date End Date Nasir Muñiz MD PCP - General FAMILY PRACTICE 03/22/20
[2025-05-30 11:41] VITALS: RESP 18
--- NOTE | 2025-05-30 12:24 | ECG_ITS ---
Test Date: 2025-05-30 13:06:14 Measurements Intervals [place] Rate: 64 P: 17 HI: 145 QRS: -23 QRSD: 89 T: 18 QT: 411 QTc: 427 Interpretive Statements SINUS RHYTHM LOW QRS VOLTAGE IN PRECORDIAL LEADS [QRS DEFLECTION < 1.0 mV IN CHEST LEADS] MINIMAL VOLTAGE CRITERIA FOR LVH, CONSIDER NORMAL VARIANT [MEETS CRITERIA IN ONE OF: R(aVL), S(V1), R(V5), R(V5/V6)+S(V1)] Poor R wave progression Compared to ECG 05/31/2024 15:02:56 no changes Electronically Signed On 05-30-2025 22:15:20 CDT by Lena Valdez M.D.
--- OUTSIDE RECORDS SUMMARY | 2025-05-30 12:29 | XMS_ITS | Encounter Summary ---
Author Organization [facility] Healthcare Address [address] [place] [address] Care Team Providers Care Industrial Gas Fitter Name Role Phone Nasir Muñiz MD Primary Care Provider Encounter Details Date Type Department Care Team (Late st Contact Info) Description 06/11/2019 Telephone [facility] Pain Center at [facility] [address] [place] [address] Jonathan Joaquin MD [address] [facility] [address] [place] [address] Social History Tobacco Use Types Packs/Day Years Used Date Smoking Tobacco: Never Smokeless Tobacco: Never Alcohol Use Standard Drinks/Week Comments Yes 0 (1 standard drink = 0.6 oz pur e alcohol) Comments Unknown Sex and Gender Information Value Date Recorded Sex Assigned at Not on file Legal Sex Female 3:29 PM STEEL MELTER Gender Identity Not on file Sexual Orientation [...] on filedocumented in this encounter Care Teams Industrial Gas Fitter Relationship Specialty Start Date End Date Nasir Muñiz MD PCP - General Family Practice 12/16/18 documented as of this encounter
--- OUTSIDE RECORDS SUMMARY | 2025-05-30 12:29 | XMS_ITS | Clinical Summary ---
Author Organization [facility] Address [address] [place] [address] Care Team Providers Care Occupational Analyst Name Role Phone Nasir Muñiz MD Primary Care Provider Allergies Active Allergy Reactions Criticality Noted Date Comments Caffeine Agitation,Anxiety Low 04/25/2020 Gabapentin Muscle pain Medium 04/25/2020 Pregabalin Hallucinations Medium 04/25/2020 Rosuvastatin Other (See comments) ,Muscle pain Medium 06/14/2019 Soreness in legs Soreness in legs Medications cranberry extract 200 mg capsule Take 4,200 mg by mouth once. Active epztq7-nhyJ9-V9 2-E-FA-fish oil [phone] jc-zh-mpo-mcg capsule Take 600 mcg by mouth 3 [...] Description 05/09/2025 11:15 AM CDT Office Visit [facility] Medical Group Cardiology at [address] [place] [address] Mo Cuba MD Atrial flutter, [...] on file Legal Sex Female 3:29 PM VISUAL EFFECTS EDITOR Gender Identity Not on file Sexual Orientation Not on file Occupation Industry Job Start Date Job End Date retired Not on file Not on file Not on file Obstetrics History Last Filed Vital Signs Vital Sign Reading Time Taken Comments Blood Pressure 118/86 05/09/2025 11:38 AM CDT Pulse 63 05/09/2025 11:38 AM CDT Temperature 36.7 C (98 F) 10/22/2022 1:20 PM VISUAL EFFECTS EDITOR Respiratory Rate 15 10/22/2022 3:09 PM VISUAL EFFECTS EDITOR Oxygen Saturation 96% 05/09/2025 11:38 AM CDT [...] on stairs Contact your local community or [facility] for information on exercise, fall prevention programs, or options for improving home safety. Insurance UHC MEDICARE ADVANTAGE [facility] MEDICARE [employer] MEDICARE Care Teams Occupational Analyst Relationship Specialty Start Date End Date Nasir Muñiz MD PCP - General Family Practice 12/16/18
--- OUTSIDE RECORDS SUMMARY | 2025-05-30 12:29 | XMS_ITS | Referral Summary ---
Author Organization [facility] Address [address] [place] [address] Care Team Providers Care Auto Suspension And Steering Mechanic Name Role Phone Nasir Muñiz MD Primary Care Provider Encounters Date Type Department Care Team Description 05/09/2025 11:15 AM CDT Office Visit [facility] Medical [facility] Cardiology at [address] [place] [address] Mo Cuab MD Atrial flutter, paroxysmal (HCC) (Primary Dx) from Last 3 Months Allergies Active Allergy Reactions Criticality Noted Date Comments Caffeine Agitation,Anxiety Low 04/25/2020 Gabapentin Muscle pain Medium 04/25/2020 Pregabalin Hallucinations Medium 04/25/2020 Rosuvastatin Other (See comments) ,Muscle pain Medium 06/14/2019 Soreness in legs Soreness in legs Medications cranberry extract 200 mg capsule Take 4,200 mg by mouth once. Active pyzcb9-rjbX6-R8 2-E-FA-fish oil [id number] vu-vd-glg-mcg capsule Take 600 mcg by mouth 3 [...] on file Legal Sex Female 3:29 PM FINAL INSPECTOR AND TESTER Gender Identity Not on file Sexual Orientation Not on file Occupation Industry Job Start Date Job End Date retired Not on file Not on file Not on file Last Filed Vital Signs Vital Sign Reading Time Taken Comments Blood Pressure 118/86 05/09/2025 11:38 AM CDT Pulse 63 05/09/2025 11:38 AM CDT Temperature 36.7 C (98 F) 10/22/2022 1:20 PM FINAL INSPECTOR AND TESTER Respiratory Rate 15 10/22/2022 3:09 PM FINAL INSPECTOR AND TESTER Oxygen Saturation 96% 05/09/2025 11:38 AM CDT [...] [facility] MEDICARE ADVANTAGE [facility] MEDICARE [facility] MEDICARE Care Teams Auto Suspension And Steering Mechanic Relationship Specialty Start Date End Date Nasir Muñiz MD PCP - General Family Practice 12/16/18
--- OUTSIDE RECORDS SUMMARY | 2025-05-30 12:29 | XMS_ITS | Clinical Summary ---
Author Organization [facility] Address [address] [place] [address] Care Team Providers Care Manager Language Name Role Phone Nasir Muñiz MD Primary [...] age to complete this topic Insurance MED [facility] MEDICARE Care Teams Manager Language Relationship Specialty Start Date End Date Nasir Muñiz MD PCP - General FAMILY PRACTICE 03/22/20
--- OUTSIDE RECORDS SUMMARY | 2025-05-30 12:29 | XMS_ITS | Clinical Summary ---
Author Organization [facility] [address] [facility] Address [address] [place] [address] Care Team Providers Care Ac/Dc Rewinder Name Role Phone Baker Lynda FROST Primary Care Provider [phone] Allergies Active Allergy Reactions Criticality Noted Date [...] 420 mg/3.5 mL wearable injector 02/28/2020 Active jjt-T6-bee18-zi qo-zfr-klxe-bor 600 mg calcium- 800 unit-50 mg Tablet Take by mouth. Active Cranberry Extract 200 mg Capsule Take 4,200 mg by mouth. Active cyanocobalamin, vitamin B-12, 5,000 mcg Capsule Take 5,000 mcg by mouth. Active Qmuwb7-MkaI2-B1 2-E-FA-Fish Oil [phone] de-zy-kvt-mcg Capsule Take 600 mcg by mouth. Active Magnesium 200 mg Tablet 200 mg. Active Pyridoxine-Susan tonin 5-1 mg Tablet Active multivit,Ca,Iro u-YF-Dlxn-Lut (COMPLETE) 22-767-141-250 he-wwd-icv-mcg Tablet Active omeprazole (PriLOSEC) 40 mg Capsule, [...] Comments Blood Pressure 108/79 12/27/2020 3:07 PM CO FOUNDER AND DIRECTOR Pulse 88 12/27/2020 3:07 PM CO FOUNDER AND DIRECTOR Temperature 36.7 C (98 F) 12/27/2020 3:07 PM CO FOUNDER AND DIRECTOR Respiratory Rate - - Oxygen Saturation 97% 12/27/2020 3:07 PM CO FOUNDER AND DIRECTOR Inhaled Oxygen Concentration - - Weight 66.2 [...] 2017 INFLUENZA VACCINE (#1) 2025 Care Teams Ac/Dc Rewinder Relationship Specialty Start Date End Date Lynda Baker NP [address] [place] [address] PCP - General NURSE PRACTITIONER 02/22/21
--- NOTE | 2025-05-30 13:09 | ED_ITS ---
HPI - Extremity Problem General Chief complaint: Extremity Problem,Nontraumatic Stated complaint: pain under left arm Time Seen by Provider: 05/30/25 12:08 History of Present Illness HPI Narrative: Pt presents with intermittent sharp left sided arm and chest pain for the last two days. Pt says it is in her chest and pectoralis muscle and left shoulder. Pt says it lasts several minutes and resolves on own. Pt denies precip or relieving factors. says last episode was 1030 this morning and was worse than others and lasted about 5 minutes. Related Data Home Medications ?Medication ?Instructions ?Recorded ?Confirmed ?Last Taken ?Type cranberry kozk-Y-tkhmlszf coag 450 1 tablet PO DAILY 01/25/20 05/10/25 05/09/25 History mg-30 mg-50 million cell tablet vit C 226 mg-vit E 90 mg-copper 1 cap PO DAILY 04/04/20 05/10/25 05/09/25 History 0.8 mg-zinc oxide-lutein 5 mg capsule (PreserVision Lutein) melatonin 5 mg capsule 5 mg PO QHS PRN Sleep 06/04/21 05/10/25 05/09/25 History sotalol 80 mg tablet 40 mg PO Q12HR 07/23/21 05/10/25 05/10/25 History carboxymethylcellulose sodium 1 % 1 drp EACH EYE QID 03/03/23 05/10/25 05/09/25 History eye liquid gel drops acetaminophen 500 mg tablet 500 mg PO Q6H PRN Pain 05/13/24 05/05/25 Unknown History dorzolamide-timolol (PF) 2 %-0.5 % 1 drp EACH EYE BID 10/25/24 05/10/25 05/09/25 History eye drops in a dropperette calcium carbonate 600 mg PO DAILY 05/05/25 05/10/25 05/09/25 History cholecalciferol (vitamin D3) 25 1,000 unit PO BID 05/05/25 05/10/25 05/09/25 History mcg (1,000 unit) tablet (Vitamin D3) zhcrpxcjfydm-ohfqjxlu-nxil 1 tablet PO DAILY 05/05/25 05/10/25 05/09/25 History fumarate 18 mg-folic acid 400 mcg tablet (One Daily Women's) apixaban 5 mg tablet (Eliquis) 5 mg PO BID 05/16/25 05/16/25 Unknown History Allergies Allergy/AdvReac Type Severity Reaction Status Date / Time simvastatin Allergy Unknown Muscle pain Verified 05/30/25 11:45 morphine AdvReac Unknown HEADACHE Verified 05/30/25 11:45 Review of Systems 2 Review of Systems: All systems reviewed & are unremarkable except as noted in HPI and below PMFSH Past Medical History Medical History Chronic vasomotor rhinitis Atrial fibrillation Hot flashes due to menopause History of deep venous thrombosis (DVT) of distal vein of left lower extremity (~2002) Metatarsal bone fracture Chronic cholecystitis with calculus History of pulmonary embolus (PE) (~03/2020) Presbycusis of both ears Pneumonia due to COVID-19 virus TMJ tenderness Chronic low back pain with bilateral sciatica Hiatal hernia (~2018) Non-cardiac chest pain Negative stress test and normal echocardiogram 03/2020 Frequent UTI Vitamin B12 deficiency (~2018) Vitamin D deficiency (~2018) GERD without esophagitis (~2018) Osteopenia Unspecified osteoarthritis, unspecified site Dyslipidemia (~2018) Environmental allergies Surgical History Surgical History History of lumbosacral spine surgery (~03/2023) L2-3 complete laminectomy and bilateral facetectomy, L2-3 complete diskectomy and interbody arthrodesis H/O hemorrhoidectomy 05/20/22 History of cataract extraction Hx laparoscopic cholecystectomy 08/02/21 History of exploratory laparotomy (~1999) History of carpal tunnel release History of appendectomy 4th grade History of total abdominal hysterectomy and bilateral salpingo-oophorectomy (~1987) History of lumbar fusion (~08/2008) History of hemorrhoidectomy (~2011) Family History Family History Father Cerebrovascular accident Grandparent Carcinoma of colon Other Carcinoma of colon Social History Social History Social History: The patient lives with her of 60, of years, who is a durable power securities attorney for healthcare. She desires to be a full code. She has 2 children. 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 she drinks 1 or 2 alcoholic beverages once every week or so. Never smoked and does not use illicit drugs. Primary care physician: Dr. Nasir Muñiz code status: Full code surrogate decision maker: Smoking status: Never smoker Second hand tobacco smoke exposure: No Alcohol intake: current Drinks per week: 3 Alcohol use details: DRINKS Substance use: never Substance use type: does not use Other substance usage details: CBD oil for back. Do You Feel Safe in your Home?: Yes Lack of Transportation: No Lack of Food: Never True Current Housing: I Have Housing Concerned About Future Housing: No Difficulty Paying Gas/Electric Bills: No Difficulty Paying for Meds: No Currently Unemployed: No Education: Master's Degree or Higher Difficulty w/ Childcare or Family Care: No Living arrangements: with family Occupation/Education: retired Gender identity (if verbalized by the patient): Female Sexual Orientation (if Verbalized by the Patient): Straight or Heterosexual Spiritual care concerns: No Exam 2 Const: General: healthy appearing and no acute distress Nutritional Appearance: well nourished Orientation/consciousness: patient oriented x3 Limitations: no limitations Chest: Chest palpation & inspection: normal inspection of the chest and no tenderness Resp: Effort & Inspection: normal respiratory effort Auscultation: clear to auscultation bilaterally Cardio: Rate: regular rate Rhythm: regular rhythm GI: GI Palp: Yes Soft to palpation and No Tenderness to palpation present (GI) Auscultation: normal bowel sounds Skin: General skin exam: normal color Rashes: no rashes Wounds: no wounds Neuro: General: patient oriented x3, moves all extremities and no focal motor deficits Speech: normal speech Extrem: General: normal to inspection and no clubbing, cyanosis or edema Psych: Mental Status: mental status grossly normal Affect: normal affect Attitude: cooperative Course Vital Signs Vital signs: Vital Signs Temperature 97.8 F 05/30/25 11:06 Pulse Rate 69 05/30/25 11:06 Respiratory Rate 18 05/30/25 11:06 Blood Pressure 152/66 H 05/30/25 11:06 Pulse Oximetry 99 05/30/25 11:06 Oxygen Delivery Room Air 05/30/25 11:06 Temperature 97.6 F 05/30/25 16:13 Pulse Rate 61 05/30/25 16:13 Respiratory Rate 18 05/30/25 16:13 Blood Pressure 148/84 H 05/30/25 16:13 Pulse Oximetry 100 05/30/25 16:13 Oxygen Delivery Room Air 05/30/25 11:06 MDM - Extremity (Nontraumatic) MDM Narrative Medical decision making narrative: Pt presents with intermittent left CP and left arm pain for two days. last episode was at 1030 this morning lasting 5 minutes and resolving. will need to rule out WI and CAD so will initiate cardiac work up. trop neg x 2, ekg non acute. remaining labs reviewed and unremarkable. Lab Data 05/30/25 13:02 05/30/25 13:02 Labs: Lab Results 05/30/25 05/30/25 05/30/25 Range/Units 13:02 13:04 15:57 WBC 7.0 (4.5-10.0) K/mm3 RBC 3.48 L (4.2-5.4) M/mm3 Hgb 12.0 (12.0-15.0) g/dL Hct 37.6 (37.0-47.0) % MCV 108.0 H (80-100) fl MCH 34.5 H (26-34) pg MCHC 31.9 L (32-36) g/dl RDW 12.4 (11.5-14.5) % Plt Count 307 (150-375) k/mm3 MPV 9.4 (7.4-10.4) fl Immature Gran % (Auto) 0.1 (0-0.5) % Neut % (Auto) 65.7 (45.5-73.1) % Lymph % (Auto) 25.6 (18.3-44.2) % Crisp % (Auto) 7.6 (2.6-8.5) % Eos % (Auto) 0.7 (0-4.4) % Baso % (Auto) 0.3 (0.2-1.2) % Lymph # (Auto) 1.79 (0.9-3.2) K/mm3 Crisp # (Auto) 0.5 (0.1-0.6) K/mm3 Eos # (Auto) 0.1 (0-0.3) K/mm3 Baso # (Auto) 0.0 (0.0-0.1) K/mm3 Abs Immat Gran (auto) 0.01 (0.00-0.031) K/mm3 Absolute Neuts (auto) 4.6 (1.3-6.7) K/mm3 Absolute Nucleated RBC 0.000 (0.0-0.012) K/mm3 Band Neutrophils % 0 (0-6) % Nucleated RBC % 0.0 (0.0-0.2) % Platelet Estimate Adequate (Adequate) Schistocytes None seen PT 15.8 H (11.1-14.7) Seconds INR 1.3 APTT 30.7 (22.3-36.8) Seconds Sodium 139 (137-145) mmol/L Potassium 4.1 (3.4-5.0) mmol/L Chloride 105 (98-107) mmol/L Carbon Dioxide 24 (22-30) mmol/L Anion Gap 10 (4-12) mmol/L BUN 8 (7-17) mg/dL Creatinine 0.60 L (0.7-1.0) mg/dL Estim Creat Clear Calc 58 ml/min Estimated GFR > 60 (59 - ) Glucose 105 (65-110) mg/dL Calcium 9.5 (8.4-10.2) mg/dL Total Bilirubin 0.3 (0.2-1.3) mg/dL AST 34 (14-36) U/L ALT 17 (6-35) U/L Alkaline Phosphatase 78 (38-126) U/L Troponin I < 0.012 < 0.012 (0.000-0.034) ng/mL NT-Pro-B Natriuret Pep 510 H (19.9-100) pg/mL Total Protein 7.4 (6.3-8.2) g/dL Albumin 4.2 (3.5-5.1) g/dL Discharge Plan Discharge Clinical Impression: Arm pain, Chest wall pain Patient Disposition: Home Condition: Stable Instructions: Antibiotic Form, Chest Wall Pain (ED) Patient Language: Ukrainian Prescriptions: No Action melatonin 5 mg capsule 5 mg PO QHS PRN (Reason: Sleep) dorzolamide-timolol (PF) 2-0.5 % dropperette 1 drp EACH EYE BID omeprazole 20 mg capsule,delayed release(DR/EC) 20 mg PO BID Qty: 180 1RF cranberry fnfc-W-emrktgnd coag 450-30-50 rt-qc-smkduat tablet 1 tablet PO DAILY acetaminophen 500 mg tablet 500 mg PO Q6H PRN (Reason: Pain) Eliquis 5 mg tablet 5 mg PO BID ipratropium bromide 42 mcg (0.06 %) spray,non-aerosol 2 spray intranasal TID Qty: 15 5RF Rx Instructions: administer into each nostril PreserVision Lutein 226 mg-200 unit -5 mg-0.8 mg Capsule 1 cap PO DAILY sotalol 80 mg tablet 40 mg PO Q12HR carboxymethylcellulose sodium 1 % Drops, Liquid Gel 1 drp EACH EYE QID Patient Comments: EACH EYE One Daily Women's 18 mg iron- 400 mcg tablet 1 tablet PO DAILY calcium carbonate 600 mg calcium (1,500 mg) tablet 600 mg PO DAILY cholecalciferol (vitamin D3) [Vitamin D3] 25 mcg (1,000 unit) tablet 1,000 unit PO BID paroxetine HCl 10 mg tablet 10 mg PO DAILY Qty: 90 1RF budesonide 3 mg capsule,delayed,extend.release 6 mg PO DAILY Qty: 60 1RF ferrous sulfate 325 mg (65 mg iron) tablet,delayed release (DR/EC) 325 mg PO DAILY Qty: 90 2RF Repatha SureClick 140 mg/mL pen injector 140 mg subcut [id number] Qty: 6 1RF Follow-up/Referrals: Marcella Muñiz MD [Primary Care Provider] - Quality HEART score for chest pain patients History: slightly suspicious ECG: normal Age: > or = to 65 years Risk factors: 1 or 2 risk factors Troponin: < or = to 1x normal limit Heart score: 3
[2025-05-30 13:19] LABS: Hematocrit 37.6 % (37.0-47.0); Hemoglobin 12.0 g/dL (12.0-15.0); Immature Granulocyte Percent A 0.1 % (0-0.5); Lymphocytes Absolute Auto 1.79 K/mm3 (0.9-3.2); Mean Corpuscular HGB Conc 31.9 g/dl (32-36); Mean Corpuscular Hemoglobin 34.5 pg (26-34); Mean Corpuscular Volume 108.0 fl (80-100); Nucleated Red Blood Cells Absolute Auto 0.000 K/mm3 (0.0-0.012); Nucleated Red Blood Cells Perc 0.0 % (0.0-0.2); Platelet Count Result 307 k/mm3 (150-375); Red Blood Count 3.48 M/mm3 (4.2-5.4); White Blood Count 7.0 K/mm3 (4.5-10.0)
[2025-05-30 13:26] LABS: Alanine Aminotransferase 17 U/L (6-35); Albumin Level 4.2 g/dL (3.5-5.1); Alkaline Phosphatase 78 U/L (38-126); Anion Gap 10 mmol/L (4-12); Aspartate Amino Transferase 34 U/L (14-36); Bilirubin,Total 0.3 mg/dL (0.2-1.3); Blood Urea Nitrogen 8 mg/dL (7-17); Calcium 9.5 mg/dL (8.4-10.2); Carbon Dioxide 24 mmol/L (22-30); Chloride 105 mmol/L (98-107); Estimated CRCL calculation 58 ml/min; Estimated Glomerular Filt Rate > 60; Glucose 105 mg/dL (65-110); Potassium 4.1 mmol/L (3.4-5.0); Sodium 139 mmol/L (137-145); Total Protein 7.4 g/dL (6.3-8.2)
[2025-05-30 13:34] LABS: NT Pro B Type Natriuretic Pept 510 pg/mL (19.9-100)
[2025-05-30 13:36] LABS: INR 1.3; Prothrombin Time 15.8 Seconds (11.1-14.7)
[2025-05-30 13:37] LABS: Partial Thromboplastin Time 30.7 Seconds (22.3-36.8)
[2025-05-30 14:28] LABS: Schistocytes None Seen
[2025-05-30 14:29] LABS: Band Neutrophils Percent 0 % (0-6)
[2025-05-30 15:19] LABS: Troponin I < 0.012 ng/mL (0.000-0.034)
--- NOTE | 2025-05-30 15:53 | ECG_ITS ---
Test Date: 2025-05-30 16:04:06 Measurements Intervals [place] Rate: 63 P: 18 CA: 148 QRS: -27 QRSD: 89 T: 11 QT: 417 QTc: 429 Interpretive Statements SINUS RHYTHM LOW QRS VOLTAGE IN PRECORDIAL LEADS [QRS DEFLECTION < 1.0 mV IN CHEST LEADS] MODERATE VOLTAGE CRITERIA FOR LVH, CONSIDER NORMAL VARIANT [MEETS CRITERIA IN ONE OF: R(aVL), S(V1), R(V5), R(V5/V6)+S(V1)] POSSIBLE ANTERIOR MYOCARDIAL INFARCTION , PROBABLY OLD [30 ms Q WAVE IN V3/V4, OR R < 0.2 mV IN V4] Compared to ECG 05/30/2025 13:06:14 No significant changes Electronically Signed On 05-30-2025 22:10:36 CDT by Lena Valdez M.D.
[2025-05-30 16:13] VITALS: BP 148/84; PULSE 61; RESP 18; TEMP 36.4; O2SAT 100
[2025-05-30 16:25] LABS: Troponin I < 0.012 ng/mL (0.000-0.034)
== END 2025-05-30 17:09 | disposition home or self-care (01) ==
PROVIDERS: Emergency Provider Emergency Medicine; PCP Family Medicine
DX: R07.89 Other chest pain (principal); I48.91 Unspecified atrial fibrillation; E78.5 Hyperlipidemia, unspecified; E55.9 Vitamin D deficiency, unspecified; E53.8 Deficiency of other specified B group vitamins; K21.9 Gastro-esophageal reflux disease without esophagitis; K44.9 Diaphragmatic hernia without obstruction or gangrene; M85.80 Other specified disorders of bone density and structure, unspecified site; Z86.718 Personal history of other venous thrombosis and embolism; Z86.711 Personal history of pulmonary embolism; Z98.49 Cataract extraction status, unspecified eye; Z90.49 Acquired absence of other specified parts of digestive tract; Z90.710 Acquired absence of both cervix and uterus; Z90.79 Acquired absence of other genital organ(s); Z90.722 Acquired absence of ovaries, bilateral; Z98.1 Arthrodesis status; Z79.01 Long term (current) use of anticoagulants; Z79.899 Other long term (current) drug therapy; R94.31 Abnormal electrocardiogram [ECG] [EKG]
CPT/HCPCS: 36415; 71045; 80053; 83880; 84484; 85025; 85610; 85730; 93005; 99284

== ENCOUNTER 2025-07-12 11:10 | Outpatient (CLI) | payer MEDICARE, SELFPAY ==
--- NOTE | ~2025-07-12 | XR_ITS ---
EXAM/ PROCEDURE: XR foot LT min 3V - 07/12/2025 11:20 CDT HISTORY: 84 years old Female with Pain in left toe(s),2nd toe pain, soda fell on it 5 days ago COMPARISON: None available TECHNIQUE: Three view(s) FINDINGS/ IMPRESSION: There are no fractures or dislocations.Joint space narrowing, subchondral sclerosis, subchondral cyst formation and osteophyte formation, compatible with moderate osteoarthritis. Reviewed, dictated and finalized at location A.
== END 2025-07-12 11:11 | disposition home or self-care (01) ==
PROVIDERS: PCP Family Medicine; Visit Provider Family Medicine
DX: S99.922A Unspecified injury of left foot, initial encounter (principal); X58.XXXA Exposure to other specified factors, initial encounter; M79.675 Pain in left toe(s)
CPT/HCPCS: 73630

== ENCOUNTER 2025-07-19 11:36 | Outpatient (CLI) | payer MEDICARE, SELFPAY ==
--- NOTE | ~2025-07-19 | DEXA_ITS ---
Bone Density Report Name: ROSEANN DUNHAM Age: 84 Sex: Female Ethnicity: White Date of : 1940 Indication: postmenopausal; screening for osteoporosis; parental hip fracture; height loss; prior fracture; hysterectomy; Referring Provider: MARKEL LAL Study: Bone densitometry was performed. Exam Date: July 19, 2025 Accession number: [id number] Bone Density: Region BMD T-score Z-score Classification Femoral Neck (Left) 0.668 -1.6 0.8 Osteopenia Total Hip (Left) 0.774 -1.4 0.8 Osteopenia Femoral Neck (Right) 0.659 -1.7 0.7 Osteopenia Total Hip (Right) 0.763 -1.5 0.8 Osteopenia Femoral Neck Mean 0.663 -1.7 0.8 Osteopenia Total Hip Mean 0.769 -1.4 0.8 Osteopenia World Health Organization criteria for BMD impression classify patients as: Normal (T-score at or above -1.0), Osteopenia (T-score between -1.0 and -2.5), or Osteoporosis (T-score at or below -2.5). 10-year Fracture Risk(1): Major Osteoporotic Fracture 35% Hip Fracture 21% Reported Risk Factors: [place] (), Neck BMD=0.659, BMI=25.7, previous fracture, parental fracture (1) FRAX(R) Version 3.08. Fracture probability calculated for an untreated patient. Fracture probability may be lower if the patient has received treatment. Clinical Information Provided by Patient: Has had a low trauma fracture Parent has had a hip fracture Has used the following medications: Vitamin D, Calcium Has the following medical conditions: Hysterectomy Patient maximum height was 66 Menopause Age: 52 No regular weight bearing exercise Onset of menses at age 14 Number of children 2 Impression: The patient has low bone mass, based on the Right Femoral Neck T-score. The patient has risk factors, including: parental hip fracture, previous fracture. Discussion: BONE DENSITY IS LOW AT ONE OR MORE SKELETAL SITES. This patient's lowest T-score is low at one or more skeletal sites. It meets the World Health Organization's (WHO) criteria for ?low bone mass? (T-score between -1.0 and -2.5). The patient's 10-year risk of fracture as calculated by FRAX is less than the threshold where pharmacological therapy is recommended by the National Osteoporosis Foundation (NOF). However, all treatment decisions require clinical judgment and consideration of individual patient factors, including patient preferences, comorbidities, previous drug use, risk factors not captured in the FRAX model (e.g., frailty, falls, vitamin D deficiency, increased bone turnover, interval significant decline in bone density) and possible under or overestimation of fracture risk by FRAX. The patient should follow a healthful lifestyle (good nutrition with adequate calcium and vitamin D, and appropriate weight-bearing exercise). Follow-Up: Consider repeating this study in 2 to 3 years to reassess this patient's status, or sooner if there is some new clinical indication. Reported by: JA on 07/19/2025 11:55:00 AM. Reviewed, dictated and finalized at location A.
--- OUTSIDE RECORDS SUMMARY | 2025-07-19 11:54 | XMS_ITS | Patient Health Record ---
Author Organization [facility] Address [address] [place], [place] [id number] Care Team Providers Care Ratings Analyst Name Role Phone JEFERSON WOODALL Unavailable [phone] Nasir Muñiz Unavailable Unavaila ble Reason For Referral No Information Plan Of Treatment No Information Insurance Providers Payer Name Payer Address Payer Phone Subscriber Number Group Number Insured Name Patient Relationship to Insured Coverage Start Date Coverage End Date [facility] [address] [address] [place] [address] [id number] ROSEANN DUNHAM Self - patient is the insured
--- OUTSIDE RECORDS SUMMARY | 2025-07-19 11:54 | XMS_ITS | Clinical Summary ---
Author Organization [email or web address] [id number] [facility] Address [address] [place] [address] Care Team Providers Care Payroll Accounting Specialist Name Role Phone Baker Lynda FROST Primary [...] 420 mg/3.5 mL wearable injector 02/28/2020 Active asq-P3-sov08-zi vp-dex-lmeg-bor 600 mg calcium- 800 unit-50 mg Tablet Take by mouth. Active Cranberry Extract 200 mg Capsule Take 4,200 mg by mouth. Active cyanocobalamin, vitamin B-12, 5,000 mcg Capsule Take 5,000 mcg by mouth. Active Ncucd5-SzsO7-O8 2-E-FA-Fish Oil [id number] ro-cv-enj-mcg Capsule Take 600 mcg by mouth. Active Magnesium 200 mg Tablet 200 mg. Active Pyridoxine-Susan tonin 5-1 mg Tablet Active multivit,Ca,Iro q-NC-Agfq-Lut (COMPLETE) [id number] ce-nfr-mft-mcg Tablet Active omeprazole (PriLOSEC) 40 mg Capsule, [...] Comments Blood Pressure 108/79 12/27/2020 3:07 PM PPAP COORDINATOR Pulse 88 12/27/2020 3:07 PM PPAP COORDINATOR Temperature 36.7 C (98 F) 12/27/2020 3:07 PM PPAP COORDINATOR Respiratory Rate - - Oxygen Saturation 97% 12/27/2020 3:07 PM PPAP COORDINATOR Inhaled Oxygen Concentration - - Weight 66.2 [...] 2017 INFLUENZA VACCINE (#1) 2025 Care Teams Payroll Accounting Specialist Relationship Specialty Start Date End Date Lynda Baker NP [address] [place] [address] PCP - General NURSE PRACTITIONER 02/22/21
--- OUTSIDE RECORDS SUMMARY | 2025-07-19 11:54 | XMS_ITS | Clinical Summary ---
Author Organization [facility] Address [address] [place] [address] Care Team Providers Care Maintenance And Custodian Supervisor Name Role Phone Nasir Muñiz MD Primary Care Provider Allergies Active Allergy Reactions Criticality Noted Date Comments Caffeine Agitation,Anxiety Low 04/25/2020 Gabapentin Muscle pain Medium 04/25/2020 Pregabalin Hallucinations Medium 04/25/2020 Rosuvastatin Other (See comments) ,Muscle pain Medium 06/14/2019 Soreness in legs Soreness in legs Medications cranberry extract 200 mg capsule Take 4,200 mg by mouth once. Active kxiuu3-imxB9-R6 2-E-FA-fish oil [phone] qf-um-zhs-mcg capsule Take 600 mcg by mouth 3 [...] MOUTH EVERY 12 HOURS 90 tablet 3 5 Active Active Problems Problem Noted Date Diagnosed Date Sacroiliitis 10/22/2022 DDD (degenerative disc disease), lumbar 10/22/20 Chronic pain syndrome 10/22/2022 Atrial flutter, paroxysmal 07/19/2021 Lumbar radiculopathy 11/01/2016 Lumbago 12/19/2014 Encounters Date Type Department Care Team Description 05/09/2025 11:15 AM CDT Office Visit [facility] Cardiology at [address] [place] [phone] Mo Cuba MD Atrial flutter, paroxysmal (HCC) (Primary Dx) from Last 3 Months Surgical History Surgery Date Site/Laterality Comments BACK SURGERY HYSTERECTOMY APPENDECTOMY CHOLECYSTECTOMY Medical History Medical History Date Comments Gastric reflux Rheumatoid arthritis (HCC) Appendicitis Pulmonary embolism Low back pain Family History Medical History [...] on file Legal Sex Female 3:29 PM ROLL GRINDER Gender Identity Not on file Sexual Orientation Not on file Occupation Industry Job Start Date Job End Date retired Not on file Not on file Not on file Obstetrics History Last Filed Vital Signs Vital Sign Reading Time Taken Comments Blood Pressure 118/86 05/09/2025 11:38 AM CDT Pulse 63 05/09/2025 11:38 AM CDT Temperature 36.7 C (98 F) 10/22/2022 1:20 PM ROLL GRINDER Respiratory Rate 15 10/22/2022 3:09 PM ROLL GRINDER Oxygen Saturation 96% 05/09/2025 11:38 AM CDT [...] 12/03/2021, 08/18/2020, Additional history exists Influenza Vaccine (#1) 2025 9, 08/24/2018, 08/29/2017, Additional history exists Goals Goal Patient Goal Type Associated Problems Recent Progress Patient-Stated? Author CCM Chronic Pain Care Plan Chronic Care Management No change(06/14 1:52 PM CDT) Sheila Deasi, RN Note: Problem: Chronic Pain Goals: 1. [...] on stairs Contact your local community or [facility] for information on exercise, fall prevention programs, or options for improving home safety. Insurance UHC MEDICARE ADVANTAGE [facility] MEDICARE AETNA MEDICARE Care Teams Maintenance And Custodian Supervisor Relationship Specialty Start Date End Date Nasir Muñiz MD PCP - General Family Practice 12/16/18
--- OUTSIDE RECORDS SUMMARY | 2025-07-19 11:54 | XMS_ITS | Encounter Summary ---
Author Organization [facility] Address [address] [place] [address] Care Team Providers Care Lode Miner Name Role Phone Nasir Muñiz MD Primary Care Provider Encounter Details Date Type Department Care Team (Late st Contact Info) Description 06/11/2019 Telephone [facility] at [facility] [address] [facility] [address] [place] [address] Jonathan Joaquin MD [address] [facility] [address] [place] [address] Social History Tobacco Use Types Packs/Day Years Used Date Smoking Tobacco: Never Smokeless Tobacco: Never Alcohol Use Standard Drinks/Week Comments Yes 0 (1 standard drink = 0.6 oz pur e alcohol) Comments Unknown Sex and Gender Information Value Date Recorded Sex Assigned at Not on file Legal Sex Female 3:29 PM ACCOUNT SUPERVISOR Gender Identity Not on file Sexual Orientation [...] on filedocumented in this encounter Care Teams Lode Miner Relationship Specialty Start Date End Date Nasir Muñiz MD PCP - General Family Practice 12/16/18 documented as of this encounter
== END 2025-07-19 11:37 | disposition home or self-care (01) ==
LOC: CHSIMG 11:37
PROVIDERS: PCP Family Medicine; Visit Provider Family Medicine
DX: Z78.0 Asymptomatic menopausal state (principal); M85.89 Other specified disorders of bone density and structure, multiple sites
CPT/HCPCS: 77080

== ENCOUNTER 2025-08-23 09:22 | Day surgery (SDC) | payer MEDICARE, SELFPAY ==
[2025-08-19 09:43] VITALS: BMI 25.8
--- NOTE | ~2025-08-23 | XR_ITS ---
EXAMINATION: XR fluoroscopy no charge DATE: 08/23/2025 10:08 INDICATION: Therapeutic bilateral sacroiliac joint steroid injections TECHNIQUE: 7 fluoroscopic images of the bilateral sacroiliac joints were obtained during procedure performed by Dr. Drew. Radiologist was not present for the imaging or procedure. The amount of fluoroscopy time used during this procedure was 0.8 minutes. COMPARISON: None. FINDINGS/IMPRESSION: Images demonstrate spinal needles advanced into the bilateral sacroiliac joints with injected contrast opacifying portions of the bilateral joint spaces. See procedure note for further detail. Reviewed, dictated and finalized at location A.
[2025-08-23 09:48] VITALS: BP 131/64; PULSE 61; RESP 15; TEMP 36.6; O2SAT 99
--- NOTE | 2025-08-23 09:50 | WPDHPUPDATE1 ---
History and Physical Update Update Date/Time: 08/23/25 09:50 History and Physical has been reviewed, including an updated exam of the patient. There are NO changes in the patient's condition. Risks, benefits, and alternatives have been discussed and questions answered. Patient agrees to proceed with procedure.
--- NOTE | 2025-08-23 09:51 | P.OP_ITS ---
Procedure Note - Detailed Date of Procedure 08/23/25 Pre-op Diagnosis Sacroiliitis Post-op Diagnosis Same Procedure Performed Bilateral Sacroiliac Joint Steroid Injection under Fluoroscopic Guidance and with Contrast Control. Surgeon Mariusz Drew MD Small Business Banking Officer None Anesthesia Local Description of Procedure INFORMED CONSENT: Risks, benefits and alternatives to the procedure were discussed in detail with the patient who expressed explicit understanding and consent to proceed. Patient was informed verbally and in written form regarding the risks associated with the procedure including the low risk of serious infection, bleeding/bruising, allergic reaction, nerve or organ injury, paralysis, procedural site pain or discomfort, worsening pain and/or mobility, failure to treat and/or disfigurement. The patient expressed explicit understanding and consent to proceed. All materials required for the procedure were available prior to procedure start. Site and side were marked prior to procedure and confirmed in the presence of the patient. PROCEDURE IN DETAIL: The patient was brought to the procedural suite and placed in the prone position. Patient was made comfortable with use of pillows under the head/chest, hips and ankles. Skin overlying the injection site on the affected side(s) was prepared broadly with ChloraPrep applicator and draped in a sterile manner. Aseptic technique was used throughout. The right SI joint was identified in the AP view and contralateral oblique angulation with caudal tilt was utilized to optimize visualization of the inferior and medial joint line representing the posterior portion of the joint. Local anesthesia was established by infiltration with approximately 5 mL of 2% lidocaine via a 1-1/2 inch 27-gauge needle. A 22-gauge 3.5 inch Quincke spinal needle was advanced until the needle entered the inferior third of the joint space approximately 1cm cephalad from its most inferior point. In the AP view, 0.5 mL of Omnipaque 300 contrast medium was injected after negative aspiration for CSF, blood or other bodily fluid, showing appropriate intra-articular spread of contrast without evidence of intravascular, perineural or intrathecal placement. A 1.5 mL solution containing 5 mg of dexamethasone in 0.5% PF bupivacaine was injected after repeat negative aspiration. Appropriate spread of the injectate was confirmed with washout of previous injected contrast. No parasthesias were elicited. Needle was removed completely intact without difficulty. The same exact procedure was repeated for all remaining levels on the contralateral side, left SI joint, modified as necessary to accommodate for the new target location with identical findings/results and no evidence of complication. Images were saved and documented in the patient chart. Patient's skin was cleansed and sterile bandage applied. The patient tolerated the procedure well. The patient was transported to the recovery area in stable condition where they were observed for an appropriate amount of time prior to discharge, without evidence of complication. The patient was instructed to avoid excessive activity for the next 48 hours, including climbing and frequent use of stairs. Showers only for 48 hours. They were instructed not to drive or operate heavy machinery for 24 hours. They are to monitor for severe headaches, fevers, chills, night sweats, erythema/swelling at the site or any other signs of infection, bleeding/bruising, bowel or bladder changes as well as new pain, weakness or numbness in the upper or lower extremity. Should they notice these changes, they are instructed to call our office immediately or report directly to the nearest Emergency Department if no answer or if after posted office hours. COMPLICATIONS: None COMMENTS: None CONTRAST WASTED: 29mL Omnipaque 300. Complications No immediate complications Condition Stable Disposition Same day [facility] Billing Surgery - Charge Forward: Surgery Billing
[2025-08-23 09:58] VITALS: BP 153/68; PULSE 64; RESP 16; O2SAT 99
[2025-08-23] MEDS: BUPivacaine HCL 0.5% 10 ML AMP INFILTRATE (10:02)
[2025-08-23] MEDS: dexAMETHasone SOD PHOS INJ 10 MG/ML 1 ML VIAL IM (10:03)
[2025-08-23 10:04] VITALS: BP 146/69; PULSE 65; RESP 17; O2SAT 100
[2025-08-23 10:09] VITALS: BP 142/95; PULSE 61; RESP 20; O2SAT 100
--- OUTSIDE RECORDS SUMMARY | 2025-08-23 10:14 | XMS_ITS | Encounter Summary ---
Author Organization [facility] Healthcare Address [address] [place] [address] Care Team Providers Care Bridge Tender Name Role Phone Nasir Muñiz MD Primary Care Provider Encounter Details Date Type Department Care Team (Late st Contact Info) Description 06/11/2019 Telephone [facility] at [facility] [address] [place] [address] Jonathan Joaquin MD [address] [facility] [address] [place] [address] Social History Tobacco Use Types Packs/Day Years Used Date Smoking Tobacco: Never Smokeless Tobacco: Never Alcohol Use Standard Drinks/Week Comments Yes 0 (1 standard drink = 0.6 oz pur e alcohol) Comments Unknown Sex and Gender Information Value Date Recorded Sex Assigned at Not on file 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
--- OUTSIDE RECORDS SUMMARY | 2025-08-23 10:14 | XMS_ITS | Clinical Summary ---
Author Organization [facility] Address [address] [place] [address] Care Team Providers Care Facility Attendant Name Role Phone Nasir Muñiz MD Primary Care Provider Allergies Active Allergy Reactions Criticality Noted Date Comments Caffeine Agitation,Anxiety Low 04/25/2020 Gabapentin Muscle pain Medium 04/25/2020 Pregabalin Hallucinations Medium 04/25/2020 Rosuvastatin Other (See comments) ,Muscle pain Medium 06/14/2019 Soreness in legs Soreness in legs Medications cranberry extract 200 mg capsule Take 4,200 mg by mouth once. 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 Gender Identity Not on file Sexual Orientation Not on file Occupation Industry Job Start Date Job End Date retired Not on file Not on file Not on file Obstetrics History Last Filed Vital Signs Vital Sign Reading Time Taken Comments Blood Pressure 118/86 05/09/2025 11:38 AM CDT Pulse 63 05/09/2025 11:38 AM CDT Temperature 36.7 C (98 F) 10/22/2022 1:20 PM RECYCLING SORTER Respiratory Rate 15 10/22/2022 3:09 PM RECYCLING SORTER Oxygen Saturation 96% 05/09/2025 11:38 AM CDT [...] on stairs Contact your local community or [facility] for information on exercise, fall prevention programs, or options for improving home safety. Insurance [facility] MEDICARE ADVANTAGE [employer] MEDICARE [employer] MEDICARE Care Teams Facility Attendant Relationship Specialty Start Date End Date Nasir Muñiz MD PCP - General Family Practice 12/16/18
--- OUTSIDE RECORDS SUMMARY | 2025-08-23 10:14 | XMS_ITS | Patient Health Record ---
Author Organization [facility] Address [address] [place], [place] [address] Care Team Providers Care Pipeline Integrity Engineer Name Role Phone JEFERSON WOODALL Unavailable [phone] Nasir Muñiz Unavailable Unavaila ble Reason For Referral No Information Plan Of Treatment No Information Insurance Providers Payer Name Payer Address Payer Phone Subscriber Number Group Number Insured Name Patient Relationship to Insured Coverage Start Date Coverage End Date [facility] [address] [address] [place] [address] [id number] ROSEANN DUNHAM Self - patient is the insured
--- OUTSIDE RECORDS SUMMARY | 2025-08-23 10:15 | XMS_ITS | Clinical Summary ---
Author Organization [facility] [employer] [address] [facility] Address [address] [place] [address] Care Team Providers Care Watch And Clock Repair Clerk Name Role Phone Baker Lynda FROST Primary Care Provider [phone] Allergies Active Allergy Reactions Criticality Noted Date [...] 420 mg/3.5 mL wearable injector 02/28/2020 Active ssn-Z6-[id number]-zi fw-gie-tttn-bor 600 mg calcium- 800 unit-50 mg Tablet Take by mouth. Active Cranberry Extract 200 mg Capsule Take 4,200 mg by mouth. Active cyanocobalamin, vitamin B-12, 5,000 mcg Capsule Take 5,000 mcg by mouth. Active Zkmvx2-RvbL1-K9 2-E-FA-Fish Oil [id number] fi-uk-pog-mcg Capsule Take 600 mcg by mouth. Active Magnesium 200 mg Tablet 200 mg. Active Pyridoxine-Susan tonin 5-1 mg Tablet Active multivit,Ca,Iro o-HP-Mghl-Lut (COMPLETE) 45-883-120-250 ry-lxq-jdm-mcg Tablet Active omeprazole (PriLOSEC) 40 mg Capsule, [...] Comments Blood Pressure 108/79 12/27/2020 3:07 PM DIRECTOR OF ACCREDITATION Pulse 88 12/27/2020 3:07 PM DIRECTOR OF ACCREDITATION Temperature 36.7 C (98 F) 12/27/2020 3:07 PM DIRECTOR OF ACCREDITATION Respiratory Rate - - Oxygen Saturation 97% 12/27/2020 3:07 PM DIRECTOR OF ACCREDITATION Inhaled Oxygen Concentration - - Weight 66.2 [...] 2017 INFLUENZA VACCINE (#1) 2025 Care Teams Watch And Clock Repair Clerk Relationship Specialty Start Date End Date Lynda Baker NP [address] [place] [address] PCP - General NURSE PRACTITIONER 02/22/21
--- NOTE | 2025-08-23 10:47 | SUR.OPER ---
1005; DR YODER NOTIFIED OF PT'S INTRAOP BP 190s SYSTOLIC. ENDED AT 170s SYSTOLIC.
== END 2025-08-23 10:21 | disposition home or self-care (01) ==
PROVIDERS: PCP Family Medicine; Visit Provider Anesthesiology Pain Medicine
PROC: (CPT G0260; principal; 2025-08-23 10:20)
DX: M46.1 Sacroiliitis, not elsewhere classified (principal)
CPT/HCPCS: G0260; 27096; 99199

== ENCOUNTER 2025-11-07 16:03 | Outpatient (CLI) | payer MEDICARE, SELFPAY ==
--- OUTSIDE RECORDS SUMMARY | 2025-11-07 18:09 | XMS_ITS | Encounter Summary ---
Author Organization [facility] Healthcare Address [address] [place] [address] Care Team Providers Care Religious Healer Name Role Phone Nasir Muñiz MD Primary Care Provider Encounter Details Date Type Department Care Team (Late st Contact Info) Description 06/11/2019 Telephone [facility] at [facility] [address] [place] [address] Jonathan Joaquin MD [address] [facility] [address] [place] [address] Social History Tobacco Use Types Packs/Day Years Used Date Smoking Tobacco: Never Smokeless Tobacco: Never Alcohol Use Standard Drinks/Week Comments Yes 0 (1 standard drink = 0.6 oz pur e alcohol) Comments Unknown Sex and Gender Information Value Date Recorded Sex Assigned at Not on file 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 Gender Identity Not on file Sexual Orientation Not on file Occupation Industry Job Start Date Job End Date retired Not on file Not on file Not on file documented as of this encounter Functional Status * In the past year, patient experienced: Question Answer Date of Assessment Author One or more falls in the t year No 06/14/2019 1:57 PM Sheri Johns RN Has trouble stepping up onto a curb Yes 06/14/2019 1:57 PM Sheri Johns RN Advised to use a cane or walker to get around safely No 06/14/2019 1:57 PM Jose Johns RN Often has to peralta to the toilet No 06/14/2019 1:57 PM Sheri Johns RN Feels unsteady when walking No 06/14/2019 1: 57 PM Jose Johns RN Has lost some feeling in feet No 06/14/2019 1:57 PM Jose Johns RN Steadies self on furniture while walking at home No 06/14/2019 1:57 PM Chema Johns RN Takes medicine that makes him/her feel lightheaded or more tired than usual No 06/14/2019 1:57 PM Chema Johns RN Worried about falling Yes 06/14/2019 1:57 PM Jose Johns RN Takes medicine to sleep or improve mood No 06/14/2019 1:57 PM Sheri Johns RN Needs to push with hands whe n rising from a chair No 06/14/2019 1:57 PM Sheri Johns RN Often feels sad or depressed No 06/14/2019 1 :57 PM Jose Johns RN * Cassidy Fall Risk Question Answer Date of Assessment Author History of Falling 0 06/14/2019 2:50 PM CDT Stacey Walsh RN Secondary Diagnosis 0 06/14/2019 2:50 PM CD T Stacey Walsh RN Ambulatory Aids 0 06/14/2019 2:50 PM CDT Stacey Cano RN Intravenous Therapy/Heparin/ Saline Lock 0 06/14/2019 2:50 PM YONATHANT Stacey Walsh RN Gait/Transferring 0 06/14/2019 2:50 PM CDT Stacey Walsh RN Mental Status 0 06/14/2019 2:50 PM CDT Stacey Mcdaniel RN * BP Location Answer Date of Assessment Author Right arm 06/14/2019 1:48 PM CDT Jose Rebolledo RN * Fall Risk Interventions Question Answer Date of Assessment Author All Low Fall Interventions Applied Yes 2018 2:50 PM CDT Stacey Walsh RN * BP Location Answer Date of Assessment Author Right arm 06/14/2019 1:48 PM CDT Jose Rebolledo RN * Fall Risk Interventions Question Answer Date of Assessment Author All Low Fall Interventions Applied Yes 2018 2:50 PM CDT Stacey Walsh RN documented as of this encounter Plan of [...] likelihood of falling Lifestyle No Sheila Hummel, ROSEANN Note: Below are four things you [...] on filedocumented in this encounter Care Teams Religious Healer Relationship Specialty Start Date End Date Nasir Muñiz MD PCP - General Family Practice 12/16/18 documented as of this encounter
--- OUTSIDE RECORDS SUMMARY | 2025-11-07 18:09 | XMS_ITS | Clinical Summary ---
Author Organization [facility] Address [address] [place] [address] Care Team Providers Care Mail Forwarding System Markup Clerk Name Role Phone Nasir Muñiz MD Primary Care Provider Allergies Active Allergy Reactions Criticality Noted Date Comments Caffeine Agitation,Anxiety Low 04/25/2020 Gabapentin Muscle pain Medium 04/25/2020 Pregabalin Hallucinations Medium 04/25/2020 Rosuvastatin Other (See comments) ,Muscle pain Medium 06/14/2019 Soreness in legs Soreness in legs Medications cranberry extract 200 mg capsule Take 4,200 mg by mouth once. Active nrpyz5-ivpQ4-W5 2-E-FA-fish oil [id number] bj-pr-zcr-mcg capsule Take 600 mcg by mouth 3 [...] needed for pain 30 tablet 2 Active HYDROcodone-jef taminophen (NORCO) 5-325 mg per tabletIndicatio ns:Pain Take 1 tablet by mouth every 8 (eight) hours as needed for pain 90 tablet 2 Active ipratropium (ATROVENT) 42 mcg (0.06 %) nasal [...] Encounters Date Type Department Care Team Description 10/24/2025 10:30 AM MOSHGIACH Office Visit [facility] Cardiology at [address] [place] [address] Mo Cuba MD Atrial flutter, [...] on file Legal Sex Female 3:29 PM MOSHGIACH Gender Identity Not on file Sexual Orientation Not on file Occupation Industry Job Start Date Job End Date retired Not on file Not on file Not on file Last Filed Vital Signs Vital Sign Reading Time Taken Comments Blood Pressure 128/64 10/24/2025 10:36 AM MOSHGIACH Pulse 66 10/24/2025 10:36 AM MOSHGIACH Temperature 36.7 C (98 F) 10/22/2022 1:20 PM MOSHGIACH Respiratory Rate 15 10/22/2022 3:09 PM MOSHGIACH Oxygen Saturation 98% 10/24/2025 10:36 AM MOSHGIACH Inhaled Oxygen Concentration - - Weight 70.3 kg (155 lb) 10/24/2025 10:36 AM MOSHGIACH Height 167.6 cm (5' 6) 10/24/2025 10:36 AM MOSHGIACH Body Mass Index 25.02 10/24/2025 10:36 AM MOSHGIACH Plan of Treatment Health Maintenance Due Date [...] on stairs Contact your local community or [facility] for information on exercise, fall prevention programs, or options for improving home safety. Procedures Procedure Name Priority Date/Time Associated Diagnosis Comments ELECTROCARDIOGRAM REPORT Routine 10/24/2025 Atrial flutter, paroxysmal (HCC) from Last 3 Months Results * Electrocardiogram Report (10/24/2025) 10/24/2025 us Mo Cuba MD ECG ORDERABLES Final Re sult from Last 3 Months Insurance [facility] [place] [address] [employer] MEDICARE A[employer] MEDICARE Care Teams Mail Forwarding System Markup Clerk Relationship Specialty Start Date End Date Nasir Muñiz MD PCP - General Family Practice 12/16/18
--- OUTSIDE RECORDS SUMMARY | 2025-11-07 18:09 | XMS_ITS | Clinical Summary ---
Author Organization [facility] [address] [facility] Address [address] [place] [address] Care Team Providers Care Systems Librarian Name Role Phone Lynda Baker NP Primary Care Provider [phone] Allergies Active Allergy Reactions Criticality Noted Date [...] 420 mg/3.5 mL wearable injector 02/28/2020 Active snu-Q5-lce31-zi oq-sbv-cpzg-bor 600 mg calcium- 800 unit-50 mg Tablet Take by mouth. Active Cranberry Extract 200 mg Capsule Take 4,200 mg by mouth. Active cyanocobalamin, vitamin B-12, 5,000 mcg Capsule Take 5,000 mcg by mouth. Active Vktdj4-NndO3-D0 2-E-FA-Fish Oil 260-76-058-800 kw-gi-iae-mcg Capsule Take 600 mcg by mouth. Active Magnesium 200 mg Tablet 200 mg. Active Pyridoxine-Susan tonin 5-1 mg Tablet Active multivit,Ca,Iro w-JP-Ybbp-Lut (COMPLETE) 55-350-191-250 jy-cmv-sjc-mcg Tablet Active omeprazole (PriLOSEC) 40 mg Capsule, [...] Comments Blood Pressure 108/79 12/27/2020 3:07 PM HOTEL RECEPTIONIST Pulse 88 12/27/2020 3:07 PM HOTEL RECEPTIONIST Temperature 36.7 C (98 F) 12/27/2020 3:07 PM HOTEL RECEPTIONIST Respiratory Rate - - Oxygen Saturation 97% 12/27/2020 3:07 PM HOTEL RECEPTIONIST Inhaled Oxygen Concentration - - Weight 66.2 [...] 2017 INFLUENZA VACCINE (#1) 2025 Care Teams Systems Librarian Relationship Specialty Start Date End Date Lynda Baker NP [address] [place] [address] PCP - General NURSE PRACTITIONER 02/22/21
[2025-11-07 18:56] LABS: Alanine Aminotransferase 14 U/L (6-35); Albumin Level 4.0 g/dL (3.5-5.1); Alkaline Phosphatase 80 U/L (38-126); Anion Gap 4 mmol/L (4-12); Aspartate Amino Transferase 33 U/L (14-36); Bilirubin,Total 0.3 mg/dL (0.2-1.3); Blood Urea Nitrogen 10 mg/dL (7-17); Calcium 9.5 mg/dL (8.4-10.2); Carbon Dioxide 29 mmol/L (22-30); Chloride 101 mmol/L (98-107); Estimated Glomerular Filt Rate > 60; Glucose 94 mg/dL (65-110); Potassium 4.5 mmol/L (3.4-5.0); Sodium 134 mmol/L (137-145); Total Protein 6.9 g/dL (6.3-8.2)
== END 2025-11-07 16:04 | disposition home or self-care (01) ==
LOC: ANHGOSHLAB 16:04
PROVIDERS: PCP Family Medicine; Visit Provider Family Medicine
DX: E78.5 Hyperlipidemia, unspecified (principal); Z79.899 Other long term (current) drug therapy
CPT/HCPCS: 36415; 80053